=== PATIENT | male | born 1955 | race Caucasian/White ===

== ENCOUNTER 2016-08-21 13:11 | Emergency (ER) | payer MEDICARE, MEDICAID ==
[2016-08-21] MEDS ORDERED: METHYLPREDNISOLONE INJ 125 MG/2 ML SDV IV ONE (13:47)
[2016-08-21] MEDS ORDERED: ALBUTEROL SULFATE 0.083% NEB 2.5 MG/3 ML AMPUL NEB ONE ×2 (13:47→14:56)
[2016-08-21] MEDS ORDERED: MORPHINE SULFATE 10 MG/ML INJ IV ONE (13:47)
[2016-08-21] MEDS ORDERED: DIPH/PERTUSS(ACELL)/TETANUS VAC/PF 0.5 ML SYR (>=10YO) IM ONE (13:47)
[2016-08-21] MEDS ORDERED: IPRATROPIUM/ALBUTEROL 0.5-2.5 MG/3 ML AMPUL NEB ONE (13:47)
[2016-08-21] MEDS ORDERED: SILVER SULFADIAZINE 1% CREAM 25 GM TP ONE (13:47)
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
[2016-08-21 14:09] LABS: ABSOLUTE BASOPHILS # (AUTO) 0.1 10^3/uL (0.0-0.2); ABSOLUTE EOSINOPHILS # (AUTO) 0.2 10^3/uL (0.0-0.6); ABSOLUTE LYMPHOCYTES (AUTO) 2.9 10^3/uL (0.5-4.7); ABSOLUTE MONOCYTES (AUTO) 0.8 10^3/uL (0.1-1.4); ABSOLUTE NEUT (AUTO) 4.6 10^3/uL (1.7-8.2); BASOPHILS % (AUTO) 0.8 % (0-2); EOSINOPHILS % (AUTO) 2.1 % (0-6); HEMATOCRIT 48.1 % (37.9-51.0); HEMOGLOBIN 16.1 g/dL (13.5-17.0); HGB HCT DIFFERENCE 0.2; LYMPHOCYTES % (AUTO) 33.6 % (13-45); MEAN CORPUSCULAR HEMOGLOBIN 29.1 pg (27.0-33.4); MEAN CORPUSCULAR HGB CONC 33.5 g/dL (32.0-36.0); MEAN CORPUSCULAR VOLUME 87 fl (80-97); RED BLOOD COUNT 5.54 10^6/uL (4.35-5.55); RED CELL DISTRIBUTION WIDTH 13.3 % (11.5-14.0); SEGMENTED NEUTROPHILS % (AUTO) 53.5 % (42-78); WHITE BLOOD COUNT 8.5 10^3/uL (4.0-10.5)
[2016-08-21 14:24] LABS: ALANINE AMINOTRANSFERASE 32 U/L (21-72); ALBUMIN 4.4 g/dL (3.5-5.0); ALKALINE PHOSPHATASE 73 U/L (38-126); ANION GAP 11 (5-19); ASPARTATE AMINO TRANSFERASE 21 U/L (17-59); BILIRUBIN,DIRECT 0.3 mg/dL (0.0-0.4); BILIRUBIN,TOTAL 0.5 mg/dL (0.2-1.3); BLOOD UREA NITROGEN 10 mg/dL (7-20); CALCIUM 9.6 mg/dL (8.4-10.2); CARBON DIOXIDE 25 mmol/L (22-30); CHLORIDE 104 mmol/L (98-107); CREATINE KINASE 152 U/L (55-170); CREATININE RESULT 0.93 mg/dL (0.52-1.25); GLUCOSE 99 mg/dL (75-110); POTASSIUM 4.7 mmol/L (3.6-5.0); TOTAL PROTEIN 7.9 g/dL (6.3-8.2)
--- NOTE | 2016-08-21 14:27 | RADIOLOGY REPORT (SQ) ---
EXAM DESCRIPTION: CHEST SINGLE VIEW COMPLETED DATE/TIME: 08/21/2016 2:19 pm REASON FOR STUDY: db COMPARISON: 05/13/2015 EXAM PARAMETERS: NUMBER OF VIEWS: One view. TECHNIQUE: Single frontal radiographic view of the chest acquired. RADIATION DOSE: NA LIMITATIONS: None. FINDINGS: LUNGS AND PLEURA: Lung rice are hyperexpanded. There is bullous formation the apices. There is compressive atelectasis in the lung bases. No consolidation or failure. MEDIASTINUM AND HILAR STRUCTURES: No masses. Contour normal. HEART AND VASCULAR STRUCTURES: Heart normal in size. Normal vasculature. BONES: No acute findings. HARDWARE: None in the chest. OTHER: No other significant finding. IMPRESSION: Severe COPD with bullous formation in the apices. No acute findings. TECHNICAL DOCUMENTATION: JOB ID: [id number]
[2016-08-21 14:36] LABS: CREATINE KINASE MB 2.43 ng/mL (<4.55)
[2016-08-21 14:39] LABS: TROPONIN I < 0.012 ng/mL
[2016-08-21 15:23] LABS: VENOUS BLOOD BASE EXCESS -2.1 mmol/L; VENOUS BLOOD HCO3 24.7 mmol/L (20-32); VENOUS BLOOD PCO2 49.3 mmHg (35-63); VENOUS BLOOD PH 7.32 (7.30-7.42)
[2016-08-21 15:27] VITALS: BP 146/96
--- NOTE | 2016-08-21 21:15 | EKG REPORT ---
SEVERITY:- NORMAL ECG - SINUS RHYTHM : Confirmed by: Ap Elder 21-Aug-2016 21:14:45
== END 2016-08-21 15:35 | disposition home or self-care (01) ==
LOC: ER 13:11
DX: J44.1 Chronic obstructive pulmonary disease with (acute) exacerbation (principal); T20.14XA Burn of first degree of nose (septum), initial encounter; T20.12XA Burn of first degree of lip(s), initial encounter; X08.8XXA Exposure to other specified smoke, fire and flames, initial encounter; Y93.89 Activity, other specified; F17.210 Nicotine dependence, cigarettes, uncomplicated; Z99.81 Dependence on supplemental oxygen; R06.02 Shortness of breath; R05 Cough; I10 Essential (primary) hypertension; I25.2 Old myocardial infarction; Z91.013 Allergy to seafood
CPT/HCPCS: 93005; 94640 ×2; 99285; 90471; 96374; 96375; 36415; 82553; 82550; 85025; 80053; 84484; 82803; 83880; 71010; 90715; 93010; J2930; J2270; A9270 ×3; J7620

== ENCOUNTER 2016-10-09 10:17 | Inpatient (IN) | payer MEDICARE, MEDICAID ==
--- NOTE | 2016-10-09 10:40 | ER Document Report ---
ED Respiratory Problem - General Mode of Arrival: Medic Information source: Patient TRAVEL OUTSIDE OF THE [place] IN LAST 30 DAYS: No - HPI Patient complains to provider of: Short of breath Associated symptoms: Other - See above <KENA GAGE - Last Filed: 10/09/16 10:35> <SANIYA EUGENE - Last Filed: 10/09/16 16:18> - General Chief Complaint: Shortness Of Breath Stated Complaint: SHORTNESS OF BREATH Notes: Patient is a 61 year old male, with a past medical history including COPD, who presents to the emergency department complaining of shortness of breath onset this morning. Patient states he was fine last night but woke up with difficulty breathing and shortness of breath, states he couldn't swallow. Patient is on home oxygen and still smokes. Patient was seen at this facility on August 21 for similar complaints. (KENA GAGE) - Related Data Allergies/Adverse Reactions: iodine [Iodine] Allergy (Verified 08/28/14 15:04) Shellfish * [Shellfish] Allergy (Verified 08/28/14 15:04) Past Medical History - General Information source: Patient - Social History Smoking Status: Current Every Day Smoker Family History: Reviewed & Not Pertinent - Past Medical History Cardiac Medical History: Reports: Hx Heart Attack, Hx Hypertension Pulmonary Medical History: Reports: Hx Bronchitis, Hx COPD Renal/ Medical History: Reports: Hx Kidney Stones GI Medical History: Reports: Hx Diverticulitis <KENA GAGE - Last Filed: 10/09/16 10:35> Review of Systems - Review of Systems Constitutional: No symptoms reported EENT: See HPI, Difficulty swallowing Cardiovascular: No symptoms reported Respiratory: See HPI, Short of breath Gastrointestinal: No symptoms reported Genitourinary: No symptoms reported Male Genitourinary: No symptoms reported Musculoskeletal: No symptoms reported Skin: No symptoms reported Hematologic/Lymphatic: No symptoms reported Neurological/Psychological: No symptoms reported -: Yes All other systems reviewed and negative <KENA GAGE - Last Filed: 10/09/16 10:35> Physical Exam - Vital signs Interpretation: Normal - General General appearance: Appears well, Alert - HEENT Head: Normocephalic, Atraumatic - Respiratory Respiratory status: Tachypnea, Other - Air trapping, prolonged expiratory phase Chest status: Nontender Breath sounds: Wheezing - Diffuse expiratory and inspiratory Chest palpation: Normal - Cardiovascular Rhythm: Regular Heart sounds: Normal auscultation Murmur: No - Back Back: Normal, Nontender - Extremities General upper extremity: Normal inspection General lower extremity: Normal inspection - Neurological Neuro grossly intact: Yes Cognition: Normal Orientation: AAOx4 Jacy Coma Scale Eye Opening: Spontaneous [place] Coma Scale Verbal: Oriented Jacy Coma Scale Motor: Obeys Commands Jacy Coma Scale Total: 15 Speech: Normal - Psychological Associated symptoms: Normal affect, Normal mood - Skin Skin Temperature: Warm Skin Moisture: Dry Skin Color: Normal <KENA GAGE - Last Filed: 10/09/16 10:35> - HEENT Pharynx: Other - Posterior pharynx shows some erythematous and edematous tonsillar tissue. There is no exudate. <SANIYA EUGENE - Last Filed: 10/09/16 16:18> - Vital signs Vitals: Resp Pulse Ox 39 H 100 10/09/16 10:32 10/09/16 10:32 Course <KENA GAGE - Last Filed: 10/09/16 10:35> - Laboratory Result Diagrams: 10/09/16 11:15 10/09/16 11:15 - Diagnostic Test Radiology reviewed: Image reviewed, Reports reviewed - Chest x-ray shows COPD with bullous formation in the upper lung rice. Does not show an acute process. - EKG Interpretation by Me EKG shows normal: Sinus rhythm, Intervals, QRS Complexes, ST-T Waves. abnormal : [place] - Borderline right axis deviation Rate: Tachycardia - 110 When compared to previous EKG there are: No significant change - Consults Dr. Rosas Time consulted: 16:05 Consulted provider: will come to ER <SANIYA EUGENE - Last Filed: 10/09/16 16:18> - Re-evaluation Re-evalutation: 10/09/16 13:22 Patient reports the throat swelling seems to feel much better after racemic epi , and the breathing seems better. On auscultation the prolonged expiratory phase of wheezing is much improved compared to earlier. The BiPAP will be stopped and the patient switched to nasal cannula oxygen. The rapid strep is negative. 10/09/16 15:41 The patient is working quite hard to breathe again. The wheezes have become quite loud again. He states at home he normally does breathing treatments 3 times a day which would be about every 8 hours. It is most likely the infectious process affecting his posterior pharynx is also affecting his lungs and breathing. He reluctantly agrees to be admitted to the hospital. (SANIYA EUGENE) - Vital Signs Vital signs: Temp Pulse Resp BP Pulse Ox 29 H 146/114 H 100 10/09/16 12:01 10/09/16 12:01 10/09/16 12:01 - Laboratory Laboratory results interpreted by me: 10/09/16 11:15 Creatine Kinase 210 H Critical Care Note - Critical Care Note Total time excluding time spent on procedures (mins): 35 <SANIYA EUGENE - Last Filed: 10/09/16 16:18> Discharge <KENA GAGE - Last Filed: 10/09/16 10:35> - Discharge Admitting Provider: Hospitalist Unit Admitted: [facility] <SANIYA EUGENE - Last Filed: 10/09/16 16:18> - Discharge Clinical Impression: Acute viral pharyngitis, Acute exacerbation of chronic obstructive pulmonary disease (COPD) Condition: Stable Disposition: ADMITTED INPATIENT Scribe Attestation: 10/09/16 16:18 I personally performed the services described in the documentation, reviewed and edited the documentation which was dictated to the scribe in my presence, and it accurately records my words and actions. (SANIYA EUGENE) Scribe Documentation - Scribe Written by Jovon:: jovon Romero, 10/09/16, 1040 acting as scribe for :: Golden <KENA GAGE - Last Filed: 10/09/16 10:35>
[2016-10-09] MEDS ORDERED: IPRATROPIUM/ALBUTEROL 0.5-2.5 MG/3 ML AMPUL NEB ONE (10:48)
--- NOTE | 2016-10-09 11:13 | RADIOLOGY REPORT (SQ) ---
EXAM DESCRIPTION: CHEST SINGLE VIEW COMPLETED DATE/TIME: 10/09/2016 10:40 am REASON FOR STUDY: bed 17 sepsis protocol COMPARISON: 08/21/2016 EXAM PARAMETERS: NUMBER OF VIEWS: One view. TECHNIQUE: Single frontal radiographic view of the chest acquired. RADIATION DOSE: NA LIMITATIONS: None. FINDINGS: LUNGS AND PLEURA: Again there is evidence for obstructive lung disease with bullous format ion in the upper lung rice. No acute consolidations or pleural effusions are identified. MEDIASTINUM AND HILAR STRUCTURES: No masses. Contour normal. HEART AND VASCULAR STRUCTURES: Heart normal in size. Normal vasculature. BONES: No acute findings. HARDWARE: None in the chest. OTHER: No other significant finding. IMPRESSION: No significant interval change. Obstructive lung disease. No acute findings. Other fi ndings as noted above TECHNICAL DOCUMENTATION: JOB ID: [id number]
[2016-10-09 11:45] LABS: ABSOLUTE BASOPHILS # (AUTO) 0.1 10^3/uL (0.0-0.2); ABSOLUTE EOSINOPHILS # (AUTO) 0.2 10^3/uL (0.0-0.6); ABSOLUTE LYMPHOCYTES (AUTO) 1.7 10^3/uL (0.5-4.7); ABSOLUTE MONOCYTES (AUTO) 0.5 10^3/uL (0.1-1.4); ABSOLUTE NEUT (AUTO) 5.7 10^3/uL (1.7-8.2); BASOPHILS % (AUTO) 0.8 % (0-2); EOSINOPHILS % (AUTO) 2.2 % (0-6); HEMATOCRIT 46.4 % (37.9-51.0); HEMOGLOBIN 15.8 g/dL (13.5-17.0); LYMPHOCYTES % (AUTO) 21.1 % (13-45); MEAN CORPUSCULAR HEMOGLOBIN 29.7 pg (27.0-33.4); MEAN CORPUSCULAR VOLUME 87 fl (80-97); RED BLOOD COUNT 5.31 10^6/uL (4.35-5.55); RED CELL DISTRIBUTION WIDTH 13.6 % (11.5-14.0); SEGMENTED NEUTROPHILS % (AUTO) 69.9 % (42-78); WHITE BLOOD COUNT 8.1 10^3/uL (4.0-10.5)
[2016-10-09 11:50] LABS: PROTHROMBIN TIME 12.4 SEC (11.4-15.4)
[2016-10-09 12:06] LABS: ALANINE AMINOTRANSFERASE 34 U/L (21-72); ALBUMIN 4.4 g/dL (3.5-5.0); ALKALINE PHOSPHATASE 87 U/L (38-126); ANION GAP 13 (5-19); ASPARTATE AMINO TRANSFERASE 18 U/L (17-59); BILIRUBIN,DIRECT 0.3 mg/dL (0.0-0.4); BILIRUBIN,TOTAL 0.6 mg/dL (0.2-1.3); BLOOD UREA NITROGEN 10 mg/dL (7-20); CALCIUM 9.1 mg/dL (8.4-10.2); CARBON DIOXIDE 22 mmol/L (22-30); CHLORIDE 105 mmol/L (98-107); CREATINE KINASE 210 U/L (55-170); CREATININE RESULT 0.86 mg/dL (0.52-1.25); GLUCOSE 100 mg/dL (75-110); POTASSIUM 4.4 mmol/L (3.6-5.0); SODIUM 140.3 mmol/L (137-145); TOTAL PROTEIN 7.7 g/dL (6.3-8.2)
[2016-10-09] MEDS ORDERED: ALBUTEROL SULFATE 0.083% NEB 2.5 MG/3 ML AMPUL NEB ONE (12:09)
[2016-10-09] MEDS ORDERED: NORMAL SALINE 1000 ML 1,000 ML IV ONE (12:13)
[2016-10-09] MEDS ORDERED: RACEPINEPHRINE HCL 2.25% NEB 0.5 ML AMPUL NEB ONE ×2 (12:15→15:42)
[2016-10-09 12:17] LABS: CREATINE KINASE MB 3.59 ng/mL (<4.55)
[2016-10-09 12:19] LABS: TROPONIN I < 0.012 ng/mL
[2016-10-09 13:00] LABS: VENOUS BLOOD BASE EXCESS -2.1 mmol/L; VENOUS BLOOD HCO3 23.6 mmol/L (20-32); VENOUS BLOOD PCO2 43.4 mmHg (35-63); VENOUS BLOOD PH 7.35 (7.30-7.42)
[2016-10-09 13:17] LABS: APPEARANCE,URINE CLEAR; BILIRUBIN,URINE NEGATIVE (NEGATIVE); GLUCOSE, URINE NEGATIVE (NEGATIVE); KETONES,URINE NEGATIVE (NEGATIVE); LEUKOCYTE ESTERASE,URINE NEGATIVE (NEGATIVE); NITRITE,URINE NEGATIVE (NEGATIVE); PROTEIN,URINE NEGATIVE (NEGATIVE); URINE SPECIFIC GRAVITY 1.005; UROBILINOGEN,URINE NEGATIVE mg/dL (<2.0)
--- NOTE | 2016-10-09 13:59 | EKG REPORT ---
SEVERITY:- OTHERWISE NORMAL ECG - SINUS TACHYCARDIA BORDERLINE RIGHT AXIS DEVIATION : Confirmed by: Anastasiia Baum MD 09-Oct-2016 13:58:31
[2016-10-09] MEDS ORDERED: METHYLPREDNISOLONE INJ 125 MG/2 ML SDV IV ONE (15:42)
[2016-10-09] MEDS ORDERED: POTASSI CL 20 MEQ/1/2NS 1L 1,000 ML IV PRN (17:11)
[2016-10-09] MEDS ORDERED: ACETAMINOPHEN 325 MG TABLET PO PRN (17:11)
[2016-10-09] MEDS ORDERED: IPRATROPIUM/ALBUTEROL 0.5-2.5 MG/3 ML AMPUL NEB PRN (17:11)
[2016-10-09] MEDS ORDERED: ONDANSETRON HCL INJ/PF 4 MG/2 ML SDV IV PRN (17:11)
[2016-10-09] MEDS ORDERED: AZITHROMYCIN INJ 500 MG VIAL IV ONE (17:18)
--- NOTE | 2016-10-09 17:34 | PDOC H&P ---
History of Present Illness Admission Date/PCP: 10/09/16 16:20 SOO DALEY MD History of Present Illness: This is a 61-year-old white male with a past medical history significant for COPD coronary artery disease status post [place]. Long history of smoking and hypertension who presents to the service with complaints of shortness of breath. The patient has had a sore throat and swollen glands. He feels as though his throat is swollen and that it is getting worse. He developed shortness of breath this morning. When the shortness of breath started and became progressively worse he simply came into the emergency room. In the emergency room the patient received a dose of 125 mg Solu-Medrol, racemic epi, and duo nebs. Patient is still quite short of breath at the time that I see him at the bedside. He complains of a sore throat more than anything else however. The patient is very animated and loquacious he does not complain of much else during our conversation. He denies any fevers or chills. Past Medical History Cardiac Medical History: Reports: Myocardial Infarction, Hypertension Pulmonary Medical History: Reports: Bronchitis, Chronic Obstructive Pulmonary Disease (COPD) GI Medical History: Reports: Diverticulitis Musculoskeltal Medical History: Reports: Other - Fractures of multiple bones. Past Surgical History Past Surgical History: Reports: None Social History Information Source: Patient Lives with: Family Smoking Status: Former Smoker - The patient has not smoked in 2 months. Cigarettes Packs Per Day: 3 Number of Years Smokin Frequency of Alcohol Use: Rare - Drinks on his birthday. His last was about 3 years ago Hx Recreational Drug Use: Yes Drugs: Marijuana - Advance Directive Resuscitation Status: Full Code Family History Family History: CAD, COPD Parental Family History Reviewed: Yes Children Family History Reviewed: Yes Sibling(s) Family History Reviewed.: Yes Medication/Allergy Home Medications: Albuterol Sulfate [Proair HFA Inhalation Aerosol 8.5 gm MDI] 2 puff IH QIDP PRN 10/09/16 Budesonide/Formoterol Fumarate [Symbicort HFA 160-4.5 mcg Inhaler 6 gm] 2 puff IH BID 10/09/16 Cyclobenzaprine HCl [Flexeril 10 mg Tablet] 5 mg PO Q8HP PRN 10/09/16 Cyclobenzaprine HCl [Flexeril 10 mg Tablet] 10 mg PO QHS 10/09/16 Esomeprazole Magnesium [Nexium] 40 mg PO ACBRKFST 10/09/16 Hydrocodone/Acetaminophen [[place] 10-325 Tablet] 1.5 tab PO Q6HP PRN 10/09/16 Lisinopril [Prinivil 40 mg Tablet] 40 mg PO QHS 10/09/16 Metoprolol Tartrate [Lopressor 100 mg Tablet] 100 mg PO QHS 10/09/16 Promethazine HCl/Codeine [Prometh-Codein 6.25-10 mg/5 ml] 10 ml PO QIDP PRN Tiotropium [place] [Spiriva Respimat] 2 puff IH QAM 10/09/16 Ciprofloxacin HCl [Cipro 500 mg Tablet] 500 mg PO BID #20 tablet 10/12/16 Ipratropium/Albuterol Sulfate [Duoneb 3 ml Ampul] 3 ml NEB RTQ4HP PRN #100 vial.neb 10/12/16 Lactobacillus Acidophilus [Acidophilus Lactobacilli] 1 each PO BIDACBS #100 capsule 10/12/16 Prednisone 20 mg PO ASDIR PRN #20 tablet 10/12/16 Allergies/Adverse Reactions: iodine [Iodine] Allergy (Verified 08/28/14 15:04) Shellfish * [Shellfish] Allergy (Verified 08/28/14 15:04) Review of Systems Review of Systems: Review of systems is pertinent for that already listed in the HPI. In addition to this the patient admits to subjective fever and chills. Also arthritic pains. He denies nausea, vomiting, dizziness, diarrhea, constipation. He denies blood in the stool, blood in urine, coughing up blood or throwing up blood. He has a normal appetite. No dysuria. Physical Exam Vital Signs: Temp Pulse Resp BP Pulse Ox 29 H 146/114 H 100 10/09/16 12:01 10/09/16 12:01 10/09/16 12:01 GENERAL: This is a well-developed well-nourished obese white male sitting up resting in bed short of breath. HEENT: Normocephalic, atraumatic. Trachea is midline. Sclera is anicteric. Submandibular lymphadenopathy is present. No thyromegaly. Moist mucous membranes. Posterior pharynx is injected. HEART: [Regular rate and rhythm. No murmurs, rubs or gallops.] LUNGS: Bilateral expiratory wheezes but equal rise and fall of the chest. With prolonged conversation the patient speaks in fragmented sentences and becomes dyspneic. He is currently receiving racemic epi at the bedside. She is on a nasal cannula. ABDOMEN: [Soft, nontender, nondistended with normoactive bowel sounds] EXTREMETIES: [No clubbing, cyanosis or trace edema. 2+ peripheral pulses bilaterally.] NEURO: [Awake, alert and oriented 3. Cranial nerves II through XII are grossly intact. Strength is 5 out of 5 in the upper and lower extremities bilaterally.] Results Impressions: Chest X-Ray 10/09/16 10:20 IMPRESSION: No significant interval change. Obstructive lung disease. No acute findings. Other findings as noted above Assessment & Plan - Diagnosis (1) Acute on chronic respiratory failure with hypoxemia Plan: Continue oxygen. Continue Solu-Medrol. Will add dose of antibiotics on. Repeat chest x-ray in the morning. If nothing close out this can be discontinued. Likely his acute decompensation is due to underlying viral syndrome. (2) Acute exacerbation of chronic obstructive pulmonary disease (COPD) Plan: Continue duo nebs scheduled and as needed. Continue Solu-Medrol 40 mg every [address] Duff. (3) Acute viral pharyngitis Plan: Supportive care. Will prescribe viscous lidocaine for throat pain. Swish and spit. (4) Tobacco abuse Plan: The patient quit smoking 2 months ago. We have applauded him. I encouraged him to continue to refrain from smoking. (5) CAD (coronary artery disease) Qualifiers: Coronary Disease-Associated Artery/Lesion type: unspecified vessel or lesion type [place] vs. transplanted heart: [place] heart Associated angina: without angina Qualified Code(s): I25.10 - Atherosclerotic heart disease of [place] coronary artery without angina pectoris Plan: Continue home medications. Patient has a history of [place]. - Time Time Spent: 50 to 70 Minutes Anticipated discharge: Home Within: within 48 hours - Inpatient Certification I certify that my determination is in accordance with my understanding of Medicare's requirements for reasonable and necessary INPATIENT services [42 CFR 412.3e].: Yes Medical Necessity: Need Close Monitoring Due to Risk of Patient Decompensation
[2016-10-09] MEDS ORDERED: LIDOCAINE 2% VISCOUS SOLN 20 ML UDCUP PO PRN (17:35)
[2016-10-09] MEDS ORDERED: AZITHROMYCIN 500 MG in DEXTROSE 5%-WATER 250 ML IV ONE (18:00)
[2016-10-09] MEDS: LEVALBUTEROL HCL NEB 1.25 MG/3 ML AMPUL NEB SCH (20:17)
[2016-10-09] MEDS: METHYLPREDNISOLONE INJ 40 MG/1 ML SDV IV SCH (22:09)
[2016-10-10] MEDS: LEVALBUTEROL HCL NEB 1.25 MG/3 ML AMPUL NEB SCH ×6 (00:11→19:49)
[2016-10-10] MEDS ORDERED: OXYCODONE-ACETAMINOPHEN 5-325 MG TABLET PO ONE (04:30)
[2016-10-10 05:37] LABS: ABSOLUTE LYMPHOCYTES (AUTO) 1.5 10^3/uL (0.5-4.7); ABSOLUTE MONOCYTES (AUTO) 0.3 10^3/uL (0.1-1.4); ABSOLUTE NEUT (AUTO) 10.1 10^3/uL (1.7-8.2); BASOPHILS % (AUTO) 0.2 % (0-2); HEMATOCRIT 45.1 % (37.9-51.0); HEMOGLOBIN 15.2 g/dL (13.5-17.0); HGB HCT DIFFERENCE 0.5; LYMPHOCYTES % (AUTO) 12.9 % (13-45); MEAN CORPUSCULAR HEMOGLOBIN 29.3 pg (27.0-33.4); MEAN CORPUSCULAR HGB CONC 33.7 g/dL (32.0-36.0); MEAN CORPUSCULAR VOLUME 87 fl (80-97); MONOCYTES % (AUTO) 2.4 % (3-13); RED BLOOD COUNT 5.17 10^6/uL (4.35-5.55); RED CELL DISTRIBUTION WIDTH 14.2 % (11.5-14.0); SEGMENTED NEUTROPHILS % (AUTO) 84.5 % (42-78); WHITE BLOOD COUNT 11.9 10^3/uL (4.0-10.5)
[2016-10-10 05:54] LABS: ANION GAP 14 (5-19); BLOOD UREA NITROGEN 11 mg/dL (7-20); CALCIUM 9.8 mg/dL (8.4-10.2); CARBON DIOXIDE 21 mmol/L (22-30); CHLORIDE 106 mmol/L (98-107); CREATININE RESULT 0.84 mg/dL (0.52-1.25); GLUCOSE 137 mg/dL (75-110); MAGNESIUM 2.2 mg/dL (1.6-2.3); POTASSIUM 4.8 mmol/L (3.6-5.0); SODIUM 141.2 mmol/L (137-145)
[2016-10-10] MEDS: METHYLPREDNISOLONE INJ 40 MG/1 ML SDV IV SCH ×3 (05:58→21:28)
--- NOTE | 2016-10-10 07:44 | RADIOLOGY REPORT (SQ) ---
EXAM DESCRIPTION: CHEST PA/LAT COMPLETED DATE/TIME: 10/10/2016 7:26 am REASON FOR STUDY: sob COMPARISON: Chest x-ray 10/09/2016. EXAM PARAMETERS: NUMBER OF VIEWS: two views TECHNIQUE: Digital Frontal and Lateral radiographic views of the chest acquired. RADIATION DOSE: NA LIMITATIONS: none FINDINGS: LUNGS AND PLEURA: Hyperlucent lungs, suggestive of emphysema. Atelectatic changes at the bilateral perihilar regions. No pleural effusion or pneumothorax. MEDIASTINUM AND HILAR STRUCTURES: No masses or contour abnormalities. HEART AND VASCULAR STRUCTURES: Heart normal size. No evidence for failure. BONES: No acute findings. HARDWARE: None in the chest. IMPRESSION: Emphysema. Atelectasis at the bilateral perihilar regions. TECHNICAL DOCUMENTATION: JOB ID: [id number] [employer]- All Rights Reserved
[2016-10-10] MEDS ORDERED: CYCLOBENZAPRINE HCL 10 MG TABLET PO PRN (09:42)
[2016-10-10] MEDS ORDERED: (PENDING PHARMACY ID) (Tiotropium Bromide [Spiriva Respimat] 2 PUFF) IH SCH (09:45)
[2016-10-10] MEDS ORDERED: CEFTRIAXONE 2 GM/D5W RTU 50 ML IV SCH (10:00)
[2016-10-10] MEDS ORDERED: CEFTRIAXONE 2 GM/D5W RTU 2 GM/50 ML RTUPB IV ONE (10:00)
--- NOTE | 2016-10-10 10:32 | PDOC PROGRESS REPORT ---
Subjective Progress Note for:: 10/10/16 Subjective:: reason for visit: f/u COPD exac, viral pharyngitis, thrush hospital course: per other's notes -"This is a 61-year-old white male with a past medical history significant for COPD coronary artery disease status post [place]. Long history of smoking and hypertension who presents to the service with complaints of shortness of breath. The patient has had a sore throat and swollen glands. He feels as though his throat is swollen and that it is getting worse. He developed shortness of breath this morning. When the shortness of breath started and became progressively worse he simply came into the emergency room. In the emergency room the patient received a dose of 125 mg Solu-Medrol, racemic epi, and duo nebs. Patient is still quite short of breath at the time that I see him at the bedside. He complains of a sore throat more than anything else however. The patient is very animated and loquacious he does not complain of much else during our conversation. He denies any fevers or chills." he continues to wheeze and is easily winded with minimal exertion; no better than when he arrived. still has cough, nonproductive, no chest pain, fevers/ chills, n/v/d. ROS: all systems reviewed, see above, remaining systems negative Physical Exam Vital Signs: Temp Pulse Resp BP Pulse Ox 98.1 F 129 H 20 142/90 H 100 10/10/16 08:13 10/10/16 08:13 10/10/16 08:13 10/10/16 08:13 10/10/16 08:13 Intake & Output 10/09/16 10/10/16 10/11/16 06:59 06:59 06:59 Intake Total 1200 Output Total 275 Balance 925 Weight 107.9 kg General appearance: PRESENT: no acute distress, obese, well-developed, well- nourished Head exam: PRESENT: atraumatic, normocephalic Eye exam: PRESENT: EOMI. ABSENT: conjunctival injection, scleral icterus Mouth exam: PRESENT: dry mucosa - thin white coat on the tongue, neck supple Neck exam: PRESENT: full ROM. ABSENT: tracheal deviation Respiratory exam: PRESENT: accessory muscle use, decreased breath sounds, unlabored, wheezes - diffuse Cardiovascular exam: PRESENT: RRR, tachycardia. ABSENT: systolic murmur Pulses: PRESENT: normal radial pulses, normal dorsalis pedis pul GI/Abdominal exam: PRESENT: normal bowel sounds, soft. ABSENT: tenderness Extremities exam: ABSENT: calf tenderness, pedal edema Neurological exam: PRESENT: alert, awake, oriented to person, oriented to place , oriented to time Psychiatric exam: PRESENT: appropriate affect, normal mood. ABSENT: anxious, manic Skin exam: PRESENT: dry, warm Results Laboratory Results: 10/10/16 04:56 10/10/16 04:56 10/10/16 10/10/16 04:56 04:56 WBC 11.9 H RBC 5.17 Hgb 15.2 Hct 45.1 MCV 87 MCH 29.3 MCHC 33.7 RDW 14.2 H Plt Count 204 Seg Neutrophils % 84.5 H Lymphocytes % 12.9 L Monocytes % 2.4 L Eosinophils % 0.0 Basophils % 0.2 Absolute Neutrophils 10.1 H Absolute Lymphocytes 1.5 Absolute Monocytes 0.3 Absolute Eosinophils 0.0 Absolute Basophils 0.0 Sodium 141.2 Potassium 4.8 Chloride 106 Carbon Dioxide 21 L Anion Gap 14 BUN 11 Creatinine 0.84 Est GFR ( Amer) > 60 Est GFR (Non-Af Amer) > 60 Glucose 137 H Calcium 9.8 Magnesium 2.2 Impressions: Chest X-Ray 10/10/16 08:00 IMPRESSION: Emphysema. Atelectasis at the bilateral perihilar regions. Status: Image reviewed by me - agree with rads; review of old ct chest shows extensive bullous destruction of normal lung tissue Assessment & Plan - Diagnosis (1) Thrush, oral Is this a current diagnosis for this admission?: YesPlan: add topical care and monitor for response (2) Acute exacerbation of chronic obstructive pulmonary disease (COPD) Is this a current diagnosis for this admission?: YesPlan: continue aggressive pulm toilet, systemic steroids, nebs, O2 (3) Acute on chronic respiratory failure with hypoxemia Is this a current diagnosis for this admission?: Yes (4) Acute viral pharyngitis Is this a current diagnosis for this admission?: Yes (5) CAD (coronary artery disease) Qualifiers: Coronary Disease-Associated Artery/Lesion type: unspecified vessel or lesion type [place] vs. transplanted heart: [place] heart Associated angina: without angina Qualified Code(s): I25.10 - Atherosclerotic heart disease of [place] coronary artery without angina pectoris Is this a current diagnosis for this admission?: Yes (6) Tobacco abuse Is this a current diagnosis for this admission?: YesPlan: not interested in cessation counseling at this time (7) Acute bacterial bronchitis Is this a current diagnosis for this admission?: YesPlan: finished 3d of azithromax, continue rocephin (8) Chronic low back pain Qualifiers: Back pain laterality: bilateral Sciatica presence: with sciatica Sciatica laterality: bilateral sciatica Qualified Code(s): M54.42 - Lumbago with sciatica, left side; M54.41 - Lumbago with sciatica, right side; G89.29 - Other chronic pain Is this a current diagnosis for this admission?: YesPlan: takes high dose norco at home; continue analgesics while here - Time Time Spent with patient: 35 or more minutes Medications reviewed and adjusted accordingly: Yes Anticipated discharge: Home Within: within 48 hours - Plan Summary Plan Summary: states he was recently evaluated at [place] for his lung disease and they "started a bunch of meds", will try to get those records
[2016-10-10] MEDS: OXYCODONE-ACETAMINOPHEN 5-325 MG TABLET PO PRN ×2 (10:39→16:46)
[2016-10-10] MEDS: METOPROLOL TARTRATE 50 MG TABLET PO SCH ×2 (10:43→21:27)
--- NOTE | 2016-10-10 12:21 | Physician Advisory Note ---
Physician Advisor ProgressNote .: Pursuant to the plan for [facility], I have reviewed the medical record for this patient. Physician Advisor Statement: Nice documentation of "chronic hypoxemic resp failure", & possible "Acute Bacterial bronchitis", & ongoing medical necessity in 10/10 progress note. Please consider documentin. How much O2 does pt need at baseline? (Always helpful to document in chronic resp failure.) 2. Any low O2 sats on usual amount O2, w/evidence of increased work of breathing at same time, to support dx of Ac Resp Failure, (or do you believe Ac Resp Failure dx was considered but ruled out?) - Please clarify what makes these points not contradictory in 10/10 progress note: "(+)accessory muscle use" + "unlabored" breathing. 3. Principal Dx - H&P lists Ac/chr resp failure as Dx #1, whereas 10/10 progress note lists thrush as Dx #1. Please consistently document the principal reason for admission as Dx #1 in all notes. Status: Pt with COPD exacerbation is typically most appropriate to come in as Outpt Obs, changing to Inpatient if so severe that pt doesn't improve quickly enough to go home the next day. This pt has COPD/emphysema with chronic use of __L O2 at home at baseline ( chronic hypoxemic resp failure), CAD w/prior NH (so increased chance of developing acute cardiac decompensation with tachycardia &/or hypoxemia of acute COPD exacerbation), HTN, ongoing tobacco abuse. This pt did have 2 Duonebs along with Solumedrol & Diphenhydramine en route with EMS, then 2 more Duonebs, 1L IVF, a 2nd dose 125mg Solumedrol, racemic epi x 2 total, & Bipap in ED, with recurrence of acute sx prompting ED to call hospitalist. H&P does indicate continued significant severity: "with prolonged conversation the pt speaks in fragmented sentences & becomes dyspneic "Verdana 4d at time of receiving 2nd racemic epi. This degree of ongoing sx in spite of such aggressive initial tx indicates a higher than usual likelihood of needing longer than just 1 night of hospital tx to control his sx and likely played a role in initial order for Inpatient status. Admitting attending ordered IV Rocephin & Zithromax, Xopanex nebs q4h, Duonebs prn, Solumedrol 40mg q8h, IVF @100, repeat CXR & labs, O2, & pulmonology consult. This pt has continued w/persistent prominent tachycardia as high as 129 and recurrent tachypnea to , and 10/10 progress note documents he is "no better than when he arrived", continuing to wheeze and get easily winded with minimal exertion, so he is certainly, despite very aggressive tx, not responding adequately. He is using accessory muscles to breathe on 10/10, which was not noted on 10/09, so he may actually be getting worse today in some respects. CXR on repeat shows emphysema & atelectasis. He appears to have developed thrush. Appropriate for Inpt status. CK
[2016-10-10] MEDS ORDERED: NYSTATIN/DEXAMETH/DIPHEN SUSP 120 ML PO SCH (14:00)
[2016-10-10] MEDS: NYSTATIN/DEXAMETH/DIPHEN SUSP 120 ML PO SCH ×2 (16:45→21:27)
[2016-10-10] MEDS: BUDESONIDE/FORMOTEROL 160-4.5 MCG 60 PUFF/6 GM MDI IH SCH (17:54)
[2016-10-10] MEDS: CYCLOBENZAPRINE HCL 10 MG TABLET PO SCH (21:26)
[2016-10-11] MEDS: LEVALBUTEROL HCL NEB 1.25 MG/3 ML AMPUL NEB SCH ×7 (00:11→23:22)
[2016-10-11] MEDS: METHYLPREDNISOLONE INJ 40 MG/1 ML SDV IV SCH ×3 (05:12→21:46)
[2016-10-11] MEDS: LANSOPRAZOLE 30 MG TAB.RAP.DR PO SCH (08:28)
[2016-10-11] MEDS: TIOTROPIUM BROMIDE DPI 5 CAP/KIT (18 MCG/CAP) IH SCH (08:29)
[2016-10-11] MEDS: NYSTATIN/DEXAMETH/DIPHEN SUSP 120 ML PO SCH ×4 (08:29→21:46)
[2016-10-11] MEDS: OXYCODONE-ACETAMINOPHEN 5-325 MG TABLET PO PRN (08:36)
[2016-10-11] MEDS: CEFTRIAXONE 2 GM/D5W RTU 2 GM/50 ML RTUPB IV SCH (10:33)
[2016-10-11] MEDS: METOPROLOL TARTRATE 50 MG TABLET PO SCH ×2 (10:33→21:45)
[2016-10-11] MEDS: BUDESONIDE/FORMOTEROL 160-4.5 MCG 60 PUFF/6 GM MDI IH SCH ×2 (10:34→18:26)
--- NOTE | 2016-10-11 11:50 | PDOC PROGRESS REPORT ---
Subjective Progress Note for:: 10/11/16 Subjective:: reason for visit: f/u COPD exac, viral pharyngitis, thrush hospital course: per other's notes -"This is a 61-year-old white male with a past medical history significant for COPD coronary artery disease status post [place]. Long history of smoking and hypertension who presents to the service with complaints of shortness of breath. The patient has had a sore throat and swollen glands. He feels as though his throat is swollen and that it is getting worse. He developed shortness of breath this morning. When the shortness of breath started and became progressively worse he simply came into the emergency room. In the emergency room the patient received a dose of 125 mg Solu-Medrol, racemic epi, and duo nebs. Patient is still quite short of breath at the time that I see him at the bedside. He complains of a sore throat more than anything else however. The patient is very animated and loquacious he does not complain of much else during our conversation. He denies any fevers or chills." he continues to wheeze and is easily winded with minimal exertion; some better this morning. still has cough, nonproductive, no chest pain, fevers/chills, n/v /d. c/o intense and chronic back and MSK pain states his norco works the best at home. ROS: all systems reviewed, see above, remaining systems negative Physical Exam Vital Signs: Temp Pulse Resp BP Pulse Ox 97.6 F 69 23 H 130/90 H 97 10/11/16 08:13 10/11/16 08:13 10/11/16 08:13 10/11/16 08:13 10/11/16 08:13 Intake & Output 10/10/16 10/11/16 10/12/16 06:59 06:59 06:59 Intake Total 1200 939 Output Total 275 700 Balance 925 239 Weight 107.9 kg 110.1 kg General appearance: PRESENT: no acute distress, obese, well-developed, well- nourished Head exam: PRESENT: atraumatic, normocephalic Eye exam: PRESENT: EOMI. ABSENT: conjunctival injection, scleral icterus Mouth exam: PRESENT: dry mucosa - thin white coat on the tongue, neck supple Neck exam: PRESENT: full ROM. ABSENT: tracheal deviation Respiratory exam: PRESENT: accessory muscle use, decreased breath sounds, wheezes - not as diffuse but still with opening squeaks and pops Cardiovascular exam: PRESENT: RRR, tachycardia. ABSENT: systolic murmur Pulses: PRESENT: normal radial pulses, normal dorsalis pedis pul GI/Abdominal exam: PRESENT: normal bowel sounds, soft. ABSENT: tenderness Extremities exam: ABSENT: calf tenderness, pedal edema MSK: diffuse tenderness along his spine and rib cage posteriorly Neurological exam: PRESENT: alert, awake, oriented to person, oriented to place , oriented to time Psychiatric exam: PRESENT: appropriate affect, normal mood. ABSENT: anxious, manic Skin exam: PRESENT: dry, warm Results Laboratory Results: 10/10/16 04:56 10/10/16 04:56 Assessment & Plan - Diagnosis (1) Acute exacerbation of chronic obstructive pulmonary disease (COPD) Is this a current diagnosis for this admission?: YesPlan: improved but not back to baseline; continue aggressive pulm toilet, systemic steroids, nebs, O2 (2) Acute bacterial bronchitis Is this a current diagnosis for this admission?: YesPlan: improved but not back to baseline; finished 3d of azithromax, continue rocephin (3) Chronic low back pain Qualifiers: Qualified Code(s): M54.42 - Lumbago with sciatica, left side; G89.29 - Other chronic pain Is this a current diagnosis for this admission?: YesPlan: worse, likely exacerbated by his acute illness; takes high dose norco at home and pain poorly controlled on current regimen, will attempt to replicate his home dose and monitor for response (4) Thrush, oral Is this a current diagnosis for this admission?: Yes (5) Acute viral pharyngitis Is this a current diagnosis for this admission?: Yes (6) CAD (coronary artery disease) Qualifiers: Qualified Code(s): I25.10 - Atherosclerotic heart disease of [place] coronary artery without angina pectoris Is this a current diagnosis for this admission?: Yes (7) Tobacco abuse Is this a current diagnosis for this admission?: Yes - Time Time Spent with patient: 25-34 minutes Medications reviewed and adjusted accordingly: Yes Anticipated discharge: Home Within: within 48 hours
[2016-10-11] MEDS: HYDROCODONE/ACETAMINOPHEN 10-325 MG TABLET PO PRN (13:18)
--- NOTE | 2016-10-11 17:55 | PDOC CONSULTATION ---
Consultation Consult Date: 10/10/16 Attending physician:: BAR DANIELS Consult reason:: Dyspnea History of Present Illness Admission Date/PCP: 10/09/16 17:11 SOO DALEY MD History of Present Illness: This is a 61-year-old white male with a past medical history significant for COPD,He has approximately a [id number] history of smoking and hypertension who presents to the service with complaints of shortness of breath. The patient has had a sore throat and swollen glands. He feels as though his throat is swollen and that it is getting worse. He developed shortness of breath this morning. When the shortness of breath started and became progressively worse he simply came into the emergency room. In the emergency room the patient received a dose of 125 mg Solu-Medrol, racemic epi, and duo nebs. Patient is still quite short of breath at the time that I see him at the bedside. He complains of a sore throat more than anything else however. The patient is very animated and loquacious he does not complain of much else during our conversation. He denies any fevers or chills.Admits to shortness of breath as well as Dyspnea with minimal exertion affecting activities of daily living he admits to a cough is usually dry nonproductive but over the last several days has become more productive with yellow sputum and thick but no hemoptysis his PPD was negative dates unknown he has some normals nausea without vomiting and questionable fever and chills chronically has a rhinorrhea but no sore throat he denies a history of chronic lung disease as a child or adolescent. He admits to exposure to passive smoke as a child as well as an adult as above he is smoked one half packs a day for 45 years. 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 He has no pets denies any recent travel. He readily admits some tightness in his chest is on 2 pillows occasional PND occasional nocturnal cough and occasional edema he admits to snoring restless sleep nocturia unrestful sleep and excessive daytime somnolence he has a long history of coronary artery disease and myocardial infarctions. Past Medical History Cardiac Medical History: Reports: Myocardial Infarction, Hypertension Pulmonary Medical History: Reports: Bronchitis, Chronic Obstructive Pulmonary Disease (COPD) GI Medical History: Reports: Diverticulitis Musculoskeltal Medical History: Reports: Other - Fractures of multiple bones. Psychiatric Medical History: Denies: Depression Past Surgical History Past Surgical History: Reports: None Social History Lives with: Family Smoking Status: Current Some Day Smoker Cigarettes Packs Per Day: 3 Number of Years Smokin Frequency of Alcohol Use: None Hx Recreational Drug Use: No Drugs: None Hx Prescription Drug Abuse: No Do you have pets?: No Have you had any respiratory illnesses as a child?: No Have you been exposed to any sick contacts recently?: No Have you had any recent respiratory illnesses?: No Have you travelled outside of [place] in the past 12 months?: No - Advance Directive Resuscitation Status: Full Code Family History Family History: CAD, COPD Parental Family History Reviewed: Yes Children Family History Reviewed: Yes Sibling(s) Family History Reviewed.: Yes Medication/Allergy Home Medications: Albuterol Sulfate [Proair HFA Inhalation Aerosol 8.5 gm MDI] 2 puff IH QIDP PRN 10/09/16 Budesonide/Formoterol Fumarate [Symbicort HFA 160-4.5 mcg Inhaler 6 gm] 2 puff IH BID 10/09/16 Cyclobenzaprine HCl [Flexeril 10 mg Tablet] 5 mg PO Q8HP PRN 10/09/16 Cyclobenzaprine HCl [Flexeril 10 mg Tablet] 10 mg PO QHS 10/09/16 Esomeprazole Magnesium [Nexium] 40 mg PO [id number] 10/09/16 Hydrocodone/Acetaminophen [[place] 10-325 Tablet] 1.5 tab PO Q6HP PRN 10/09/16 Lisinopril [Prinivil 40 mg Tablet] 40 mg PO QHS 10/09/16 Metoprolol Tartrate [Lopressor 100 mg Tablet] 100 mg PO QHS 10/09/16 Promethazine HCl/Codeine [Prometh-Codein 6.25-10 mg/5 ml] 10 ml PO QIDP PRN Tiotropium [place] [Spiriva Respimat] 2 puff IH QAM 10/09/16 Allergies/Adverse Reactions: iodine [Iodine] Allergy (Verified 08/28/14 15:04) Shellfish * [Shellfish] Allergy (Verified 08/28/14 15:04) Review of Systems All systems: reviewed and no additional remarkable complaints except as stated Physical Exam Vital Signs: Temp Pulse Resp BP Pulse Ox 97.5 F 93 18 129/78 H 97 10/11/16 16:04 10/11/16 16:05 10/11/16 16:05 10/11/16 16:04 10/11/16 16:05 Intake & Output 10/10/16 10/11/16 10/12/16 06:59 06:59 06:59 Intake Total 1200 939 480 Output Total 275 700 400 Balance 925 239 80 Weight 107.9 kg 110.1 kg General appearance: PRESENT: no acute distress, cooperative, disheveled, obese, well-developed Head exam: PRESENT: atraumatic, normocephalic Eye exam: PRESENT: conjunctiva pale, EOMI Mouth exam: PRESENT: dry mucosa, neck supple, tongue midline Neck exam: ABSENT: carotid bruit, JVD, lymphadenopathy, thyromegaly Respiratory exam: PRESENT: decreased breath sounds, prolonged expiratory phas, rales, rhonchi, symmetrical Cardiovascular exam: PRESENT: RRR, +S1, +S2 Pulses: PRESENT: normal radial pulses GI/Abdominal exam: PRESENT: normal bowel sounds, soft. ABSENT: distended, guarding, mass, organolmegaly, rebound, tenderness Rectal exam: PRESENT: deferred Extremities exam: PRESENT: +1 edema Neurological exam: PRESENT: alert, awake Psychiatric exam: PRESENT: normal mood Skin exam: PRESENT: dry, warm Results Laboratory Results: 10/10/16 04:56 10/10/16 04:56 Impressions: Chest X-Ray 10/10/16 08:00 IMPRESSION: Emphysema. Atelectasis at the bilateral perihilar regions. Assessment & Plan - Diagnosis (1) Acute exacerbation of chronic obstructive pulmonary disease (COPD) Is this a current diagnosis for this admission?: YesPlan: Continue IV steroids, antibiotic as well as nebulized bronchodilator therapy (2) Acute on chronic respiratory failure with hypoxemia Is this a current diagnosis for this admission?: Yes (3) Tobacco abuse Is this a current diagnosis for this admission?: Yes
--- NOTE | 2016-10-11 17:56 | PDOC PROGRESS REPORT ---
Subjective Progress Note for:: 10/11/16 Subjective:: Still short of breath but feeling better today Physical Exam Vital Signs: Temp Pulse Resp BP Pulse Ox 97.5 F 93 18 129/78 H 97 10/11/16 16:04 10/11/16 16:05 10/11/16 16:05 10/11/16 16:04 10/11/16 16:05 Intake & Output 10/10/16 10/11/16 10/12/16 06:59 06:59 06:59 Intake Total 1200 939 480 Output Total 275 700 400 Balance 925 239 80 Weight 107.9 kg 110.1 kg General appearance: PRESENT: cooperative, disheveled, mild distress, obese, well -developed Head exam: PRESENT: atraumatic, normocephalic Eye exam: PRESENT: conjunctiva pale, EOMI Mouth exam: PRESENT: dry mucosa, neck supple Teeth exam: PRESENT: poor dentation Neck exam: ABSENT: carotid bruit, JVD, lymphadenopathy, thyromegaly Respiratory exam: PRESENT: decreased breath sounds, prolonged expiratory phas, rales, rhonchi, symmetrical Cardiovascular exam: PRESENT: RRR, +S1, +S2 GI/Abdominal exam: PRESENT: normal bowel sounds, soft. ABSENT: distended, guarding, mass, organolmegaly, rebound, tenderness Rectal exam: PRESENT: deferred Extremities exam: PRESENT: +1 edema Neurological exam: PRESENT: alert, awake Psychiatric exam: PRESENT: normal mood Skin exam: PRESENT: dry, warm Results Laboratory Results: 10/10/16 04:56 10/10/16 04:56 Impressions: Chest X-Ray 10/10/16 08:00 IMPRESSION: Emphysema. Atelectasis at the bilateral perihilar regions. Assessment & Plan - Diagnosis (1) Acute exacerbation of chronic obstructive pulmonary disease (COPD) Is this a current diagnosis for this admission?: Yes (2) Acute on chronic respiratory failure with hypoxemia Is this a current diagnosis for this admission?: Yes (3) Tobacco abuse Is this a current diagnosis for this admission?: Yes
[2016-10-11] MEDS ORDERED: MAG HYDROX/AL HYDROX/SIMETH SUSP 30 ML UDCUP PO PRN (20:33)
[2016-10-11] MEDS: CYCLOBENZAPRINE HCL 10 MG TABLET PO SCH (21:46)
[2016-10-12] MEDS: HYDROCODONE/ACETAMINOPHEN 10-325 MG TABLET PO PRN ×2 (00:39→10:22)
[2016-10-12] MEDS: LEVALBUTEROL HCL NEB 1.25 MG/3 ML AMPUL NEB SCH ×2 (03:46→08:20)
[2016-10-12] MEDS: METHYLPREDNISOLONE INJ 40 MG/1 ML SDV IV SCH (05:41)
[2016-10-12 09:32] VITALS: BP 142/89
[2016-10-12] MEDS: LANSOPRAZOLE 30 MG TAB.RAP.DR PO SCH (10:22)
[2016-10-12] MEDS: METOPROLOL TARTRATE 50 MG TABLET PO SCH (10:22)
[2016-10-12] MEDS: BUDESONIDE/FORMOTEROL 160-4.5 MCG 60 PUFF/6 GM MDI IH SCH (10:23)
[2016-10-12] MEDS: TIOTROPIUM BROMIDE DPI 5 CAP/KIT (18 MCG/CAP) IH SCH (10:23)
[2016-10-12] MEDS: NYSTATIN/DEXAMETH/DIPHEN SUSP 120 ML PO SCH (10:23)
[2016-10-12] MEDS: CEFTRIAXONE 2 GM/D5W RTU 2 GM/50 ML RTUPB IV SCH (10:24)
--- NOTE | 2016-10-12 10:44 | PDOC DISCHARGE SUMMARY ---
General - Admit/Disc Date/PCP Admission Date/Primary Care Provider: 10/09/16 17:11 SOO DALEY MD Discharge Date: 10/12/16 - Discharge Diagnosis (1) Acute exacerbation of chronic obstructive pulmonary disease (COPD) Is this a current diagnosis for this admission?: YesSummary: finally seems to be back to baseline and is asking to go home, states he cannot sleep here and is going stir crazy; worried about losing his narcotic refills that were just approved for pickup. his wheezing is back to baseline this morning and we have him established with dr molina for fu. he should continue steroids and abx for the pseudomonas found in his sputum for 2 wks and f/u as needed and instructed wiht his PCP an dpulmonary. case d/w's dr molina, agrees with treatment plan and discharge (2) Acute bacterial bronchitis Is this a current diagnosis for this admission?: YesSummary: Psa grew in sputum but is pansens, sent home with 10d of cipro. (3) Chronic low back pain Is this a current diagnosis for this admission?: Yes (4) Thrush, oral Is this a current diagnosis for this admission?: Yes (5) Acute viral pharyngitis Is this a current diagnosis for this admission?: Yes (6) CAD (coronary artery disease) Is this a current diagnosis for this admission?: Yes (7) Tobacco abuse Is this a current diagnosis for this admission?: Yes - Additional Information Resuscitation Status: Full Code Discharge Diet: As Tolerated Discharge Activity: Activity As Tolerated Home Medications: Albuterol Sulfate [Proair HFA Inhalation Aerosol 8.5 gm MDI] 2 puff IH QIDP PRN 10/09/16 Budesonide/Formoterol Fumarate [Symbicort HFA 160-4.5 mcg Inhaler 6 gm] 2 puff IH BID 10/09/16 Cyclobenzaprine HCl [Flexeril 10 mg Tablet] 5 mg PO Q8HP PRN 10/09/16 Cyclobenzaprine HCl [Flexeril 10 mg Tablet] 10 mg PO QHS 10/09/16 Esomeprazole Magnesium [Nexium] 40 mg PO ACBRKFST 10/09/16 Hydrocodone/Acetaminophen [[place] 10-325 Tablet] 1.5 tab PO Q6HP PRN 10/09/16 Lisinopril [Prinivil 40 mg Tablet] 40 mg PO QHS 10/09/16 Metoprolol Tartrate [Lopressor 100 mg Tablet] 100 mg PO QHS 10/09/16 Promethazine HCl/Codeine [Prometh-Codein 6.25-10 mg/5 ml] 10 ml PO QIDP PRN Tiotropium [place] [Spiriva Respimat] 2 puff IH QAM 10/09/16 Ciprofloxacin HCl [Cipro 500 mg Tablet] 500 mg PO BID #20 tablet 10/12/16 Ipratropium/Albuterol Sulfate [Duoneb 3 ml Ampul] 3 ml NEB RTQ4HP PRN #100 vial.neb 10/12/16 Lactobacillus Acidophilus [Acidophilus Lactobacilli] 1 each PO BIDACBS #100 capsule 10/12/16 Prednisone 20 mg PO ASDIR PRN #20 tablet 10/12/16 History of Present Illness Patient complains of: sore throat, cough and wheezing History of Present Illness: LAKSHMI SALINAS is a 61 year old male with a past medical history significant for COPD coronary artery disease status post ME. Long history of smoking and hypertension who presents to the service with complaints of shortness of breath. Hospital Course Hospital Course: The patient has had a sore throat and swollen glands. He feels as though his throat is swollen and that it is getting worse. He developed shortness of breath this morning. When the shortness of breath started and became progressively worse he simply came into the emergency room. In the emergency room the patient received a dose of 125 mg Solu-Medrol, racemic epi, and duo nebs. Patient is still quite short of breath at the time that I see him at the bedside. He complains of a sore throat more than anything else however. The patient is very animated and loquacious he does not complain of much else during our conversation. He denies any fevers or chills." he continued to wheeze until this morning and is still easily winded with minimal exertion but is better this morning and insisting he needs to go home, that he will do better at home. still has cough, nonproductive, no chest pain, fevers/chills, n/v/d. c/o intense and chronic back and MSK pain states his norco works the best at home. his bronchospasm is confined to lower lung rice anteriorly this morning, a marked improvement. he has neb machine and home O2 available. his sputum shows a Psa pansens so he will need at least a 10d course of cipro and f/u with pulmonary in a couple of weeks. he should see his PCP in one week to make sure his condition is stable and improving. he can return to the ED for worsening of his condition. Physical Exam Vital Signs: Temp Pulse Resp BP Pulse Ox 98.6 F 82 18 142/89 H 99 10/12/16 09:31 10/12/16 09:31 10/12/16 09:31 10/12/16 09:31 10/12/16 09:31 Intake & Output 10/11/16 10/12/16 10/13/16 06:59 06:59 06:59 Intake Total 939 2142 Output Total 700 1200 Balance 239 942 Weight 110.1 kg 107.1 kg General appearance: PRESENT: no acute distress, well-developed, well-nourished Head exam: PRESENT: atraumatic, normocephalic Eye exam: PRESENT: EOMI Teeth exam: PRESENT: poor dentation Neck exam: ABSENT: JVD, lymphadenopathy Respiratory exam: PRESENT: wheezes - faint end exp anterior wheezes R>L. ABSENT : accessory muscle use GI/Abdominal exam: PRESENT: normal bowel sounds, soft Neurological exam: PRESENT: alert, awake, oriented to person, oriented to place , oriented to time, oriented to situation Results Laboratory Results: 10/10/16 04:56 10/10/16 04:56 Impressions: Chest X-Ray 10/10/16 08:00 IMPRESSION: Emphysema. Atelectasis at the bilateral perihilar regions. Qualifiers PATEINT BEING DISCHARGED WITH ANY OF THE FOLLOWING DIAGNOSIS?: No VTE patient discharged on overlapping Therapy?: No Reason(s) for not prescribing Overlap Therapy:: Not indicated Plan Discharge Plan: home with abx, steroids, O2, nebs and close f/u with pulmonary and PCP Time Spent: Greater than 30 Minutes
--- NOTE | 2016-10-12 18:14 | PDOC PROGRESS REPORT ---
Subjective Progress Note for:: 10/12/16 Subjective:: Feel much better Physical Exam Vital Signs: Temp Pulse Resp BP Pulse Ox 98.6 F 82 18 142/89 H 99 10/12/16 09:31 10/12/16 09:31 10/12/16 09:31 10/12/16 09:31 10/12/16 09:31 Intake & Output 10/11/16 10/12/16 10/13/16 06:59 06:59 06:59 Intake Total 939 2142 Output Total 700 1200 Balance 239 942 Weight 110.1 kg 107.1 kg General appearance: PRESENT: no acute distress, cooperative, disheveled, obese, well-developed Head exam: PRESENT: atraumatic, normocephalic Eye exam: PRESENT: conjunctiva pale, EOMI Mouth exam: PRESENT: dry mucosa, neck supple, tongue midline Respiratory exam: PRESENT: decreased breath sounds, prolonged expiratory phas, rhonchi, symmetrical, unlabored, other - Breath sounds have improved over the last 24 hours Cardiovascular exam: PRESENT: RRR, +S1, +S2 Pulses: PRESENT: normal femoral pulses GI/Abdominal exam: PRESENT: ascites Rectal exam: PRESENT: deferred Musculoskeletal exam: PRESENT: normal inspection Neurological exam: PRESENT: alert, awake Psychiatric exam: PRESENT: normal mood Skin exam: PRESENT: dry, warm Results Laboratory Results: 10/10/16 04:56 10/10/16 04:56 Impressions: Chest X-Ray 10/10/16 08:00 IMPRESSION: Emphysema. Atelectasis at the bilateral perihilar regions. Assessment & Plan - Diagnosis (1) Acute exacerbation of chronic obstructive pulmonary disease (COPD) Is this a current diagnosis for this admission?: YesPlan: Resolved acute phase (2) Acute on chronic respiratory failure with hypoxemia Is this a current diagnosis for this admission?: Yes (3) Tobacco abuse Is this a current diagnosis for this admission?: Yes
== END 2016-10-12 11:05 | disposition home or self-care (01) | DRG 190 ==
LOC: ER 10:17 → UNDOADMIN 16:20 → EH 16:20 → 3W 19:36
PROVIDERS: ADMIT Internal Medicine; ATTEND Internal Medicine
DX: J44.0 Chronic obstructive pulmonary disease with (acute) lower respiratory infection (principal); J96.21 Acute and chronic respiratory failure with hypoxia; B37.0 Candidal stomatitis; J20.8 Acute bronchitis due to other specified organisms; J44.1 Chronic obstructive pulmonary disease with (acute) exacerbation; J02.9 Acute pharyngitis, unspecified; B96.5 Pseudomonas (aeruginosa) (mallei) (pseudomallei) as the cause of diseases classified elsewhere; I25.10 Atherosclerotic heart disease of native coronary artery without angina pectoris; M54.41 Lumbago with sciatica, right side; I10 Essential (primary) hypertension; F17.210 Nicotine dependence, cigarettes, uncomplicated; G89.29 Other chronic pain; Z79.899 Other long term (current) drug therapy; Z79.52 Long term (current) use of systemic steroids; I25.2 Old myocardial infarction; Z91.013 Allergy to seafood; Z88.8 Allergy status to other drugs, medicaments and biological substances
CPT/HCPCS: 36415; 71010; 71020; 80048; 80053; 81001; 82550; 82553; 82803; 82962; 83605; 83735; 84484; 85025; 85610; 87040; 87070; 87077; 87086; 87186; 87205; 87880; 93005; 93010; 94640; 94660; 99291; J0456; J0696; J2920; J2930; J3480; J3490; J7030; J7060; J7620

== ENCOUNTER → 2017-03-20 | Outpatient (CLI) | payer MEDICARE, MEDICAID ==
--- NOTE | 2017-03-20 15:30 | RADIOLOGY REPORT (SQ) ---
EXAM DESCRIPTION: CT CHEST WITHOUT COMPLETED DATE/TIME: 03/20/2017 11:09 am REASON FOR STUDY: PULMONARY EMPHYSEMA (J43.9), CHRONIC RESPIRATORY FAILURE (J96.11) J43.9 EMPHYSEMA , UNSPECIFIED J96.11 CHRONIC RESPIRATORY FAILURE WITH HYPOXIA COMPARISON: 07/12/2015. TECHNIQUE: CT scan performed of the chest without intravenous contrast. Images reviewed with lung, soft tissue and bone windows. Reconstructed coronal and sagittal MPR images reviewed. All images st ored on PACS. All CT scanners at this facility use dose modulation, iterative reconstruction, and/or weight based d osing when appropriate to reduce radiation dose to as low as reasonably achievable (ALARA). [facility]: Dose Right [facility]: CareDose [facility]: Dose Right [facility]: Teradose 4D [facility]: [employer] RADIATION DOSE: CT Rad equipment meets quality standard of care and radiation dose reduction techniq ues were employed. CTDIvol: 17.7 mGy. DLP: 713 mGy-cm. mGy. LIMITATIONS: No technical limitations. FINDINGS: LUNGS AND PLEURA: Hyperinflation. Marked bullous emphysema. Scattered parenchymal scarri ng. Stable 5 mm nodule versus focal scar in the left lower lobe. No new nodules or masses. No infi ltrates. No pleural effusion, pleural thickening, or pleural calcification. No pneumothorax. HILAR AND MEDIASTINAL STRUCTURES: No identified masses or abnormal nodes. No obvious aneurysm. HEART AND VASCULAR STRUCTURES: No aneurysm. No pericardial effusion. UPPER ABDOMEN: No significant findings. Limited exam. THYROID AND OTHER SOFT TISSUES: No masses. No adenopathy. BONES: No significant finding. HARDWARE: None in the chest. OTHER: No other significant findings. IMPRESSION: STABLE APPEARANCE OF THE CHEST. HYPERINFLATION WITH MARKED BULLOUS EMPHYSEMA. FOCAL NO DULE VERSUS SCAR IN THE LEFT LOWER LOBE UNCHANGED. NO NEW OR ACUTE FINDINGS. TECHNICAL DOCUMENTATION: JOB ID: [id number] Quality ID # [id number]: Final reports with documentation of one or more dose reduction techniques (e.g., Au tomated exposure control, adjustment of the mA and/or kV according to patient size, use of iterative reconstruction technique) 2010 [employer]- All Rights Reserved
== END ==
LOC: RAD 10:12
PROVIDERS: ATTEND Internal Medicine Pulmonary Disease
DX: J43.9 Emphysema, unspecified (principal); J96.11 Chronic respiratory failure with hypoxia
CPT/HCPCS: 71250

== ENCOUNTER 2017-05-29 20:00 | Inpatient (IN) | payer MEDICARE, MEDICAID ==
[2017-05-29] MEDS ORDERED: METHYLPREDNISOLONE INJ 125 MG/2 ML SDV IV ONE (20:07)
[2017-05-29] MEDS ORDERED: NORMAL SALINE 1000 ML 1,000 ML IV ONE (20:07)
--- NOTE | 2017-05-29 20:07 | ER Document Report ---
ED Respiratory Problem - General Mode of Arrival: Ambulatory Information source: Patient TRAVEL OUTSIDE OF THE [place] IN LAST 30 DAYS: No <JACKIE MARCELO - Last Filed: 05/30/17 03:12> <PONCHO INGRAM - Last Filed: 05/30/17 03:25> - General Chief Complaint: Shortness Of Breath Stated Complaint: SHORTNESS OF BREATH Time Seen by Provider: 05/29/17 20:04 Notes: Patient is a 61-year-old male that presents to the emergency department today in severe respiratory distress. Patient states that he last had steroids and antibiotics in August of 2016. History is limited secondary to the patient's medical condition. (JACKIE MARCELO) - Related Data Allergies/Adverse Reactions: iodine [Iodine] Allergy (Verified 08/28/14 15:04) Shellfish * [Shellfish] Allergy (Verified 08/28/14 15:04) Past Medical History - General Information source: Patient, [facility] Records - Social History Smoking Status: Never Smoker Cigarette use (# per day): No Frequency of alcohol use: None Drug Abuse: None Lives with: Family Family History: CAD, COPD - Past Medical History Cardiac Medical History: Reports: Hx Heart Attack, Hx Hypertension Pulmonary Medical History: Reports: Hx Bronchitis, Hx COPD Renal/ Medical History: Reports: Hx Kidney Stones GI Medical History: Reports: Hx Diverticulitis Surgical Hx: Negative <JACKIE MARCELO - Last Filed: 05/30/17 03:12> Review of Systems - Review of Systems Constitutional: No symptoms reported EENT: No symptoms reported Cardiovascular: No symptoms reported Respiratory: See HPI, Short of breath, Wheezing Gastrointestinal: No symptoms reported Genitourinary: No symptoms reported Male Genitourinary: No symptoms reported Musculoskeletal: No symptoms reported Skin: No symptoms reported Hematologic/Lymphatic: No symptoms reported Neurological/Psychological: No symptoms reported -: Yes All other systems reviewed and negative <JACKIE MARCELO - Last Filed: 05/30/17 03:12> Physical Exam - Vital signs Interpretation: Hypoxic, Tachypneic <JACKIE MARCELO - Last Filed: 05/30/17 03:12> <PONCHO INGRAM - Last Filed: 05/30/17 03:25> - Vital signs Vitals: Temp Pulse Resp BP Pulse Ox 98.0 F 121 H 23 H 162/113 H 99 05/29/17 20:00 05/29/17 20:00 05/29/17 20:00 05/29/17 20:00 05/29/17 20:00 - Notes Notes: Physical Exam: General: Alert, in severe distress. HEENT: Normocephalic. Atraumatic. PERRL. Extraocular movements intact. Oropharynx clear. Neck: Supple. Non-tender. Respiratory: Severe respiratory distress. Tachypneic. Coarse wheezing throughout. Cardiovascular: Tachycardic, regular rhythm. Abdominal: Obese. Non-tender. No distension. Normal Bowel Sounds. Back: Non-tender. No deformity or step off. Extremities: Moves all four extremities. Upper extremities: Normal inspection. Normal ROM. Lower extremities: Normal inspection. No edema. Normal ROM. Neurological: Normal cognition. AAOx4. Normal speech. Psychological: Normal affect. Normal Mood. Skin: Warm. Dry. Normal color. (JACKIE MARCELO) Course - Laboratory Result Diagrams: 05/29/17 20:18 05/29/17 20:18 <JACKIE MARCELO - Last Filed: 05/30/17 03:12> - Laboratory Result Diagrams: 05/29/17 20:18 05/29/17 20:18 - Diagnostic Test Radiology reviewed: Reports reviewed <PONCHO INGRAM - Last Filed: 05/30/17 03:25> - Re-evaluation Re-evalutation: 05/30/17 20:45 Respiratory status improving 05/30/17 21:15 Respiratory status improving, wants bipap settings turned down 05/29/17 21:58 Dr. Lucas agrees to admit patient (JACKIE MARCELO) Patient is a 61-year-old male who comes in with respiratory distress. Patient was given Solu-Medrol, DuoNeb, magnesium, and placed on BiPAP. Patient wanted BiPAP turndown but otherwise has responded nicely and is in less respiratory distress. Blood gas within normal limits. Patient had bacterial bronchitis on last admission that responded to ciprofloxacin. Levaquin was started IV today. Patient was admitted to the hospitalist service. Patient is agreeable to staying. Stable at time of admission. (PONCHO INGRAM) - Vital Signs Vital signs: Temp Pulse Resp BP Pulse Ox 98.7 F 121 H 22 H 137/97 H 97 05/30/17 01:01 05/29/17 20:00 05/30/17 02:02 05/30/17 00:01 05/30/17 02:02 - Laboratory Laboratory results interpreted by me: 05/29/17 05/29/17 20:18 20:18 WBC 13.1 H Lactic Acid 2.3 H Critical Care Note - Critical Care Note Total time excluding time spent on procedures (mins): 60 - Evaluation and management of respiratory distress with multiple re-evaluations, initiation of BiPAP, coordination of admission, counseling of patient and family <PONCHO INGRAM - Last Filed: 05/30/17 03:25> Discharge <JACKIE MARCELO - Last Filed: 05/30/17 03:12> - Discharge Admitting Provider: [facility] Unit Admitted: Telemetry <PONCHO INGRAM - Last Filed: 05/30/17 03:25> - Discharge Clinical Impression: Acute exacerbation of chronic obstructive pulmonary disease (COPD), Respiratory distress Condition: Stable Disposition: ADMITTED INPATIENT Scribe Attestation: 05/30/17 03:25 I personally performed the services described in the documentation, reviewed and edited the documentation which was dictated to the scribe in my presence, and it accurately records my words and actions. (PONCHO INGRAM) Scribe Documentation - Scribe Written by Michelle:: Michelle Maldonado, 05/29/2017 [id number] acting as scribe for :: Laura <JACKIE MARCELO - Last Filed: 05/30/17 03:12>
[2017-05-29] MEDS ORDERED: IPRATROPIUM/ALBUTEROL 0.5-2.5 MG/3 ML AMPUL NEB ONE ×2 (20:08)
[2017-05-29] MEDS: MAGNESIUM SULFATE/D5W 1 GM/100 ML RTUPB IV SCH ×2 (20:25→20:35)
[2017-05-29 20:44] LABS: VENOUS BLOOD BASE EXCESS -0.3 mmol/L; VENOUS BLOOD HCO3 26.5 mmol/L (20-32); VENOUS BLOOD PCO2 51.4 mmHg (35-63); VENOUS BLOOD PH 7.33 (7.30-7.42)
[2017-05-29 20:45] LABS: ABSOLUTE BASOPHILS # (AUTO) 0.1 10^3/uL (0.0-0.2); ABSOLUTE EOSINOPHILS # (AUTO) 0.6 10^3/uL (0.0-0.6); ABSOLUTE LYMPHOCYTES (AUTO) 3.3 10^3/uL (0.5-4.7); ABSOLUTE MONOCYTES (AUTO) 1.3 10^3/uL (0.1-1.4); ABSOLUTE NEUT (AUTO) 7.8 10^3/uL (1.7-8.2); BASOPHILS % (AUTO) 0.8 % (0-2); EOSINOPHILS % (AUTO) 4.3 % (0-6); HEMATOCRIT 45.2 % (37.9-51.0); HEMOGLOBIN 14.9 g/dL (13.5-17.0); LYMPHOCYTES % (AUTO) 25.2 % (13-45); MEAN CORPUSCULAR HGB CONC 32.9 g/dL (32.0-36.0); MEAN CORPUSCULAR VOLUME 85 fl (80-97); MONOCYTES % (AUTO) 9.7 % (3-13); PLATELET COUNT 281 10^3/uL (150-450); RED CELL DISTRIBUTION WIDTH 13.7 % (11.5-14.0); TOTAL CELLS COUNTED % (AUTO) 100 %; WHITE BLOOD COUNT 13.1 10^3/uL (4.0-10.5)
[2017-05-29 20:51] LABS: PROTHROMBIN TIME 12.8 SEC (11.4-15.4)
--- NOTE | 2017-05-29 20:56 | RADIOLOGY REPORT (SQ) ---
EXAM DESCRIPTION: CHEST SINGLE VIEW COMPLETED DATE/TIME: 05/29/2017 8:19 pm REASON FOR STUDY: SOB COMPARISON: CT chest 03/20/2017 chest radiograph 10/10/2016 EXAM PARAMETERS: NUMBER OF VIEWS: One view. TECHNIQUE: Single frontal radiographic view of the chest acquired. RADIATION DOSE: NA LIMITATIONS: None. FINDINGS: LUNGS AND PLEURA: There is marked lucency in the upper lung rice. Mild chronic intersti tial changes are present in the lower lung rice. No pulmonary infiltrate is seen. No pleural effu marisela is present. Small area of apparent scar in the left base medially. MEDIASTINUM AND HILAR STRUCTURES: No masses. Contour normal. HEART AND VASCULAR STRUCTURES: Heart normal in size. Normal vasculature. BONES: No acute findings. HARDWARE: None in the chest. OTHER: No other significant finding. IMPRESSION: Severe pulmonary emphysema with no acute pulmonary disease. TECHNICAL DOCUMENTATION: JOB ID: [id number] [employer]- All Rights Reserved Reading location - IP/workstation name: [email or web address]
[2017-05-29 21:06] LABS: ALANINE AMINOTRANSFERASE 32 U/L (21-72); ALBUMIN 4.3 g/dL (3.5-5.0); ALKALINE PHOSPHATASE 65 U/L (38-126); ANION GAP 12 (5-19); ASPARTATE AMINO TRANSFERASE 23 U/L (17-59); BILIRUBIN,DIRECT 0.4 mg/dL (0.0-0.4); BILIRUBIN,TOTAL 0.4 mg/dL (0.2-1.3); BLOOD UREA NITROGEN 9 mg/dL (7-20); CALCIUM 9.9 mg/dL (8.4-10.2); CARBON DIOXIDE 25 mmol/L (22-30); CHLORIDE 104 mmol/L (98-107); GLUCOSE 97 mg/dL (75-110); POTASSIUM 4.6 mmol/L (3.6-5.0); SODIUM 140.5 mmol/L (137-145); TOTAL PROTEIN 7.7 g/dL (6.3-8.2)
[2017-05-29 21:16] LABS: NT PRO BNP 51 pg/mL (5-900)
[2017-05-29 21:18] LABS: TROPONIN I < 0.012 ng/mL
[2017-05-29] MEDS ORDERED: ACETAMINOPHEN 325 MG TABLET PO PRN (21:57)
[2017-05-29] MEDS ORDERED: HYDRALAZINE HCL INJ/PF 20 MG/1 ML SDV IV PRN (21:57)
[2017-05-29] MEDS ORDERED: CHLORPHENIRAMINE MALEATE 4 MG TABLET PO ONE (21:57)
[2017-05-29] MEDS ORDERED: LACTULOSE SYRUP 20 GM/30 ML UDCUP PO ONE (21:57)
[2017-05-29] MEDS ORDERED: IPRATROPIUM/ALBUTEROL 0.5-2.5 MG/3 ML AMPUL NEB PRN (22:00)
[2017-05-29] MEDS ORDERED: LEVOFLOXACIN 750 MG/D5W RTU 750 MG/150 ML RTUPB IV ONE (22:00)
[2017-05-29] MEDS ORDERED: GUAIFENESIN SYRP 200 MG/10 ML UDC PO PRN (22:00)
[2017-05-29] MEDS ORDERED: HYDROCODONE/ACETAMINOPHEN 10-325 MG TABLET PO PRN (22:03)
[2017-05-29] MEDS ORDERED: CHLORPHENIRAMINE MALEATE 4 MG TABLET ONE (23:14)
[2017-05-29] MEDS ORDERED: METOPROLOL TARTRATE 100 MG TABLET ONE (23:14)
[2017-05-29] MEDS ORDERED: LACTULOSE SYRUP 20 GM/30 ML UDCUP ONE (23:15)
[2017-05-29] MEDS ORDERED: FLUTICASONE NASAL SPRAY 50 MCG/SPRY 120 SPRAY/16 GM ONE (23:15)
[2017-05-29] MEDS: HEPARIN SOD (PORCINE) 5,000 UNIT/ML 1 ML SYRINGE SUBCUT SCH (23:21)
[2017-05-29] MEDS: METOPROLOL TARTRATE 100 MG TABLET PO SCH (23:21)
[2017-05-30 00:03] LABS: APPEARANCE,URINE CLEAR; BILIRUBIN,URINE NEGATIVE (NEGATIVE); COLOR,URINE YELLOW; GLUCOSE, URINE NEGATIVE (NEGATIVE); KETONES,URINE NEGATIVE (NEGATIVE); LEUKOCYTE ESTERASE,URINE NEGATIVE (NEGATIVE); NITRITE,URINE NEGATIVE (NEGATIVE); PROTEIN,URINE NEGATIVE (NEGATIVE); URINE SPECIFIC GRAVITY 1.012; UROBILINOGEN,URINE NEGATIVE mg/dL (<2.0)
[2017-05-30] MEDS: FLUTICASONE NASAL SPRAY 50 MCG/SPRY 120 SPRAY/16 GM NASL SCH ×3 (00:17→21:48)
[2017-05-30] MEDS: IPRATROPIUM/ALBUTEROL 0.5-2.5 MG/3 ML AMPUL NEB SCH ×4 (02:13→19:14)
--- NOTE | 2017-05-30 02:31 | PDOC H&P ---
History of Present Illness Admission Date/PCP: 05/29/17 22:17 SOO DALEY MD Patient complains of: Shortness of breath and cough History of Present Illness: LAKSHMI SALINAS is a 61 year old male with a past medical history of COPD, chronic bronchitis, chronic pain, coronary artery disease and obesity. Patient presents with shortness of breath and a nonproductive cough and acute respiratory distress requiring albuterol, Atrovent, supplemental oxygen and BiPAP. She is unable to speak secondary to paroxysms of cough initially which improves after approximately 1 hour. He is referred to the hospitalist for admission. Last antibiotic use was August. Denies recent change in medications, denies infectious contacts, denies rhinorrhea, sore throat but admits GERD. Symptoms are admittedly worse at night. He is otherwise felt well but has noted some abdominal distention. Currently no chest pain, palpitations, nausea vomiting. Past Medical History Cardiac Medical History: Reports: Myocardial Infarction, Hypertension Pulmonary Medical History: Reports: Bronchitis, Chronic Obstructive Pulmonary Disease (COPD) GI Medical History: Reports: Diverticulitis Psychiatric Medical History: Reports: Tobacco Dependency Denies: Depression Social History Lives with: Family Smoking Status: Former Smoker - Patient denies active tobacco but clothing smells of cigarette smoke. Frequency of Alcohol Use: Rare - Drinks on his birthday. His last was about 3 years ago Hx Recreational Drug Use: Yes Drugs: Marijuana Hx Prescription Drug Abuse: No - Advance Directive Resuscitation Status: Full Code Family History Family History: CAD, COPD Parental Family History Reviewed: Yes Children Family History Reviewed: Yes Sibling(s) Family History Reviewed.: Yes Medication/Allergy Home Medications: Albuterol Sulfate [Proair HFA Inhalation Aerosol 8.5 gm MDI] 2 puff IH QIDP PRN 10/09/16 Budesonide/Formoterol Fumarate [Symbicort HFA 160-4.5 mcg Inhaler 6 gm] 2 puff IH BID 10/09/16 Cyclobenzaprine HCl [Flexeril 10 mg Tablet] 5 mg PO Q8HP PRN 10/09/16 Cyclobenzaprine HCl [Flexeril 10 mg Tablet] 10 mg PO QHS 10/09/16 Esomeprazole Magnesium [Nexium] 40 mg PO ACBRKFST 10/09/16 Hydrocodone/Acetaminophen [[place] 10-325 Tablet] 1.5 tab PO Q6HP PRN 10/09/16 Lisinopril [Prinivil 40 mg Tablet] 40 mg PO QHS 10/09/16 Metoprolol Tartrate [Lopressor 100 mg Tablet] 100 mg PO QHS 10/09/16 Promethazine HCl/Codeine [Prometh-Codein 6.25-10 mg/5 ml] 10 ml PO QIDP PRN Tiotropium [place] [Spiriva Respimat] 2 puff IH QAM 10/09/16 Ciprofloxacin HCl [Cipro 500 mg Tablet] 500 mg PO BID #20 tablet 10/12/16 Ipratropium/Albuterol Sulfate [Duoneb 3 ml Ampul] 3 ml NEB RTQ4HP PRN #100 vial.neb 10/12/16 Lactobacillus Acidophilus [Acidophilus Lactobacilli] 1 each PO BIDACBS #100 capsule 10/12/16 Prednisone 20 mg PO ASDIR PRN #20 tablet 10/12/16 Allergies/Adverse Reactions: iodine [Iodine] Allergy (Verified 08/28/14 15:04) Shellfish * [Shellfish] Allergy (Verified 08/28/14 15:04) Review of Systems Constitutional: ABSENT: chills, fever(s), headache(s), weight gain, weight loss Eyes: ABSENT: visual disturbances Ears: ABSENT: hearing changes Cardiovascular: ABSENT: chest pain, dyspnea on exertion, edema, orthropnea, palpitations Respiratory: ABSENT: cough, hemoptysis Gastrointestinal: ABSENT: abdominal pain, constipation, diarrhea, hematemesis, hematochezia, nausea, vomiting Genitourinary: ABSENT: dysuria, hematuria Musculoskeletal: ABSENT: joint swelling Integumentary: ABSENT: rash, wounds Neurological: ABSENT: abnormal gait, abnormal speech, confusion, dizziness, focal weakness, syncope Psychiatric: ABSENT: anxiety, depression, homidical ideation, suicidal ideation Endocrine: ABSENT: cold intolerance, heat intolerance, polydipsia, polyuria Hematologic/Lymphatic: ABSENT: easy bleeding, easy bruising Physical Exam Vital Signs: Temp Pulse Resp BP Pulse Ox 98.7 F 121 H 17 137/97 H 98 05/30/17 01:01 05/29/17 20:00 05/30/17 01:01 05/30/17 00:01 05/30/17 01:01 General appearance: PRESENT: cooperative, disheveled, morbidly obese, severe distress Head exam: PRESENT: atraumatic, normocephalic Eye exam: PRESENT: conjunctiva pink, EOMI, PERRLA. ABSENT: scleral icterus Ear exam: PRESENT: normal external ear exam Neck exam: ABSENT: carotid bruit, JVD, lymphadenopathy, thyromegaly Respiratory exam: PRESENT: accessory muscle use, crackles, prolonged expiratory phas, retraction, symmetrical, tachypnea. ABSENT: chest wall tenderness, clear to auscultation [place], rales, rhonchi, stridor, unlabored, wheezes Cardiovascular exam: PRESENT: RRR. ABSENT: diastolic murmur, rubs, systolic murmur Pulses: PRESENT: normal dorsalis pedis pul Vascular exam: PRESENT: normal capillary refill GI/Abdominal exam: PRESENT: normal bowel sounds, soft. ABSENT: distended, guarding, mass, organolmegaly, rebound, tenderness Rectal exam: PRESENT: deferred Extremities exam: PRESENT: full ROM. ABSENT: calf tenderness, clubbing, pedal edema Neurological exam: PRESENT: alert, awake, oriented to person, oriented to place , oriented to time, oriented to situation, CN II-XII grossly intact. ABSENT: motor sensory deficit Psychiatric exam: PRESENT: agitated. ABSENT: appropriate affect Skin exam: PRESENT: dry, intact, warm. ABSENT: cyanosis, rash Results Laboratory Results: 05/29/17 05/30/17 23:18 00:35 Lactic Acid 2.8 H Urine Color YELLOW Urine Appearance CLEAR Urine pH 6.0 Ur Specific [place] 1.012 Urine Protein NEGATIVE Urine Glucose (UA) NEGATIVE Urine Ketones NEGATIVE Urine Blood NEGATIVE Urine Nitrite NEGATIVE Ur Leukocyte Esterase NEGATIVE Urine WBC (Auto) 1 Urine RBC (Auto) 0 Impressions: Chest X-Ray 05/29/17 20:07 IMPRESSION: Severe pulmonary emphysema with no acute pulmonary disease. Assessment & Plan - Diagnosis (1) Acute exacerbation of chronic obstructive pulmonary disease (COPD) Is this a current diagnosis for this admission?: Yes Plan: Supplemental oxygen, incentive spirometry, flutter valve, empiric antibiotics prednisone. (2) Acute bacterial bronchitis Is this a current diagnosis for this admission?: Yes Plan: See #1 (3) CAD (coronary artery disease) Qualifiers: Coronary Disease-Associated Artery/Lesion type: unspecified vessel or lesion type [place] vs. transplanted heart: [place] heart Associated angina: without angina Qualified Code(s): I25.10 - Atherosclerotic heart disease of [place] coronary artery without angina pectoris Is this a current diagnosis for this admission?: No Plan: Resume outpatient regiment (4) Tobacco abuse Is this a current diagnosis for this admission?: Yes Plan: Tobacco Dependence patient received tobacco cessation counseling and offered nicotine replacement options (5) GERD (gastroesophageal reflux disease) Is this a current diagnosis for this admission?: Yes Plan: Proton pump inhibitor and education - Time Time Spent: 50 to 70 Minutes - Inpatient Certification Medical Necessity: Need Close Monitoring Due to Risk of Patient Decompensation
[2017-05-30] MEDS: CYCLOBENZAPRINE HCL 10 MG TABLET PO PRN ×2 (04:09→22:50)
[2017-05-30 06:53] LABS: ABSOLUTE LYMPHOCYTES (AUTO) 1.3 10^3/uL (0.5-4.7); ABSOLUTE MONOCYTES (AUTO) 0.1 10^3/uL (0.1-1.4); ABSOLUTE NEUT (AUTO) 7.7 10^3/uL (1.7-8.2); BASOPHILS % (AUTO) 0.4 % (0-2); EOSINOPHILS % (AUTO) 0.1 % (0-6); HEMATOCRIT 44.1 % (37.9-51.0); HEMOGLOBIN 14.6 g/dL (13.5-17.0); LYMPHOCYTES % (AUTO) 13.8 % (13-45); MEAN CORPUSCULAR HEMOGLOBIN 28.5 pg (27.0-33.4); MEAN CORPUSCULAR HGB CONC 33.2 g/dL (32.0-36.0); MEAN CORPUSCULAR VOLUME 86 fl (80-97); MONOCYTES % (AUTO) 1.3 % (3-13); PLATELET COUNT 302 10^3/uL (150-450); RED BLOOD COUNT 5.14 10^6/uL (4.35-5.55); RED CELL DISTRIBUTION WIDTH 13.8 % (11.5-14.0); SEGMENTED NEUTROPHILS % (AUTO) 84.4 % (42-78); TOTAL CELLS COUNTED % (AUTO) 100 %; WHITE BLOOD COUNT 9.1 10^3/uL (4.0-10.5)
[2017-05-30 07:11] LABS: ANION GAP 15 (5-19); BLOOD UREA NITROGEN 12 mg/dL (7-20); CALCIUM 10.2 mg/dL (8.4-10.2); CARBON DIOXIDE 23 mmol/L (22-30); CHLORIDE 102 mmol/L (98-107); GLUCOSE 149 mg/dL (75-110); SODIUM 139.6 mmol/L (137-145)
[2017-05-30 07:14] LABS: POTASSIUM 6.1 mmol/L (3.6-5.0)
[2017-05-30] MEDS: HEPARIN SOD (PORCINE) 5,000 UNIT/ML 1 ML SYRINGE SUBCUT SCH ×3 (07:45→21:45)
[2017-05-30] MEDS: LANSOPRAZOLE 30 MG TAB.RAP.DR PO SCH ×2 (07:45→16:03)
[2017-05-30] MEDS ORDERED: LACTOBACILLUS ACIDOPHILUS PO SCH (08:00)
[2017-05-30] MEDS ORDERED: LEVOFLOXACIN 750 MG TABLET PO SCH (10:00)
[2017-05-30] MEDS ORDERED: FUROSEMIDE INJ/PF 20 MG/2 ML SDV IV ONE (10:58)
[2017-05-30] MEDS: LACTOBACILLUS ACIDOPHILUS 250 MG TAB PO SCH ×2 (11:38→18:34)
[2017-05-30] MEDS: PREDNISONE 20 MG TABLET PO SCH ×2 (11:38→18:34)
[2017-05-30] MEDS: NORMAL SALINE 1000 ML 1,000 ML IV PRN (11:45)
[2017-05-30 14:57] LABS: ANION GAP 16 (5-19); BLOOD UREA NITROGEN 15 mg/dL (7-20); CALCIUM 10.6 mg/dL (8.4-10.2); CARBON DIOXIDE 25 mmol/L (22-30); CHLORIDE 101 mmol/L (98-107); GLUCOSE 127 mg/dL (75-110); POTASSIUM 5.5 mmol/L (3.6-5.0); SODIUM 142.3 mmol/L (137-145)
[2017-05-30] MEDS ORDERED: SODIUM POLYSTYRENE SULFONATE 15 GM/60 ML PO ONE (17:20)
--- NOTE | 2017-05-30 17:39 | PDOC PROGRESS REPORT ---
Subjective Progress Note for:: 05/30/17 Subjective:: The patient is a 61-year-old male with past medical history of COPD, coronary artery disease, obesity, GERD, and tobacco dependence who was admitted on for a COPD exacerbation. He is on morning rounds. He is finding resting comfortably in bed on supplemental oxygen at 5 L/min. The patient states that he refused to use BiPAP overnight due to discomfort with the mask. During our discussion he was successfully titrated down to 2 L/min we will maintaining his oxygen saturations greater than 92% and an appropriate heart rate. He reports continued dyspnea with activity, although he states he is feeling much better while at rest. He complains of a productive cough, but states this is typical for him. He denies fever, chills, body aches, chest pain, palpitations, orthopnea. He has no new questions or concerns at this time. Reason For Visit: COPD EXACERBATION,MORBID OBESITY,PNEUMONIA Physical Exam Vital Signs: Temp Pulse Resp BP Pulse Ox 97.5 F 107 H 22 H 141/92 H 97 05/30/17 15:04 05/30/17 15:04 05/30/17 15:04 05/30/17 15:04 05/30/17 15:45 Pulse Oximeter Continuous Start: 05/29/17 22: 00 Freq: RTQ4 Status: Active Document 05/30/17 15:45 [facility] (Rec: 05/30/17 16:25 [facility] [email or web address]) Pulse Oximetry Assessment Oxygen Saturation (92-100) 97 Oxygen Flow Rate (L/min) 3 Oxygen Delivery Method Nasal Cannula Fraction of Inspired Oxygen (FIO2) 32 Equipment Usage Equipment in Use Continuous SpO2 Machine # 7 Intake & Output 05/29/17 05/30/17 05/31/17 06:59 06:59 06:59 Intake Total 215 Balance 215 Weight 113.6 kg General appearance: PRESENT: no acute distress, well-developed, well-nourished Head exam: PRESENT: atraumatic, normocephalic Eye exam: PRESENT: conjunctiva pink, EOMI, PERRLA. ABSENT: scleral icterus Ear exam: PRESENT: normal external ear exam Mouth exam: PRESENT: moist, tongue midline Neck exam: ABSENT: carotid bruit, JVD, lymphadenopathy, thyromegaly Respiratory exam: PRESENT: prolonged expiratory phas, rhonchi, symmetrical, tachypnea, wheezes, other - Supplemental oxygen via nasal cannula. ABSENT: rales Cardiovascular exam: PRESENT: RRR, +S1, +S2, tachycardia. ABSENT: diastolic murmur, rubs, systolic murmur Pulses: PRESENT: normal dorsalis pedis pul Vascular exam: PRESENT: normal capillary refill GI/Abdominal exam: PRESENT: distended, normal bowel sounds, soft. ABSENT: guarding, mass, organolmegaly, rebound, tenderness Rectal exam: PRESENT: deferred Extremities exam: PRESENT: full ROM. ABSENT: calf tenderness, clubbing, pedal edema Neurological exam: PRESENT: alert, awake, oriented to person, oriented to place , oriented to time, oriented to situation, CN II-XII grossly intact. ABSENT: motor sensory deficit Psychiatric exam: PRESENT: agitated, appropriate affect, normal mood. ABSENT: homicidal ideation, suicidal ideation Skin exam: PRESENT: dry, intact, warm. ABSENT: cyanosis, rash Results Laboratory Results: 05/30/17 06:15 05/30/17 14:21 05/29/17 05/30/17 05/30/17 23:18 00:35 06:15 WBC 9.1 RBC 5.14 Hgb 14.6 Hct 44.1 MCV 86 MCH 28.5 MCHC 33.2 RDW 13.8 Plt Count 302 Seg Neutrophils % 84.4 H Lymphocytes % 13.8 Monocytes % 1.3 L Eosinophils % 0.1 Basophils % 0.4 Absolute Neutrophils 7.7 Absolute Lymphocytes 1.3 Absolute Monocytes 0.1 Absolute Eosinophils 0.0 Absolute Basophils 0.0 Sodium Potassium Chloride Carbon Dioxide Anion Gap BUN Creatinine Est GFR ( Amer) Est GFR (Non-Af Amer) Glucose Lactic Acid 2.8 H Calcium Urine Color YELLOW Urine Appearance CLEAR Urine pH 6.0 Ur Specific [place] 1.012 Urine Protein NEGATIVE Urine Glucose (UA) NEGATIVE Urine Ketones NEGATIVE Urine Blood NEGATIVE Urine Nitrite NEGATIVE Ur Leukocyte Esterase NEGATIVE Urine WBC (Auto) 1 Urine RBC (Auto) 0 05/30/17 05/30/17 05/30/17 06:15 08:59 14:21 WBC RBC Hgb Hct MCV MCH MCHC RDW Plt Count Seg Neutrophils % Lymphocytes % Monocytes % Eosinophils % Basophils % Absolute Neutrophils Absolute Lymphocytes Absolute Monocytes Absolute Eosinophils Absolute Basophils Sodium 139.6 142.3 Potassium 6.1 H* D 5.9 H 5.5 H Chloride 102 101 Carbon Dioxide 23 25 Anion Gap 15 16 BUN 12 15 Creatinine 1.07 1.00 Est GFR ( Amer) > 60 > 60 Est GFR (Non-Af Amer) > 60 > 60 Glucose 149 H 127 H Lactic Acid Calcium 10.2 10.6 H Urine Color Urine Appearance Urine pH Ur Specific [place] Urine Protein Urine Glucose (UA) Urine Ketones Urine Blood Urine Nitrite Ur Leukocyte Esterase Urine WBC (Auto) Urine RBC (Auto) Impressions: Chest X-Ray 05/29/17 20:07 IMPRESSION: Severe pulmonary emphysema with no acute pulmonary disease. Assessment & Plan - Diagnosis (1) Acute and chronic respiratory failure Is this a current diagnosis for this admission?: Yes Plan: The patient was admitted overnight with dyspnea while at rest, tachycardia with a heart rate of 141, tachypnea with respiratory rate 23, and an increased requirement and supplemental oxygen. Blood cultures are pending. The patient was admitted to the floor on continuous pulse oximetry and cardiac telemetry. Is provided supplemental oxygen as needed to maintain oxygen saturations greater than 88% The patient is encouraged to use BiPAP nightly and as needed; at this time the patient is adamantly refusing BiPAP secondary to comfort. He has been empirically placed on p.o. Levaquin as the patient initially had an elevated white count of 13.1. Leukocytosis has resolved and the patient has remained afebrile; we will consider early discontinuation of antibiotics as blood cultures result. He is provided scheduled and as needed nebulizer treatments. Mucinex twice daily. Continue prednisone. (2) Acute exacerbation of chronic obstructive pulmonary disease (COPD) Is this a current diagnosis for this admission?: Yes Plan: As above. (3) GERD (gastroesophageal reflux disease) Is this a current diagnosis for this admission?: Yes Plan: Continue PPI (4) CAD (coronary artery disease) Qualifiers: Coronary Disease-Associated Artery/Lesion type: unspecified vessel or lesion type [place] vs. transplanted heart: [place] heart Associated angina: without angina Qualified Code(s): I25.10 - Atherosclerotic heart disease of [place] coronary artery without angina pectoris Is this a current diagnosis for this admission?: No Plan: Continue outpatient medication; metoprolol, lisinopril, and daily aspirin. (5) Tobacco abuse Is this a current diagnosis for this admission?: Yes Plan: Smoking cessation is strongly encouraged. The patient is provided nicotine replacement therapy. (6) Hyperkalemia Is this a current diagnosis for this admission?: Yes Plan: Potassium was noted to be elevated to 6.1, confirmation testing is 5.9. He was provided gentle IV fluids and Lasix 20 mg IV with subsequent improvement to potassium of 5.5. We will provide Kayexalate 1. - Time Time Spent with patient: 25-34 minutes Medications reviewed and adjusted accordingly: Yes - Inpatient Certification Based on my medical assessment, after consideration of the patient's comorbidities, presenting symptoms, or acuity I expect that the services needed warrant INPATIENT care.: Yes I certify that my determination is in accordance with my understanding of Medicare's requirements for reasonable and necessary INPATIENT services [42 CFR 412.3e].: Yes Medical Necessity: Failure to Improve With Outpatient Therapy, Need For Continuous Telemetry Monitoring, Need for Nebulizer Therapy and Monitoring of Response
[2017-05-30] MEDS: KETOROLAC TROMETHAMINE INJ/PF 30 MG/1 ML SDV IV PRN (21:45)
[2017-05-30] MEDS: LISINOPRIL 10 MG TABLET PO SCH (21:46)
[2017-05-30] MEDS: ASPIRIN 81 MG TABLET, ENT COATED PO SCH (21:47)
[2017-05-30] MEDS: GUAIFENESIN 600 MG TABLET.SA PO SCH (21:47)
[2017-05-30] MEDS: METOPROLOL TARTRATE 100 MG TABLET PO SCH (21:47)
[2017-05-30] MEDS: LEVOFLOXACIN 750 MG TABLET PO SCH (21:47)
[2017-05-31] MEDS: IPRATROPIUM/ALBUTEROL 0.5-2.5 MG/3 ML AMPUL NEB SCH ×4 (02:33→20:32)
[2017-05-31 05:33] LABS: HEMATOCRIT 42.2 % (37.9-51.0); HEMOGLOBIN 13.9 g/dL (13.5-17.0); MEAN CORPUSCULAR HEMOGLOBIN 28.2 pg (27.0-33.4); MEAN CORPUSCULAR HGB CONC 32.9 g/dL (32.0-36.0); MEAN CORPUSCULAR VOLUME 86 fl (80-97); PLATELET COUNT 262 10^3/uL (150-450); RED BLOOD COUNT 4.91 10^6/uL (4.35-5.55)
[2017-05-31 05:37] LABS: WHITE BLOOD COUNT 18.8 10^3/uL (4.0-10.5)
[2017-05-31 05:43] LABS: ANION GAP 16 (5-19); BLOOD UREA NITROGEN 17 mg/dL (7-20); CALCIUM 9.8 mg/dL (8.4-10.2); CARBON DIOXIDE 25 mmol/L (22-30); CHLORIDE 100 mmol/L (98-107); GLUCOSE 135 mg/dL (75-110); POTASSIUM 5.4 mmol/L (3.6-5.0); SODIUM 141.2 mmol/L (137-145)
[2017-05-31] MEDS ORDERED: LANSOPRAZOLE 30 MG TAB.RAP.DR PO SCH (06:00)
[2017-05-31] MEDS: HEPARIN SOD (PORCINE) 5,000 UNIT/ML 1 ML SYRINGE SUBCUT SCH ×3 (06:19→23:06)
[2017-05-31] MEDS: LANSOPRAZOLE 30 MG TAB.RAP.DR PO SCH ×2 (06:19→17:39)
[2017-05-31] MEDS: NORMAL SALINE 1000 ML 1,000 ML IV PRN (06:20)
--- NOTE | 2017-05-31 07:17 | EKG REPORT ---
SEVERITY:- OTHERWISE NORMAL ECG - SINUS TACHYCARDIA : Confirmed by: Bertrand Mota MD 31-May-2017 07:16:29
[2017-05-31] MEDS ORDERED: NITROGLYCERIN 0.4 MG/TAB 25 TAB/BOTTLE ONE (08:33)
[2017-05-31] MEDS ORDERED: NITROGLYCERIN 0.4 MG/TAB 25 TAB/BOTTLE SL PRN (08:34)
[2017-05-31] MEDS ORDERED: SODIUM POLYSTYRENE SULFONATE 15 GM/60 ML PO ONE (08:45)
--- NOTE | 2017-05-31 08:54 | RADIOLOGY REPORT (SQ) ---
EXAM DESCRIPTION: CHEST SINGLE VIEW COMPLETED DATE/TIME: 05/31/2017 8:43 am REASON FOR STUDY: chest pain COMPARISON: Chest x-ray dated 05/29/2017. Chest CT dated 03/20/2017. EXAM PARAMETERS: NUMBER OF VIEWS: One view. TECHNIQUE: Single frontal radiographic view of the chest acquired. RADIATION DOSE: NA LIMITATIONS: None. FINDINGS: LUNGS AND PLEURA: Bullous emphysema with extensive lucency in the upper lobes. Scarring i n the lower lobes. No significant change. MEDIASTINUM AND HILAR STRUCTURES: No masses. Contour normal. HEART AND VASCULAR STRUCTURES: Heart normal in size. Normal vasculature. BONES: No acute findings. HARDWARE: None in the chest. OTHER: No other significant finding. IMPRESSION: BULLOUS EMPHYSEMA WITH SCARRING IN THE LOWER LOBES. NO SIGNIFICANT CHANGE. TECHNICAL DOCUMENTATION: JOB ID: [id number] [employer]- All Rights Reserved Reading location - IP/workstation name: [email or web address]
[2017-05-31] MEDS ORDERED: FUROSEMIDE INJ/PF 20 MG/2 ML SDV IV ONE (09:30)
--- NOTE | 2017-05-31 10:02 | RADIOLOGY REPORT (SQ) ---
EXAM DESCRIPTION: ABDOMEN 2 VIEWS COMPLETED DATE/TIME: 05/31/2017 9:54 am REASON FOR STUDY: distention, pain, ?obstipation COMPARISON: None. NUMBER OF VIEWS: Two views. TECHNIQUE: Supine and erect/decubitus radiographic images of the abdomen acquired. LIMITATIONS: None. FINDINGS: FREE AIR: None. No abnormal gas collections. LUNG BASES: Clear. BOWEL GAS PATTERN: Nonobstructive pattern. Prominent stool throughout. No dilated loops or air flui d levels. CALCIFICATIONS: No suspicious calcifications. SOFT TISSUES: No gross mass or suggestion of organomegaly. HARDWARE: None in the abdomen. BONES: No acute fracture. No worrisome bone lesions. OTHER: No other significant finding. IMPRESSION: CONSTIPATION. NO RADIOGRAPHIC EVIDENCE FOR ACUTE ABDOMINAL DISEASE. TECHNICAL DOCUMENTATION: JOB ID: [id number] [employer]- All Rights Reserved Reading location - IP/workstation name: [email or web address]
[2017-05-31 10:31] LABS: LIPASE 56.9 U/L (23-300)
[2017-05-31] MEDS: PREDNISONE 20 MG TABLET PO SCH (10:48)
[2017-05-31] MEDS: GUAIFENESIN 600 MG TABLET.SA PO SCH ×2 (10:48→23:09)
[2017-05-31] MEDS: DOCUSATE SODIUM 100 MG CAPSULE PO SCH ×2 (10:49→17:39)
[2017-05-31] MEDS: FLUTICASONE NASAL SPRAY 50 MCG/SPRY 120 SPRAY/16 GM NASL SCH ×2 (10:50→23:12)
[2017-05-31 10:56] LABS: TROPONIN I < 0.012 ng/mL
[2017-05-31] MEDS: LACTOBACILLUS ACIDOPHILUS 250 MG TAB PO SCH ×2 (11:16→17:39)
[2017-05-31] MEDS ORDERED: NORMAL SALINE 1000 ML 1,000 ML IV PRN (11:34)
--- NOTE | 2017-05-31 11:56 | PDOC PROGRESS REPORT ---
Subjective Progress Note for:: 05/31/17 Subjective:: The patient is a 61-year-old male with past medical history of COPD, coronary artery disease, obesity, GERD, and tobacco dependence who was admitted on for a COPD exacerbation. He is on morning rounds. The patient reports that he had a coughing fit followed by chest pain located to the epigastric region radiating bilaterally to his back that was worsened with deep breaths. The patient states that the pain was unrelieved by nitro but did gradually improve over the following several minutes. At this time he is comfortable. He is currently on supplemental oxygen at 4 Lpm and maintaining oxygen saturations with a heart rate in the mid 80s. The patient reports frustration with Kayexalate; he states that he had a small hard stool yesterday accompanied with gastric upset. He declines additional doses today. He denies constipation, stating that he often goes greater than a week between bowel movements. He denies and vomiting. Reason For Visit: COPD EXACERBATION,MORBID OBESITY,PNEUMONIA Physical Exam Vital Signs: Temp Pulse Resp BP Pulse Ox 98.2 F 100 16 148/94 H 100 05/31/17 11:12 05/31/17 11:12 05/31/17 11:12 05/31/17 11:12 05/31/17 11:12 Pulse Oximeter Continuous Start: 05/29/17 22: 00 Freq: RTQ4 Status: Active Document 05/31/17 03:32 [facility] (Rec: 05/31/17 03:32 [facility] [email or web address]) Pulse Oximetry Assessment Oxygen Saturation (92-100) 96 Oxygen Flow Rate (L/min) 5.0 Oxygen Delivery Method Nasal Cannula Fraction of Inspired Oxygen (FIO2) 40 Equipment Usage Equipment in Use Continuous SpO2 Machine # 6 Intake & Output 05/30/17 05/31/17 06/01/17 06:59 06:59 06:59 Intake Total 215 1925 Output Total 1375 Balance 215 550 Weight 113.6 kg 114.2 kg General appearance: PRESENT: no acute distress, obese, well-developed, well- nourished Head exam: PRESENT: atraumatic, normocephalic Eye exam: PRESENT: conjunctiva pink, EOMI, PERRLA. ABSENT: scleral icterus Ear exam: PRESENT: normal external ear exam Mouth exam: PRESENT: moist, tongue midline Neck exam: ABSENT: carotid bruit, JVD, lymphadenopathy, thyromegaly Respiratory exam: PRESENT: prolonged expiratory phas, symmetrical, wheezes, other - Supplemental oxygen via nasal cannula. ABSENT: rales, rhonchi Cardiovascular exam: PRESENT: RRR, +S1, +S2. ABSENT: diastolic murmur, rubs, systolic murmur, tachycardia Pulses: PRESENT: normal dorsalis pedis pul Vascular exam: PRESENT: normal capillary refill GI/Abdominal exam: PRESENT: distended, firm, normal bowel sounds. ABSENT: guarding, mass, organolmegaly, rebound, tenderness Rectal exam: PRESENT: deferred Extremities exam: PRESENT: full ROM. ABSENT: calf tenderness, clubbing, pedal edema Neurological exam: PRESENT: alert, awake, oriented to person, oriented to place , oriented to time, oriented to situation, CN II-XII grossly intact. ABSENT: motor sensory deficit Psychiatric exam: PRESENT: appropriate affect, normal mood. ABSENT: homicidal ideation, suicidal ideation Skin exam: PRESENT: dry, intact, warm. ABSENT: cyanosis, rash Results Laboratory Results: 05/31/17 04:01 05/31/17 04:01 05/30/17 05/31/17 05/31/17 14:21 04:01 04:01 WBC 18.8 H D RBC 4.91 Hgb 13.9 Hct 42.2 MCV 86 MCH 28.2 MCHC 32.9 RDW 14.0 Plt Count 262 Sodium 142.3 141.2 Potassium 5.5 H 5.4 H Chloride 101 100 Carbon Dioxide 25 25 Anion Gap 16 16 BUN 15 17 Creatinine 1.00 0.91 Est GFR ( Amer) > 60 > 60 Est GFR (Non-Af Amer) > 60 > 60 Glucose 127 H 135 H Calcium 10.6 H 9.8 Lipase 05/31/17 10:01 WBC RBC Hgb Hct MCV MCH MCHC RDW Plt Count Sodium Potassium Chloride Carbon Dioxide Anion Gap BUN Creatinine Est GFR ( Amer) Est GFR (Non-Af Amer) Glucose Calcium Lipase 56.9 05/31/17 05/31/17 10:01 10:01 Creatine Kinase 849 H CK-MB (CK-2) 22.20 H Troponin I < 0.012 Impressions: Abdomen X-Ray 05/31/17 00:00 IMPRESSION: CONSTIPATION. NO RADIOGRAPHIC EVIDENCE FOR ACUTE ABDOMINAL DISEASE. Chest X-Ray 05/31/17 00:00 IMPRESSION: BULLOUS EMPHYSEMA WITH SCARRING IN THE LOWER LOBES. NO SIGNIFICANT CHANGE. Assessment & Plan - Diagnosis (1) Acute and chronic respiratory failure Is this a current diagnosis for this admission?: Yes Plan: Slight improvement. The patient was admitted with dyspnea while at rest, tachycardia with a heart rate of 141, tachypnea with respiratory rate 23, and an increased requirement and supplemental oxygen. Blood cultures: No growth at 24 hours The patient was admitted to the floor on continuous pulse oximetry and cardiac telemetry. Is provided supplemental oxygen as needed to maintain oxygen saturations greater than 88% The patient is encouraged to use BiPAP nightly and as needed; at this time the patient continues to refuse BiPAP. He has been empirically placed on p.o. Levaquin. He is provided scheduled and as needed nebulizer treatments. Mucinex twice daily. We will escalate to IV Solu-Medrol as the patient continues to have significant wheezing and dyspnea. (2) Acute exacerbation of chronic obstructive pulmonary disease (COPD) Is this a current diagnosis for this admission?: Yes Plan: As above. (3) GERD (gastroesophageal reflux disease) Is this a current diagnosis for this admission?: Yes Plan: Continue PPI (4) CAD (coronary artery disease) Qualifiers: Coronary Disease-Associated Artery/Lesion type: unspecified vessel or lesion type [place] vs. transplanted heart: [place] heart Associated angina: without angina Qualified Code(s): I25.10 - Atherosclerotic heart disease of [place] coronary artery without angina pectoris Is this a current diagnosis for this admission?: No Plan: Continue outpatient medication; metoprolol, lisinopril, and daily aspirin. (5) Tobacco abuse Is this a current diagnosis for this admission?: Yes Plan: Smoking cessation is strongly encouraged. The patient is provided nicotine replacement therapy. (6) Hyperkalemia Is this a current diagnosis for this admission?: Yes Plan: The patient was provided IV Lasix 20 mg with slight reduction in potassium yesterday, this was followed by 1 dose of Kayexalate. Potassium remains elevated today; pt declines additional Kayexalate dosing. We will start IVF and provide additional Lasix. (7) Chest pain Is this a current diagnosis for this admission?: Yes Plan: The patient reported epigastric chest pain following "coughing fit." Pain was worsened by coughing and deep breathing. Pain radiated bilaterally to back and was not associated with dizziness or nausea. Although the patient has multiple risk factors, do not feel that the pain is cardiac in nature and is most likely a muscle spasm related to strong cough or abdominal discomfort as he is significantly constipated. Stat EKG demonstrated normal sinus rhythm without ST elevation or depression; no acute processes. Chest x-ray is stable with emphysema pattern, unchanged from prior imaging. Initial troponin is normal; will trend. Creatinine kinase is elevated, will trend. The patient is on continuous cardiac telemetry, continuous pulse oximetry, supplemental oxygen. Nitro tabs are available as needed. (8) Constipation Is this a current diagnosis for this admission?: Yes Plan: The patient was provided lactulose on admission followed by Kayexalate 1 yesterday. He continues to be constipated. Abdominal films reveal constipation pattern; no evidence of obstruction. We will place the patient on Colace and provide Dulcolax suppository. Encourage p.o. fluids. (9) Elevated creatine kinase Is this a current diagnosis for this admission?: Yes Plan: Secondary to increased work of breathing. Will start IV fluids at 150 mL's per hour. We will continue to trend CK. - Time Time Spent with patient: 35 or more minutes Medications reviewed and adjusted accordingly: Yes - Inpatient Certification Based on my medical assessment, after consideration of the patient's comorbidities, presenting symptoms, or acuity I expect that the services needed warrant INPATIENT care.: Yes I certify that my determination is in accordance with my understanding of Medicare's requirements for reasonable and necessary INPATIENT services [42 CFR 412.3e].: Yes Medical Necessity: Need For IV Fluids, Need For Continuous Telemetry Monitoring , Need for Nebulizer Therapy and Monitoring of Response
[2017-05-31 12:07] LABS: ANION GAP 14 (5-19); BLOOD UREA NITROGEN 18 mg/dL (7-20); CALCIUM 10.1 mg/dL (8.4-10.2); CARBON DIOXIDE 25 mmol/L (22-30); CHLORIDE 102 mmol/L (98-107); GLUCOSE 95 mg/dL (75-110); POTASSIUM 4.5 mmol/L (3.6-5.0); SODIUM 140.5 mmol/L (137-145)
[2017-05-31] MEDS ORDERED: BISACODYL 10 MG SUPP.RECT PR ONE ×2 (12:30→18:30)
--- NOTE | 2017-05-31 13:58 | EKG REPORT ---
SEVERITY:- NORMAL ECG - SINUS RHYTHM : Confirmed by: Bertrand Mota MD 31-May-2017 13:56:31
[2017-05-31] MEDS ORDERED: LACTULOSE SYRUP 20 GM/30 ML UDCUP PO ONE (15:00)
[2017-05-31 15:21] LABS: TROPONIN I < 0.012 ng/mL
[2017-05-31] MEDS: METHYLPREDNISOLONE INJ 40 MG/1 ML SDV IV SCH ×2 (15:29→23:06)
[2017-05-31 21:21] LABS: TROPONIN I < 0.012 ng/mL
[2017-05-31] MEDS: KETOROLAC TROMETHAMINE INJ/PF 30 MG/1 ML SDV IV PRN (23:07)
[2017-05-31] MEDS: LEVOFLOXACIN 750 MG TABLET PO SCH (23:08)
[2017-05-31] MEDS: ASPIRIN 81 MG TABLET, ENT COATED PO SCH (23:08)
[2017-05-31] MEDS: METOPROLOL TARTRATE 100 MG TABLET PO SCH (23:08)
[2017-05-31] MEDS: LISINOPRIL 10 MG TABLET PO SCH (23:09)
[2017-06-01] MEDS: IPRATROPIUM/ALBUTEROL 0.5-2.5 MG/3 ML AMPUL NEB SCH ×4 (01:28→19:41)
[2017-06-01 04:57] LABS: MEAN CORPUSCULAR HEMOGLOBIN 28.2 pg (27.0-33.4); MEAN CORPUSCULAR HGB CONC 33.2 g/dL (32.0-36.0); MEAN CORPUSCULAR VOLUME 85 fl (80-97); PLATELET COUNT 299 10^3/uL (150-450); RED BLOOD COUNT 4.94 10^6/uL (4.35-5.55); RED CELL DISTRIBUTION WIDTH 13.8 % (11.5-14.0); WHITE BLOOD COUNT 13.8 10^3/uL (4.0-10.5)
[2017-06-01 05:21] LABS: ANION GAP 14 (5-19); BLOOD UREA NITROGEN 22 mg/dL (7-20); CALCIUM 9.8 mg/dL (8.4-10.2); CARBON DIOXIDE 24 mmol/L (22-30); CHLORIDE 101 mmol/L (98-107); GLUCOSE 105 mg/dL (75-110); POTASSIUM 4.8 mmol/L (3.6-5.0); SODIUM 138.7 mmol/L (137-145)
[2017-06-01] MEDS: LANSOPRAZOLE 30 MG TAB.RAP.DR PO SCH ×2 (05:38→17:40)
[2017-06-01] MEDS: METHYLPREDNISOLONE INJ 40 MG/1 ML SDV IV SCH ×3 (05:38→23:05)
[2017-06-01] MEDS: HEPARIN SOD (PORCINE) 5,000 UNIT/ML 1 ML SYRINGE SUBCUT SCH ×3 (05:39→23:05)
[2017-06-01] MEDS: FLUTICASONE NASAL SPRAY 50 MCG/SPRY 120 SPRAY/16 GM NASL SCH ×2 (09:07→23:06)
[2017-06-01] MEDS: GUAIFENESIN 600 MG TABLET.SA PO SCH ×2 (09:08→23:05)
[2017-06-01] MEDS: LACTOBACILLUS ACIDOPHILUS 250 MG TAB PO SCH ×2 (09:08→17:40)
[2017-06-01] MEDS: DOCUSATE SODIUM 100 MG CAPSULE PO SCH ×2 (09:09→17:40)
--- NOTE | 2017-06-01 09:58 | Physician Advisory Note ---
Physician Advisor ProgressNote .: Pursuant to the plan for [facility], I have reviewed the medical record for this patient. Physician Advisor Statement: Please consider documenting, if you agree: 1. "Suspected Acute bronchitis", or what is being tx'd with Levaquin, since COPD exacerbations alone don't always need abx. 2. "Pt was not felt to have sepsis this adm" (or else state "sepsis, POA, due to ___, evidenced by ___ & causing ____[organ failure]" (to help the PI team cut down on chart-review time ...) Thanks! CK
[2017-06-01] MEDS ORDERED: ALBUTEROL SULFATE HFA (90 MCG/PUFF) 200 PUFF/8.5 GM MDI IH PRN (10:11)
[2017-06-01] MEDS ORDERED: MAGNESIUM CITRATE 296 ML BOTTLE PO ONE (11:00)
[2017-06-01] MEDS: AMLODIPINE BESYLATE 5 MG TABLET PO SCH (11:07)
--- NOTE | 2017-06-01 18:08 | PDOC PROGRESS REPORT ---
Subjective Progress Note for:: 06/01/17 Subjective:: The patient is a 61-year-old male with past medical history of COPD, coronary artery disease, obesity, GERD, and tobacco dependence who was admitted on for a COPD exacerbation. He is on morning rounds. He is found sitting upright in bed on continuous pulse oximetry and cardiac monitoring. He is noted to be on 5 L oxygen by nasal cannula. He states that his breathing is unchanged; he remains short of breath. He continues to have a frequent productive cough. He does state that he is no longer having chest pain or abdominal discomfort with his cough. However, he has not had a decent bowel movement. He describes a small hard stool yesterday. He continues to have abdominal distention and early satiety. He adamantly refuses suppository and enema at this time. He is agreeable to trial of mag citrate. Reason For Visit: COPD EXACERBATION,MORBID OBESITY,PNEUMONIA Physical Exam Vital Signs: Temp Pulse Resp BP Pulse Ox 97.5 F 113 H 19 149/85 H 98 06/01/17 15:44 06/01/17 15:44 06/01/17 15:44 06/01/17 15:44 06/01/17 15:44 Pulse Oximeter Continuous Start: 05/29/17 22: 00 Freq: RTQ4 Status: Active Document 06/01/17 15:40 LDA (Rec: 06/01/17 15:40 LDA [email or web address]) Pulse Oximetry Assessment Oxygen Saturation (92-100) 93 Oxygen Flow Rate (L/min) 5 Oxygen Delivery Method Nasal Cannula Fraction of Inspired Oxygen (FIO2) 40 Equipment Usage Equipment in Use Continuous SpO2 Machine # [id number] Intake & Output 05/31/17 06/01/17 06/02/17 06:59 06:59 06:59 Intake Total 7181 1632 Output Total 1375 970 Balance 550 662 Weight 114.2 kg 115.3 kg General appearance: PRESENT: no acute distress, obese, well-developed, well- nourished Head exam: PRESENT: atraumatic, normocephalic Eye exam: PRESENT: conjunctiva pink, EOMI, PERRLA. ABSENT: scleral icterus Ear exam: PRESENT: normal external ear exam Mouth exam: PRESENT: moist, tongue midline Neck exam: ABSENT: carotid bruit, JVD, lymphadenopathy, thyromegaly Respiratory exam: PRESENT: prolonged expiratory phas, rhonchi, symmetrical, unlabored, wheezes - Throughout, other - 5 L/min. ABSENT: rales Cardiovascular exam: PRESENT: RRR, +S1, +S2, tachycardia. ABSENT: diastolic murmur, rubs, systolic murmur Pulses: PRESENT: normal dorsalis pedis pul Vascular exam: PRESENT: normal capillary refill GI/Abdominal exam: PRESENT: distended, firm, normal bowel sounds. ABSENT: guarding, mass, organolmegaly, rebound, tenderness Rectal exam: PRESENT: deferred Extremities exam: PRESENT: full ROM. ABSENT: calf tenderness, clubbing, pedal edema Neurological exam: PRESENT: alert, awake, oriented to person, oriented to place , oriented to time, oriented to situation, CN II-XII grossly intact. ABSENT: motor sensory deficit Psychiatric exam: PRESENT: appropriate affect, normal mood. ABSENT: homicidal ideation, suicidal ideation Skin exam: PRESENT: dry, intact, warm. ABSENT: cyanosis, rash Results Laboratory Results: 06/01/17 04:03 06/01/17 04:03 06/01/17 06/01/17 04:03 04:03 WBC 13.8 H RBC 4.94 Hgb 14.0 Hct 42.0 MCV 85 MCH 28.2 MCHC 33.2 RDW 13.8 Plt Count 299 Sodium 138.7 Potassium 4.8 Chloride 101 Carbon Dioxide 24 Anion Gap 14 BUN 22 H Creatinine 0.97 Est GFR ( Amer) > 60 Est GFR (Non-Af Amer) > 60 Glucose 105 Calcium 9.8 05/29/17 23:18 Clean Catch Midstream Urine Culture - Final NO GROWTH 2 DAYS 05/31/17 05/31/17 05/31/17 10:01 10:01 14:33 Creatine Kinase 849 H 882 H CK-MB (CK-2) 22.20 H Troponin I < 0.012 NT-Pro-B Natriuret Pep 05/31/17 05/31/17 05/31/17 14:33 20:40 20:40 Creatine Kinase 858 H CK-MB (CK-2) 19.50 H 17.90 H Troponin I < 0.012 < 0.012 NT-Pro-B Natriuret Pep 06/01/17 06/01/17 04:03 04:03 Creatine Kinase 798 H CK-MB (CK-2) Troponin I NT-Pro-B Natriuret Pep 56 Impressions: Abdomen X-Ray 05/31/17 00:00 IMPRESSION: CONSTIPATION. NO RADIOGRAPHIC EVIDENCE FOR ACUTE ABDOMINAL DISEASE. Chest X-Ray 05/31/17 00:00 IMPRESSION: BULLOUS EMPHYSEMA WITH SCARRING IN THE LOWER LOBES. NO SIGNIFICANT CHANGE. Assessment & Plan - Diagnosis (1) Acute and chronic respiratory failure Is this a current diagnosis for this admission?: Yes Plan: Unchanged. The patient was admitted with dyspnea while at rest, tachycardia with a heart rate of 141, tachypnea with respiratory rate 23, and an increased requirement and supplemental oxygen. Blood cultures: No growth at 48 hours The patient was admitted to the floor on continuous pulse oximetry and cardiac telemetry. Is provided supplemental oxygen as needed to maintain oxygen saturations greater than 88% The patient is encouraged to use BiPAP nightly and as needed; at this time the patient continues to refuse BiPAP. He has been empirically placed on p.o. Levaquin. He is provided scheduled and as needed nebulizer treatments. Mucinex twice daily. Continue Solu-Medrol (2) Acute exacerbation of chronic obstructive pulmonary disease (COPD) Is this a current diagnosis for this admission?: Yes Plan: As above. (3) GERD (gastroesophageal reflux disease) Is this a current diagnosis for this admission?: Yes Plan: Continue PPI (4) CAD (coronary artery disease) Qualifiers: Coronary Disease-Associated Artery/Lesion type: unspecified vessel or lesion type [place] vs. transplanted heart: [place] heart Associated angina: without angina Qualified Code(s): I25.10 - Atherosclerotic heart disease of [place] coronary artery without angina pectoris Is this a current diagnosis for this admission?: No Plan: Continue outpatient medication; metoprolol, lisinopril, and daily aspirin. (5) Tobacco abuse Is this a current diagnosis for this admission?: Yes Plan: Smoking cessation is strongly encouraged. The patient is provided nicotine replacement therapy. (6) Hyperkalemia Is this a current diagnosis for this admission?: Yes Plan: Resolved. Will continue to monitor. (7) Chest pain Is this a current diagnosis for this admission?: Yes Plan: Resolved. The patient reported epigastric chest pain following "coughing fit." Pain was worsened by coughing and deep breathing. Pain radiated bilaterally to back and was not associated with dizziness or nausea. Although the patient has multiple risk factors, I do not feel that the pain is cardiac in nature and is most likely a muscle spasm related to strong cough or abdominal discomfort as he is significantly constipated. I do not suspect a cardiac source of the pain. Stat EKG demonstrated normal sinus rhythm without ST elevation or depression; no acute processes. Chest x-ray is stable with emphysema pattern, unchanged from prior imaging. Troponins trended; normal Creatinine kinase is elevated, will continue to monitor The patient is on continuous cardiac telemetry, continuous pulse oximetry, supplemental oxygen. Nitro tabs are available as needed. (8) Constipation Is this a current diagnosis for this admission?: Yes Plan: The patient was provided lactulose on admission followed by Kayexalate 1. Abdominal films reveal constipation pattern; no evidence of obstruction. He did repeat Lactulose, but refused suppository and enema. Colace increased to 200 mg bid. Agreeable to trial of mag citrate. (9) Elevated creatine kinase Is this a current diagnosis for this admission?: Yes Plan: Trending down; Secondary to increased work of breathing. Will start IV fluids at 150 mL's per hour. We will continue to trend CK. (10) Acute bronchitis Is this a current diagnosis for this admission?: Yes Plan: Blood cultures are negative at 48 hours. The patient is empirically been placed on Levaquin. This day 3 of treatment. - Time Time Spent with patient: 25-34 minutes Medications reviewed and adjusted accordingly: Yes Anticipated discharge: Home
[2017-06-01] MEDS: LISINOPRIL 10 MG TABLET PO SCH (23:06)
[2017-06-01] MEDS: ASPIRIN 81 MG TABLET, ENT COATED PO SCH (23:06)
[2017-06-01] MEDS: METOPROLOL TARTRATE 100 MG TABLET PO SCH (23:06)
[2017-06-01] MEDS: LEVOFLOXACIN 750 MG TABLET PO SCH (23:06)
[2017-06-02] MEDS: IPRATROPIUM/ALBUTEROL 0.5-2.5 MG/3 ML AMPUL NEB SCH ×4 (01:57→20:42)
[2017-06-02] MEDS: LANSOPRAZOLE 30 MG TAB.RAP.DR PO SCH ×2 (06:14→17:15)
[2017-06-02] MEDS: METHYLPREDNISOLONE INJ 40 MG/1 ML SDV IV SCH ×3 (06:14→22:57)
[2017-06-02] MEDS: HEPARIN SOD (PORCINE) 5,000 UNIT/ML 1 ML SYRINGE SUBCUT SCH ×3 (06:15→22:57)
[2017-06-02] MEDS ORDERED: PROMETHAZINE PO PRN (09:23)
[2017-06-02] MEDS ORDERED: CYCLOBENZAPRINE HCL 10 MG TABLET PO PRN (09:23)
[2017-06-02] MEDS ORDERED: CODEINE PO PRN (09:23)
[2017-06-02] MEDS ORDERED: ALBUTEROL PO PRN (09:23)
[2017-06-02] MEDS: LACTOBACILLUS ACIDOPHILUS 250 MG TAB PO SCH ×2 (10:17→17:15)
[2017-06-02] MEDS: GUAIFENESIN 600 MG TABLET.SA PO SCH ×2 (10:17→22:57)
[2017-06-02] MEDS: DOCUSATE SODIUM 100 MG CAPSULE PO SCH ×2 (10:17→17:15)
[2017-06-02] MEDS: AMLODIPINE BESYLATE 5 MG TABLET PO SCH (10:18)
[2017-06-02] MEDS: FLUTICASONE NASAL SPRAY 50 MCG/SPRY 120 SPRAY/16 GM NASL SCH ×2 (10:18→22:57)
--- NOTE | 2017-06-02 15:23 | PDOC PROGRESS REPORT ---
Subjective Progress Note for:: 06/02/17 Subjective:: The patient is a 61-year-old male with past medical history of COPD, coronary artery disease, obesity, GERD, and tobacco dependence who was admitted on for a COPD exacerbation. He is on morning rounds. He is found sitting upright in bed on continuous pulse oximetry and cardiac monitoring. He is noted to be on 4 L oxygen by nasal cannula. He states that he feels that his breathing has improved. He is noted to be tachypneic, mildly tachycardic, continues to be on 4 L via nasal cannula. The patient is encouraged to trial BiPAP, which he again refuses. He does state that he feels that he is left short of breath with mild activity. He does continue to have a productive cough. He reports relief of constipation after mag citrate yesterday. He states that he has had several large bowel movements overnight and that he is feeling much better. He states that his abdomen is no longer firm and that he is no longer having discomfort with coughing spells. He has no other questions or concerns at this time. Reason For Visit: COPD EXACERBATION,MORBID OBESITY,PNEUMONIA Physical Exam Vital Signs: Temp Pulse Resp BP Pulse Ox 97.8 F 111 H 22 H 124/91 H 95 06/02/17 12:00 06/02/17 14:00 06/02/17 12:00 06/02/17 12:00 06/02/17 12:00 Pulse Oximeter Continuous Start: 05/29/17 22: 00 Freq: RTQ4 Status: Active Document 06/02/17 07:58 J (Rec: 06/02/17 07:59 J [email or web address]) Pulse Oximetry Assessment Oxygen Saturation (92-100) 94 Oxygen Flow Rate (L/min) 4 Oxygen Delivery Method Nasal Cannula Equipment Usage Equipment in Use Continuous SpO2 Machine # 6 Intake & Output 06/01/17 06/02/17 06/03/17 06:59 06:59 06:59 Intake Total 1632 1296 Output Total 970 675 Balance 662 621 Weight 115.3 kg 115.5 kg General appearance: PRESENT: no acute distress, obese, well-developed, well- nourished. ABSENT: cooperative Head exam: PRESENT: atraumatic, normocephalic Eye exam: PRESENT: conjunctiva pink, EOMI, PERRLA. ABSENT: scleral icterus Ear exam: PRESENT: normal external ear exam Mouth exam: PRESENT: moist, tongue midline Neck exam: ABSENT: carotid bruit, JVD, lymphadenopathy, thyromegaly Respiratory exam: PRESENT: decreased breath sounds - Bibasilar, prolonged expiratory phas, symmetrical, tachypnea - RR 20-23, unlabored, wheezes - Slight improvement from yesterday.. ABSENT: rales, rhonchi Cardiovascular exam: PRESENT: RRR, +S1, +S2, tachycardia. ABSENT: diastolic murmur, rubs, systolic murmur Pulses: PRESENT: normal dorsalis pedis pul Vascular exam: PRESENT: normal capillary refill GI/Abdominal exam: PRESENT: normal bowel sounds, soft. ABSENT: distended, guarding, mass, organolmegaly, rebound, tenderness Rectal exam: PRESENT: deferred Extremities exam: PRESENT: full ROM. ABSENT: calf tenderness, clubbing, pedal edema Neurological exam: PRESENT: alert, awake, oriented to person, oriented to place , oriented to time, oriented to situation, CN II-XII grossly intact. ABSENT: motor sensory deficit Psychiatric exam: PRESENT: appropriate affect, normal mood. ABSENT: homicidal ideation, suicidal ideation Skin exam: PRESENT: dry, intact, warm. ABSENT: cyanosis, rash Results Laboratory Results: 06/01/17 04:03 06/01/17 04:03 05/31/17 05/31/17 05/31/17 10:01 10:01 14:33 Creatine Kinase 849 H 882 H CK-MB (CK-2) 22.20 H Troponin I < 0.012 NT-Pro-B Natriuret Pep 05/31/17 05/31/17 05/31/17 14:33 20:40 20:40 Creatine Kinase 858 H CK-MB (CK-2) 19.50 H 17.90 H Troponin I < 0.012 < 0.012 NT-Pro-B Natriuret Pep 06/01/17 06/01/17 04:03 04:03 Creatine Kinase 798 H CK-MB (CK-2) Troponin I NT-Pro-B Natriuret Pep 56 Impressions: Abdomen X-Ray 05/31/17 00:00 IMPRESSION: CONSTIPATION. NO RADIOGRAPHIC EVIDENCE FOR ACUTE ABDOMINAL DISEASE. Chest X-Ray 05/31/17 00:00 IMPRESSION: BULLOUS EMPHYSEMA WITH SCARRING IN THE LOWER LOBES. NO SIGNIFICANT CHANGE. Assessment & Plan - Diagnosis (1) Acute and chronic respiratory failure Is this a current diagnosis for this admission?: Yes Plan: Slight improvement in lung sounds, patient remains tachypneic and tachycardic. Continues to decline BiPAP. Blood cultures: No growth at 72 hours The patient was admitted to the floor on continuous pulse oximetry and cardiac telemetry. He is provided supplemental oxygen as needed to maintain oxygen saturations greater than 88% The patient is encouraged to use BiPAP nightly and as needed; at this time the patient continues to refuse BiPAP. He has been empirically placed on p.o. Levaquin. He is provided scheduled and as needed nebulizer treatments. Mucinex twice daily. Continue Solu-Medrol (2) Acute exacerbation of chronic obstructive pulmonary disease (COPD) Is this a current diagnosis for this admission?: Yes Plan: As above. (3) GERD (gastroesophageal reflux disease) Is this a current diagnosis for this admission?: Yes Plan: Continue PPI (4) CAD (coronary artery disease) Qualifiers: Coronary Disease-Associated Artery/Lesion type: unspecified vessel or lesion type [place] vs. transplanted heart: [place] heart Associated angina: without angina Qualified Code(s): I25.10 - Atherosclerotic heart disease of [place] coronary artery without angina pectoris Is this a current diagnosis for this admission?: No Plan: Continue outpatient medication; metoprolol, lisinopril, and daily aspirin. (5) Chest pain Is this a current diagnosis for this admission?: Yes Plan: Resolved. The patient reported epigastric chest pain following "coughing fit." Pain was worsened by coughing and deep breathing. Pain radiated bilaterally to back and was not associated with dizziness or nausea. Although the patient has multiple risk factors, I do not feel that the pain is cardiac in nature and is most likely a muscle spasm related to strong cough or abdominal discomfort as he is significantly constipated. I do not suspect a cardiac source of the pain. Stat EKG demonstrated normal sinus rhythm without ST elevation or depression; no acute processes. Chest x-ray is stable with emphysema pattern, unchanged from prior imaging. Troponins trended; normal Creatinine kinase is elevated, will continue to monitor The patient is on continuous cardiac telemetry, continuous pulse oximetry, supplemental oxygen. Nitro tabs are available as needed. (6) Constipation Is this a current diagnosis for this admission?: Yes Plan: Improved following mag citrate. Will continue Colace. (7) Elevated creatine kinase Is this a current diagnosis for this admission?: Yes Plan: Trending down; Secondary to increased work of breathing. Will start IV fluids at 150 mL's per hour. We will continue to trend CK. (8) Acute bronchitis Is this a current diagnosis for this admission?: Yes Plan: Blood cultures are negative at 72 hours. The patient is empirically been placed on Levaquin. This is day 4 of 7. (9) Tobacco abuse Is this a current diagnosis for this admission?: Yes Plan: Smoking cessation is strongly encouraged. The patient is provided nicotine replacement therapy. (10) Hyperkalemia Is this a current diagnosis for this admission?: Yes Plan: Resolved. Will continue to monitor. (11) Hypertension Is this a current diagnosis for this admission?: Yes Plan: Continie home medications; metoprolol, lisinopril. Will increase Norvasc to 10 mg daily. - Time Time Spent with patient: 25-34 minutes Smoking Cessation Education: 3 to 10 minutes Medications reviewed and adjusted accordingly: Yes Anticipated discharge: Home
[2017-06-02] MEDS: LISINOPRIL 10 MG TABLET PO SCH (22:57)
[2017-06-02] MEDS: ASPIRIN 81 MG TABLET, ENT COATED PO SCH (22:57)
[2017-06-02] MEDS: LEVOFLOXACIN 750 MG TABLET PO SCH (22:57)
[2017-06-02] MEDS: METOPROLOL TARTRATE 100 MG TABLET PO SCH (22:57)
[2017-06-03] MEDS: IPRATROPIUM/ALBUTEROL 0.5-2.5 MG/3 ML AMPUL NEB SCH ×4 (02:02→21:02)
[2017-06-03 04:57] LABS: ABSOLUTE LYMPHOCYTES (AUTO) 1.5 10^3/uL (0.5-4.7); ABSOLUTE MONOCYTES (AUTO) 0.8 10^3/uL (0.1-1.4); ABSOLUTE NEUT (AUTO) 12.2 10^3/uL (1.7-8.2); BASOPHILS % (AUTO) 0.2 % (0-2); HEMATOCRIT 40.5 % (37.9-51.0); HEMOGLOBIN 13.4 g/dL (13.5-17.0); LYMPHOCYTES % (AUTO) 10.5 % (13-45); MEAN CORPUSCULAR HEMOGLOBIN 28.2 pg (27.0-33.4); MEAN CORPUSCULAR VOLUME 85 fl (80-97); MONOCYTES % (AUTO) 5.5 % (3-13); PLATELET COUNT 252 10^3/uL (150-450); RED BLOOD COUNT 4.75 10^6/uL (4.35-5.55); RED CELL DISTRIBUTION WIDTH 13.8 % (11.5-14.0); SEGMENTED NEUTROPHILS % (AUTO) 83.8 % (42-78); TOTAL CELLS COUNTED % (AUTO) 100 %; WHITE BLOOD COUNT 14.6 10^3/uL (4.0-10.5)
[2017-06-03 05:19] LABS: ANION GAP 12 (5-19); BLOOD UREA NITROGEN 25 mg/dL (7-20); CALCIUM 9.3 mg/dL (8.4-10.2); CARBON DIOXIDE 26 mmol/L (22-30); CHLORIDE 102 mmol/L (98-107); CREATINE KINASE 778 U/L (55-170); GLUCOSE 115 mg/dL (75-110); SODIUM 139.9 mmol/L (137-145)
[2017-06-03] MEDS: LANSOPRAZOLE 30 MG TAB.RAP.DR PO SCH ×2 (06:05→17:56)
[2017-06-03] MEDS: HEPARIN SOD (PORCINE) 5,000 UNIT/ML 1 ML SYRINGE SUBCUT SCH ×3 (06:05→21:59)
--- NOTE | 2017-06-03 08:42 | RADIOLOGY REPORT (SQ) ---
EXAM DESCRIPTION: CHEST SINGLE VIEW COMPLETED DATE/TIME: 06/03/2017 7:56 am REASON FOR STUDY: Dyspnea COMPARISON: Chest film 05/31/2017, 05/29/2017, 10/14/2016 CT chest 03/20/2017 EXAM PARAMETERS: NUMBER OF VIEWS: One view. TECHNIQUE: Single frontal radiographic view of the chest acquired. RADIATION DOSE: NA LIMITATIONS: Mild motion artifact FINDINGS: LUNGS AND PLEURA: Patient has advanced obstructive lung disease. In the mid and lower [place] gs, there is mild pulmonary vascular prominence and few Joe lines which could indicate superimpose d fluid overload. No pneumothorax, no pleural effusions. MEDIASTINUM AND HILAR STRUCTURES: No masses. Contour normal. HEART AND VASCULAR STRUCTURES: Heart normal in size. BONES: No acute findings. HARDWARE: None in the chest. OTHER: No other significant finding. IMPRESSION: Advanced obstructive lung disease Mild pulmonary vascular congestion in the mid and lower lungs, question superimposed mild fluid overl oad or congestive failure TECHNICAL DOCUMENTATION: JOB ID: [id number] [employer]- All Rights Reserved Reading location - IP/workstation name: [email or web address]
[2017-06-03] MEDS: GUAIFENESIN 600 MG TABLET.SA PO SCH ×2 (09:38→21:59)
[2017-06-03] MEDS: LACTOBACILLUS ACIDOPHILUS 250 MG TAB PO SCH ×2 (09:38→17:56)
[2017-06-03] MEDS: AMLODIPINE BESYLATE 5 MG TABLET PO SCH (09:39)
[2017-06-03] MEDS: METHYLPREDNISOLONE INJ 40 MG/1 ML SDV IV SCH ×3 (09:47→21:59)
[2017-06-03] MEDS: DOCUSATE SODIUM 100 MG CAPSULE PO SCH ×2 (09:48→17:57)
[2017-06-03] MEDS: FLUTICASONE NASAL SPRAY 50 MCG/SPRY 120 SPRAY/16 GM NASL SCH ×2 (09:48→22:08)
[2017-06-03] MEDS ORDERED: FUROSEMIDE INJ/PF 20 MG/2 ML SDV IV ONE (13:27)
--- NOTE | 2017-06-03 13:33 | PDOC PROGRESS REPORT ---
Subjective Progress Note for:: 06/03/17 Subjective:: The patient is a 61-year-old male with past medical history of COPD, coronary artery disease, obesity, GERD, and tobacco dependence who was admitted on for a COPD exacerbation. He is on morning rounds. He is found sitting upright in bed on continuous pulse oximetry and cardiac monitoring. He is noted to be on 4 L oxygen by nasal cannula; he had oxygen saturations of 96% and heart rate of 104. His oxygen was decreased to his home O2 requirement of 2 L/min during our conversation. He maintained oxygen saturations greater than 90% with no noted elevation in heart rate. He states that he feels that his breathing and cough have continued to improve. His only complaint today is that he was woken up several times overnight for vital signs, lab draw, chest x-ray. He states that when he was woke early this morning for the chest xray he "came up swinging." He reports powder coater confusion that he relates to the steroids. He requests that the steroids be decreased again today. He has no other questions or concerns at this time. Reason For Visit: COPD EXACERBATION,MORBID OBESITY,PNEUMONIA Physical Exam Vital Signs: Temp Pulse Resp BP Pulse Ox 98.4 F 97 22 H 117/77 95 06/03/17 08:33 06/03/17 08:33 06/03/17 08:33 06/03/17 08:33 06/03/17 07:57 Pulse Oximeter Continuous Start: 05/29/17 22: 00 Freq: RTQ4 Status: Active Document 06/03/17 07:57 [facility] (Rec: 06/03/17 08:05 [facility] [email or web address]) Pulse Oximetry Assessment Oxygen Saturation (92-100) 95 Oxygen Flow Rate (L/min) 4 Oxygen Delivery Method Nasal Cannula Equipment Usage Equipment in Use Continuous SpO2 Machine # 6 Intake & Output 06/02/17 06/03/17 06/04/17 06:59 06:59 06:59 Intake Total 1296 2690 Output Total 677 4420 Balance 621 640 Weight 115.5 kg 115.4 kg General appearance: PRESENT: no acute distress, obese, well-developed, well- nourished Head exam: PRESENT: atraumatic, normocephalic Eye exam: PRESENT: conjunctiva pink, EOMI, PERRLA. ABSENT: scleral icterus Ear exam: PRESENT: normal external ear exam Mouth exam: PRESENT: moist, tongue midline Neck exam: ABSENT: carotid bruit, JVD, lymphadenopathy, thyromegaly Respiratory exam: PRESENT: prolonged expiratory phas, rhonchi, symmetrical, unlabored, wheezes - Slight end-expiratory wheezing; improved from yesterday. ABSENT: rales, tachypnea Cardiovascular exam: PRESENT: RRR. ABSENT: diastolic murmur, rubs, systolic murmur Pulses: PRESENT: normal dorsalis pedis pul Vascular exam: PRESENT: normal capillary refill GI/Abdominal exam: PRESENT: distended, normal bowel sounds, soft. ABSENT: guarding, mass, organolmegaly, rebound, tenderness Rectal exam: PRESENT: deferred Extremities exam: PRESENT: full ROM. ABSENT: calf tenderness, clubbing, pedal edema Neurological exam: PRESENT: alert, awake, oriented to person, oriented to place , oriented to time, oriented to situation, CN II-XII grossly intact. ABSENT: motor sensory deficit Psychiatric exam: PRESENT: agitated, appropriate affect, normal mood. ABSENT: homicidal ideation, suicidal ideation Skin exam: PRESENT: dry, intact, warm. ABSENT: cyanosis, rash Results Laboratory Results: 06/03/17 03:40 06/03/17 03:40 06/03/17 06/03/17 03:40 03:40 WBC 14.6 H RBC 4.75 Hgb 13.4 L Hct 40.5 MCV 85 MCH 28.2 MCHC 33.0 RDW 13.8 Plt Count 252 Seg Neutrophils % 83.8 H Lymphocytes % 10.5 L Monocytes % 5.5 Eosinophils % 0.0 Basophils % 0.2 Absolute Neutrophils 12.2 H Absolute Lymphocytes 1.5 Absolute Monocytes 0.8 Absolute Eosinophils 0.0 Absolute Basophils 0.0 Sodium 139.9 Potassium 5.0 Chloride 102 Carbon Dioxide 26 Anion Gap 12 BUN 25 H Creatinine 1.10 Est GFR ( Amer) > 60 Est GFR (Non-Af Amer) > 60 Glucose 115 H Calcium 9.3 05/31/17 05/31/17 05/31/17 10:01 10:01 14:33 Creatine Kinase 849 H 882 H CK-MB (CK-2) 22.20 H Troponin I < 0.012 NT-Pro-B Natriuret Pep 05/31/17 05/31/17 05/31/17 14:33 20:40 20:40 Creatine Kinase 858 H CK-MB (CK-2) 19.50 H 17.90 H Troponin I < 0.012 < 0.012 NT-Pro-B Natriuret Pep 06/01/17 06/01/17 06/03/17 04:03 04:03 03:40 Creatine Kinase 798 H 778 H CK-MB (CK-2) Troponin I NT-Pro-B Natriuret Pep 56 06/03/17 03:46 Creatine Kinase CK-MB (CK-2) Troponin I NT-Pro-B Natriuret Pep 34 Impressions: Abdomen X-Ray 05/31/17 00:00 IMPRESSION: CONSTIPATION. NO RADIOGRAPHIC EVIDENCE FOR ACUTE ABDOMINAL DISEASE. Chest X-Ray 06/03/17 06:00 IMPRESSION: Advanced obstructive lung disease Mild pulmonary vascular congestion in the mid and lower lungs, question superimposed mild fluid overload or congestive failure Assessment & Plan - Diagnosis (1) Acute and chronic respiratory failure Is this a current diagnosis for this admission?: Yes Plan: Slight improvement in lung sounds, patient remains tachypneic and tachycardic. Continues to decline BiPAP. Blood cultures: No growth at 4 days Repeat CXR this morning shows Advanced obstructive lung disease and mild pulmonary congestion. The patient was admitted to the floor on continuous pulse oximetry and cardiac telemetry. He is provided supplemental oxygen as needed to maintain oxygen saturations greater than 88%; will attempt to wean to home oxygen requirement of 2 lpm. The patient is encouraged to use BiPAP nightly and as needed; at this time the patient continues to refuse BiPAP. He has been empirically placed on p.o. Levaquin. He is provided scheduled and as needed nebulizer treatments. Mucinex twice daily. Will wean Solu-medrol today at patient request. IVF discontinued; Will provide IV furosemide for fluid overload noted by CXR. (2) Acute exacerbation of chronic obstructive pulmonary disease (COPD) Is this a current diagnosis for this admission?: Yes Plan: As above. (3) Acute bronchitis Is this a current diagnosis for this admission?: Yes Plan: Blood cultures are negative at 4 days. The patient is empirically been placed on Levaquin. This is day 5 of 7. (4) GERD (gastroesophageal reflux disease) Is this a current diagnosis for this admission?: Yes Plan: Continue PPI (5) CAD (coronary artery disease) Qualifiers: Coronary Disease-Associated Artery/Lesion type: unspecified vessel or lesion type [place] vs. transplanted heart: [place] heart Associated angina: without angina Qualified Code(s): I25.10 - Atherosclerotic heart disease of [place] coronary artery without angina pectoris Is this a current diagnosis for this admission?: No Plan: Continue outpatient medication; metoprolol, lisinopril, and daily aspirin. (6) Chest pain Is this a current diagnosis for this admission?: Yes Plan: Resolved. The patient reported epigastric chest pain following "coughing fit." Pain was worsened by coughing and deep breathing. Pain radiated bilaterally to back and was not associated with dizziness or nausea. Although the patient has multiple risk factors, I do not feel that the pain is cardiac in nature and is most likely a muscle spasm related to strong cough or abdominal discomfort as he was significantly constipated. I do not suspect a cardiac source of the pain. Stat EKG demonstrated normal sinus rhythm without ST elevation or depression; no acute processes. Chest x-ray is stable with emphysema pattern, unchanged from prior imaging. Troponins trended; normal Creatinine kinase is elevated, will continue to monitor The patient is on continuous cardiac telemetry, continuous pulse oximetry, supplemental oxygen. Nitro tabs are available as needed. (7) Constipation Is this a current diagnosis for this admission?: Yes Plan: Resolved. Will continue Colace. (8) Elevated creatine kinase Is this a current diagnosis for this admission?: Yes Plan: Trending down; Secondary to increased work of breathing. Will monitor. (9) Tobacco abuse Is this a current diagnosis for this admission?: Yes Plan: Smoking cessation is strongly encouraged. The patient is provided nicotine replacement therapy. (10) Hyperkalemia Is this a current diagnosis for this admission?: Yes Plan: Resolved. Will continue to monitor. (11) Hypertension Is this a current diagnosis for this admission?: Yes Plan: Improved today. Continue home medications; metoprolol, lisinopril. Continue Norvasc to 10 mg daily. - Time Time Spent with patient: 15-24 minutes Medications reviewed and adjusted accordingly: Yes Anticipated discharge: Home Within: within 48 hours
[2017-06-03] MEDS: [UNRECOGNIZED DRUG - OTHER] PO PRN (18:01)
[2017-06-03] MEDS: LEVOFLOXACIN 750 MG TABLET PO SCH (21:59)
[2017-06-03] MEDS: METOPROLOL TARTRATE 100 MG TABLET PO SCH (21:59)
[2017-06-03] MEDS: ASPIRIN 81 MG TABLET, ENT COATED PO SCH (21:59)
[2017-06-03] MEDS: LISINOPRIL 10 MG TABLET PO SCH (21:59)
[2017-06-04] MEDS: IPRATROPIUM/ALBUTEROL 0.5-2.5 MG/3 ML AMPUL NEB SCH ×4 (01:17→23:55)
[2017-06-04] MEDS: [UNRECOGNIZED DRUG - OTHER] PO PRN ×2 (06:40→21:13)
[2017-06-04] MEDS: LANSOPRAZOLE 30 MG TAB.RAP.DR PO SCH ×2 (06:40→18:29)
[2017-06-04] MEDS: HEPARIN SOD (PORCINE) 5,000 UNIT/ML 1 ML SYRINGE SUBCUT SCH ×3 (06:40→21:14)
[2017-06-04] MEDS: METHYLPREDNISOLONE INJ 40 MG/1 ML SDV IV SCH (06:40)
[2017-06-04] MEDS ORDERED: (PENDING PHARMACY ID) (Tiotropium Bromide [Spiriva Respimat] 2 PUFF) IH SCH (08:00)
[2017-06-04] MEDS ORDERED: (PENDING PHARMACY ID) (Umeclidinium Brm/Vilanterol Tr [Anoro Ellipta 62.5-25 Mcg Inh] 1 EA IH SCH (10:00)
[2017-06-04] MEDS: LACTOBACILLUS ACIDOPHILUS 250 MG TAB PO SCH ×2 (10:48→18:29)
[2017-06-04] MEDS: DOCUSATE SODIUM 100 MG CAPSULE PO SCH ×2 (10:49→18:28)
[2017-06-04] MEDS: GUAIFENESIN 600 MG TABLET.SA PO SCH ×2 (10:49→21:13)
[2017-06-04] MEDS: AMLODIPINE BESYLATE 5 MG TABLET PO SCH (10:49)
[2017-06-04] MEDS: FLUTICASONE NASAL SPRAY 50 MCG/SPRY 120 SPRAY/16 GM NASL SCH (10:50)
[2017-06-04] MEDS: PREDNISONE 20 MG TABLET PO SCH (10:50)
[2017-06-04] MEDS: TIOTROPIUM BROMIDE DPI 5 CAP/KIT (18 MCG/CAP) IH SCH (10:52)
--- NOTE | 2017-06-04 11:03 | PDOC PROGRESS REPORT ---
Subjective Progress Note for:: 06/04/17 Subjective:: The patient is a 61-year-old male with past medical history of COPD, coronary artery disease, obesity, GERD, and tobacco dependence who was admitted on for a COPD exacerbation. He is seen on morning rounds. He is found sitting upright in bed on continuous pulse oximetry and cardiac monitoring. He is noted to be on 4 L oxygen by nasal cannula; he had oxygen saturations of 93% and heart rate of 91. He states that he did well for most of the day yesterday on 2lpm (his home O2 requirement), but reports that he had to use his albuterol HFA (which he is keeping at the bedside) several times due to having "breathing attacks." He states that overnight, he had one of these episodes with SpO2 in the mid 80s and that his oxygen was increased to 4lpm at that time. He is asked not to use his personal inhaler, but the patient declined stating that he has to have it because he cannot rely on the nursing staff to respond in a timely manner. Overall, and despite report of "breathing attacks," he states that he is improving and that he thinks that he is near his baseline status. He is adamantly against increasing his steroid therapy as he is "planning to be discharged tomorrow". He does continue to refuse BiPAP. He is noted to be fully conversational, does not require pausing to catch his breath, and maintaining oxygen saturations on 3 L/min. Tachycardia appears to be improved, and may be related to his frequency of albuterol self administration. He states that his abdominal fullness and constipation have resolved. He reports a good appetite. He has no other questions or concerns at this time. Reason For Visit: COPD EXACERBATION,MORBID OBESITY,PNEUMONIA Physical Exam Vital Signs: Temp Pulse Resp BP Pulse Ox 97.4 F 91 22 H 129/85 H 93 06/04/17 08:16 06/04/17 08:16 06/04/17 08:16 06/04/17 08:16 06/04/17 08:00 Pulse Oximeter Continuous Start: 05/29/17 22: 00 Freq: RTQ4 Status: Active Document 06/04/17 03:44 [facility] (Rec: 06/04/17 03:44 [facility] [id number]) Pulse Oximetry Assessment Oxygen Saturation (92-100) 96 Oxygen Flow Rate (L/min) 3.0 Oxygen Delivery Method Nasal Cannula Fraction of Inspired Oxygen (FIO2) 32 Equipment Usage Equipment in Use Continuous SpO2 Machine # 6 Intake & Output 06/03/17 06/04/17 06/05/17 06:59 06:59 06:59 Intake Total 2690 1325 Output Total 2050 1700 Balance 640 -375 Weight 115.4 kg 115.3 kg General appearance: PRESENT: no acute distress, obese, well-developed, well- nourished. ABSENT: cooperative - difficult; frequently refuses care/ recommendations Head exam: PRESENT: atraumatic, normocephalic Eye exam: PRESENT: conjunctiva pink, EOMI, PERRLA. ABSENT: scleral icterus Ear exam: PRESENT: normal external ear exam Mouth exam: PRESENT: moist, tongue midline Neck exam: ABSENT: carotid bruit, JVD, lymphadenopathy, thyromegaly Respiratory exam: PRESENT: prolonged expiratory phas, rhonchi, symmetrical, wheezes - Throughout, other - Supplemental oxygen at 3 L/min. ABSENT: rales Cardiovascular exam: PRESENT: RRR, +S1, +S2, tachycardia. ABSENT: diastolic murmur, rubs, systolic murmur Pulses: PRESENT: normal dorsalis pedis pul Vascular exam: PRESENT: normal capillary refill GI/Abdominal exam: PRESENT: normal bowel sounds, soft. ABSENT: distended, guarding, mass, organolmegaly, rebound, tenderness Rectal exam: PRESENT: deferred Extremities exam: PRESENT: full ROM. ABSENT: calf tenderness, clubbing, pedal edema Neurological exam: PRESENT: alert, awake, oriented to person, oriented to place , oriented to time, oriented to situation, CN II-XII grossly intact. ABSENT: motor sensory deficit Psychiatric exam: PRESENT: appropriate affect, normal mood. ABSENT: homicidal ideation, suicidal ideation Skin exam: PRESENT: dry, intact, warm. ABSENT: cyanosis, rash Results Laboratory Results: 06/03/17 03:40 06/03/17 03:40 05/29/17 22:19 Blood Blood Culture - Final NO GROWTH IN 5 DAYS 05/31/17 05/31/17 05/31/17 10:01 10:01 14:33 Creatine Kinase 849 H 882 H CK-MB (CK-2) 22.20 H Troponin I < 0.012 NT-Pro-B Natriuret Pep 05/31/17 05/31/17 05/31/17 14:33 20:40 20:40 Creatine Kinase 858 H CK-MB (CK-2) 19.50 H 17.90 H Troponin I < 0.012 < 0.012 NT-Pro-B Natriuret Pep 06/01/17 06/01/17 06/03/17 04:03 04:03 03:40 Creatine Kinase 798 H 778 H CK-MB (CK-2) Troponin I NT-Pro-B Natriuret Pep 56 06/03/17 03:46 Creatine Kinase CK-MB (CK-2) Troponin I NT-Pro-B Natriuret Pep 34 Impressions: Abdomen X-Ray 05/31/17 00:00 IMPRESSION: CONSTIPATION. NO RADIOGRAPHIC EVIDENCE FOR ACUTE ABDOMINAL DISEASE. Chest X-Ray 06/03/17 06:00 IMPRESSION: Advanced obstructive lung disease Mild pulmonary vascular congestion in the mid and lower lungs, question superimposed mild fluid overload or congestive failure Assessment & Plan - Diagnosis (1) Acute and chronic respiratory failure Is this a current diagnosis for this admission?: Yes Plan: Plateaued. No significant improvement in lung sounds, patient remains tachypneic and tachycardic. Currently requiring 3 L/min to maintain oxygen saturations, patient uses 2 L/min sling. Continues to decline BiPAP and declines escalation of steroid therapy today. Blood cultures: No growth at 5 days Repeat CXR this morning shows Advanced obstructive lung disease and mild pulmonary congestion. The patient was admitted to the floor on continuous pulse oximetry and cardiac telemetry. He is provided supplemental oxygen as needed to maintain oxygen saturations greater than 88%; will attempt to wean to home oxygen requirement of 2 lpm. The patient is encouraged to use BiPAP nightly and as needed; at this time the patient continues to refuse BiPAP. He has been empirically placed on p.o. Levaquin. He is provided scheduled and as needed nebulizer treatments. We will reduce frequency of scheduled treatments as the patient reports that he is using his albuterol HFA at bedside several times a day. Mucinex twice daily. P.o. prednisone; patient requesting to decrease steroids secondary to agitation. Will consult Dr. Duff; pt may be more agreeable to recommendations from specialty provider. Will also benefit from outpatient followup for severe COPD management. (2) Acute exacerbation of chronic obstructive pulmonary disease (COPD) Is this a current diagnosis for this admission?: Yes Plan: Have resumed Spiriva and Anoro. As above. (3) Acute bronchitis Is this a current diagnosis for this admission?: Yes Plan: Final blood cultures have no growth. The patient is empirically been placed on Levaquin. This is day 6 of 7. (4) GERD (gastroesophageal reflux disease) Is this a current diagnosis for this admission?: Yes Plan: Continue PPI (5) CAD (coronary artery disease) Qualifiers: Coronary Disease-Associated Artery/Lesion type: unspecified vessel or lesion type [place] vs. transplanted heart: [place] heart Associated angina: without angina Qualified Code(s): I25.10 - Atherosclerotic heart disease of [place] coronary artery without angina pectoris Is this a current diagnosis for this admission?: No Plan: Continue outpatient medication; metoprolol, lisinopril, and daily aspirin. (6) Chest pain Is this a current diagnosis for this admission?: Yes Plan: Resolved. The patient reported epigastric chest pain following "coughing fit." Pain was worsened by coughing and deep breathing. Pain radiated bilaterally to back and was not associated with dizziness or nausea. Although the patient has multiple risk factors, I do not feel that the pain is cardiac in nature and is most likely a muscle spasm related to strong cough or abdominal discomfort as he was significantly constipated. I do not suspect a cardiac source of the pain. Stat EKG demonstrated normal sinus rhythm without ST elevation or depression; no acute processes. Chest x-ray is stable with emphysema pattern, unchanged from prior imaging. Troponins trended; normal Creatinine kinase is elevated, will continue to monitor The patient is on continuous cardiac telemetry, continuous pulse oximetry, supplemental oxygen. Nitro tabs are available as needed. (7) Constipation Is this a current diagnosis for this admission?: Yes Plan: Resolved. Will continue Colace. (8) Elevated creatine kinase Is this a current diagnosis for this admission?: Yes Plan: Trending down; Secondary to increased work of breathing. Will monitor. (9) Tobacco abuse Is this a current diagnosis for this admission?: Yes Plan: Smoking cessation is strongly encouraged. The patient is provided nicotine replacement therapy. (10) Hyperkalemia Is this a current diagnosis for this admission?: Yes Plan: Resolved. Will continue to monitor. (11) Hypertension Is this a current diagnosis for this admission?: Yes Plan: Improved today. Continue home medications; metoprolol, lisinopril. Continue Norvasc to 10 mg daily. (12) Tachycardia Is this a current diagnosis for this admission?: Yes Plan: Multifactorial; related to acute on chronic respiratory failure as well as over utilization of albuterol HFA inhaler. Patient refuses to discontinue self administration of albuterol. Therefore, will decrease frequency of scheduled nebulizer treatments.
[2017-06-04 11:41] LABS: ARTERIAL BLOOD BASE EXCESS 0.4 mmol/L; ARTERIAL BLOOD H2CO3 1.24 mmol/L (1.05-1.35); ARTERIAL BLOOD HCO3 25.2 mmol/L (20-26); ARTERIAL BLOOD O2 SATURATION 95.2 % (94-98); ARTERIAL BLOOD PCO2 41.3 mmHg (35-45); ARTERIAL BLOOD PO2 75.8 mmHg (80-100); ARTERIAL BLOOD TOTAL CO2 26.5 mmol/L (23-27)
[2017-06-04 11:42] LABS: ARTERIAL BLOOD FIO2 3L
[2017-06-04 19:31] LABS: HEMATOCRIT 43.9 % (37.9-51.0); HEMOGLOBIN 14.5 g/dL (13.5-17.0); MEAN CORPUSCULAR HEMOGLOBIN 28.2 pg (27.0-33.4); MEAN CORPUSCULAR VOLUME 85 fl (80-97); PLATELET COUNT 278 10^3/uL (150-450); RED BLOOD COUNT 5.14 10^6/uL (4.35-5.55); WHITE BLOOD COUNT 15.9 10^3/uL (4.0-10.5)
[2017-06-04] MEDS: LEVOFLOXACIN 750 MG TABLET PO SCH (21:13)
[2017-06-04] MEDS: ASPIRIN 81 MG TABLET, ENT COATED PO SCH (21:13)
[2017-06-04] MEDS: LISINOPRIL 10 MG TABLET PO SCH (21:13)
[2017-06-04] MEDS: METOPROLOL TARTRATE 100 MG TABLET PO SCH (21:13)
[2017-06-05] MEDS: FLUTICASONE NASAL SPRAY 50 MCG/SPRY 120 SPRAY/16 GM NASL SCH ×2 (00:36→09:39)
[2017-06-05 04:43] LABS: HEMATOCRIT 43.7 % (37.9-51.0); HEMOGLOBIN 14.3 g/dL (13.5-17.0); MEAN CORPUSCULAR HGB CONC 32.8 g/dL (32.0-36.0); MEAN CORPUSCULAR VOLUME 85 fl (80-97); PLATELET COUNT 257 10^3/uL (150-450); RED BLOOD COUNT 5.12 10^6/uL (4.35-5.55); RED CELL DISTRIBUTION WIDTH 13.9 % (11.5-14.0); WHITE BLOOD COUNT 19.1 10^3/uL (4.0-10.5)
[2017-06-05 05:06] LABS: ALANINE AMINOTRANSFERASE 37 U/L (21-72); ALBUMIN 3.7 g/dL (3.5-5.0); ALKALINE PHOSPHATASE 52 U/L (38-126); ANION GAP 13 (5-19); ASPARTATE AMINO TRANSFERASE 21 U/L (17-59); BILIRUBIN,DIRECT 0.1 mg/dL (0.0-0.4); BILIRUBIN,TOTAL 0.3 mg/dL (0.2-1.3); BLOOD UREA NITROGEN 22 mg/dL (7-20); CALCIUM 9.5 mg/dL (8.4-10.2); CARBON DIOXIDE 27 mmol/L (22-30); CHLORIDE 101 mmol/L (98-107); CREATINE KINASE 285 U/L (55-170); GLUCOSE 78 mg/dL (75-110); SODIUM 140.8 mmol/L (137-145); TOTAL PROTEIN 6.3 g/dL (6.3-8.2)
[2017-06-05 05:07] LABS: ABSOLUTE LYMPHOCYTES# (MANUAL) 6.1 10^3/uL (0.5-4.7); ABSOLUTE MONOCYTES # (MANUAL) 1.1 10^3/uL (0.1-1.4); ABSOLUTE NEUTROPHILS# (MANUAL) 11.8 10^3/uL (1.7-8.2); BASOPHILS % (MANUAL) 0 % (0-2); EOSINOPHILS % (MANUAL) 0 % (0-6); LYMPHOCYTES % (MANUAL) 32 % (13-45); MONOCYTES % (MANUAL) 6 % (3-13); SEGMENTED NEUTROPHILS % (MAN) 62 % (42-78); TOTAL CELLS COUNTED 100
[2017-06-05 05:10] LABS: ANISOCYTOSIS SLIGHT; OVALOCYTES SLIGHT; PLATELET COMMENT ADEQUATE; PLATELET LARGE PRESENT; POIKILOCYTOSIS SLIGHT; STOMATOCYTES 1+; TOXIC GRANULATION SLIGHT; TOXIC VACUOLATION PRESENT
[2017-06-05] MEDS: HEPARIN SOD (PORCINE) 5,000 UNIT/ML 1 ML SYRINGE SUBCUT SCH (06:55)
[2017-06-05] MEDS: LANSOPRAZOLE 30 MG TAB.RAP.DR PO SCH (06:55)
[2017-06-05] MEDS: IPRATROPIUM/ALBUTEROL 0.5-2.5 MG/3 ML AMPUL NEB SCH (08:15)
[2017-06-05] MEDS: DOCUSATE SODIUM 100 MG CAPSULE PO SCH (09:38)
[2017-06-05] MEDS: LACTOBACILLUS ACIDOPHILUS 250 MG TAB PO SCH (09:38)
[2017-06-05] MEDS: TIOTROPIUM BROMIDE DPI 5 CAP/KIT (18 MCG/CAP) IH SCH (09:39)
[2017-06-05] MEDS: PREDNISONE 20 MG TABLET PO SCH (09:39)
[2017-06-05] MEDS: GUAIFENESIN 600 MG TABLET.SA PO SCH (09:39)
[2017-06-05] MEDS ORDERED: AMLODIPINE BESYLATE 10 MG TABLET PO SCH (10:00)
[2017-06-05 10:54] VITALS: BP 105/73
--- NOTE | 2017-06-06 16:54 | PDOC DISCHARGE SUMMARY ---
General - Admit/Disc Date/PCP Admission Date/Primary Care Provider: 05/29/17 22:17 SOO DALEY MD Discharge Date: 06/05/17 - Discharge Diagnosis (1) Acute on chronic respiratory failure with hypoxemia Is this a current diagnosis for this admission?: Yes (2) Acute exacerbation of chronic obstructive pulmonary disease (COPD) Is this a current diagnosis for this admission?: Yes (3) Acute bronchitis Is this a current diagnosis for this admission?: Yes (4) CAD (coronary artery disease) Is this a current diagnosis for this admission?: No (5) Chest pain Is this a current diagnosis for this admission?: Yes (6) GERD (gastroesophageal reflux disease) Is this a current diagnosis for this admission?: Yes (7) Hyperkalemia Is this a current diagnosis for this admission?: Yes (8) Tobacco abuse Is this a current diagnosis for this admission?: Yes (9) Constipation Is this a current diagnosis for this admission?: Yes (10) Elevated creatine kinase Is this a current diagnosis for this admission?: Yes - Additional Information Resuscitation Status: Full Code Discharge Diet: As Tolerated Discharge Activity: Activity As Tolerated Prescriptions: Amlodipine Besylate [Norvasc 10 mg Tablet] 10 mg PO DAILY #30 tablet Azithromycin [Zithromax 250 mg Tablet] 250 mg PO ASDIR PRN #6 tablet PRN Reason: Guaifenesin [Mucinex Sr 600 mg Tablet.sa] 1,200 mg PO Q12 #60 tablet.sa Prednisone [Deltasone 20 mg Tablet] 20 mg PO DAILY #7 tablet Home Medications: Albuterol Sulfate [Proair HFA Inhalation Aerosol 8.5 gm MDI] 2 puff IH ASDIR PRN 10/09/16 Cyclobenzaprine HCl [Flexeril 10 mg Tablet] 10 mg PO ASDIR PRN 10/09/16 Hydrocodone/Acetaminophen [[place] 10-325 Tablet] 1.5 tab PO Q6HP PRN 10/09/16 Lisinopril [Prinivil 40 mg Tablet] 40 mg PO QHS 10/09/16 Tiotropium [place] [Spiriva Respimat] 2 puff IH QAM 10/09/16 Ipratropium/Albuterol Sulfate [Duoneb 3 ml Ampul] 3 ml NEB RTQ6 05/30/17 Metoprolol Succinate [Toprol XL 100 mg Tablet] 100 mg PO QHS 05/30/17 Nitroglycerin [Nitromist] 4.1 gm TL ASDIR PRN 05/30/17 Pantoprazole Sodium [Protonix] 40 mg PO DAILY 05/30/17 Promethazine-Codeine And Albuterol 6.25/10mg/2mg Per 5ml 10 ml PO QIDP PRN 05/30 Umeclidinium Brm/Vilanterol Tr [Anoro Ellipta 62.5-25 Mcg INH] 1 each IH BID Amlodipine Besylate [Norvasc 10 mg Tablet] 10 mg PO DAILY #30 tablet 06/05/17 Aspirin [Ecotrin 81 mg EC Tablet] 81 mg PO QHS tabec 06/05/17 Azithromycin [Zithromax 250 mg Tablet] 250 mg PO ASDIR PRN #6 tablet 06/05/17 Fluticasone Propionate [Flonase Nasal [place] 50 Mcg/[place] 16 gm] 2 spray NASL Q12 spray.pump 06/05/17 Guaifenesin [Mucinex Sr 600 mg Tablet.sa] 1,200 mg PO Q12 #60 tablet.sa Prednisone [Deltasone 20 mg Tablet] 20 mg PO DAILY #7 tablet 06/05/17 History of Present Illness History of Present Illness: LAKSHMI SALINAS is a 61 year old male with a past medical history of COPD, chronic bronchitis, chronic pain, coronary artery disease and obesity. Patient presents with shortness of breath and a nonproductive cough and acute respiratory distress requiring albuterol, Atrovent, supplemental oxygen and BiPAP. He was unable to speak secondary to paroxysms of cough. He was referred to the hospitalist for admission. Last antibiotic use was August. Denied recent change in medications, infectious contacts, rhinorrhea, sore throat but suffering from GERD. Symptoms were admittedly worse at night. Hospital Course Hospital Course: Patient was placed on nebulizer treatment, mucolytic, IV steroids and IV antibiotic. He required BiPap assistance and he was slowly weaned off. Patient developed chest pain which was deemed to be due to exacerbation of COPD. Patient has been educated about quitting smoking. One limitation during this hospitalization is that patient would refuse treatment recommended. Is my understanding that during prior hospitalizations he has done the same. Patient has been encouraged as to follow-up with Dr. Duff and his PCP on discharge. On the day of discharge patient reported that he was feeling better and that he felt that he would not benefit from stay longer and wanted to be discharged. Since he was stable prompted to discharge. Patient also had been reminded that if at any time he disagrees with plan of care including hospitalization he can express his wishes. Strongly encouraged PCP and Dr. Duff to educate patient about need to comply with plan of care while hospitalized or try to treat patient on not outpatient basis as much as possible. Also to address issue of DO NOT RESUSCITATE and intubation. Physical Exam Vital Signs: Temp Pulse Resp BP Pulse Ox 98.2 F 82 22 H 146/83 H 97 06/05/17 08:22 06/05/17 08:22 06/05/17 08:22 06/05/17 08:22 06/05/17 08:15 Pulse Oximeter Continuous Start: 05/29/17 22: 00 Freq: RTQ4 Status: Active Document 06/05/17 08:15 [facility] [place] (Rec: 06/05/17 08:48 [facility] [place] [email or web address]) Pulse Oximetry Assessment Oxygen Saturation (92-100) 95 Oxygen Flow Rate (L/min) 3 Oxygen Delivery Method Nasal Cannula Fraction of Inspired Oxygen (FIO2) 32 Equipment Usage Equipment in Use Continuous SpO2 Machine # [id number] Intake & Output 06/04/17 06/05/17 06/06/17 06:59 06:59 06:59 Intake Total 1325 1574 Output Total 1700 5080 Balance -375 -1176 Weight 115.3 kg 115.5 kg General appearance: PRESENT: no acute distress, cooperative, obese Head exam: PRESENT: atraumatic, normocephalic Eye exam: PRESENT: conjunctiva pink, EOMI, PERRLA Ear exam: PRESENT: normal external ear exam Mouth exam: PRESENT: moist Neck exam: PRESENT: full ROM. ABSENT: JVD, lymphadenopathy, tenderness Respiratory exam: PRESENT: clear to auscultation edgar, decreased breath sounds Cardiovascular exam: PRESENT: RRR. ABSENT: diastolic murmur, systolic murmur Vascular exam: PRESENT: normal capillary refill GI/Abdominal exam: PRESENT: normal bowel sounds, soft. ABSENT: tenderness Extremities exam: PRESENT: full ROM. ABSENT: pedal edema Musculoskeletal exam: PRESENT: ambulatory Neurological exam: PRESENT: alert, awake, oriented to person, oriented to place , oriented to time, oriented to situation, CN II-XII grossly intact Psychiatric exam: PRESENT: anxious Skin exam: PRESENT: intact, normal color Results Laboratory Results: 06/05/17 04:14 06/05/17 04:14 06/04/17 06/04/17 06/05/17 11:25 19:20 04:14 WBC 15.9 H 19.1 H RBC 5.14 5.12 Hgb 14.5 14.3 Hct 43.9 43.7 MCV 85 85 MCH 28.2 28.0 MCHC 33.0 32.8 RDW 14.0 13.9 Plt Count 278 257 Seg Neutrophils % Not Reportable Lymphocytes % Not Reportable Monocytes % Not Reportable Eosinophils % Not Reportable Basophils % Not Reportable Absolute Neutrophils Not Reportable Absolute Lymphocytes Not Reportable Absolute Monocytes Not Reportable Absolute Eosinophils Not Reportable Absolute Basophils Not Reportable Carbonic Acid 1.24 HCO3/H2CO3 Ratio 20:1 ABG pH 7.40 ABG pCO2 41.3 ABG pO2 75.8 L ABG HCO3 25.2 ABG O2 Saturation 95.2 ABG Base Excess 0.4 FiO2 3L Sodium Potassium Chloride Carbon Dioxide Anion Gap BUN Creatinine Est GFR ( Amer) Est GFR (Non-Af Amer) Glucose Calcium Total Bilirubin AST ALT Alkaline Phosphatase Total Protein Albumin 06/05/17 04:14 WBC RBC Hgb Hct MCV MCH MCHC RDW Plt Count Seg Neutrophils % Lymphocytes % Monocytes % Eosinophils % Basophils % Absolute Neutrophils Absolute Lymphocytes Absolute Monocytes Absolute Eosinophils Absolute Basophils Carbonic Acid HCO3/H2CO3 Ratio ABG pH ABG pCO2 ABG pO2 ABG HCO3 ABG O2 Saturation ABG Base Excess FiO2 Sodium 140.8 Potassium 4.0 Chloride 101 Carbon Dioxide 27 Anion Gap 13 BUN 22 H Creatinine 0.87 Est GFR ( Amer) > 60 Est GFR (Non-Af Amer) > 60 Glucose 78 Calcium 9.5 Total Bilirubin 0.3 AST 21 ALT 37 Alkaline Phosphatase 52 Total Protein 6.3 Albumin 3.7 05/31/17 05/31/17 05/31/17 10:01 10:01 14:33 Creatine Kinase 849 H 882 H CK-MB (CK-2) 22.20 H Troponin I < 0.012 NT-Pro-B Natriuret Pep 05/31/17 05/31/17 05/31/17 14:33 20:40 20:40 Creatine Kinase 858 H CK-MB (CK-2) 19.50 H 17.90 H Troponin I < 0.012 < 0.012 NT-Pro-B Natriuret Pep 06/01/17 06/01/17 06/03/17 04:03 04:03 03:40 Creatine Kinase 798 H 778 H CK-MB (CK-2) Troponin I NT-Pro-B Natriuret Pep 56 06/03/17 06/05/17 03:46 04:14 Creatine Kinase 285 H CK-MB (CK-2) Troponin I NT-Pro-B Natriuret Pep 34 Impressions: Abdomen X-Ray 05/31/17 00:00 IMPRESSION: CONSTIPATION. NO RADIOGRAPHIC EVIDENCE FOR ACUTE ABDOMINAL DISEASE. Chest X-Ray 06/03/17 06:00 IMPRESSION: Advanced obstructive lung disease Mild pulmonary vascular congestion in the mid and lower lungs, question superimposed mild fluid overload or congestive failure Qualifiers - * PATEINT BEING DISCHARGED WITH ANY OF THE FOLLOWING DIAGNOSIS?: No
--- NOTE | 2017-06-10 18:56 | PDOC CONSULTATION ---
Consultation Consult Date: 06/04/17 Attending physician:: MARELY GORDILLO Consult reason:: dyspnea History of Present Illness Admission Date/PCP: 05/29/17 22:17 SOO DALEY MD History of Present Illness: LAKSHMI SALINAS is a 61 year old male with a past medical history of COPD, chronic bronchitis, chronic pain, coronary artery disease and obesity. Patient presents with shortness of breath and a nonproductive cough and acute respiratory distress requiring albuterol, Atrovent, supplemental oxygen and BiPAP. He was unable to speak secondary to paroxysms of cough. He was referred to the hospitalist for admission. Last antibiotic use was August. Denied recent change in medications, infectious contacts, rhinorrhea, sore throat but suffering from GERD. Symptoms were admittedly worse at night. Past Medical History Cardiac Medical History: Reports: Myocardial Infarction, Hypertension Pulmonary Medical History: Reports: Bronchitis, Chronic Obstructive Pulmonary Disease (COPD) GI Medical History: Reports: Diverticulitis Psychiatric Medical History: Reports: Tobacco Dependency Denies: Depression Social History Information Source: Patient, [facility] Records Lives with: Family Smoking Status: Never Smoker Frequency of Alcohol Use: Rare - Drinks on his birthday. His last was about 3 years ago Hx Recreational Drug Use: Yes Drugs: Marijuana Hx Prescription Drug Abuse: No - Advance Directive Resuscitation Status: Full Code Family History Family History: CAD, COPD Parental Family History Reviewed: Yes Children Family History Reviewed: Yes Sibling(s) Family History Reviewed.: Yes Medication/Allergy Home Medications: Albuterol Sulfate [Proair HFA Inhalation Aerosol 8.5 gm MDI] 2 puff IH ASDIR PRN 10/09/16 Cyclobenzaprine HCl [Flexeril 10 mg Tablet] 10 mg PO ASDIR PRN 10/09/16 Hydrocodone/Acetaminophen [[place] 10-325 Tablet] 1.5 tab PO Q6HP PRN 10/09/16 Lisinopril [Prinivil 40 mg Tablet] 40 mg PO QHS 10/09/16 Tiotropium [place] [Spiriva Respimat] 2 puff IH QAM 10/09/16 Ipratropium/Albuterol Sulfate [Duoneb 3 ml Ampul] 3 ml NEB RTQ6 05/30/17 Metoprolol Succinate [Toprol XL 100 mg Tablet] 100 mg PO QHS 05/30/17 Nitroglycerin [Nitromist] 4.1 gm TL ASDIR PRN 05/30/17 Pantoprazole Sodium [Protonix] 40 mg PO DAILY 05/30/17 Promethazine-Codeine And Albuterol 6.25/10mg/2mg Per 5ml 10 ml PO QIDP PRN 05/30 Umeclidinium Brm/Vilanterol Tr [Anoro Ellipta 62.5-25 Mcg INH] 1 each IH BID Amlodipine Besylate [Norvasc 10 mg Tablet] 10 mg PO DAILY #30 tablet 06/05/17 Aspirin [Ecotrin 81 mg EC Tablet] 81 mg PO QHS tabec 06/05/17 Azithromycin [Zithromax 250 mg Tablet] 250 mg PO ASDIR PRN #6 tablet 06/05/17 Fluticasone Propionate [Flonase Nasal [place] 50 Mcg/[place] 16 gm] 2 spray NASL Q12 spray.pump 06/05/17 Guaifenesin [Mucinex Sr 600 mg Tablet.sa] 1,200 mg PO Q12 #60 tablet.sa Prednisone [Deltasone 20 mg Tablet] 20 mg PO DAILY #7 tablet 06/05/17 Allergies/Adverse Reactions: iodine [Iodine] Allergy (Verified 08/28/14 15:04) Shellfish * [Shellfish] Allergy (Verified 08/28/14 15:04) Review of Systems Constitutional: ABSENT: anorexia, headache(s), night sweats, weight gain Eyes: ABSENT: visual disturbances Ears: ABSENT: hearing changes Nose, Mouth, and Throat: ABSENT: mouth pain Cardiovascular: ABSENT: orthropnea, palpitations Respiratory: ABSENT: hemoptysis Gastrointestinal: ABSENT: abdominal pain, coffee ground emesis, hematemesis, hematochezia, melena Genitourinary: ABSENT: dysuria, hematuria Musculoskeletal: ABSENT: deformity, joint swelling Integumentary: ABSENT: pruritus, rash Neurological: ABSENT: abnormal gait, abnormal movements, abnormal speech, confusion, focal weakness, frequent falls, lack of coordination, memory loss Psychiatric: ABSENT: hallucinations, homidical ideation, suicidal ideation Endocrine: ABSENT: cold intolerance, heat intolerance, menstrual abnormalities, polydipsia, polyuria Hematologic/Lymphatic: ABSENT: easy bruising Physical Exam Vital Signs: Temp Pulse Resp BP Pulse Ox 97.4 F 91 22 H 129/85 H 93 06/04/17 08:16 06/04/17 08:16 06/04/17 08:16 06/04/17 08:16 06/04/17 08:00 Pulse Oximeter Continuous Start: 05/29/17 22: 00 Freq: RTQ4 Status: Active Document 06/04/17 03:44 [facility] (Rec: 06/04/17 03:44 [facility] [id number]) Pulse Oximetry Assessment Oxygen Saturation (92-100) 96 Oxygen Flow Rate (L/min) 3.0 Oxygen Delivery Method Nasal Cannula Fraction of Inspired Oxygen (FIO2) 32 Equipment Usage Equipment in Use Continuous SpO2 Machine # 6 Intake & Output 06/03/17 06/04/17 06/05/17 06:59 06:59 06:59 Intake Total 2690 1325 Output Total 2050 1700 Balance 640 -375 Weight 115.4 kg 115.3 kg Results Laboratory Results: 06/03/17 03:40 06/03/17 03:40 06/04/17 11:25 Carbonic Acid 1.24 HCO3/H2CO3 Ratio 20:1 ABG pH 7.40 ABG pCO2 41.3 ABG pO2 75.8 L ABG HCO3 25.2 ABG O2 Saturation 95.2 ABG Base Excess 0.4 FiO2 3L 05/29/17 22:19 Blood Blood Culture - Final NO GROWTH IN 5 DAYS 05/31/17 05/31/17 05/31/17 10:01 10:01 14:33 Creatine Kinase 849 H 882 H CK-MB (CK-2) 22.20 H Troponin I < 0.012 NT-Pro-B Natriuret Pep 05/31/17 05/31/17 05/31/17 14:33 20:40 20:40 Creatine Kinase 858 H CK-MB (CK-2) 19.50 H 17.90 H Troponin I < 0.012 < 0.012 NT-Pro-B Natriuret Pep 06/01/17 06/01/17 06/03/17 04:03 04:03 03:40 Creatine Kinase 798 H 778 H CK-MB (CK-2) Troponin I NT-Pro-B Natriuret Pep 56 06/03/17 03:46 Creatine Kinase CK-MB (CK-2) Troponin I NT-Pro-B Natriuret Pep 34 Impressions: Abdomen X-Ray 05/31/17 00:00 IMPRESSION: CONSTIPATION. NO RADIOGRAPHIC EVIDENCE FOR ACUTE ABDOMINAL DISEASE. Chest X-Ray 06/03/17 06:00 IMPRESSION: Advanced obstructive lung disease Mild pulmonary vascular congestion in the mid and lower lungs, question superimposed mild fluid overload or congestive failure Assessment & Plan - Diagnosis (1) Acute and chronic respiratory failure Qualifiers: Respiratory failure complication: hypoxia Qualified Code(s): J96.21 - Acute and chronic respiratory failure with hypoxia Is this a current diagnosis for this admission?: Yes Plan: boderline hypoxia (2) Acute bacterial bronchitis Is this a current diagnosis for this admission?: Yes Plan: rx as if CAP (3) GERD (gastroesophageal reflux disease) Is this a current diagnosis for this admission?: Yes Plan: PPI (4) Hypertension Is this a current diagnosis for this admission?: Yes Plan: stable (5) Tobacco abuse Is this a current diagnosis for this admission?: Yes Plan: stop smoking
--- NOTE | 2017-06-10 18:59 | PDOC PROGRESS REPORT ---
Subjective Progress Note for:: 06/05/17 Subjective:: a little bettter Reason For Visit: COPD EXACERBATION,MORBID OBESITY,PNEUMONIA Physical Exam Vital Signs: Temp Pulse Resp BP Pulse Ox 98.2 F 82 22 H 146/83 H 97 06/05/17 08:22 06/05/17 08:22 06/05/17 08:22 06/05/17 08:22 06/05/17 08:15 Pulse Oximeter Continuous Start: 05/29/17 22: 00 Freq: RTQ4 Status: Active Document 06/05/17 08:15 [facility] (Rec: 06/05/17 08:48 [facility] [email or web address]) Pulse Oximetry Assessment Oxygen Saturation (92-100) 95 Oxygen Flow Rate (L/min) 3 Oxygen Delivery Method Nasal Cannula Fraction of Inspired Oxygen (FIO2) 32 Equipment Usage Equipment in Use Continuous SpO2 Machine # N6 Intake & Output 06/04/17 06/05/17 06/06/17 06:59 06:59 06:59 Intake Total 1325 1574 Output Total 1700 2750 Balance -375 -1176 Weight 115.3 kg 115.5 kg General appearance: PRESENT: no acute distress, cooperative, disheveled, obese Head exam: PRESENT: atraumatic, normocephalic Eye exam: PRESENT: conjunctiva pale, EOMI Mouth exam: PRESENT: dry mucosa, neck supple Neck exam: ABSENT: carotid bruit, JVD, lymphadenopathy, thyromegaly, tracheal deviation, tracheostomy Respiratory exam: PRESENT: decreased breath sounds, prolonged expiratory phas, rhonchi, symmetrical, unlabored, wheezes. ABSENT: rales, stridor, tachypnea Cardiovascular exam: PRESENT: RRR, +S1, +S2 Pulses: PRESENT: normal radial pulses GI/Abdominal exam: PRESENT: diminished bowel sounds, soft Extremities exam: ABSENT: clubbing, joint swelling Musculoskeletal exam: ABSENT: deformity, dislocation Neurological exam: PRESENT: awake Psychiatric exam: PRESENT: normal mood Skin exam: PRESENT: dry, warm Results Laboratory Results: 06/05/17 04:14 06/05/17 04:14 06/04/17 06/04/17 06/05/17 11:25 19:20 04:14 WBC 15.9 H 19.1 H RBC 5.14 5.12 Hgb 14.5 14.3 Hct 43.9 43.7 MCV 85 85 MCH 28.2 28.0 MCHC 33.0 32.8 RDW 14.0 13.9 Plt Count 278 257 Seg Neutrophils % Not Reportable Lymphocytes % Not Reportable Monocytes % Not Reportable Eosinophils % Not Reportable Basophils % Not Reportable Absolute Neutrophils Not Reportable Absolute Lymphocytes Not Reportable Absolute Monocytes Not Reportable Absolute Eosinophils Not Reportable Absolute Basophils Not Reportable Carbonic Acid 1.24 HCO3/H2CO3 Ratio 20:1 ABG pH 7.40 ABG pCO2 41.3 ABG pO2 75.8 L ABG HCO3 25.2 ABG O2 Saturation 95.2 ABG Base Excess 0.4 FiO2 3L Sodium Potassium Chloride Carbon Dioxide Anion Gap BUN Creatinine Est GFR ( Amer) Est GFR (Non-Af Amer) Glucose Calcium Total Bilirubin AST ALT Alkaline Phosphatase Total Protein Albumin 06/05/17 04:14 WBC RBC Hgb Hct MCV MCH MCHC RDW Plt Count Seg Neutrophils % Lymphocytes % Monocytes % Eosinophils % Basophils % Absolute Neutrophils Absolute Lymphocytes Absolute Monocytes Absolute Eosinophils Absolute Basophils Carbonic Acid HCO3/H2CO3 Ratio ABG pH ABG pCO2 ABG pO2 ABG HCO3 ABG O2 Saturation ABG Base Excess FiO2 Sodium 140.8 Potassium 4.0 Chloride 101 Carbon Dioxide 27 Anion Gap 13 BUN 22 H Creatinine 0.87 Est GFR ( Amer) > 60 Est GFR (Non-Af Amer) > 60 Glucose 78 Calcium 9.5 Total Bilirubin 0.3 AST 21 ALT 37 Alkaline Phosphatase 52 Total Protein 6.3 Albumin 3.7 05/31/17 05/31/17 05/31/17 10:01 10:01 14:33 Creatine Kinase 849 H 882 H CK-MB (CK-2) 22.20 H Troponin I < 0.012 NT-Pro-B Natriuret Pep 05/31/17 05/31/17 05/31/17 14:33 20:40 20:40 Creatine Kinase 858 H CK-MB (CK-2) 19.50 H 17.90 H Troponin I < 0.012 < 0.012 NT-Pro-B Natriuret Pep 06/01/17 06/01/17 06/03/17 04:03 04:03 03:40 Creatine Kinase 798 H 778 H CK-MB (CK-2) Troponin I NT-Pro-B Natriuret Pep 56 06/03/17 06/05/17 03:46 04:14 Creatine Kinase 285 H CK-MB (CK-2) Troponin I NT-Pro-B Natriuret Pep 34 Impressions: Abdomen X-Ray 05/31/17 00:00 IMPRESSION: CONSTIPATION. NO RADIOGRAPHIC EVIDENCE FOR ACUTE ABDOMINAL DISEASE. Chest X-Ray 06/03/17 06:00 IMPRESSION: Advanced obstructive lung disease Mild pulmonary vascular congestion in the mid and lower lungs, question superimposed mild fluid overload or congestive failure Assessment & Plan - Diagnosis (1) Acute and chronic respiratory failure Qualifiers: Respiratory failure complication: hypoxia Qualified Code(s): J96.21 - Acute and chronic respiratory failure with hypoxia Is this a current diagnosis for this admission?: Yes Plan: boderline hypoxia (2) Acute bacterial bronchitis Is this a current diagnosis for this admission?: Yes Plan: rx as if CAP (3) Hypertension Is this a current diagnosis for this admission?: Yes Plan: stable
== END 2017-06-05 11:34 | disposition home or self-care (01) | DRG 189 ==
LOC: ER 20:00 → EH 22:17 → 5 05-30 02:25
PROVIDERS: ADMIT Internal Medicine; ATTEND Internal Medicine
PROC: 5A09457 Assistance with Respiratory Ventilation, 24-96 Consecutive Hours, Continuous Positive Airway Pressure (ICD-10-PCS; principal; 2017-05-29)
DX: J96.21 Acute and chronic respiratory failure with hypoxia (principal); E66.01 Morbid (severe) obesity due to excess calories; J44.1 Chronic obstructive pulmonary disease with (acute) exacerbation; J44.0 Chronic obstructive pulmonary disease with (acute) lower respiratory infection; E87.5 Hyperkalemia; J20.9 Acute bronchitis, unspecified; I25.10 Atherosclerotic heart disease of native coronary artery without angina pectoris; K59.00 Constipation, unspecified; R07.89 Other chest pain; R00.0 Tachycardia, unspecified; G89.29 Other chronic pain; K21.9 Gastro-esophageal reflux disease without esophagitis; I10 Essential (primary) hypertension; F17.200 Nicotine dependence, unspecified, uncomplicated; Z68.36 Body mass index [BMI] 36.0-36.9, adult; Z53.29 Procedure and treatment not carried out because of patient's decision for other reasons; I25.2 Old myocardial infarction; Z82.5 Family history of asthma and other chronic lower respiratory diseases; Z82.49 Family history of ischemic heart disease and other diseases of the circulatory system; Z79.899 Other long term (current) drug therapy; Z79.51 Long term (current) use of inhaled steroids; Z88.8 Allergy status to other drugs, medicaments and biological substances; Z91.013 Allergy to seafood; Z79.82 Long term (current) use of aspirin; Z79.52 Long term (current) use of systemic steroids
CPT/HCPCS: 36415; 36600; 71045; 74019; 80048; 80053; 81001; 82550; 82553; 82803; 82962; 83605; 83690; 83880; 84132; 84484; 85025; 85027; 85610; 87040; 87086; 93005; 93010; 94640; 94660; 94667; 94668; 94762; 94799; 96365; 96375; 96376; 99291; J1644; J1885; J1940; J1956; J2920; J2930; J3475; J3490; J7030; J7512; J7620

== ENCOUNTER 2017-07-29 09:58 | Inpatient (IN) | payer MEDICARE, MEDICAID ==
[2017-07-29] MEDS ORDERED: IPRATROPIUM/ALBUTEROL 0.5-2.5 MG/3 ML AMPUL NEB ONE (10:14)
--- NOTE | 2017-07-29 10:15 | ER Document Report ---
ED General - General Stated Complaint: RESPIRATORY DISTRESS Time Seen by Provider: 07/29/17 10:05 Notes: Patient is a 57-year-old male who returns emergency department the chief complaint today of shortness of breath for the past 3 days. Patient states that he has a history of COPD and that he is on 3 L nasal cannula. States that he was recently discharged from the hospital approximately 2 months ago with bacterial bronchitis versus pneumonia. Patient states that he is doing well up until 3 days ago. Patient states that he is utilizing a nebulizer at home without any improvement. Admits to productive cough with clear/green sputum. Denies any fevers or chills. Patient states that he is a DNR/DNI. Past medical history significant for coronary artery disease with previous [place], GERD, hypertension, hyperlipidemia. Primary care is with Arturo Hagen Primary pulmonology is with [facility] OUTSIDE OF THE [place] IN LAST 30 DAYS: No - Related Data Allergies/Adverse Reactions: iodine [Iodine] Allergy (Verified 08/28/14 15:04) Shellfish * [Shellfish] Allergy (Verified 08/28/14 15:04) Past Medical History - Social History Smoking Status: Former Smoker Family History: CAD, COPD - Past Medical History Cardiac Medical History: Reports: Hx Heart Attack, Hx Hypertension Pulmonary Medical History: Reports: Hx Bronchitis, Hx COPD Renal/ Medical History: Reports: Hx Kidney Stones. Denies: Hx Peritoneal Dialysis GI Medical History: Reports: Hx Diverticulitis Psychiatric Medical History: Denies: Hx Depression Review of Systems - Review of Systems Constitutional: No symptoms reported Cardiovascular: No symptoms reported Respiratory: See HPI Gastrointestinal: No symptoms reported Musculoskeletal: No symptoms reported Skin: No symptoms reported Neurological/Psychological: No symptoms reported -: Yes All other systems reviewed and negative Physical Exam - Vital signs Vitals: Pulse Ox 97 07/29/17 11:13 - Notes Notes: PHYSICAL EXAM GENERAL: Alert, interacts well. HEAD: Normocephalic, atraumatic. EYES: Pupils equal, round, and reactive to light. Extraocular movements intact. ENT: Oral mucosa moist, tongue midline. NECK: Full range of motion. Supple. Trachea midline. LUNGS: Diffuse wheezes and rhonchi without rales. Patient in moderate respiratory distress with tachypnea, labored respirations but speaking in full sentences HEART: Regular rate and rhythm. No murmurs, gallops, or rubs. ABDOMEN: Soft, nondistended, nontender. No guarding, rebound, or rigidity.. Bowel sounds present in all 4 quadrants. EXTREMITIES: Moves all 4 extremities spontaneously. No edema, radial and dorsalis pedis pulses 2/4 bilaterally. No cyanosis. NEUROLOGICAL: Alert and oriented x4. Normal speech. PSYCH: Normal affect, normal mood. SKIN: Warm, dry, normal turgor. No rashes or lesions noted. Course - Re-evaluation Re-evalutation: 07/29/17 14:29 Patient is a 61-year-old male who is hemodynamically stable. This time he states he is DNR/DNI and declining BiPAP. This was offered to him multiple times throughout his stay in the emergency department despite minimal improvement with multiple nebulizer treatments and magnesium and steroids that he received from EMS. Did review his CODE STATUS with him and states that he will use BiPAP if he absolutely requires it. Given that he has not improved with treatments in the emergency department will admit for COPD exacerbation. Patient has been accepted to IMCU. 07/29/17 15:03 dr molina consulted and not recommending initiating ABX at this time - Vital Signs Vital signs: Temp Pulse Resp BP Pulse Ox 3 L 07/29/17 18:18 - Laboratory Result Diagrams: 07/29/17 09:45 07/29/17 09:45 Laboratory results interpreted by me: 07/29/17 07/29/17 09:45 09:45 WBC 12.8 H RDW 14.1 H Eosinophils % 7.0 H Absolute Eosinophils 0.9 H Glucose 128 H Creatine Kinase 214 H - Diagnostic Test Radiology reviewed: Image reviewed, Reports reviewed - EKG Interpretation by Me EKG shows normal: Sinus rhythm Rate: Normal Rhythm: NSR When compared to previous EKG there are: No significant change Discharge - Discharge Clinical Impression: Acute exacerbation of chronic obstructive pulmonary disease (COPD), Acute on chronic respiratory failure with hypoxemia Condition: Stable Disposition: ADMITTED INPATIENT Admitting Provider: Hospitalist Unit Admitted: Medical Floor
[2017-07-29 10:50] LABS: ABSOLUTE BASOPHILS # (AUTO) 0.1 10^3/uL (0.0-0.2); ABSOLUTE EOSINOPHILS # (AUTO) 0.9 10^3/uL (0.0-0.6); ABSOLUTE LYMPHOCYTES (AUTO) 3.6 10^3/uL (0.5-4.7); ABSOLUTE MONOCYTES (AUTO) 1.4 10^3/uL (0.1-1.4); ABSOLUTE NEUT (AUTO) 6.8 10^3/uL (1.7-8.2); BASOPHILS % (AUTO) 0.7 % (0-2); HEMATOCRIT 44.5 % (37.9-51.0); HEMOGLOBIN 14.7 g/dL (13.5-17.0); LYMPHOCYTES % (AUTO) 27.9 % (13-45); MEAN CORPUSCULAR HEMOGLOBIN 28.4 pg (27.0-33.4); MEAN CORPUSCULAR VOLUME 86 fl (80-97); MONOCYTES % (AUTO) 11.1 % (3-13); PLATELET COUNT 336 10^3/uL (150-450); RED BLOOD COUNT 5.17 10^6/uL (4.35-5.55); RED CELL DISTRIBUTION WIDTH 14.1 % (11.5-14.0); SEGMENTED NEUTROPHILS % (AUTO) 53.3 % (42-78); TOTAL CELLS COUNTED % (AUTO) 100 %; WHITE BLOOD COUNT 12.8 10^3/uL (4.0-10.5)
[2017-07-29 10:51] LABS: VENOUS BLOOD BASE EXCESS -2.6 mmol/L; VENOUS BLOOD HCO3 21.7 mmol/L (20-32); VENOUS BLOOD PCO2 36.1 mmHg (35-63); VENOUS BLOOD PH 7.4 (7.30-7.42)
[2017-07-29 10:54] LABS: INTERNATIONAL RATION (INR) 0.85; PARTIAL THROMBOPLASTIN TIME 28.1 SEC (23.5-35.8); PROTHROMBIN TIME 12.1 SEC (11.4-15.4)
[2017-07-29] MEDS: MAGNESIUM SULFATE/D5W 1 GM/100 ML RTUPB IV SCH ×2 (10:58→12:45)
[2017-07-29 11:15] LABS: ALANINE AMINOTRANSFERASE 26 U/L (21-72); ALBUMIN 4.4 g/dL (3.5-5.0); ALKALINE PHOSPHATASE 71 U/L (38-126); ANION GAP 15 (5-19); ASPARTATE AMINO TRANSFERASE 24 U/L (17-59); BILIRUBIN,DIRECT 0.4 mg/dL (0.0-0.4); BILIRUBIN,TOTAL 0.4 mg/dL (0.2-1.3); BLOOD UREA NITROGEN 10 mg/dL (7-20); CALCIUM 9.8 mg/dL (8.4-10.2); CARBON DIOXIDE 23 mmol/L (22-30); CHLORIDE 103 mmol/L (98-107); CREATINE KINASE 214 U/L (55-170); GLUCOSE 128 mg/dL (75-110); POTASSIUM 4.7 mmol/L (3.6-5.0); SODIUM 141.2 mmol/L (137-145); TOTAL PROTEIN 7.6 g/dL (6.3-8.2)
[2017-07-29 11:24] LABS: CREATINE KINASE MB 4.55 ng/mL (<4.55); NT PRO BNP 36 pg/mL (5-900)
[2017-07-29 11:25] LABS: TROPONIN I < 0.012 ng/mL
[2017-07-29 11:32] LABS: ARTERIAL BLOOD BASE EXCESS -1.5 mmol/L; ARTERIAL BLOOD H2CO3 1.25 mmol/L (1.05-1.35); ARTERIAL BLOOD HCO3 23.7 mmol/L (20-26); ARTERIAL BLOOD O2 SATURATION 95.7 % (94-98); ARTERIAL BLOOD PCO2 41.4 mmHg (35-45); ARTERIAL BLOOD PH 7.38 (7.35-7.45); ARTERIAL BLOOD PO2 80.7 mmHg (80-100); ARTERIAL BLOOD TOTAL CO2 24.9 mmol/L (23-27)
[2017-07-29 11:33] LABS: ARTERIAL BLOOD FIO2 2L
--- NOTE | 2017-07-29 11:39 | RADIOLOGY REPORT (SQ) ---
EXAM DESCRIPTION: CHEST SINGLE VIEW COMPLETED DATE/TIME: 07/29/2017 11:28 am REASON FOR STUDY: sob COMPARISON: 06/03/2017 NUMBER OF VIEWS: One view. TECHNIQUE: Single frontal radiographic view of the chest acquired. LIMITATIONS: None. FINDINGS: LUNGS AND PLEURA: No opacities, masses or pneumothorax. No pleural effusion. Attenuated bl ood vessels and flattened wyatt-diaphragms. MEDIASTINUM AND HILAR STRUCTURES: No masses. Contour normal. HEART AND VASCULAR STRUCTURES: Heart normal in size. Normal vasculature. BONES: No acute findings. HARDWARE: None in the chest. OTHER: No other significant finding. IMPRESSION: COPD. NO ACUTE RADIOGRAPHIC FINDING IN THE CHEST OR SIGNIFICANT CHANGE FROM PRIOR STUDY . TECHNICAL DOCUMENTATION: JOB ID: [id number] [employer]- All Rights Reserved Reading location - IP/workstation name: [email or web address]
[2017-07-29] MEDS ORDERED: ALBUTEROL SULFATE 0.083% NEB 2.5 MG/3 ML AMPUL NEB ONE (14:43)
[2017-07-29] MEDS ORDERED: ONDANSETRON HCL INJ/PF 4 MG/2 ML SDV IV PRN (14:52)
[2017-07-29] MEDS ORDERED: ACETAMINOPHEN 325 MG TABLET PO PRN (14:52)
--- NOTE | 2017-07-29 15:38 | PDOC H&P ---
History of Present Illness Admission Date/PCP: 07/29/17 14:43 SOO DALEY MD Patient complains of: Difficulty breathing and shortness of breath for a few days History of Present Illness: LAKSHMI SALINAS is a 61 year old male Patient presents to the emergency room with complaints of difficulty. And shortness of breath. He does have a history of long-standing COPD. He said he was doing well until a few days ago. He was brought to the emergency room and treated with the bronchodilators as well as magnesium with little effect. Patient was initially refusing the use of BiPAP however he has consented as a last resort only. He denies any fever nausea vomiting abdominal pain. He has been coughing with some yellowish discharge. Dr. Duff was consulted from the emergency room and although he did suggest no antibiotics to be started it did start patient on ceftriaxone and Zithromax and this can be discontinued as necessary. Patient still bronchospastic on my exam although he claims that he is better than when he first came in Past Medical History Cardiac Medical History: Reports: Myocardial Infarction, Hypertension Pulmonary Medical History: Reports: Bronchitis, Chronic Obstructive Pulmonary Disease (COPD) GI Medical History: Reports: Diverticulitis Psychiatric Medical History: Denies: Depression Social History Information Source: Patient Smoking Status: Former Smoker Frequency of Alcohol Use: Rare - Drinks on his birthday. His last was about 3 years ago Hx Recreational Drug Use: Yes Drugs: Marijuana Hx Prescription Drug Abuse: No Family History Family History: CAD, COPD Parental Family History Reviewed: Yes Children Family History Reviewed: Yes Sibling(s) Family History Reviewed.: NA Medication/Allergy Allergies/Adverse Reactions: iodine [Iodine] Allergy (Verified 08/28/14 15:04) Shellfish * [Shellfish] Allergy (Verified 08/28/14 15:04) Review of Systems Constitutional: ABSENT: chills, fever(s), weakness Eyes: ABSENT: visual disturbances Cardiovascular: ABSENT: chest pain, dyspnea on exertion, edema, orthropnea, palpitations Respiratory: PRESENT: cough, dyspnea, sputum Gastrointestinal: ABSENT: abdominal pain, constipation, diarrhea, hematemesis, hematochezia, nausea, vomiting Genitourinary: ABSENT: dysuria, hematuria Integumentary: ABSENT: rash, wounds Psychiatric: ABSENT: anxiety, depression, homidical ideation, suicidal ideation Endocrine: ABSENT: cold intolerance, heat intolerance, polydipsia, polyuria Physical Exam Vital Signs: Temp Pulse Resp BP Pulse Ox 97 07/29/17 11:13 General appearance: PRESENT: cooperative, well-developed, well-nourished Head exam: PRESENT: atraumatic, normocephalic Eye exam: PRESENT: conjunctiva pink, PERRLA. ABSENT: scleral icterus Mouth exam: PRESENT: moist, tongue midline Neck exam: ABSENT: carotid bruit, JVD, lymphadenopathy, thyromegaly Respiratory exam: PRESENT: accessory muscle use, decreased breath sounds, rales , rhonchi, wheezes Cardiovascular exam: PRESENT: RRR. ABSENT: diastolic murmur, rubs, systolic murmur Pulses: PRESENT: normal dorsalis pedis pul Vascular exam: PRESENT: normal capillary refill GI/Abdominal exam: PRESENT: normal bowel sounds, soft. ABSENT: distended, guarding, mass, organolmegaly, rebound, tenderness Rectal exam: PRESENT: deferred Extremities exam: PRESENT: full ROM. ABSENT: calf tenderness, clubbing, pedal edema Neurological exam: PRESENT: alert, awake, oriented to person, oriented to place , oriented to time, oriented to situation, CN II-XII grossly intact. ABSENT: motor sensory deficit Psychiatric exam: PRESENT: appropriate affect, normal mood. ABSENT: homicidal ideation, suicidal ideation Skin exam: PRESENT: dry, intact, warm. ABSENT: cyanosis, rash Results Laboratory Results: Laboratory 07/29/17 07/29/17 07/29/17 09:45 09:45 09:45 WBC 12.8 H RBC 5.17 Hgb 14.7 Hct 44.5 MCV 86 MCH 28.4 MCHC 33.0 RDW 14.1 H Plt Count 336 Seg Neutrophils % 53.3 Lymphocytes % 27.9 Monocytes % 11.1 Eosinophils % 7.0 H Basophils % 0.7 Absolute Neutrophils 6.8 Absolute Lymphocytes 3.6 Absolute Monocytes 1.4 Absolute Eosinophils 0.9 H Absolute Basophils 0.1 PT INR APTT Carbonic Acid HCO3/H2CO3 Ratio ABG pH ABG pCO2 ABG pO2 ABG HCO3 ABG Total CO2 ABG O2 Saturation ABG Base Excess VBG pH VBG pCO2 VBG HCO3 VBG Base Excess FiO2 Sodium 141.2 Potassium 4.7 Chloride 103 Carbon Dioxide 23 Anion Gap 15 BUN 10 Creatinine 0.94 Est GFR ( Amer) > 60 Est GFR (Non-Af Amer) > 60 Glucose 128 H Calcium 9.8 Total Bilirubin 0.4 Direct Bilirubin 0.4 Neonat Total Bilirubin Not Reportable Neonat Direct Bilirubin Not Reportable Neonat Indirect Bili Not Reportable AST 24 ALT 26 Alkaline Phosphatase 71 Creatine Kinase 214 H CK-MB (CK-2) 4.55 Troponin I < 0.012 NT-Pro-B Natriuret Pep 36 Total Protein 7.6 Albumin 4.4 07/29/17 07/29/17 07/29/17 09:45 10:16 11:00 WBC RBC Hgb Hct MCV MCH MCHC RDW Plt Count Seg Neutrophils % Lymphocytes % Monocytes % Eosinophils % Basophils % Absolute Neutrophils Absolute Lymphocytes Absolute Monocytes Absolute Eosinophils Absolute Basophils PT 12.1 INR 0.85 APTT 28.1 Carbonic Acid 1.25 HCO3/H2CO3 Ratio 18:1 ABG pH 7.38 ABG pCO2 41.4 ABG pO2 80.7 ABG HCO3 23.7 ABG Total CO2 24.9 ABG O2 Saturation 95.7 ABG Base Excess -1.5 VBG pH 7.40 VBG pCO2 36.1 VBG HCO3 21.7 VBG Base Excess -2.6 FiO2 2L Sodium Potassium Chloride Carbon Dioxide Anion Gap BUN Creatinine Est GFR ( Amer) Est GFR (Non-Af Amer) Glucose Calcium Total Bilirubin Direct Bilirubin Neonat Total Bilirubin Neonat Direct Bilirubin Neonat Indirect Bili AST ALT Alkaline Phosphatase Creatine Kinase CK-MB (CK-2) Troponin I NT-Pro-B Natriuret Pep Total Protein Albumin Impressions: Chest X-Ray 07/29/17 10:01 IMPRESSION: COPD. NO ACUTE RADIOGRAPHIC FINDING IN THE CHEST OR SIGNIFICANT CHANGE FROM PRIOR STUDY. Assessment & Plan - Diagnosis (1) Acute exacerbation of chronic obstructive pulmonary disease (COPD) Is this a current diagnosis for this admission?: Yes Plan: Patient still pretty bronchospastic. He was treated with bronchodilators as well as magnesium in the ER.and of course steroids. We will continue With bronchodilators as well as steroids and use BiPAP as needed (2) Acute and chronic respiratory failure Qualifiers: Is this a current diagnosis for this admission?: Yes Plan: She uses 3 L of oxygen on a chronic basis. We will adjust his oxygen to maintain a pulse oximetry of 92%. (3) Chronic low back pain Qualifiers: Is this a current diagnosis for this admission?: Yes Plan: Patient is on multiple opioids which he is requesting to be continued in hospital (4) Opioid type dependence, continuous use Is this a current diagnosis for this admission?: Yes
[2017-07-29] MEDS ORDERED: CEFTRIAXONE 1 GM/D5W RTU 1 GM/50 ML RTUPB IV SCH (16:00)
--- NOTE | 2017-07-29 16:43 | EKG REPORT ---
SEVERITY:- OTHERWISE NORMAL ECG - SINUS TACHYCARDIA : Confirmed by: Bertrand Mota MD 29-Jul-2017 16:42:40
[2017-07-29] MEDS: CEFTRIAXONE SODIUM 1,000 MG in DEXTROSE 5%-WATER 50 ML IV SCH (19:02)
[2017-07-29] MEDS: AZITHROMYCIN 250 MG TABLET PO SCH (19:08)
[2017-07-29] MEDS: IPRATROPIUM/ALBUTEROL 0.5-2.5 MG/3 ML AMPUL NEB SCH (20:01)
[2017-07-29] MEDS ORDERED: METOPROLOL SUCCINATE 50 MG TAB.SR.24H PO ONE (21:45)
[2017-07-29] MEDS: KETOROLAC TROMETHAMINE INJ/PF 30 MG/1 ML SDV IV PRN (22:36)
[2017-07-30] MEDS: IPRATROPIUM/ALBUTEROL 0.5-2.5 MG/3 ML AMPUL NEB SCH ×4 (01:40→20:05)
[2017-07-30 02:17] LABS: APPEARANCE,URINE CLEAR; BILIRUBIN,URINE NEGATIVE (NEGATIVE); GLUCOSE, URINE >=500 mg/dL (NEGATIVE); KETONES,URINE TRACE mg/dL (NEGATIVE); LEUKOCYTE ESTERASE,URINE NEGATIVE (NEGATIVE); NITRITE,URINE NEGATIVE (NEGATIVE); PROTEIN,URINE 30 mg/dL (NEGATIVE); URINE SPECIFIC GRAVITY 1.027; UROBILINOGEN,URINE NEGATIVE mg/dL (<2.0)
[2017-07-30 02:21] LABS: COLOR,URINE YELLOW
[2017-07-30] MEDS: KETOROLAC TROMETHAMINE INJ/PF 30 MG/1 ML SDV IV PRN (05:08)
[2017-07-30 06:03] LABS: ABSOLUTE LYMPHOCYTES (AUTO) 1.7 10^3/uL (0.5-4.7); ABSOLUTE MONOCYTES (AUTO) 0.9 10^3/uL (0.1-1.4); ABSOLUTE NEUT (AUTO) 13.7 10^3/uL (1.7-8.2); BASOPHILS % (AUTO) 0.2 % (0-2); HEMATOCRIT 41.8 % (37.9-51.0); HEMOGLOBIN 13.8 g/dL (13.5-17.0); LYMPHOCYTES % (AUTO) 10.5 % (13-45); MEAN CORPUSCULAR HGB CONC 33.1 g/dL (32.0-36.0); MEAN CORPUSCULAR VOLUME 85 fl (80-97); MONOCYTES % (AUTO) 5.5 % (3-13); PLATELET COUNT 305 10^3/uL (150-450); RED BLOOD COUNT 4.94 10^6/uL (4.35-5.55); RED CELL DISTRIBUTION WIDTH 14.3 % (11.5-14.0); SEGMENTED NEUTROPHILS % (AUTO) 83.8 % (42-78); TOTAL CELLS COUNTED % (AUTO) 100 %; WHITE BLOOD COUNT 16.4 10^3/uL (4.0-10.5)
[2017-07-30 06:18] LABS: INTERNATIONAL RATION (INR) 0.96; PROTHROMBIN TIME 13.3 SEC (11.4-15.4)
[2017-07-30 06:35] LABS: ANION GAP 19 (5-19); BLOOD UREA NITROGEN 23 mg/dL (7-20); CARBON DIOXIDE 20 mmol/L (22-30); CHLORIDE 101 mmol/L (98-107); GLUCOSE 137 mg/dL (75-110); POTASSIUM 5.6 mmol/L (3.6-5.0); SODIUM 139.6 mmol/L (137-145)
[2017-07-30] MEDS ORDERED: PROMETHAZINE HCL PO PRN (09:42)
[2017-07-30] MEDS ORDERED: CODEINE PO PRN ×2 (09:42→18:47)
[2017-07-30] MEDS: DOCUSATE SODIUM 100 MG CAPSULE PO SCH (09:44)
[2017-07-30] MEDS: ENOXAPARIN SODIUM INJ 40 MG/0.4 ML DISP.SYRIN SUBCUT SCH (09:44)
[2017-07-30] MEDS ORDERED: (PENDING PHARMACY ID) (Tiotropium Bromide [Spiriva Respimat] 2 PUFF) IH SCH (10:00)
--- NOTE | 2017-07-30 11:22 | PDOC CONSULTATION ---
Consultation Consult Date: 07/30/17 Attending physician:: SOO DALEY Consult reason:: Dyspnea History of Present Illness Admission Date/PCP: 07/29/17 14:43 SOO DALEY MD History of Present Illness: LAKSHMI SALINAS is a 61 year old male is well-known to [facility] with multiple exacerbations of COPD presented to the emergency room with increasing shortness of breath and required BiPAP despite his reluctance for seem to stable otherwise and is currently being treated on several states he had a cough productive of thick yellow phlegm for a week prior to admission which progressively got worse he denies hemoptysis or chills he does believe he had a fever. Past Medical History Cardiac Medical History: Reports: Myocardial Infarction, Hypertension Pulmonary Medical History: Reports: Bronchitis, Chronic Obstructive Pulmonary Disease (COPD) GI Medical History: Reports: Diverticulitis Psychiatric Medical History: Denies: Depression Social History Information Source: Patient, DrAbi Campo, [facility] Records Smoking Status: Former Smoker Cigarettes Packs Per Day: 2 Number of Years Smokin Last Time Smoked: 2017 Frequency of Alcohol Use: Occasional Hx Recreational Drug Use: Yes Drugs: Marijuana Hx Prescription Drug Abuse: No Do you have pets?: No Have you had any respiratory illnesses as a child?: No Have you been exposed to any sick contacts recently?: No Have you had any recent respiratory illnesses?: No Have you travelled outside of [place] in the past 12 months?: No - Advance Directive Resuscitation Status: Do Not Resuscitate Family History Family History: CAD, COPD Parental Family History Reviewed: Yes Children Family History Reviewed: Yes Sibling(s) Family History Reviewed.: Yes Medication/Allergy Home Medications: Albuterol Sulfate [Ventolin HFA MDI 18 GM] 2 puff IH Q6HP PRN 07/29/17 Amlodipine Besylate [Norvasc 10 mg Tablet] 10 mg PO QHS 07/29/17 Budesonide/Formoterol Fumarate [Symbicort 160-4.5 Mcg Inhaler] 2 puff IH Q12 Cyclobenzaprine HCl [Flexeril 10 mg Tablet] 5 mg PO Q8HP PRN 07/29/17 Cyclobenzaprine HCl [Flexeril 10 mg Tablet] 10 mg PO QHS 07/29/17 Esomeprazole Magnesium [Nexium 24Hr] 20 mg PO DAILYP PRN 07/29/17 Hydrocodone/Acetaminophen [Hydrocodone-Acetamin 10-325 mg] 1.5 tab PO Q6HP PRN 07/29/17 Ipratropium/Albuterol Sulfate [Iprat-Albut 0.5-3(2.5) mg/3 ml] 3 ml NEB Q6HP PRN 07/29/17 Lisinopril [Prinivil 40 mg Tablet] 40 mg PO QHS 07/29/17 Metoprolol Succinate [Toprol XL 100 mg Tablet] 100 mg PO WLUNCH 07/29/17 Nitroglycerin [Nitromist] 1 spray SL Q5MP PRN 07/29/17 Pantoprazole Sodium [Protonix] 40 mg PO DAILY 07/29/17 Promethazine HCl/Codeine [Prometh-Codein 6.25-10 mg/5 ml] 10 ml PO Q6HP PRN Tiotropium [place] [Spiriva Respimat] 2 puff IH DAILY 07/29/17 Allergies/Adverse Reactions: iodine [Iodine] Allergy (Verified 08/28/14 15:04) Shellfish * [Shellfish] Allergy (Verified 08/28/14 15:04) Review of Systems Constitutional: PRESENT: fever(s). ABSENT: chills Eyes: ABSENT: visual disturbances Ears: ABSENT: hearing changes Nose, Mouth, and Throat: ABSENT: sore throat Cardiovascular: PRESENT: chest pain, dyspnea on exertion, edema. ABSENT: orthropnea, palpitations Respiratory: PRESENT: dyspnea, sputum. ABSENT: hemoptysis Gastrointestinal: ABSENT: abdominal pain, bloating, coffee ground emesis, dysphagia, heartburn, hematemesis, hematochezia, melena Genitourinary: ABSENT: dysuria, hematuria Musculoskeletal: ABSENT: deformity Integumentary: ABSENT: pruritus, rash Neurological: ABSENT: abnormal gait, abnormal movements, abnormal speech, confusion, focal weakness, frequent falls, lack of coordination, memory loss, numbness Psychiatric: ABSENT: hallucinations, homidical ideation, suicidal ideation Endocrine: ABSENT: cold intolerance, heat intolerance, polydipsia, polyuria Hematologic/Lymphatic: ABSENT: easy bruising, lymphadenopathy Physical Exam Vital Signs: Temp Pulse Resp BP Pulse Ox 97.9 F 94 20 122/79 95 07/30/17 07:11 07/30/17 08:04 07/30/17 08:04 07/30/17 07:11 07/30/17 08:04 Intake & Output 07/29/17 07/30/17 07/31/17 06:59 06:59 06:59 Intake Total 236 Output Total 150 Balance 86 Weight 117 kg General appearance: PRESENT: disheveled, mild distress, morbidly obese, well- developed, well-nourished Head exam: PRESENT: atraumatic, normocephalic Eye exam: PRESENT: conjunctiva pale, EOMI. ABSENT: nystagmus, periorbital swelling, scleral icterus Mouth exam: PRESENT: dry mucosa, neck supple, tongue midline Neck exam: ABSENT: carotid bruit, JVD, lymphadenopathy, thyromegaly, tracheal deviation Respiratory exam: PRESENT: decreased breath sounds, prolonged expiratory phas, rhonchi, wheezes. ABSENT: retraction, stridor Cardiovascular exam: PRESENT: RRR, +S1, +S2 Pulses: PRESENT: normal radial pulses GI/Abdominal exam: PRESENT: normal bowel sounds, soft Extremities exam: ABSENT: calf tenderness, clubbing, joint swelling, pedal edema Musculoskeletal exam: PRESENT: ambulatory. ABSENT: deformity, dislocation Neurological exam: PRESENT: alert, awake Psychiatric exam: PRESENT: flat affect Skin exam: PRESENT: dry, warm Results Laboratory Results: 07/30/17 05:15 07/30/17 05:15 07/30/17 07/30/17 07/30/17 02:05 05:15 05:15 WBC 16.4 H RBC 4.94 Hgb 13.8 Hct 41.8 MCV 85 MCH 28.0 MCHC 33.1 RDW 14.3 H Plt Count 305 Seg Neutrophils % 83.8 H Lymphocytes % 10.5 L Monocytes % 5.5 Eosinophils % 0.0 Basophils % 0.2 Absolute Neutrophils 13.7 H Absolute Lymphocytes 1.7 Absolute Monocytes 0.9 Absolute Eosinophils 0.0 Absolute Basophils 0.0 Sodium 139.6 Potassium 5.6 H Chloride 101 Carbon Dioxide 20 L Anion Gap 19 BUN 23 H Creatinine 1.17 Est GFR ( Amer) > 60 Est GFR (Non-Af Amer) > 60 Glucose 137 H Calcium 10.0 Urine Color YELLOW Urine Appearance CLEAR Urine pH 5.0 Ur Specific [place] 1.027 Urine Protein 30 H Urine Glucose (UA) >=500 H Urine Ketones TRACE H Urine Blood NEGATIVE Urine Nitrite NEGATIVE Ur Leukocyte Esterase NEGATIVE Urine WBC (Auto) 1 Urine RBC (Auto) 1 Impressions: Chest X-Ray 07/29/17 10:01 IMPRESSION: COPD. NO ACUTE RADIOGRAPHIC FINDING IN THE CHEST OR SIGNIFICANT CHANGE FROM PRIOR STUDY. Assessment & Plan - Diagnosis (1) Acute exacerbation of chronic obstructive pulmonary disease (COPD) Is this a current diagnosis for this admission?: Yes Plan: bronchodialators (2) Acute on chronic respiratory failure with hypoxemia Is this a current diagnosis for this admission?: Yes Plan: bipap supp O2
--- NOTE | 2017-07-30 11:47 | PDOC PROGRESS REPORT ---
Subjective Progress Note for:: 07/30/17 Subjective:: Patient is seen sitting on the side of the bed currently on BiPAP. He states he is using most of the night. He continues to have a congested cough producing yellow yellow sputum. He is also continued to have wheezing, however this is improving. He denies any chest pains or palpitations. He denies any nausea, vomiting or abdominal pain. He denies any fever chills overnight. He denies any significant arthralgias or myalgias. Remaining review of systems are negative. Reason For Visit: COPD WITH EXACERBATION Physical Exam Vital Signs: Temp Pulse Resp BP Pulse Ox 98.0 F 102 H 26 H 133/90 H 98 07/30/17 11:10 07/30/17 11:10 07/30/17 11:10 07/30/17 11:10 07/30/17 11:10 Intake & Output 07/29/17 07/30/17 07/31/17 06:59 06:59 06:59 Intake Total 236 Output Total 150 Balance 86 Weight 117 kg General appearance: PRESENT: no acute distress, obese, well-developed, well- nourished Head exam: PRESENT: atraumatic, normocephalic Eye exam: PRESENT: conjunctiva pink, EOMI, PERRLA. ABSENT: scleral icterus Ear exam: PRESENT: normal external ear exam Mouth exam: PRESENT: moist, tongue midline Neck exam: ABSENT: carotid bruit, JVD, lymphadenopathy, thyromegaly Respiratory exam: PRESENT: symmetrical, unlabored, wheezes - diffuse expiratory Cardiovascular exam: PRESENT: RRR. ABSENT: diastolic murmur, rubs, systolic murmur Pulses: PRESENT: normal dorsalis pedis pul Vascular exam: PRESENT: normal capillary refill GI/Abdominal exam: PRESENT: normal bowel sounds, soft. ABSENT: distended, guarding, mass, organolmegaly, rebound, tenderness Rectal exam: PRESENT: deferred Extremities exam: PRESENT: full ROM. ABSENT: calf tenderness, clubbing, pedal edema Neurological exam: PRESENT: alert, awake, oriented to person, oriented to place , oriented to time, oriented to situation, CN II-XII grossly intact. ABSENT: motor sensory deficit Psychiatric exam: PRESENT: appropriate affect, normal mood. ABSENT: homicidal ideation, suicidal ideation Skin exam: PRESENT: dry, intact, warm. ABSENT: cyanosis, rash Results Laboratory Results: 07/30/17 05:15 07/30/17 05:15 07/30/17 07/30/17 07/30/17 02:05 05:15 05:15 WBC 16.4 H RBC 4.94 Hgb 13.8 Hct 41.8 MCV 85 MCH 28.0 MCHC 33.1 RDW 14.3 H Plt Count 305 Seg Neutrophils % 83.8 H Lymphocytes % 10.5 L Monocytes % 5.5 Eosinophils % 0.0 Basophils % 0.2 Absolute Neutrophils 13.7 H Absolute Lymphocytes 1.7 Absolute Monocytes 0.9 Absolute Eosinophils 0.0 Absolute Basophils 0.0 Sodium 139.6 Potassium 5.6 H Chloride 101 Carbon Dioxide 20 L Anion Gap 19 BUN 23 H Creatinine 1.17 Est GFR ( Amer) > 60 Est GFR (Non-Af Amer) > 60 Glucose 137 H Calcium 10.0 Urine Color YELLOW Urine Appearance CLEAR Urine pH 5.0 Ur Specific [place] 1.027 Urine Protein 30 H Urine Glucose (UA) >=500 H Urine Ketones TRACE H Urine Blood NEGATIVE Urine Nitrite NEGATIVE Ur Leukocyte Esterase NEGATIVE Urine WBC (Auto) 1 Urine RBC (Auto) 1 Impressions: Chest X-Ray 07/29/17 10:01 IMPRESSION: COPD. NO ACUTE RADIOGRAPHIC FINDING IN THE CHEST OR SIGNIFICANT CHANGE FROM PRIOR STUDY. Assessment & Plan - Diagnosis (1) Acute on chronic respiratory failure with hypoxemia Is this a current diagnosis for this admission?: Yes Plan: Patient wears oxygen at 3 L/min continuous at home. He is presently on BiPAP with adequate oxygenation. We will add IV Solu-Medrol. Continue nebulizers and antibiotic therapy. (2) Acute exacerbation of chronic obstructive pulmonary disease (COPD) Is this a current diagnosis for this admission?: Yes Plan: As above #1 (3) Acute bacterial bronchitis Is this a current diagnosis for this admission?: Yes Plan: Continue current antibiotics. (4) CAD (coronary artery disease) Qualifiers: Coronary Disease-Associated Artery/Lesion type: unspecified vessel or lesion type [place] vs. transplanted heart: [place] heart Associated angina: without angina Qualified Code(s): I25.10 - Atherosclerotic heart disease of [place] coronary artery without angina pectoris Is this a current diagnosis for this admission?: Yes Plan: Continue current medications he is chest pain-free (5) Hyperkalemia Is this a current diagnosis for this admission?: Yes Plan: Resolved (6) Hypertension Qualifiers: Hypertension type: essential hypertension Qualified Code(s): I10 - Essential (primary) hypertension Is this a current diagnosis for this admission?: Yes Plan: Presently normotensive on current medications (7) Tobacco abuse Is this a current diagnosis for this admission?: Yes Plan: Counseled - Time Time Spent with patient: 25-34 minutes Total Critical Time (Minutes): 15 Smoking Cessation Education: 3 to 10 minutes Medications reviewed and adjusted accordingly: Yes Anticipated discharge: Home
[2017-07-30] MEDS ORDERED: METOPROLOL SUCCINATE 50 MG TAB.SR.24H PO SCH (12:00)
[2017-07-30] MEDS: TIOTROPIUM BROMIDE DPI 5 CAP/KIT (18 MCG/CAP) IH SCH (12:13)
[2017-07-30] MEDS: METOPROLOL SUCCINATE 50 MG TAB.SR.24H PO SCH (12:13)
[2017-07-30] MEDS: METHYLPREDNISOLONE INJ 40 MG/1 ML SDV IV SCH ×2 (13:40→21:26)
[2017-07-30] MEDS: AZITHROMYCIN 250 MG TABLET PO SCH (18:28)
[2017-07-30] MEDS: CEFTRIAXONE SODIUM 1,000 MG in DEXTROSE 5%-WATER 50 ML IV SCH (18:28)
[2017-07-30] MEDS ORDERED: PROMETHAZINE PO PRN ×2 (18:47→19:37)
[2017-07-30] MEDS: HYDROCODONE/ACETAMINOPHEN 10-325 MG TABLET PO PRN ×2 (18:54→23:09)
[2017-07-30] MEDS ORDERED: [UNRECOGNIZED DRUG - OTHER] PO PRN (19:37)
[2017-07-31] MEDS: IPRATROPIUM/ALBUTEROL 0.5-2.5 MG/3 ML AMPUL NEB SCH ×4 (02:02→19:52)
[2017-07-31] MEDS: HYDROCODONE/ACETAMINOPHEN 10-325 MG TABLET PO PRN ×3 (03:26→21:48)
[2017-07-31] MEDS: METHYLPREDNISOLONE INJ 40 MG/1 ML SDV IV SCH ×3 (05:26→21:50)
[2017-07-31] MEDS: ALBUTEROL SULFATE 0.083% NEB 2.5 MG/3 ML AMPUL NEB PRN (06:50)
[2017-07-31] MEDS: ENOXAPARIN SODIUM INJ 40 MG/0.4 ML DISP.SYRIN SUBCUT SCH (09:46)
[2017-07-31] MEDS: DOCUSATE SODIUM 100 MG CAPSULE PO SCH (09:46)
--- NOTE | 2017-07-31 10:40 | PDOC PROGRESS REPORT ---
Subjective Progress Note for:: 07/31/17 Subjective:: I am a little better still wheezing Reason For Visit: COPD WITH EXACERBATION Physical Exam Vital Signs: Temp Pulse Resp BP Pulse Ox 97.9 F 107 H 21 H 114/73 98 07/31/17 03:06 07/31/17 07:00 07/31/17 06:50 07/31/17 03:06 07/31/17 06:50 Intake & Output 07/30/17 07/31/17 08/01/17 06:59 06:59 06:59 Intake Total 236 1486 Output Total 150 275 Balance 86 1211 Weight 117 kg 118.6 kg General appearance: PRESENT: cooperative, disheveled, morbidly obese, well- developed, well-nourished Head exam: PRESENT: atraumatic, normocephalic Eye exam: PRESENT: conjunctiva pale, EOMI. ABSENT: nystagmus, periorbital swelling Mouth exam: PRESENT: dry mucosa, neck supple, tongue midline Neck exam: ABSENT: carotid bruit, JVD, lymphadenopathy, thyromegaly, tracheal deviation, tracheostomy Respiratory exam: PRESENT: decreased breath sounds, prolonged expiratory phas, rales, rhonchi, stridor, unlabored, wheezes. ABSENT: retraction Cardiovascular exam: PRESENT: RRR, +S1, +S2 Pulses: PRESENT: normal radial pulses GI/Abdominal exam: PRESENT: diminished bowel sounds, soft Extremities exam: PRESENT: full ROM. ABSENT: calf tenderness, clubbing, joint swelling Musculoskeletal exam: PRESENT: ambulatory, full ROM. ABSENT: deformity, dislocation Neurological exam: PRESENT: alert, altered Psychiatric exam: PRESENT: normal mood Skin exam: PRESENT: dry, warm Results Laboratory Results: 07/30/17 05:15 07/30/17 05:15 Impressions: Chest X-Ray 07/29/17 10:01 IMPRESSION: COPD. NO ACUTE RADIOGRAPHIC FINDING IN THE CHEST OR SIGNIFICANT CHANGE FROM PRIOR STUDY. Assessment & Plan - Diagnosis (1) Acute exacerbation of chronic obstructive pulmonary disease (COPD) Is this a current diagnosis for this admission?: Yes Plan: add inhaled corticosteroids (2) Acute on chronic respiratory failure with hypoxemia Is this a current diagnosis for this admission?: Yes Plan: bipap better but still requiring supp O2
[2017-07-31] MEDS: TIOTROPIUM BROMIDE DPI 5 CAP/KIT (18 MCG/CAP) IH SCH (11:52)
[2017-07-31] MEDS: METOPROLOL SUCCINATE 50 MG TAB.SR.24H PO SCH (13:21)
--- NOTE | 2017-07-31 14:11 | PDOC PROGRESS REPORT ---
Subjective Progress Note for:: 07/31/17 Subjective:: Patient is seen sitting on the side of the bed currently on nasal cannula He states he is feeling better and breathing better this am. He continues to have a congested cough producing yellow yellow sputum. He is also continued to have wheezing, however this is improving. He denies any chest pains or palpitations. He denies any nausea, vomiting or abdominal pain. He denies any fever chills overnight. He denies any significant arthralgias or myalgias. Remaining review of systems are negative. Reason For Visit: COPD WITH EXACERBATION Physical Exam Vital Signs: Temp Pulse Resp BP Pulse Ox 98.1 F 113 H 20 147/92 H 99 07/31/17 11:20 07/31/17 11:20 07/31/17 11:20 07/31/17 11:20 07/31/17 11:20 Intake & Output 07/30/17 07/31/17 08/01/17 06:59 06:59 06:59 Intake Total 236 1486 Output Total 150 275 Balance 86 1211 Weight 117 kg 118.6 kg General appearance: PRESENT: no acute distress, obese, well-developed, well- nourished Head exam: PRESENT: atraumatic, normocephalic Eye exam: PRESENT: conjunctiva pink, EOMI, PERRLA. ABSENT: scleral icterus Ear exam: PRESENT: normal external ear exam Mouth exam: PRESENT: moist, tongue midline Neck exam: ABSENT: carotid bruit, JVD, lymphadenopathy, thyromegaly Respiratory exam: PRESENT: rhonchi - bilateral expiratory wheezing, rhonchi right lower lobe, symmetrical, unlabored, wheezes Cardiovascular exam: PRESENT: RRR. ABSENT: diastolic murmur, rubs, systolic murmur Pulses: PRESENT: normal dorsalis pedis pul Vascular exam: PRESENT: normal capillary refill GI/Abdominal exam: PRESENT: normal bowel sounds, soft. ABSENT: distended, guarding, mass, organolmegaly, rebound, tenderness Rectal exam: PRESENT: deferred Extremities exam: PRESENT: full ROM. ABSENT: calf tenderness, clubbing, pedal edema Neurological exam: PRESENT: alert, awake, oriented to person, oriented to place , oriented to time, oriented to situation, CN II-XII grossly intact. ABSENT: motor sensory deficit Psychiatric exam: PRESENT: appropriate affect, normal mood. ABSENT: homicidal ideation, suicidal ideation Skin exam: PRESENT: dry, intact, warm. ABSENT: cyanosis, rash Results Laboratory Results: 07/30/17 05:15 07/30/17 05:15 Impressions: Chest X-Ray 07/29/17 10:01 IMPRESSION: COPD. NO ACUTE RADIOGRAPHIC FINDING IN THE CHEST OR SIGNIFICANT CHANGE FROM PRIOR STUDY. Assessment & Plan - Diagnosis (1) Acute on chronic respiratory failure with hypoxemia Is this a current diagnosis for this admission?: Yes Plan: Patient wears oxygen at 3 L/min continuous at home. He is presently on BiPAP with adequate oxygenation. Pulmicort nebs added today (2) Acute exacerbation of chronic obstructive pulmonary disease (COPD) Is this a current diagnosis for this admission?: Yes Plan: As above #1 (3) Acute bacterial bronchitis Is this a current diagnosis for this admission?: Yes Plan: Continue current antibiotics. (4) CAD (coronary artery disease) Qualifiers: Coronary Disease-Associated Artery/Lesion type: unspecified vessel or lesion type [place] vs. transplanted heart: [place] heart Associated angina: without angina Qualified Code(s): I25.10 - Atherosclerotic heart disease of [place] coronary artery without angina pectoris Is this a current diagnosis for this admission?: Yes Plan: Continue current medications he is chest pain-free (5) Hyperkalemia Is this a current diagnosis for this admission?: Yes Plan: Resolved (6) Hypertension Qualifiers: Hypertension type: essential hypertension Qualified Code(s): I10 - Essential (primary) hypertension Is this a current diagnosis for this admission?: Yes Plan: Presently normotensive on current medications (7) Tobacco abuse Is this a current diagnosis for this admission?: Yes Plan: Counseled - Time Time Spent with patient: 25-34 minutes Total Critical Time (Minutes): 15 Medications reviewed and adjusted accordingly: Yes Within: within 24 hours - Inpatient Certification Based on my medical assessment, after consideration of the patient's comorbidities, presenting symptoms, or acuity I expect that the services needed warrant INPATIENT care.: Yes I certify that my determination is in accordance with my understanding of Medicare's requirements for reasonable and necessary INPATIENT services [42 CFR 412.3e].: Yes Medical Necessity: Need Close Monitoring Due to Risk of Patient Decompensation, Need For IV Fluids, Need for Nebulizer Therapy and Monitoring of Response
[2017-07-31] MEDS: AZITHROMYCIN 250 MG TABLET PO SCH (17:40)
[2017-07-31] MEDS: CEFTRIAXONE SODIUM 1,000 MG in DEXTROSE 5%-WATER 50 ML IV SCH (17:40)
[2017-07-31] MEDS: PROMETHAZINE CODEINE PO PRN (19:25)
[2017-07-31] MEDS: BUDESONIDE NEB 0.5 MG/2 ML AMPUL NEB SCH (19:52)
[2017-08-01] MEDS: IPRATROPIUM/ALBUTEROL 0.5-2.5 MG/3 ML AMPUL NEB SCH ×4 (02:09→19:50)
[2017-08-01] MEDS: METHYLPREDNISOLONE INJ 40 MG/1 ML SDV IV SCH ×3 (05:18→22:14)
[2017-08-01 06:00] LABS: ABSOLUTE LYMPHOCYTES (AUTO) 1.8 10^3/uL (0.5-4.7); ABSOLUTE NEUT (AUTO) 14.9 10^3/uL (1.7-8.2); BASOPHILS % (AUTO) 0.2 % (0-2); EOSINOPHILS % (AUTO) 0.1 % (0-6); HEMATOCRIT 39.2 % (37.9-51.0); HEMOGLOBIN 13.1 g/dL (13.5-17.0); LYMPHOCYTES % (AUTO) 10.2 % (13-45); MEAN CORPUSCULAR HEMOGLOBIN 28.3 pg (27.0-33.4); MEAN CORPUSCULAR HGB CONC 33.5 g/dL (32.0-36.0); MEAN CORPUSCULAR VOLUME 85 fl (80-97); MONOCYTES % (AUTO) 5.8 % (3-13); PLATELET COUNT 305 10^3/uL (150-450); RED BLOOD COUNT 4.62 10^6/uL (4.35-5.55); RED CELL DISTRIBUTION WIDTH 14.1 % (11.5-14.0); SEGMENTED NEUTROPHILS % (AUTO) 83.7 % (42-78); TOTAL CELLS COUNTED % (AUTO) 100 %; WHITE BLOOD COUNT 17.8 10^3/uL (4.0-10.5)
[2017-08-01] MEDS: BUDESONIDE NEB 0.5 MG/2 ML AMPUL NEB SCH ×2 (08:00→19:50)
[2017-08-01] MEDS: ENOXAPARIN SODIUM INJ 40 MG/0.4 ML DISP.SYRIN SUBCUT SCH (09:33)
[2017-08-01] MEDS: DOCUSATE SODIUM 100 MG CAPSULE PO SCH (09:33)
[2017-08-01] MEDS ORDERED: HYDROCODONE/ACETAMINOPHEN 10-325 MG TABLET PO PRN (09:46)
[2017-08-01] MEDS ORDERED: CYCLOBENZAPRINE HCL 10 MG TABLET PO PRN (09:46)
[2017-08-01] MEDS ORDERED: (PENDING PHARMACY ID) (Nitroglycerin [Nitromist] 1 SPRAY) SL PRN (09:46)
[2017-08-01] MEDS ORDERED: NICOTINE 14 MG/24 HR PATCH.TD24 TD PRN (09:52)
[2017-08-01] MEDS ORDERED: BUDESONIDE/FORMOTEROL 160-4.5 MCG 60 PUFF/6 GM MDI IH SCH (10:00)
[2017-08-01] MEDS ORDERED: VANCOMYCIN HCL 0 MG in DEXTROSE 5%-WATER 250 ML IV NR ×2 (10:00→16:00)
[2017-08-01] MEDS ORDERED: TOBRAMYCIN SULFATE INJ 80 MG/2 ML VIAL NEB SCH (10:30)
[2017-08-01] MEDS: LACTOBACILLUS ACIDOPHILUS 250 MG TAB PO SCH ×2 (10:31→17:50)
--- NOTE | 2017-08-01 10:31 | PDOC PROGRESS REPORT ---
Subjective Progress Note for:: 08/01/17 Subjective:: , Culture positive for Pseudomonas improved but remains tight Reason For Visit: COPD WITH EXACERBATION Physical Exam Vital Signs: Temp Pulse Resp BP Pulse Ox 97.6 F 89 18 143/84 H 100 08/01/17 08:08 08/01/17 08:08 08/01/17 08:08 08/01/17 08:08 08/01/17 08:08 Intake & Output 07/31/17 08/01/17 08/02/17 06:59 06:59 06:59 Intake Total 1486 2971 Output Total 275 1075 Balance 1211 1896 Weight 118.6 kg 115.8 kg General appearance: PRESENT: no acute distress, cooperative, disheveled, morbidly obese Head exam: PRESENT: atraumatic, normocephalic Eye exam: PRESENT: conjunctiva pale, EOMI. ABSENT: nystagmus, periorbital swelling, scleral icterus Mouth exam: PRESENT: moist, neck supple, tongue midline Neck exam: ABSENT: carotid bruit, JVD, lymphadenopathy, thyromegaly, tracheal deviation, tracheostomy Respiratory exam: PRESENT: decreased breath sounds, prolonged expiratory phas, rales, rhonchi, unlabored, wheezes. ABSENT: retraction, stridor, tachypnea Cardiovascular exam: PRESENT: RRR, +S1, +S2. ABSENT: tachycardia Pulses: PRESENT: normal radial pulses GI/Abdominal exam: PRESENT: normal bowel sounds, soft Extremities exam: ABSENT: calf tenderness, clubbing, joint swelling Musculoskeletal exam: ABSENT: deformity, dislocation Neurological exam: PRESENT: alert, awake Psychiatric exam: PRESENT: normal mood Skin exam: PRESENT: dry, warm Results Laboratory Results: 08/01/17 05:20 07/30/17 05:15 08/01/17 05:20 WBC 17.8 H RBC 4.62 Hgb 13.1 L Hct 39.2 MCV 85 MCH 28.3 MCHC 33.5 RDW 14.1 H Plt Count 305 Seg Neutrophils % 83.7 H Lymphocytes % 10.2 L Monocytes % 5.8 Eosinophils % 0.1 Basophils % 0.2 Absolute Neutrophils 14.9 H Absolute Lymphocytes 1.8 Absolute Monocytes 1.0 Absolute Eosinophils 0.0 Absolute Basophils 0.0 Impressions: Chest X-Ray 07/29/17 10:01 IMPRESSION: COPD. NO ACUTE RADIOGRAPHIC FINDING IN THE CHEST OR SIGNIFICANT CHANGE FROM PRIOR STUDY. Assessment & Plan - Diagnosis (1) Acute exacerbation of chronic obstructive pulmonary disease (COPD) Is this a current diagnosis for this admission?: Yes Plan: Trending towards getting better still tight decreased air movement persistent wheezes (2) Acute on chronic respiratory failure with hypoxemia Is this a current diagnosis for this admission?: Yes Plan: Continue supplemental oxygen and noninvasive positive pressure ventilation as needed
[2017-08-01] MEDS ORDERED: LANSOPRAZOLE 30 MG TAB.RAP.DR PO ONE (11:00)
[2017-08-01] MEDS: PROMETHAZINE CODEINE PO PRN (11:02)
[2017-08-01 11:10] LABS: ANION GAP 15 (5-19); BLOOD UREA NITROGEN 17 mg/dL (7-20); CARBON DIOXIDE 23 mmol/L (22-30); CHLORIDE 99 mmol/L (98-107); GLUCOSE 175 mg/dL (75-110); PHOSPHORUS 3.5 mg/dL (2.5-4.5); POTASSIUM 4.7 mmol/L (3.6-5.0)
[2017-08-01] MEDS: ALBUTEROL SULFATE 0.083% NEB 2.5 MG/3 ML AMPUL NEB PRN ×2 (12:10→18:21)
[2017-08-01] MEDS: METOPROLOL SUCCINATE 50 MG TAB.SR.24H PO SCH (12:58)
[2017-08-01] MEDS: TIOTROPIUM BROMIDE DPI 5 CAP/KIT (18 MCG/CAP) IH SCH (13:17)
--- NOTE | 2017-08-01 15:53 | PDOC PROGRESS REPORT ---
Subjective Progress Note for:: 08/01/17 Subjective:: 61-year-old male with past medical history of COPD Coronary artery disease Hypertension He presented to the hospital on July 29 with shortness of breath and cough with expectoration and was diagnosed with COPD exacerbation. The patient was initially on BiPAP. He was started on steroids, nebs and antibiotics. continues to have significant cough and wheezing. Quit smoking 1 year ago. Reason For Visit: COPD WITH EXACERBATION Physical Exam Vital Signs: Temp Pulse Resp BP Pulse Ox 97.6 F 89 18 143/84 H 100 08/01/17 08:08 08/01/17 08:08 08/01/17 08:08 08/01/17 08:08 08/01/17 08:08 Intake & Output 07/31/17 08/01/17 08/02/17 06:59 06:59 06:59 Intake Total 1486 2971 Output Total 275 1075 Balance 1211 1896 Weight 118.6 kg 115.8 kg General appearance: PRESENT: no acute distress Head exam: PRESENT: normocephalic Eye exam: ABSENT: scleral icterus Ear exam: PRESENT: normal external ear exam Mouth exam: PRESENT: moist Respiratory exam: PRESENT: symmetrical, wheezes Cardiovascular exam: PRESENT: RRR GI/Abdominal exam: PRESENT: normal bowel sounds, soft. ABSENT: tenderness Rectal exam: PRESENT: deferred Extremities exam: ABSENT: pedal edema Neurological exam: PRESENT: alert, awake, oriented to person, oriented to place , oriented to time, oriented to situation Psychiatric exam: PRESENT: appropriate affect Skin exam: ABSENT: petechiae Results Laboratory Results: 08/01/17 05:20 07/30/17 05:15 08/01/17 05:20 WBC 17.8 H RBC 4.62 Hgb 13.1 L Hct 39.2 MCV 85 MCH 28.3 MCHC 33.5 RDW 14.1 H Plt Count 305 Seg Neutrophils % 83.7 H Lymphocytes % 10.2 L Monocytes % 5.8 Eosinophils % 0.1 Basophils % 0.2 Absolute Neutrophils 14.9 H Absolute Lymphocytes 1.8 Absolute Monocytes 1.0 Absolute Eosinophils 0.0 Absolute Basophils 0.0 Impressions: Chest X-Ray 07/29/17 10:01 IMPRESSION: COPD. NO ACUTE RADIOGRAPHIC FINDING IN THE CHEST OR SIGNIFICANT CHANGE FROM PRIOR STUDY. Assessment & Plan - Diagnosis (1) Acute exacerbation of chronic obstructive pulmonary disease (COPD) Is this a current diagnosis for this admission?: Yes Plan: Day 4 of azithromycin and Rocephin. Sputum culture is growing Pseudomonas. Will switch Rocephin to Fortaz. Tobramycin nebs ordered by Dr. Duff Continue duo nebs, supplemental oxygen and steroids. Continue Symbicort and spiriva (2) Acute on chronic respiratory failure with hypoxemia Is this a current diagnosis for this admission?: Yes Plan: above (3) Opioid type dependence, continuous use Is this a current diagnosis for this admission?: Yes Plan: Continue outpatient meds (4) Acute bronchitis Is this a current diagnosis for this admission?: Yes Plan: above (5) CAD (coronary artery disease) Qualifiers: Coronary Disease-Associated Artery/Lesion type: unspecified vessel or lesion type [place] vs. transplanted heart: [place] heart Associated angina: without angina Qualified Code(s): I25.10 - Atherosclerotic heart disease of [place] coronary artery without angina pectoris Is this a current diagnosis for this admission?: Yes Plan: Continue outpatient meds including Metoprolol and Plavix (6) Chronic low back pain Qualifiers: Is this a current diagnosis for this admission?: Yes Plan: prn Vicodin and felexeril (8) Hyperkalemia Is this a current diagnosis for this admission?: Yes Plan: Check labs (9) Hypertension Qualifiers: Hypertension type: essential hypertension Qualified Code(s): I10 - Essential (primary) hypertension Is this a current diagnosis for this admission?: Yes (10) Tobacco abuse Is this a current diagnosis for this admission?: Yes Plan: Nicotine patch prn (11) Gram-positive bacteremia Is this a current diagnosis for this admission?: Yes Plan: Blood culture- GPC in clusters ID and sensitivities pending. repeat blood cultures ordered. Start Vancomycin. - Time Time Spent with patient: 35 or more minutes
[2017-08-01] MEDS: AZITHROMYCIN 250 MG TABLET PO SCH (17:50)
[2017-08-01] MEDS: CEFTAZIDIME PENTAHYDRATE 1 GM in DEXTROSE 5%-WATER 50 ML IV SCH (17:56)
[2017-08-01] MEDS: TOBRAMYCIN SULFATE NEB 40 MG/ML 30 ML NEB SCH (19:50)
[2017-08-01] MEDS: TEMAZEPAM 7.5 MG CAPSULE PO PRN (20:20)
[2017-08-01] MEDS: AMLODIPINE BESYLATE 10 MG TABLET PO SCH (22:13)
[2017-08-01] MEDS: CYCLOBENZAPRINE HCL 10 MG TABLET PO SCH (22:13)
[2017-08-01] MEDS: VANCOMYCIN HCL 1,500 MG in DEXTROSE 5%-WATER 250 ML IV SCH (22:14)
[2017-08-02] MEDS: IPRATROPIUM/ALBUTEROL 0.5-2.5 MG/3 ML AMPUL NEB SCH ×4 (01:54→19:48)
[2017-08-02] MEDS: CEFTAZIDIME PENTAHYDRATE 1 GM in DEXTROSE 5%-WATER 50 ML IV SCH ×2 (02:50→09:06)
[2017-08-02] MEDS: VANCOMYCIN HCL 1,500 MG in DEXTROSE 5%-WATER 250 ML IV SCH ×2 (06:14→13:38)
[2017-08-02] MEDS: METHYLPREDNISOLONE INJ 40 MG/1 ML SDV IV SCH ×3 (06:14→21:39)
[2017-08-02 06:50] LABS: ANION GAP 15 (5-19); BLOOD UREA NITROGEN 18 mg/dL (7-20); CALCIUM 9.8 mg/dL (8.4-10.2); CARBON DIOXIDE 24 mmol/L (22-30); CHLORIDE 100 mmol/L (98-107); GLUCOSE 149 mg/dL (75-110); PHOSPHORUS 3.9 mg/dL (2.5-4.5); POTASSIUM 4.8 mmol/L (3.6-5.0); SODIUM 138.7 mmol/L (137-145)
[2017-08-02] MEDS: TOBRAMYCIN SULFATE NEB 40 MG/ML 30 ML NEB SCH ×2 (07:58→19:48)
[2017-08-02] MEDS: BUDESONIDE NEB 0.5 MG/2 ML AMPUL NEB SCH ×2 (07:58→19:48)
[2017-08-02] MEDS: LACTOBACILLUS ACIDOPHILUS 250 MG TAB PO SCH ×2 (09:04→18:28)
[2017-08-02] MEDS: DOCUSATE SODIUM 100 MG CAPSULE PO SCH (09:04)
[2017-08-02] MEDS: LANSOPRAZOLE 30 MG TAB.RAP.DR PO SCH (09:04)
[2017-08-02] MEDS: ENOXAPARIN SODIUM INJ 40 MG/0.4 ML DISP.SYRIN SUBCUT SCH (09:05)
[2017-08-02] MEDS: HYDROCODONE/ACETAMINOPHEN 10-325 MG TABLET PO PRN ×2 (09:09→16:40)
[2017-08-02] MEDS: METOPROLOL SUCCINATE 50 MG TAB.SR.24H PO SCH (11:12)
[2017-08-02] MEDS: TIOTROPIUM BROMIDE DPI 5 CAP/KIT (18 MCG/CAP) IH SCH (11:13)
--- NOTE | 2017-08-02 11:43 | PDOC PROGRESS REPORT ---
Subjective Progress Note for:: 08/02/17 Subjective:: , remains tight Reason For Visit: COPD WITH EXACERBATION Physical Exam Vital Signs: Temp Pulse Resp BP Pulse Ox 98.4 F 87 18 136/86 H 97 08/02/17 03:05 08/02/17 08:01 08/02/17 08:01 08/02/17 03:05 08/02/17 08:01 Intake & Output 08/01/17 08/02/17 08/03/17 06:59 06:59 06:59 Intake Total 2971 2242 Output Total 1075 1900 Balance 1896 342 Weight 115.8 kg 116.4 kg General appearance: PRESENT: no acute distress, cooperative, disheveled, morbidly obese Head exam: PRESENT: atraumatic, normocephalic Eye exam: PRESENT: conjunctiva pale, EOMI. ABSENT: nystagmus, periorbital swelling, scleral icterus Mouth exam: PRESENT: moist, neck supple, tongue midline Neck exam: ABSENT: carotid bruit, JVD, lymphadenopathy, thyromegaly, tracheal deviation, tracheostomy Respiratory exam: PRESENT: decreased breath sounds, prolonged expiratory phas, rales, rhonchi, unlabored, wheezes, other - Breath sounds have improved over the last 24 hours. ABSENT: retraction, stridor, tachypnea Cardiovascular exam: PRESENT: RRR, +S1, +S2. ABSENT: tachycardia Pulses: PRESENT: normal radial pulses GI/Abdominal exam: PRESENT: normal bowel sounds, soft Extremities exam: ABSENT: calf tenderness, clubbing, joint swelling Musculoskeletal exam: ABSENT: deformity, dislocation Neurological exam: PRESENT: alert, awake Psychiatric exam: PRESENT: normal mood Skin exam: PRESENT: dry, warm Results Laboratory Results: 08/01/17 05:20 08/02/17 05:30 08/01/17 08/02/17 10:23 05:30 Sodium 137.0 138.7 Potassium 4.7 4.8 Chloride 99 100 Carbon Dioxide 23 24 Anion Gap 15 15 BUN 17 18 Creatinine 0.68 0.80 Est GFR ( Amer) > 60 > 60 Est GFR (Non-Af Amer) > 60 > 60 Glucose 175 H 149 H Calcium 10.0 9.8 Phosphorus 3.5 3.9 Magnesium 2.4 H 2.4 H Impressions: Chest X-Ray 07/29/17 10:01 IMPRESSION: COPD. NO ACUTE RADIOGRAPHIC FINDING IN THE CHEST OR SIGNIFICANT CHANGE FROM PRIOR STUDY. Assessment & Plan - Diagnosis (1) Acute exacerbation of chronic obstructive pulmonary disease (COPD) Is this a current diagnosis for this admission?: Yes Plan: Trending towards getting better still tight decreased air movement persistent wheezes (2) Acute on chronic respiratory failure with hypoxemia Is this a current diagnosis for this admission?: Yes Plan: Continue supplemental oxygen and noninvasive positive pressure ventilation as needed
[2017-08-02] MEDS ORDERED: NITROGLYCERIN 0.4 MG/TAB 25 TAB/BOTTLE SL PRN (13:09)
[2017-08-02] MEDS ORDERED: ONDANSETRON HCL INJ/PF 4 MG/2 ML SDV IV PRN (13:30)
[2017-08-02] MEDS ORDERED: GUAIFENESIN 600 MG TABLET.SA PO ONE (14:00)
--- NOTE | 2017-08-02 15:39 | Progress Note ---
Provider Note Provider Note: ID Consult Note Asked to review patient's chart. Pt not seen and examined. Reviewed VS, labs, imaging and imaging reports, provider reports. Mr. Holt is a 61 yo man with pmh including lonstanding COPD with chronic hypoxic respiratory failure on 3 L supplemental oxygen via [place], per chart review. He presented on 07/29/17 with c/o increased cough with purulent greenish-yellowish sputum and SOB. He denied fever or chills. He was afebrile on presentation. He was noted to have prolonged expiratory wheezes and rhonchi. He had no murmur on exam. His CXR was unchanged from previous in May 2017. He was admitted with acute on chronic respiratory failure due to COPD exacerbation. He had blood cultures drawn on admission that grew Staphylococcus lugdunensis in 1 set and nothing from the other set. His sputum culture grew 3+ OPF and 1+ Pseudomonas aeruginosa. He has had no fever during hospitalization. Repeat BCx were performed on 08/01, at which time empiric azithromycin/Rocephin was changed to vancomycin and Fortaz to reflect recently reported culture identification and susceptibility results. Impression/Recommendations COPD exacerbation, severe - increased cough, SOB, purulent sputum production, no evidence for pneumonia on CXR, required hospitalization, cx with gomez-susceptible P. aeruginosa. - Fortaz is acceptable as therapy but cefepime may be a better choice from the standpoint of antimicrobial selection pressure exerted on other jasvir (cefepime does not tend to select for beta lactamase production with as great a frequency as ceftazidime). Typical duration of therapy 5-7 days. - Pt has already completed 5 days of azithromycin at this point (started on 07/29 ); suggest discontinuing azithromycin. Staphylococcus lugdunensis pseudobacteremia/blood culture contamination - Pt had no fever, no murmur on exam; BCx on 08/01 are negative x 24h; no skin/ soft tissue infection documented - presence of Staph lugdunensis in 1/2 blood culture sets obtained on admission appears to be most c/w contamination - recommend discontinuing vancomycin and following repeat bcx from 08/01 - if repeat bcx from 08/01 remain negative, no further intervention required - if there is continued growth of Staph lugdunensis from repeat bcx from 08/01, please call back for further input and plan on pursuing echocardiogram and treating with cefepime, as this would have antipseudomonal activity as well as improved gram positive activity to address the S lugdunensis (the patient's isolate was methicillin sensitive, as most S lugdunensis tends to be). I doubt this will be the case, however Kris Linares MD [facility] Infectious Diseases pager [phone]
--- NOTE | 2017-08-02 16:03 | PDOC PROGRESS REPORT ---
Subjective Progress Note for:: 08/02/17 Subjective:: 61-year-old male with past medical history of COPD Coronary artery disease Hypertension He presented to the hospital on July 29 with shortness of breath and cough with expectoration and was diagnosed with COPD exacerbation. The patient was initially on BiPAP. He was started on steroids, nebs and antibiotics. Much improvement in cough and wheezing. Quit smoking 1 year ago. Blood culture showed staph lugdunensis which is felt to be a contaminant per ID. They recommended stopping vancomycin and following up on the repeat blood cultures. If these show up was positive then an echocardiogram may be needed. He feels much better today. Reason For Visit: COPD WITH EXACERBATION Physical Exam Vital Signs: Temp Pulse Resp BP Pulse Ox 98.1 F 99 18 127/83 H 97 08/02/17 12:46 08/02/17 14:00 08/02/17 13:52 08/02/17 12:46 08/02/17 13:52 Intake & Output 08/01/17 08/02/17 08/03/17 06:59 06:59 06:59 Intake Total 2971 2242 Output Total 1075 1900 Balance 1896 342 Weight 115.8 kg 116.4 kg General appearance: PRESENT: no acute distress, obese Head exam: PRESENT: normocephalic Eye exam: ABSENT: scleral icterus Ear exam: PRESENT: normal external ear exam Mouth exam: PRESENT: moist Neck exam: ABSENT: tracheal deviation Respiratory exam: PRESENT: decreased breath sounds, prolonged expiratory phas, symmetrical, unlabored Cardiovascular exam: PRESENT: RRR GI/Abdominal exam: PRESENT: normal bowel sounds, soft. ABSENT: tenderness Rectal exam: PRESENT: deferred Gentrourinary exam: ABSENT: indwelling catheter Extremities exam: ABSENT: pedal edema Neurological exam: PRESENT: alert, awake, oriented to person, oriented to place , oriented to time, oriented to situation Psychiatric exam: PRESENT: appropriate affect Skin exam: ABSENT: rash Results Laboratory Results: 08/01/17 05:20 08/02/17 05:30 08/02/17 05:30 Sodium 138.7 Potassium 4.8 Chloride 100 Carbon Dioxide 24 Anion Gap 15 BUN 18 Creatinine 0.80 Est GFR ( Amer) > 60 Est GFR (Non-Af Amer) > 60 Glucose 149 H Calcium 9.8 Phosphorus 3.9 Magnesium 2.4 H Impressions: Chest X-Ray 07/29/17 10:01 IMPRESSION: COPD. NO ACUTE RADIOGRAPHIC FINDING IN THE CHEST OR SIGNIFICANT CHANGE FROM PRIOR STUDY. Assessment & Plan - Diagnosis (1) Acute exacerbation of chronic obstructive pulmonary disease (COPD) Is this a current diagnosis for this admission?: Yes Plan: Day 5 of Azithromycin- stopped.) Sputum culture is growing Pseudomonas- Cefepime started. ID recommendations appreciated. Tobramycin nebs ordered by Dr. Duff Continue duo nebs, supplemental oxygen and steroids. Continue Symbicort and spiriva (2) Acute on chronic respiratory failure with hypoxemia Is this a current diagnosis for this admission?: Yes Plan: above (3) Opioid type dependence, continuous use Is this a current diagnosis for this admission?: Yes Plan: Continue outpatient meds (4) Acute bronchitis Is this a current diagnosis for this admission?: Yes Plan: As above (5) CAD (coronary artery disease) Qualifiers: Coronary Disease-Associated Artery/Lesion type: unspecified vessel or lesion type [place] vs. transplanted heart: [place] heart Associated angina: without angina Qualified Code(s): I25.10 - Atherosclerotic heart disease of [place] coronary artery without angina pectoris Is this a current diagnosis for this admission?: Yes Plan: Continue outpatient meds including Metoprolol and Plavix (6) Chronic low back pain Qualifiers: Is this a current diagnosis for this admission?: Yes Plan: PRN Vicodin and felexeril (7) GERD (gastroesophageal reflux disease) Is this a current diagnosis for this admission?: Yes Plan: PPI (8) Hyperkalemia Is this a current diagnosis for this admission?: Yes Plan: Monitorresolved (9) Hypertension Qualifiers: Hypertension type: essential hypertension Qualified Code(s): I10 - Essential (primary) hypertension Is this a current diagnosis for this admission?: Yes Plan: Stable (10) Tobacco abuse Is this a current diagnosis for this admission?: Yes Plan: he quit smoking (11) Gram-positive bacteremia Is this a current diagnosis for this admission?: Yes Plan: Management as above. Repeat blood cultures pending. - Time Time Spent with patient: 35 or more minutes
[2017-08-02] MEDS ORDERED: CEFEPIME 2 GM/D5W RTU 50 ML IV SCH (18:00)
[2017-08-02] MEDS: CEFEPIME HCL 2 GM in DEXTROSE 5%-WATER 50 ML IV SCH (18:29)
[2017-08-02] MEDS: GUAIFENESIN 600 MG TABLET.SA PO SCH (21:40)
[2017-08-02] MEDS: AMLODIPINE BESYLATE 10 MG TABLET PO SCH (21:40)
[2017-08-02] MEDS: CYCLOBENZAPRINE HCL 10 MG TABLET PO SCH (21:40)
[2017-08-02] MEDS: TEMAZEPAM 7.5 MG CAPSULE PO PRN (21:41)
[2017-08-03] MEDS: CEFEPIME HCL 2 GM in DEXTROSE 5%-WATER 50 ML IV SCH ×3 (01:26→17:43)
[2017-08-03] MEDS: IPRATROPIUM/ALBUTEROL 0.5-2.5 MG/3 ML AMPUL NEB SCH ×4 (02:11→20:04)
[2017-08-03] MEDS: METHYLPREDNISOLONE INJ 40 MG/1 ML SDV IV SCH ×3 (05:09→21:13)
[2017-08-03 06:32] LABS: VANCOMYCIN,TROUGH 7.3 ug/mL (5.0-20.0)
[2017-08-03 06:36] LABS: ANION GAP 15 (5-19); BLOOD UREA NITROGEN 17 mg/dL (7-20); CALCIUM 9.3 mg/dL (8.4-10.2); CARBON DIOXIDE 24 mmol/L (22-30); CHLORIDE 102 mmol/L (98-107); GLUCOSE 198 mg/dL (75-110); PHOSPHORUS 3.5 mg/dL (2.5-4.5); POTASSIUM 4.5 mmol/L (3.6-5.0); SODIUM 140.9 mmol/L (137-145)
[2017-08-03] MEDS: LANSOPRAZOLE 30 MG TAB.RAP.DR PO SCH (07:38)
[2017-08-03] MEDS: BUDESONIDE NEB 0.5 MG/2 ML AMPUL NEB SCH ×2 (08:07→20:04)
[2017-08-03] MEDS: TOBRAMYCIN SULFATE NEB 40 MG/ML 30 ML NEB SCH ×2 (08:07→20:05)
--- NOTE | 2017-08-03 09:51 | RADIOLOGY REPORT (SQ) ---
EXAM DESCRIPTION: CHEST SINGLE VIEW COMPLETED DATE/TIME: 08/03/2017 9:27 am REASON FOR STUDY: pna COMPARISON: Chest films 10/10/2016, 07/29/2017 CT chest 03/20/2017 EXAM PARAMETERS: NUMBER OF VIEWS: One view. TECHNIQUE: Single frontal radiographic view of the chest acquired. RADIATION DOSE: NA LIMITATIONS: None. FINDINGS: LUNGS AND PLEURA: End-stage appearance of obstructive lung disease with marked hyperinflat ion and hyperlucency throughout both lungs. No acute infiltrates. No pleural effusion. No gross pn eumothorax. MEDIASTINUM AND HILAR STRUCTURES: No masses. Contour normal. HEART AND VASCULAR STRUCTURES: Heart normal in size. Normal vasculature. BONES: No acute findings. HARDWARE: None in the chest. OTHER: No other significant finding. IMPRESSION: End-stage appearance of obstructive lung disease. No acute changes TECHNICAL DOCUMENTATION: JOB ID: [id number] [employer]- All Rights Reserved Reading location - IP/workstation name: [email or web address]
[2017-08-03] MEDS: GUAIFENESIN 600 MG TABLET.SA PO SCH ×2 (09:57→21:13)
[2017-08-03] MEDS: LACTOBACILLUS ACIDOPHILUS 250 MG TAB PO SCH ×2 (09:57→17:42)
[2017-08-03] MEDS: HYDROCODONE/ACETAMINOPHEN 10-325 MG TABLET PO PRN ×2 (10:03→17:47)
[2017-08-03] MEDS: DOCUSATE SODIUM 100 MG CAPSULE PO SCH (10:07)
[2017-08-03] MEDS: METOPROLOL SUCCINATE 50 MG TAB.SR.24H PO SCH (13:39)
[2017-08-03] MEDS: TIOTROPIUM BROMIDE DPI 5 CAP/KIT (18 MCG/CAP) IH SCH (13:41)
[2017-08-03] MEDS: PROMETHAZINE CODEINE PO PRN (16:00)
--- NOTE | 2017-08-03 20:16 | PDOC PROGRESS REPORT ---
Subjective Progress Note for:: 08/03/17 Subjective:: Patient feels that he is breathing better. He is still feeling weak with some wheezing though overall improved. No chest pain. No fever or chills. No bladder problems. She is feeling constipated. No bleeding. Reason For Visit: COPD WITH EXACERBATION Physical Exam Vital Signs: Temp Pulse Resp BP Pulse Ox 98.9 F 104 H 22 H 140/92 H 95 08/03/17 19:18 08/03/17 19:18 08/03/17 19:18 08/03/17 19:18 08/03/17 19:18 Intake & Output 08/02/17 08/03/17 08/04/17 06:59 06:59 06:59 Intake Total 2242 1140 2153 Output Total 1900 3241 900 Balance 342 -2101 1253 Weight 116.4 kg 115.9 kg General appearance: PRESENT: no acute distress, cooperative Head exam: PRESENT: atraumatic, normocephalic Eye exam: PRESENT: EOMI Mouth exam: PRESENT: moist Respiratory exam: PRESENT: decreased breath sounds, prolonged expiratory phas, unlabored, wheezes. ABSENT: rales, rhonchi GI/Abdominal exam: PRESENT: normal bowel sounds, soft. ABSENT: distended, tenderness Extremities exam: ABSENT: calf tenderness Neurological exam: PRESENT: alert, awake, oriented to person, oriented to place , oriented to situation, CN II-XII grossly intact Psychiatric exam: PRESENT: appropriate affect. ABSENT: anxious Skin exam: PRESENT: dry, intact, warm Results Laboratory Results: 08/01/17 05:20 08/03/17 05:49 08/03/17 05:49 Sodium 140.9 Potassium 4.5 Chloride 102 Carbon Dioxide 24 Anion Gap 15 BUN 17 Creatinine 0.80 Est GFR ( Amer) > 60 Est GFR (Non-Af Amer) > 60 Glucose 198 H Calcium 9.3 Phosphorus 3.5 Magnesium 2.5 H 07/29/17 19:00 Blood Blood Culture - Final NO GROWTH IN 5 DAYS Impressions: Chest X-Ray 08/03/17 06:00 IMPRESSION: End-stage appearance of obstructive lung disease. No acute changes Assessment & Plan - Diagnosis (1) Pseudomonas aeruginosa infection Is this a current diagnosis for this admission?: Yes Plan: Yesterday patient was started on cefepime for pseudomonal pneumonia. I wonder if this is colonization. Will investigate further tomorrow. It is feeling better since antibiotics started. (2) Acute exacerbation of chronic obstructive pulmonary disease (COPD) Is this a current diagnosis for this admission?: Yes Plan: Improving, continue current care with bronchodilators and steroids. Patient and I discussed the end-stage nature of his COPD today. - Time Time Spent with patient: 15-24 minutes Medications reviewed and adjusted accordingly: Yes - Inpatient Certification Based on my medical assessment, after consideration of the patient's comorbidities, presenting symptoms, or acuity I expect that the services needed warrant INPATIENT care.: Yes I certify that my determination is in accordance with my understanding of Medicare's requirements for reasonable and necessary INPATIENT services [42 CFR 412.3e].: Yes Medical Necessity: Need Close Monitoring Due to Risk of Patient Decompensation, Need for IV Antibiotics
[2017-08-03] MEDS: CYCLOBENZAPRINE HCL 10 MG TABLET PO SCH (21:13)
[2017-08-03] MEDS: AMLODIPINE BESYLATE 10 MG TABLET PO SCH (21:13)
[2017-08-04] MEDS: CEFEPIME HCL 2 GM in DEXTROSE 5%-WATER 50 ML IV SCH (01:34)
[2017-08-04] MEDS: IPRATROPIUM/ALBUTEROL 0.5-2.5 MG/3 ML AMPUL NEB SCH ×4 (02:38→20:15)
[2017-08-04] MEDS: PROMETHAZINE CODEINE PO PRN ×3 (04:41→21:39)
[2017-08-04] MEDS: METHYLPREDNISOLONE INJ 40 MG/1 ML SDV IV SCH ×2 (05:04→21:39)
[2017-08-04 05:56] LABS: HEMATOCRIT 39.8 % (37.9-51.0); HEMOGLOBIN 13.3 g/dL (13.5-17.0); MEAN CORPUSCULAR HEMOGLOBIN 28.4 pg (27.0-33.4); MEAN CORPUSCULAR HGB CONC 33.4 g/dL (32.0-36.0); MEAN CORPUSCULAR VOLUME 85 fl (80-97); PLATELET COUNT 306 10^3/uL (150-450); RED BLOOD COUNT 4.69 10^6/uL (4.35-5.55); RED CELL DISTRIBUTION WIDTH 13.9 % (11.5-14.0); WHITE BLOOD COUNT 23.4 10^3/uL (4.0-10.5)
[2017-08-04 06:14] LABS: ANION GAP 12 (5-19); BLOOD UREA NITROGEN 18 mg/dL (7-20); CALCIUM 9.4 mg/dL (8.4-10.2); CARBON DIOXIDE 26 mmol/L (22-30); CHLORIDE 102 mmol/L (98-107); GLUCOSE 162 mg/dL (75-110); PHOSPHORUS 3.8 mg/dL (2.5-4.5); POTASSIUM 4.5 mmol/L (3.6-5.0); SODIUM 140.4 mmol/L (137-145)
[2017-08-04 06:24] LABS: ABSOLUTE MONOCYTES # (MANUAL) 2.1 10^3/uL (0.1-1.4); ABSOLUTE NEUTROPHILS# (MANUAL) 17.3 10^3/uL (1.7-8.2); BAND NEUTROPHILS % (MANUAL) 3 % (3-5); BASOPHILS % (MANUAL) 0 % (0-2); EOSINOPHILS % (MANUAL) 0 % (0-6); LYMPHOCYTES % (MANUAL) 17 % (13-45); MONOCYTES % (MANUAL) 9 % (3-13); SEGMENTED NEUTROPHILS % (MAN) 71 % (42-78); TOTAL CELLS COUNTED 100
[2017-08-04 06:25] LABS: PLATELET COMMENT ADEQUATE; TOXIC GRANULATION SLIGHT
[2017-08-04] MEDS: HYDROCODONE/ACETAMINOPHEN 10-325 MG TABLET PO PRN ×3 (08:20→21:39)
[2017-08-04] MEDS: LANSOPRAZOLE 30 MG TAB.RAP.DR PO SCH (08:21)
[2017-08-04] MEDS: TOBRAMYCIN SULFATE NEB 40 MG/ML 30 ML NEB SCH ×2 (08:43→20:15)
[2017-08-04] MEDS: BUDESONIDE NEB 0.5 MG/2 ML AMPUL NEB SCH ×2 (08:43→20:15)
[2017-08-04] MEDS: DOCUSATE SODIUM 100 MG CAPSULE PO SCH (09:58)
[2017-08-04] MEDS: LACTOBACILLUS ACIDOPHILUS 250 MG TAB PO SCH ×2 (09:58→17:11)
[2017-08-04] MEDS: GUAIFENESIN 600 MG TABLET.SA PO SCH ×2 (09:59→21:39)
[2017-08-04] MEDS: CEFEPIME 2 GM/D5W RTU 2 GM/50 ML RTUPB IV SCH ×2 (10:42→17:11)
[2017-08-04] MEDS: METOPROLOL SUCCINATE 50 MG TAB.SR.24H PO SCH (13:14)
[2017-08-04] MEDS: TIOTROPIUM BROMIDE DPI 5 CAP/KIT (18 MCG/CAP) IH SCH (13:15)
--- NOTE | 2017-08-04 14:26 | PDOC PROGRESS REPORT ---
Subjective Progress Note for:: 08/04/17 Subjective:: His breathing is a bit better today, no fever or chills, no sputum today, still coughing. Closer to baseline, though does feel weak, SOB with most movement. He knows how advanced his COPD is, sees Dr. uDff regularly. Not on chronic prednisone at baseline. Reason For Visit: COPD WITH EXACERBATION Physical Exam Vital Signs: Temp Pulse Resp BP Pulse Ox 98.4 F 81 16 128/78 H 96 08/04/17 11:46 08/04/17 14:03 08/04/17 14:03 08/04/17 11:46 08/04/17 14:03 Intake & Output 08/03/17 08/04/17 08/05/17 06:59 06:59 06:59 Intake Total 1140 3300 1400 Output Total 3241 1400 375 Balance -2101 1900 1025 Weight 115.9 kg 116.1 kg General appearance: PRESENT: no acute distress, cooperative, other - in general flushed fase and "tripoding", as he was yesterday, relatively comfortable appearing Head exam: PRESENT: atraumatic, normocephalic Eye exam: PRESENT: EOMI. ABSENT: conjunctival injection, scleral icterus Ear exam: PRESENT: normal external ear exam Mouth exam: PRESENT: moist Respiratory exam: PRESENT: decreased breath sounds - extremely poor air movement , prolonged expiratory phas. ABSENT: rales, rhonchi, wheezes Cardiovascular exam: PRESENT: RRR. ABSENT: systolic murmur Pulses: PRESENT: normal radial pulses GI/Abdominal exam: PRESENT: normal bowel sounds, soft. ABSENT: distended, firm , guarding, tenderness Extremities exam: PRESENT: pedal edema Neurological exam: PRESENT: alert, awake, oriented to person, oriented to place , oriented to situation, CN II-XII grossly intact Psychiatric exam: PRESENT: appropriate affect. ABSENT: anxious Skin exam: PRESENT: dry, warm Results Laboratory Results: 08/04/17 05:40 08/04/17 05:40 08/04/17 08/04/17 05:40 05:40 WBC 23.4 H RBC 4.69 Hgb 13.3 L Hct 39.8 MCV 85 MCH 28.4 MCHC 33.4 RDW 13.9 Plt Count 306 Seg Neutrophils % Not Reportable Lymphocytes % Not Reportable Monocytes % Not Reportable Eosinophils % Not Reportable Basophils % Not Reportable Absolute Neutrophils Not Reportable Absolute Lymphocytes Not Reportable Absolute Monocytes Not Reportable Absolute Eosinophils Not Reportable Absolute Basophils Not Reportable Sodium 140.4 Potassium 4.5 Chloride 102 Carbon Dioxide 26 Anion Gap 12 BUN 18 Creatinine 0.84 Est GFR ( Amer) > 60 Est GFR (Non-Af Amer) > 60 Glucose 162 H Calcium 9.4 Phosphorus 3.8 Magnesium 2.3 07/29/17 19:00 Blood Blood Culture - Final NO GROWTH IN 5 DAYS Impressions: Chest X-Ray 08/03/17 06:00 IMPRESSION: End-stage appearance of obstructive lung disease. No acute changes Assessment & Plan - Diagnosis (1) Pseudomonas aeruginosa infection Is this a current diagnosis for this admission?: Yes Plan: we will treat as infection, consider that this may be a colonizing agent, will discuss with pulmonology (2) Acute exacerbation of chronic obstructive pulmonary disease (COPD) Is this a current diagnosis for this admission?: Yes Plan: with end stage COPD, cont current care with bronchodilator and steroids, cont steroid taper, consider DC on low dose daily predinisone (3) Chronic respiratory failure with hypoxia Is this a current diagnosis for this admission?: Yes Plan: due to advanced COPD, has home O2 - Time Time Spent with patient: 15-24 minutes Anticipated discharge: Home - Inpatient Certification Based on my medical assessment, after consideration of the patient's comorbidities, presenting symptoms, or acuity I expect that the services needed warrant INPATIENT care.: Yes I certify that my determination is in accordance with my understanding of Medicare's requirements for reasonable and necessary INPATIENT services [42 CFR 412.3e].: Yes Medical Necessity: Significant Comorbidiites Make Outpatient Treatment Too Risky , Need for IV Antibiotics, Risk of Complication if Not Cared For in Hospital
[2017-08-04] MEDS: CYCLOBENZAPRINE HCL 10 MG TABLET PO SCH (21:39)
[2017-08-04] MEDS: AMLODIPINE BESYLATE 10 MG TABLET PO SCH (21:39)
[2017-08-04] MEDS: HEPARIN SOD (PORCINE) 5,000 UNIT/ML 1 ML SYRINGE SUBCUT SCH (21:39)
[2017-08-05] MEDS: CEFEPIME 2 GM/D5W RTU 2 GM/50 ML RTUPB IV SCH ×2 (01:51→09:52)
[2017-08-05] MEDS: IPRATROPIUM/ALBUTEROL 0.5-2.5 MG/3 ML AMPUL NEB SCH ×4 (02:12→20:09)
[2017-08-05] MEDS: HEPARIN SOD (PORCINE) 5,000 UNIT/ML 1 ML SYRINGE SUBCUT SCH ×3 (06:08→21:55)
[2017-08-05] MEDS: TOBRAMYCIN SULFATE NEB 40 MG/ML 30 ML NEB SCH ×2 (08:18→20:09)
[2017-08-05] MEDS: BUDESONIDE NEB 0.5 MG/2 ML AMPUL NEB SCH ×2 (08:19→20:09)
[2017-08-05] MEDS: LACTOBACILLUS ACIDOPHILUS 250 MG TAB PO SCH ×2 (09:51→18:27)
[2017-08-05] MEDS: GUAIFENESIN 600 MG TABLET.SA PO SCH ×2 (09:51→21:55)
[2017-08-05] MEDS: HYDROCODONE/ACETAMINOPHEN 10-325 MG TABLET PO PRN ×2 (09:51→21:55)
[2017-08-05] MEDS: DOCUSATE SODIUM 100 MG CAPSULE PO SCH (09:51)
[2017-08-05] MEDS: METHYLPREDNISOLONE INJ 40 MG/1 ML SDV IV SCH ×2 (09:52→21:55)
[2017-08-05] MEDS: PROMETHAZINE CODEINE PO PRN ×2 (10:02→19:55)
[2017-08-05] MEDS: LANSOPRAZOLE 30 MG TAB.RAP.DR PO SCH (10:04)
[2017-08-05] MEDS: METOPROLOL SUCCINATE 50 MG TAB.SR.24H PO SCH (13:08)
[2017-08-05] MEDS: TIOTROPIUM BROMIDE DPI 5 CAP/KIT (18 MCG/CAP) IH SCH (13:10)
--- NOTE | 2017-08-05 17:35 | PDOC PROGRESS REPORT ---
Subjective Progress Note for:: 08/05/17 Subjective:: Breathing better today, coughing and had some phlegm earlier today. No fevers or chills. No chest pain. Shortness of breath improving. Eating and drinking well. Reason For Visit: COPD WITH EXACERBATION Physical Exam Vital Signs: Temp Pulse Resp BP Pulse Ox 97.9 F 75 16 120/83 100 08/05/17 15:28 08/05/17 15:28 08/05/17 15:28 08/05/17 15:28 08/05/17 15:28 Intake & Output 08/04/17 08/05/17 08/06/17 06:59 06:59 06:59 Intake Total 3300 2341 Output Total 1400 1390 Balance 1900 951 Weight 116.1 kg 119.8 kg General appearance: PRESENT: no acute distress, cooperative Head exam: PRESENT: atraumatic, normocephalic Eye exam: ABSENT: conjunctival injection, scleral icterus Ear exam: PRESENT: normal external ear exam Respiratory exam: PRESENT: decreased breath sounds, wheezes. ABSENT: rales, rhonchi, unlabored Cardiovascular exam: PRESENT: RRR. ABSENT: systolic murmur Pulses: PRESENT: normal radial pulses GI/Abdominal exam: PRESENT: normal bowel sounds, soft. ABSENT: distended, firm , guarding, tenderness Musculoskeletal exam: PRESENT: ambulatory Neurological exam: PRESENT: alert, awake, oriented to person, oriented to place , oriented to situation, CN II-XII grossly intact Psychiatric exam: PRESENT: appropriate affect. ABSENT: anxious Skin exam: PRESENT: dry, intact, warm Results Laboratory Results: 08/04/17 05:40 08/04/17 05:40 Impressions: Chest X-Ray 08/03/17 06:00 IMPRESSION: End-stage appearance of obstructive lung disease. No acute changes Assessment & Plan - Diagnosis (1) Pseudomonas aeruginosa infection Is this a current diagnosis for this admission?: Yes Plan: Sputum culture growing Pseudomonas. Sensitive to ciprofloxacin. Will stop cefepime and start Cipro 500 mg p.o. every 12 hours. (2) Acute exacerbation of chronic obstructive pulmonary disease (COPD) Is this a current diagnosis for this admission?: Yes Plan: Improving. We will continue to wean steroids as tolerated. Continue bronchodilators and other COPD medications. Dr. Duff is consulting and is his outpatient roving technician. (3) Chronic respiratory failure with hypoxia Is this a current diagnosis for this admission?: Yes Plan: Overall improving. We will continue to treat pneumonia and COPD exacerbation with the goal of getting patient back home on his baseline medications and oxygen requirement. - Time Time Spent with patient: 15-24 minutes Medications reviewed and adjusted accordingly: Yes - Inpatient Certification Based on my medical assessment, after consideration of the patient's comorbidities, presenting symptoms, or acuity I expect that the services needed warrant INPATIENT care.: Yes I certify that my determination is in accordance with my understanding of Medicare's requirements for reasonable and necessary INPATIENT services [42 CFR 412.3e].: Yes Medical Necessity: Need Close Monitoring Due to Risk of Patient Decompensation, Risk of Complication if Not Cared For in Hospital
--- NOTE | 2017-08-05 20:19 | PDOC PROGRESS REPORT ---
Subjective Progress Note for:: 08/03/17 Subjective:: , remains tight Reason For Visit: COPD WITH EXACERBATION Physical Exam Vital Signs: Temp Pulse Resp BP Pulse Ox 97.9 F 86 16 120/83 100 08/05/17 15:28 08/05/17 19:00 08/05/17 15:28 08/05/17 15:28 08/05/17 15:28 Intake & Output 08/04/17 08/05/17 08/06/17 06:59 06:59 06:59 Intake Total 3300 2341 771 Output Total 1400 1390 1228 Balance 1900 951 -551 Weight 116.1 kg 119.8 kg General appearance: PRESENT: no acute distress, cooperative, disheveled, morbidly obese Head exam: PRESENT: atraumatic, normocephalic Eye exam: PRESENT: conjunctiva pale, EOMI. ABSENT: nystagmus, periorbital swelling, scleral icterus Mouth exam: PRESENT: dry mucosa, neck supple, tongue midline Neck exam: ABSENT: carotid bruit, JVD, lymphadenopathy, thyromegaly, tracheal deviation, tracheostomy Respiratory exam: PRESENT: decreased breath sounds, prolonged expiratory phas, rhonchi, unlabored, wheezes. ABSENT: rales, retraction, stridor Cardiovascular exam: PRESENT: RRR, +S1, +S2 Pulses: PRESENT: normal radial pulses GI/Abdominal exam: PRESENT: normal bowel sounds, soft Extremities exam: ABSENT: calf tenderness, clubbing, joint swelling Musculoskeletal exam: ABSENT: deformity, dislocation Neurological exam: PRESENT: alert, awake Psychiatric exam: PRESENT: normal mood Skin exam: PRESENT: dry, warm Results Laboratory Results: 08/04/17 05:40 08/04/17 05:40 Impressions: Chest X-Ray 08/03/17 06:00 IMPRESSION: End-stage appearance of obstructive lung disease. No acute changes Assessment & Plan - Diagnosis (1) Acute exacerbation of chronic obstructive pulmonary disease (COPD) Is this a current diagnosis for this admission?: Yes Plan: Trending towards getting better still tight decreased air movement persistent wheezes (2) Acute on chronic respiratory failure with hypoxemia Is this a current diagnosis for this admission?: Yes Plan: Continue supplemental oxygen and noninvasive positive pressure ventilation as needed
[2017-08-05] MEDS: CYCLOBENZAPRINE HCL 10 MG TABLET PO SCH (21:55)
[2017-08-05] MEDS: CIPROFLOXACIN HCL 500 MG TABLET PO SCH (21:55)
[2017-08-05] MEDS: AMLODIPINE BESYLATE 10 MG TABLET PO SCH (21:55)
[2017-08-06] MEDS: IPRATROPIUM/ALBUTEROL 0.5-2.5 MG/3 ML AMPUL NEB SCH ×4 (02:19→20:41)
[2017-08-06] MEDS: HEPARIN SOD (PORCINE) 5,000 UNIT/ML 1 ML SYRINGE SUBCUT SCH ×3 (05:33→21:36)
[2017-08-06 06:40] LABS: HEMATOCRIT 42.2 % (37.9-51.0); HEMOGLOBIN 13.9 g/dL (13.5-17.0); MEAN CORPUSCULAR HEMOGLOBIN 28.2 pg (27.0-33.4); MEAN CORPUSCULAR HGB CONC 33.1 g/dL (32.0-36.0); MEAN CORPUSCULAR VOLUME 85 fl (80-97); PLATELET COUNT 283 10^3/uL (150-450); RED BLOOD COUNT 4.94 10^6/uL (4.35-5.55); RED CELL DISTRIBUTION WIDTH 14.2 % (11.5-14.0); WHITE BLOOD COUNT 21.8 10^3/uL (4.0-10.5)
[2017-08-06 07:05] LABS: ANION GAP 13 (5-19); BLOOD UREA NITROGEN 23 mg/dL (7-20); CALCIUM 9.5 mg/dL (8.4-10.2); CARBON DIOXIDE 24 mmol/L (22-30); CHLORIDE 100 mmol/L (98-107); GLUCOSE 181 mg/dL (75-110); POTASSIUM 4.6 mmol/L (3.6-5.0); SODIUM 137.4 mmol/L (137-145)
[2017-08-06] MEDS: TOBRAMYCIN SULFATE NEB 40 MG/ML 30 ML NEB SCH ×2 (08:16→20:40)
[2017-08-06] MEDS: BUDESONIDE NEB 0.5 MG/2 ML AMPUL NEB SCH ×2 (08:16→20:40)
[2017-08-06] MEDS: LANSOPRAZOLE 30 MG TAB.RAP.DR PO SCH (09:37)
[2017-08-06] MEDS: LACTOBACILLUS ACIDOPHILUS 250 MG TAB PO SCH ×2 (09:37→17:14)
[2017-08-06] MEDS: CIPROFLOXACIN HCL 500 MG TABLET PO SCH ×2 (09:37→21:36)
[2017-08-06] MEDS: PROMETHAZINE CODEINE PO PRN ×2 (09:37→23:44)
[2017-08-06] MEDS: HYDROCODONE/ACETAMINOPHEN 10-325 MG TABLET PO PRN (09:37)
[2017-08-06] MEDS: GUAIFENESIN 600 MG TABLET.SA PO SCH ×2 (09:37→21:36)
[2017-08-06] MEDS: METHYLPREDNISOLONE INJ 40 MG/1 ML SDV IV SCH ×2 (09:38→21:36)
[2017-08-06] MEDS: DOCUSATE SODIUM 100 MG CAPSULE PO SCH (09:38)
--- NOTE | 2017-08-06 12:00 | PROGRESS NOTE E ---
Progress Note NAME: LAKSHMI SALINAS : 1955 AGE: 61Y DATE: 08/06/2017 ROOM: 325 SUBJECTIVE: The patient is currently sitting on the bed. The patient states that he does feel better when he came in but feels his progress has been very slow. The patient is having some difficulty fully complete sentences. Does sound quite tight. The patient has had no nausea, vomiting, diarrhea. No dizziness, chest pain. No fevers, chills. The patient has been afebrile. His blood pressure has been in a good range. The patient does not voice any other concerns at this time. BRIEF HISTORY: The patient is a 61-year-old male with a past medical history of bullous emphysema. The patient is well known to the hospitalist service due to multiple admissions for COPD exacerbation. The patient does have an impressive emphysema if you review images from even back in 2016, the chest CT. The patient unfortunately is allergic to iodine and the patient does not voice any other concerns at this time. REVIEW OF SYSTEMS: Rest of review of systems is unobtainable. MEDICATIONS: Medications have been reviewed. OBJECTIVE: GENERAL: The patient is a 61-year-old male who is awake, alert. He is oriented to person, place, time, and situation. He is verbal, conversational. He is unable to fully complete sentences. Does not appear to be distressed. VITAL SIGNS: Temperature is 97.6, pulse 93, respirations 16, blood pressure is 128/86, oxygen saturation is 99% on 3 L nasal cannula. SKIN: Pale, dry. No rash. Not diaphoretic. HEENT: Pupils equal, round, and reactive to light and accommodation. Conjunctiva is pink. No evidence of JVP. CARDIOVASCULAR SYSTEM: Heart is regular. No rub. CHEST: Diminished with expiratory wheezes noted in upper lung field prolonged expiratory phase with some rhonchorous breath sounds noted in the left lower lung field. ABDOMEN: Obese, soft. EXTREMITIES: No clubbing, cyanosis, edema. PSYCHIATRIC: Appropriate affect, pleasant mood. DIAGNOSTICS: Lab values are as follows: Hematology obtained on 08/06/2017: WBC is 21.8, hemoglobin is 13.9, hematocrit is 42.2, platelet count is 283,000. Chemistry obtained on 08/06/2017: Sodium is 137, potassium 4.6, chloride is 100, carbon dioxide 24, BUN 23, creatinine is 0.79, glucose 181, calcium is 9.5. IMPRESSION AND PLAN: 1. PSEUDOMONAS AERUGINOSA PNEUMONIA. This is sensitive to Cipro. Will continue this. The patient was on cefepime so he has gotten adequate coverage for what appears to be a total of 8 out of 14 days. 2. ACUTE EXACERBATION OF CHRONIC OBSTRUCTIVE PULMONARY DISEASE. Overall this is improving. The patient's steroids have been weaned. Continue bronchodilators. Dr. Duff is following and is his outpatient host/hostess. Again, this is very slow improvement 3. ACUTE ON CHRONIC HYPOXEMIC RESPIRATORY FAILURE. Continue to treat the patient's pneumonia as well as COPD exacerbation. Hopefully, we can get the patient back on his baseline oxygen requirement of 2 L. Will actually work the patient up for pulmonary embolism as well given that the patient has had persistent shortness of breath and very slow improvement. Will start with a D-dimer. If positive, will proceed with a VQ scan. 4. OBESITY WITH A BMI OF 36. Will encourage weight reduction. 5. HYPERTENSION: Will continue the patient's home medications. 6. CORONARY ARTERY DISEASE. Will continue the patient's home medications but add a baby aspirin. DISPOSITION: The patient is a FULL CODE. Pending patient's symptomatology and diagnostic findings, will re-evaluate as needed. Time spent on this followup including assessment, plan, physical examination, patient education, and review of records is 35 minutes. DICTATING PHYSICIAN: GRZEGORZ WILSON NP [id number] PHY#: [id number] ID: [id number] JOB#: [id number] ACCT: [id number] cc: > MTDD
--- NOTE | 2017-08-06 12:01 | PDOC PROGRESS REPORT ---
Subjective Progress Note for:: 08/06/17 Subjective:: Sleeping in room without BiPAP observed apnea Reason For Visit: COPD WITH EXACERBATION Physical Exam Vital Signs: Temp Pulse Resp BP Pulse Ox 97.6 F 89 18 128/86 H 98 08/06/17 08:14 08/06/17 08:16 08/06/17 08:16 08/06/17 08:14 08/06/17 08:16 Intake & Output 08/05/17 08/06/17 08/07/17 06:59 06:59 06:59 Intake Total 2341 1442 Output Total 1390 2403 Balance 951 -961 Weight 119.8 kg 116.7 kg General appearance: PRESENT: no acute distress, cooperative, disheveled, morbidly obese Head exam: PRESENT: atraumatic, normocephalic Eye exam: PRESENT: conjunctiva pale, EOMI, PERRLA. ABSENT: nystagmus, periorbital swelling, scleral icterus Mouth exam: PRESENT: dry mucosa, neck supple, tongue midline Neck exam: ABSENT: carotid bruit, JVD, lymphadenopathy, thyromegaly, tracheal deviation, tracheostomy Respiratory exam: PRESENT: decreased breath sounds, prolonged expiratory phas, rhonchi, unlabored, wheezes. ABSENT: rales, retraction, stridor, tachypnea Cardiovascular exam: PRESENT: RRR, +S1, +S2 Pulses: PRESENT: normal radial pulses GI/Abdominal exam: PRESENT: normal bowel sounds, soft Extremities exam: PRESENT: full ROM. ABSENT: calf tenderness, clubbing Musculoskeletal exam: PRESENT: full ROM. ABSENT: deformity, dislocation Neurological exam: PRESENT: alert, awake Psychiatric exam: PRESENT: normal mood Skin exam: PRESENT: dry, warm Results Laboratory Results: 08/06/17 06:11 08/06/17 06:11 08/06/17 08/06/17 06:11 06:11 WBC 21.8 H RBC 4.94 Hgb 13.9 Hct 42.2 MCV 85 MCH 28.2 MCHC 33.1 RDW 14.2 H Plt Count 283 Sodium 137.4 Potassium 4.6 Chloride 100 Carbon Dioxide 24 Anion Gap 13 BUN 23 H Creatinine 0.79 Est GFR ( Amer) > 60 Est GFR (Non-Af Amer) > 60 Glucose 181 H Calcium 9.5 08/01/17 11:10 Blood Blood Culture - Final NO GROWTH IN 5 DAYS 08/01/17 10:23 Blood Blood Culture - Final NO GROWTH IN 5 DAYS Impressions: Chest X-Ray 08/03/17 06:00 IMPRESSION: End-stage appearance of obstructive lung disease. No acute changes Assessment & Plan - Diagnosis (1) Acute exacerbation of chronic obstructive pulmonary disease (COPD) Is this a current diagnosis for this admission?: Yes (2) Acute on chronic respiratory failure with hypoxemia Is this a current diagnosis for this admission?: Yes (3) Observed sleep apnea Is this a current diagnosis for this admission?: Yes (4) Opioid type dependence, continuous use Is this a current diagnosis for this admission?: Yes
[2017-08-06] MEDS: METOPROLOL SUCCINATE 50 MG TAB.SR.24H PO SCH (13:25)
[2017-08-06] MEDS: TIOTROPIUM BROMIDE DPI 5 CAP/KIT (18 MCG/CAP) IH SCH (13:41)
[2017-08-06] MEDS ORDERED: HYDROCODONE/ACETAMINOPHEN 10-325 MG TABLET PO PRN (21:00)
[2017-08-06] MEDS: CYCLOBENZAPRINE HCL 10 MG TABLET PO SCH (21:35)
[2017-08-06] MEDS: AMLODIPINE BESYLATE 10 MG TABLET PO SCH (21:36)
[2017-08-07] MEDS: IPRATROPIUM/ALBUTEROL 0.5-2.5 MG/3 ML AMPUL NEB SCH ×4 (02:59→20:09)
[2017-08-07] MEDS: HEPARIN SOD (PORCINE) 5,000 UNIT/ML 1 ML SYRINGE SUBCUT SCH ×3 (05:32→22:49)
[2017-08-07] MEDS: TOBRAMYCIN SULFATE NEB 40 MG/ML 30 ML NEB SCH ×2 (08:17→20:08)
[2017-08-07] MEDS: BUDESONIDE NEB 0.5 MG/2 ML AMPUL NEB SCH ×2 (08:17→20:09)
[2017-08-07] MEDS: LANSOPRAZOLE 30 MG TAB.RAP.DR PO SCH (09:24)
[2017-08-07] MEDS: GUAIFENESIN 600 MG TABLET.SA PO SCH ×2 (09:24→22:48)
[2017-08-07] MEDS: CIPROFLOXACIN HCL 500 MG TABLET PO SCH ×2 (09:24→22:49)
[2017-08-07] MEDS: LACTOBACILLUS ACIDOPHILUS 250 MG TAB PO SCH ×2 (09:24→17:24)
[2017-08-07] MEDS: DOCUSATE SODIUM 100 MG CAPSULE PO SCH (09:24)
[2017-08-07] MEDS: ASPIRIN 81 MG TABLET, ENT COATED PO SCH (09:26)
[2017-08-07] MEDS: METHYLPREDNISOLONE INJ 40 MG/1 ML SDV IV SCH ×2 (09:26→22:49)
[2017-08-07] MEDS ORDERED: ASPIRIN 81 MG TABLET, CHEWABLE PO SCH (10:00)
[2017-08-07] MEDS: METOPROLOL SUCCINATE 50 MG TAB.SR.24H PO SCH (11:43)
[2017-08-07] MEDS: TIOTROPIUM BROMIDE DPI 5 CAP/KIT (18 MCG/CAP) IH SCH (11:44)
--- NOTE | 2017-08-07 11:45 | PDOC PROGRESS REPORT ---
Subjective Progress Note for:: 08/07/17 Subjective:: Sleeping in room with BiPAP Reason For Visit: COPD WITH EXACERBATION Physical Exam Vital Signs: Temp Pulse Resp BP Pulse Ox 97.8 F 83 18 134/83 H 100 08/07/17 07:57 08/07/17 08:17 08/07/17 08:17 08/07/17 07:57 08/07/17 07:57 Intake & Output 08/06/17 08/07/17 08/08/17 06:59 06:59 06:59 Intake Total 1442 1091 Output Total 2853 5805 Balance -1411 -1134 Weight 116.7 kg 116.9 kg General appearance: PRESENT: no acute distress, cooperative, disheveled, morbidly obese, well-developed, well-nourished Head exam: PRESENT: atraumatic, normocephalic Eye exam: PRESENT: conjunctiva pale, EOMI, PERRLA. ABSENT: nystagmus, periorbital swelling, scleral icterus Mouth exam: PRESENT: dry mucosa, neck supple, tongue midline Neck exam: ABSENT: carotid bruit, JVD, lymphadenopathy, thyromegaly, tracheal deviation, tracheostomy Respiratory exam: PRESENT: decreased breath sounds, prolonged expiratory phas, rales, rhonchi, unlabored, wheezes. ABSENT: retraction, stridor Cardiovascular exam: PRESENT: RRR, +S1, +S2 Pulses: PRESENT: normal radial pulses GI/Abdominal exam: PRESENT: normal bowel sounds, soft Extremities exam: PRESENT: full ROM. ABSENT: calf tenderness, clubbing, joint swelling Musculoskeletal exam: PRESENT: ambulatory, full ROM. ABSENT: deformity, dislocation Neurological exam: PRESENT: alert, awake Psychiatric exam: PRESENT: normal mood Skin exam: PRESENT: dry, warm Results Laboratory Results: 08/06/17 06:11 08/06/17 06:11 08/01/17 11:10 Blood Blood Culture - Final NO GROWTH IN 5 DAYS 08/01/17 10:23 Blood Blood Culture - Final NO GROWTH IN 5 DAYS Impressions: Chest X-Ray 08/03/17 06:00 IMPRESSION: End-stage appearance of obstructive lung disease. No acute changes Assessment & Plan - Diagnosis (1) Acute exacerbation of chronic obstructive pulmonary disease (COPD) Is this a current diagnosis for this admission?: Yes Plan: Trending towards getting better still tight decreased air movement persistent wheezes (2) Acute on chronic respiratory failure with hypoxemia Is this a current diagnosis for this admission?: Yes Plan: Continue supplemental oxygen and noninvasive positive pressure ventilation as needed (3) Observed sleep apnea Is this a current diagnosis for this admission?: Yes (4) Opioid type dependence, continuous use Is this a current diagnosis for this admission?: Yes
[2017-08-07 13:44] LABS: ARTERIAL BLOOD BASE EXCESS 0.7 mmol/L; ARTERIAL BLOOD H2CO3 1.19 mmol/L (1.05-1.35); ARTERIAL BLOOD HCO3 25.1 mmol/L (20-26); ARTERIAL BLOOD O2 SATURATION 97.1 % (94-98); ARTERIAL BLOOD PCO2 39.7 mmHg (35-45); ARTERIAL BLOOD PH 7.42 (7.35-7.45); ARTERIAL BLOOD TOTAL CO2 26.3 mmol/L (23-27)
[2017-08-07 13:55] LABS: ARTERIAL BLOOD FIO2 3L
--- NOTE | 2017-08-07 18:33 | PDOC PROGRESS REPORT ---
Subjective Progress Note for:: 08/07/17 Subjective:: The patient is sitting up on the side of his bed. He states that his breathing is greatly improved although he still feels somewhat tight. He is moving air better today. He is not coughing as much. He has had no fever or shaking chills overnight. No heart palpitations. No nausea vomiting or diarrhea. No urinary complaints. Reason For Visit: COPD WITH EXACERBATION Physical Exam Vital Signs: Temp Pulse Resp BP Pulse Ox 98.2 F 91 18 143/91 H 99 08/07/17 15:56 08/07/17 15:56 08/07/17 15:56 08/07/17 15:56 08/07/17 15:56 Intake & Output 08/06/17 08/07/17 08/08/17 06:59 06:59 06:59 Intake Total 1442 1091 474 Output Total 2853 2225 250 Balance -1411 -1134 224 Weight 116.7 kg 116.9 kg General appearance: PRESENT: no acute distress, obese, well-developed, well- nourished Head exam: PRESENT: atraumatic, normocephalic Mouth exam: PRESENT: moist, tongue midline Respiratory exam: PRESENT: decreased breath sounds, wheezes Cardiovascular exam: PRESENT: RRR. ABSENT: diastolic murmur, rubs, systolic murmur GI/Abdominal exam: PRESENT: normal bowel sounds, soft. ABSENT: distended, guarding, mass, organolmegaly, rebound, tenderness Rectal exam: PRESENT: deferred Extremities exam: PRESENT: full ROM. ABSENT: calf tenderness, clubbing, pedal edema Musculoskeletal exam: PRESENT: ambulatory Neurological exam: PRESENT: alert, awake, oriented to person, oriented to place , oriented to time, oriented to situation, CN II-XII grossly intact. ABSENT: motor sensory deficit Psychiatric exam: PRESENT: appropriate affect, normal mood. ABSENT: homicidal ideation, suicidal ideation Skin exam: PRESENT: dry, intact, warm. ABSENT: cyanosis, rash Results Laboratory Results: 08/06/17 06:11 08/06/17 06:11 08/07/17 13:05 Carbonic Acid 1.19 HCO3/H2CO3 Ratio 21:1 ABG pH 7.42 ABG pCO2 39.7 ABG pO2 91.0 ABG HCO3 25.1 ABG O2 Saturation 97.1 ABG Base Excess 0.7 FiO2 3L Impressions: Chest X-Ray 08/03/17 06:00 IMPRESSION: End-stage appearance of obstructive lung disease. No acute changes Assessment & Plan - Diagnosis (1) Acute and chronic respiratory failure Is this a current diagnosis for this admission?: Yes Plan: The patient is still above his baseline oxygen requirements. His respiratory failure secondary to underlying pneumonia as well as a COPD exacerbation. Continue bronchodilators, steroids and treatment as outlined below. (2) Pneumonia Qualifiers: Pneumonia type: due to Pseudomonas Is this a current diagnosis for this admission?: Yes Plan: He received 8 days of IV cefepime and at this point has been changed to Cipro to complete a 14 day course of treatment. He also is receiving tobramycin breathing treatment (3) COPD exacerbation Is this a current diagnosis for this admission?: Yes Plan: Hypertension continue to wean steroids. Dr. Duff is managing (4) Coronary artery disease Is this a current diagnosis for this admission?: Yes Plan: Continue home regimen. No complaints of chest pain (5) Hypertension Is this a current diagnosis for this admission?: Yes Plan: Stable on current regimen (6) Hyperglycemia Is this a current diagnosis for this admission?: Yes Plan: Secondary to steroids. Continue sliding scale insulin (7) Obesity Qualifiers: Body mass index: BMI 37.0-37.9 Is this a current diagnosis for this admission?: Yes Plan: Dietary discretion is advised (8) Opiate abuse, continuous Is this a current diagnosis for this admission?: Yes Plan: Continue home regimen. He is not complaining of pain today (9) Chronic pain syndrome Is this a current diagnosis for this admission?: Yes Plan: Stable. Plan as above (10) Full code status Is this a current diagnosis for this admission?: Yes - Time Time Spent with patient: 25-34 minutes - Inpatient Certification Medical Necessity: Other - Inpatient hospitalization remains necessary. The patient's is still receiving parenteral therapy for his respiratory issues. Timing of disposition will be determined by his clinical course
[2017-08-07] MEDS: CYCLOBENZAPRINE HCL 10 MG TABLET PO SCH (22:48)
[2017-08-07] MEDS: AMLODIPINE BESYLATE 10 MG TABLET PO SCH (22:49)
[2017-08-07] MEDS: PROMETHAZINE CODEINE PO PRN (22:50)
[2017-08-08] MEDS: IPRATROPIUM/ALBUTEROL 0.5-2.5 MG/3 ML AMPUL NEB SCH ×2 (01:15→08:20)
[2017-08-08] MEDS: HEPARIN SOD (PORCINE) 5,000 UNIT/ML 1 ML SYRINGE SUBCUT SCH (05:19)
[2017-08-08] MEDS: PROMETHAZINE CODEINE PO PRN ×2 (05:44→11:15)
[2017-08-08 06:01] LABS: HEMATOCRIT 42.8 % (37.9-51.0); HEMOGLOBIN 14.2 g/dL (13.5-17.0); MEAN CORPUSCULAR HEMOGLOBIN 28.3 pg (27.0-33.4); MEAN CORPUSCULAR HGB CONC 33.2 g/dL (32.0-36.0); MEAN CORPUSCULAR VOLUME 85 fl (80-97); PLATELET COUNT 327 10^3/uL (150-450); RED BLOOD COUNT 5.02 10^6/uL (4.35-5.55); RED CELL DISTRIBUTION WIDTH 14.2 % (11.5-14.0); WHITE BLOOD COUNT 19.8 10^3/uL (4.0-10.5)
[2017-08-08 06:08] LABS: ANION GAP 12 (5-19); BLOOD UREA NITROGEN 18 mg/dL (7-20); CALCIUM 9.9 mg/dL (8.4-10.2); CARBON DIOXIDE 24 mmol/L (22-30); CHLORIDE 101 mmol/L (98-107); GLUCOSE 217 mg/dL (75-110); SODIUM 136.5 mmol/L (137-145)
[2017-08-08 06:16] LABS: ABSOLUTE NEUTROPHILS# (MANUAL) 14.9 10^3/uL (1.7-8.2); BASOPHILS % (MANUAL) 0 % (0-2); EOSINOPHILS % (MANUAL) 0 % (0-6); LYMPHOCYTES % (MANUAL) 15 % (13-45); MONOCYTES % (MANUAL) 10 % (3-13); SEGMENTED NEUTROPHILS % (MAN) 75 % (42-78); TOTAL CELLS COUNTED 100
[2017-08-08 06:17] LABS: ANISOCYTOSIS SLIGHT; PLATELET COMMENT ADEQUATE
[2017-08-08] MEDS: BUDESONIDE NEB 0.5 MG/2 ML AMPUL NEB SCH (08:19)
[2017-08-08] MEDS: TOBRAMYCIN SULFATE NEB 40 MG/ML 30 ML NEB SCH (08:19)
--- NOTE | 2017-08-08 09:03 | Pulmonary Function Test ---
Pulmonary Function Test Date of Procedure:: 08/07/17 INDICATION:: dyspnea Referring Provider: Dr. Kimberly De La Cruz [employer] Servicer: Matteo Connolly - Report Spirometry: FVC 2.78 63% FEV1 1.00L 23% FEV1/FVC % 36 predicted 81 [id number]% 0.49 14% Impression: Severe obstructive ventilatory defect
[2017-08-08] MEDS: DOCUSATE SODIUM 100 MG CAPSULE PO SCH (09:51)
[2017-08-08] MEDS: GUAIFENESIN 600 MG TABLET.SA PO SCH (09:52)
[2017-08-08] MEDS: ASPIRIN 81 MG TABLET, ENT COATED PO SCH (09:52)
[2017-08-08] MEDS: LACTOBACILLUS ACIDOPHILUS 250 MG TAB PO SCH (09:52)
[2017-08-08] MEDS: CIPROFLOXACIN HCL 500 MG TABLET PO SCH (09:52)
[2017-08-08] MEDS: LANSOPRAZOLE 30 MG TAB.RAP.DR PO SCH (09:53)
[2017-08-08] MEDS ORDERED: PREDNISONE 20 MG TABLET PO SCH (10:00)
--- NOTE | 2017-08-08 11:04 | PDOC DISCHARGE SUMMARY ---
General - Admit/Disc Date/PCP Admission Date/Primary Care Provider: 07/29/17 14:43 SOO DALEY MD Data Warehousing Manager: Dr. Duff Discharge Date: 08/08/17 - Discharge Diagnosis (1) Acute and chronic respiratory failure Is this a current diagnosis for this admission?: Yes Summary: Secondary to pneumonia and COPD exacerbation. He is completed a course of antibiotic therapy. He is back to his baseline oxygen requirements. He will follow-up with Dr. Duff who is in the process of getting him a trilogy machine at home. (2) Pneumonia Is this a current diagnosis for this admission?: Yes Summary: Secondary to Pseudomonas. He will complete a course of p.o. Cipro. (3) COPD exacerbation Is this a current diagnosis for this admission?: Yes Summary: He will follow-up with Dr. Duff. He will complete a long taper of p.o. prednisone. He will resume his usual bronchodilators (4) Coronary artery disease Is this a current diagnosis for this admission?: Yes Summary: He will resume his usual regimen. No issues during this hospitalization (5) Hypertension Is this a current diagnosis for this admission?: Yes Summary: Stable. His lisinopril has been held due to hyperkalemia at the time of admission. (6) Hyperglycemia Is this a current diagnosis for this admission?: Yes Summary: Likely due to steroids. These will be tapered. He should be on a diabetic diet while he is on steroids. (7) Obesity Is this a current diagnosis for this admission?: Yes Summary: Certainly it would be in his best interest to lose weight. His BMI is 36.6 (8) Opiate dependence, continuous Is this a current diagnosis for this admission?: Yes Summary: He will continue his home dose of narcotics. I did not give him any additional narcotics at discharge. (9) Chronic pain syndrome Is this a current diagnosis for this admission?: Yes Summary: No complaints of pain during this hospitalization. (10) Full code status Is this a current diagnosis for this admission?: Yes - Additional Information Resuscitation Status: Do Not Resuscitate Discharge Diet: Diabetic Discharge Activity: Activity As Tolerated, Balance Activity w/Rest, Slowly Increase Activity, Walk Frequently Prescriptions: Aspirin [Ecotrin 81 mg EC Tablet] 81 mg PO DAILY #30 tabec Ciprofloxacin HCl [Cipro 500 mg Tablet] 500 mg PO Q12 #28 tablet Guaifenesin [Mucinex Sr 600 mg Tablet.sa] 1,200 mg PO Q12 #30 tablet.sa Lactobacillus Acidophilus [Bacid 250 mg Tablet] 500 mg PO BID #20 tab Prednisone 10 mg PO ASDIR #39 tablet Home Medications: Albuterol Sulfate [Ventolin HFA MDI 18 GM] 2 puff IH Q6HP PRN 07/29/17 Amlodipine Besylate [Norvasc 10 mg Tablet] 10 mg PO QHS 07/29/17 Budesonide/Formoterol Fumarate [Symbicort 160-4.5 Mcg Inhaler] 2 puff IH Q12 Cyclobenzaprine HCl [Flexeril 10 mg Tablet] 5 mg PO Q8HP PRN 07/29/17 Hydrocodone/Acetaminophen [Hydrocodone-Acetamin 10-325 mg] 1.5 tab PO Q6HP PRN 07/29/17 Ipratropium/Albuterol Sulfate [Iprat-Albut 0.5-3(2.5) mg/3 ml] 3 ml NEB Q6HP PRN 07/29/17 Metoprolol Succinate [Toprol XL 100 mg Tablet] 100 mg PO WLUNCH 07/29/17 Nitroglycerin [Nitromist] 1 spray SL Q5MP PRN 07/29/17 Pantoprazole Sodium [Protonix] 40 mg PO DAILY 07/29/17 Tiotropium [place] [Spiriva Respimat] 2 puff IH DAILY 07/29/17 Aspirin [Ecotrin 81 mg EC Tablet] 81 mg PO DAILY #30 tabec 08/08/17 Ciprofloxacin HCl [Cipro 500 mg Tablet] 500 mg PO Q12 #28 tablet 08/08/17 Guaifenesin [Mucinex Sr 600 mg Tablet.sa] 1,200 mg PO Q12 #30 tablet.sa Lactobacillus Acidophilus [Bacid 250 mg Tablet] 500 mg PO BID #20 tab 08/08/17 Nicotine [Nicoderm 14 mg/24 Hr Transdermal Patch] 1 each TD DAILYP PRN patch.td24 08/08/17 Prednisone 10 mg PO ASDIR #39 tablet 08/08/17 History of Present Illness Patient complains of: Shortness of breath History of Present Illness: LAKSHMI SALINAS is a 61 year old male Hospital Course Hospital Course: The patient is a 61-year-old obese gentleman. His past medical history is significant for bullous emphysema. He is well-known to the hospitalist service for multiple admissions for COPD exacerbations. The patient was admitted to the hospital with increased shortness of breath and cough. He had not been having a fever at home. Imaging studies revealed a possible pneumonia. Sputum culture is positive for Pseudomonas. It is unclear whether this is just colonization or true pathogen. In any event he received tobramycin nebulizer treatments and completed 8 days of IV cefepime. I will give him a course of Cipro to complete at home and will defer to his food prep worker on how to manage this going forward. Dr. Duff is in the process of getting the patient a trilogy machine. He was seen by Dr. Duff this morning he feels as if he is stable for discharge. He is back to his baseline oxygen requirements. He was transitioned over to an oral regimen of steroids and has continued to improve. He will complete a long prednisone taper as an outpatient. We have gotten him an appointment to follow-up with his primary care physician as well as Dr. Duff next week. He will be discharged home today in stable condition. He will be discharged home today in stable condition. Physical Exam Vital Signs: Temp Pulse Resp BP Pulse Ox 97.8 F 75 16 148/95 H 100 08/08/17 07:37 08/08/17 08:20 08/08/17 08:20 08/08/17 07:37 08/08/17 08:20 Intake & Output 08/07/17 08/08/17 08/09/17 06:59 06:59 06:59 Intake Total 1091 1424 Output Total 2225 2500 Balance -1134 -1076 Weight 116.9 kg 115.7 kg General appearance: PRESENT: no acute distress, obese, well-developed, well- nourished Head exam: PRESENT: atraumatic, normocephalic Eye exam: PRESENT: conjunctiva pink, EOMI, PERRLA. ABSENT: scleral icterus Ear exam: PRESENT: normal external ear exam Mouth exam: PRESENT: moist, tongue midline Neck exam: ABSENT: carotid bruit, JVD, lymphadenopathy, thyromegaly Respiratory exam: PRESENT: decreased breath sounds, wheezes. ABSENT: accessory muscle use, chest wall tenderness, crackles, rhonchi Cardiovascular exam: PRESENT: RRR. ABSENT: diastolic murmur, rubs, systolic murmur Pulses: PRESENT: normal dorsalis pedis pul GI/Abdominal exam: PRESENT: normal bowel sounds, soft, other - His abdomen is obese. ABSENT: distended, guarding, mass, organolmegaly, rebound, tenderness Rectal exam: PRESENT: deferred Extremities exam: PRESENT: full ROM. ABSENT: calf tenderness, clubbing, pedal edema Musculoskeletal exam: PRESENT: ambulatory Neurological exam: PRESENT: alert, awake, oriented to person, oriented to place , oriented to time, oriented to situation, CN II-XII grossly intact. ABSENT: motor sensory deficit Psychiatric exam: PRESENT: appropriate affect, normal mood. ABSENT: homicidal ideation, suicidal ideation Skin exam: PRESENT: dry, intact, warm. ABSENT: cyanosis, rash Results Laboratory Results: 08/08/17 05:27 08/08/17 05:27 08/07/17 08/08/17 08/08/17 13:05 05:27 05:27 WBC 19.8 H RBC 5.02 Hgb 14.2 Hct 42.8 MCV 85 MCH 28.3 MCHC 33.2 RDW 14.2 H Plt Count 327 Seg Neutrophils % Not Reportable Lymphocytes % Not Reportable Monocytes % Not Reportable Eosinophils % Not Reportable Basophils % Not Reportable Absolute Neutrophils Not Reportable Absolute Lymphocytes Not Reportable Absolute Monocytes Not Reportable Absolute Eosinophils Not Reportable Absolute Basophils Not Reportable Carbonic Acid 1.19 HCO3/H2CO3 Ratio 21:1 ABG pH 7.42 ABG pCO2 39.7 ABG pO2 91.0 ABG HCO3 25.1 ABG O2 Saturation 97.1 ABG Base Excess 0.7 FiO2 3L Sodium 136.5 L Potassium 5.0 Chloride 101 Carbon Dioxide 24 Anion Gap 12 BUN 18 Creatinine 0.77 Est GFR ( Amer) > 60 Est GFR (Non-Af Amer) > 60 Glucose 217 H Calcium 9.9 Magnesium 2.2 Impressions: Chest X-Ray 08/03/17 06:00 IMPRESSION: End-stage appearance of obstructive lung disease. No acute changes Qualifiers - * PATIENT BEING DISCHARGED WITH ANY OF THE FOLLOWING DIAGNOSIS: No Plan Discharge Plan: He will be discharged home today with close outpatient follow-up Time Spent: Greater than 30 Minutes
[2017-08-08] MEDS ORDERED: LEVALBUTEROL HCL NEB 1.25 MG/3 ML AMPUL NEB PRN (11:07)
--- NOTE | 2017-08-08 11:12 | PDOC PROGRESS REPORT ---
Subjective Progress Note for:: 08/08/17 Subjective:: Sleeping in room with BiPAP Reason For Visit: COPD WITH EXACERBATION Physical Exam Vital Signs: Temp Pulse Resp BP Pulse Ox 97.8 F 75 16 148/95 H 100 08/08/17 07:37 08/08/17 08:20 08/08/17 08:20 08/08/17 07:37 08/08/17 08:20 Intake & Output 08/07/17 08/08/17 08/09/17 06:59 06:59 06:59 Intake Total 1091 1424 Output Total 2225 2500 Balance -1134 -1076 Weight 116.9 kg 115.7 kg General appearance: PRESENT: no acute distress, cooperative, disheveled, thin Head exam: PRESENT: atraumatic, normocephalic Eye exam: PRESENT: conjunctiva pale, EOMI. ABSENT: nystagmus, periorbital swelling, scleral icterus Mouth exam: PRESENT: dry mucosa, neck supple, tongue midline Neck exam: ABSENT: carotid bruit, JVD, lymphadenopathy, thyromegaly, tracheal deviation, tracheostomy Respiratory exam: PRESENT: decreased breath sounds, prolonged expiratory phas, rales, rhonchi, unlabored. ABSENT: retraction, stridor, tachypnea Cardiovascular exam: PRESENT: RRR, +S1, +S2 Pulses: PRESENT: normal radial pulses GI/Abdominal exam: PRESENT: normal bowel sounds, soft Extremities exam: ABSENT: calf tenderness, clubbing, joint swelling Musculoskeletal exam: ABSENT: deformity, dislocation Neurological exam: PRESENT: alert, awake Psychiatric exam: PRESENT: normal mood Skin exam: PRESENT: dry, warm Results Laboratory Results: 08/08/17 05:27 08/08/17 05:27 08/07/17 08/08/17 08/08/17 13:05 05:27 05:27 WBC 19.8 H RBC 5.02 Hgb 14.2 Hct 42.8 MCV 85 MCH 28.3 MCHC 33.2 RDW 14.2 H Plt Count 327 Seg Neutrophils % Not Reportable Lymphocytes % Not Reportable Monocytes % Not Reportable Eosinophils % Not Reportable Basophils % Not Reportable Absolute Neutrophils Not Reportable Absolute Lymphocytes Not Reportable Absolute Monocytes Not Reportable Absolute Eosinophils Not Reportable Absolute Basophils Not Reportable Carbonic Acid 1.19 HCO3/H2CO3 Ratio 21:1 ABG pH 7.42 ABG pCO2 39.7 ABG pO2 91.0 ABG HCO3 25.1 ABG O2 Saturation 97.1 ABG Base Excess 0.7 FiO2 3L Sodium 136.5 L Potassium 5.0 Chloride 101 Carbon Dioxide 24 Anion Gap 12 BUN 18 Creatinine 0.77 Est GFR ( Amer) > 60 Est GFR (Non-Af Amer) > 60 Glucose 217 H Calcium 9.9 Magnesium 2.2 Impressions: Chest X-Ray 08/03/17 06:00 IMPRESSION: End-stage appearance of obstructive lung disease. No acute changes Assessment & Plan - Diagnosis (1) Acute exacerbation of chronic obstructive pulmonary disease (COPD) Is this a current diagnosis for this admission?: Yes Plan: Trending towards getting better still tight decreased air movement persistent wheezes (2) Acute on chronic respiratory failure with hypoxemia Is this a current diagnosis for this admission?: Yes Plan: Continue supplemental oxygen and noninvasive positive pressure ventilation as needed (3) Observed sleep apnea Is this a current diagnosis for this admission?: Yes (4) Opioid type dependence, continuous use Is this a current diagnosis for this admission?: Yes - Plan Summary Plan Summary: The above patient has failed BiPAP. This patient would benefit from noninvasive mechanical ventilation via the trilogy AVAPS/AE and faster responding AVAPS rates. The trilogy is able to provide a target tidal volume and also adjusting the EPAP pressures to maintain a patent airway as well as an oral backup rate this machine will help improve PaCO2 levels. The severity of the patient's condition will lead to future hospitalizations and readmissions as well as life-threatening situations without the use of this device trilogy home vent needed for hypercapnic respiratory failure. [facility] or [facility] to follow for trilogy set up.
[2017-08-08] MEDS: METOPROLOL SUCCINATE 50 MG TAB.SR.24H PO SCH (11:13)
[2017-08-08] MEDS: TIOTROPIUM BROMIDE DPI 5 CAP/KIT (18 MCG/CAP) IH SCH (11:14)
[2017-08-08 11:41] VITALS: BP 160/90
== END 2017-08-08 12:10 | disposition home or self-care (01) | DRG 189 ==
LOC: ER 09:58 → EH 14:43 → 3W 18:29
PROVIDERS: ADMIT Internal Medicine; ATTEND Internal Medicine
DX: J96.21 Acute and chronic respiratory failure with hypoxia (principal); J15.1 Pneumonia due to Pseudomonas; J44.1 Chronic obstructive pulmonary disease with (acute) exacerbation; J44.0 Chronic obstructive pulmonary disease with (acute) lower respiratory infection; F11.20 Opioid dependence, uncomplicated; Z66 Do not resuscitate; E87.5 Hyperkalemia; J20.9 Acute bronchitis, unspecified; I10 Essential (primary) hypertension; I25.10 Atherosclerotic heart disease of native coronary artery without angina pectoris; G47.30 Sleep apnea, unspecified; K21.9 Gastro-esophageal reflux disease without esophagitis; M54.5 Low back pain; I25.2 Old myocardial infarction; Z87.891 Personal history of nicotine dependence; Z79.51 Long term (current) use of inhaled steroids; Z79.52 Long term (current) use of systemic steroids; Z79.899 Other long term (current) drug therapy
CPT/HCPCS: 36415; 36600; 71045; 80048; 80053; 80202; 81001; 82550; 82553; 82803; 83036; 83735; 83880; 84100; 84484; 85025; 85027; 85379; 85610; 85730; 87040; 87070; 87077; 87186; 87205; 93005; 93010; 93306; 94010; 94640; 94660; 94667; 94799; 96365; 96366; 99285; J0692; J0696; J0713; J1644; J1650; J1885; J2920; J3370; J3475; J3490; J7060; J7512; J7620; J7685

== ENCOUNTER 2017-09-03 12:38 | Emergency (ER) | payer MEDICARE, MEDICAID ==
[2017-09-03 13:11] LABS: ABSOLUTE BASOPHILS # (AUTO) 0.1 10^3/uL (0.0-0.2); ABSOLUTE EOSINOPHILS # (AUTO) 0.2 10^3/uL (0.0-0.6); ABSOLUTE LYMPHOCYTES (AUTO) 2.7 10^3/uL (0.5-4.7); ABSOLUTE MONOCYTES (AUTO) 1.1 10^3/uL (0.1-1.4); ABSOLUTE NEUT (AUTO) 5.7 10^3/uL (1.7-8.2); BASOPHILS % (AUTO) 0.8 % (0-2); LYMPHOCYTES % (AUTO) 27.2 % (13-45); MEAN CORPUSCULAR HEMOGLOBIN 28.6 pg (27.0-33.4); MEAN CORPUSCULAR HGB CONC 34.1 g/dL (32.0-36.0); MEAN CORPUSCULAR VOLUME 84 fl (80-97); MONOCYTES % (AUTO) 11.4 % (3-13); PLATELET COUNT 519 10^3/uL (150-450); RED BLOOD COUNT 5.25 10^6/uL (4.35-5.55); RED CELL DISTRIBUTION WIDTH 14.2 % (11.5-14.0); SEGMENTED NEUTROPHILS % (AUTO) 58.6 % (42-78); TOTAL CELLS COUNTED % (AUTO) 100 %; WHITE BLOOD COUNT 9.8 10^3/uL (4.0-10.5)
--- NOTE | 2017-09-03 13:28 | RADIOLOGY REPORT (SQ) ---
EXAM DESCRIPTION: CHEST SINGLE VIEW COMPLETED DATE/TIME: 09/03/2017 1:02 pm REASON FOR STUDY: sob COMPARISON: Most recent chest x-ray 08/01/[address] chest 03/20/2017 EXAM PARAMETERS: NUMBER OF VIEWS: One view. TECHNIQUE: Single frontal radiographic view of the chest acquired. RADIATION DOSE: NA LIMITATIONS: None. FINDINGS: LUNGS AND PLEURA: COPD. Increasing patchy basilar markings. MEDIASTINUM AND HILAR STRUCTURES: Stable HEART AND VASCULAR STRUCTURES: Heart normal in size. Normal vasculature. BONES: No acute findings. HARDWARE: None in the chest. OTHER: No other significant finding. IMPRESSION: COPD. Increasing patchy basilar markings concerning for infiltrate. TECHNICAL DOCUMENTATION: JOB ID: [id number] [employer]- All Rights Reserved Reading location - IP/workstation name: [email or web address]
[2017-09-03 13:30] LABS: ALANINE AMINOTRANSFERASE 30 U/L (21-72); ALBUMIN 4.5 g/dL (3.5-5.0); ALKALINE PHOSPHATASE 80 U/L (38-126); ANION GAP 13 (5-19); ASPARTATE AMINO TRANSFERASE 20 U/L (17-59); BILIRUBIN,DIRECT 0.3 mg/dL (0.0-0.4); BILIRUBIN,TOTAL 0.5 mg/dL (0.2-1.3); BLOOD UREA NITROGEN 6 mg/dL (7-20); CARBON DIOXIDE 24 mmol/L (22-30); CHLORIDE 104 mmol/L (98-107); CREATINE KINASE 110 U/L (55-170); GLUCOSE 112 mg/dL (75-110); POTASSIUM 4.5 mmol/L (3.6-5.0); SODIUM 141.3 mmol/L (137-145); TOTAL PROTEIN 7.7 g/dL (6.3-8.2)
[2017-09-03] MEDS ORDERED: RACEPINEPHRINE HCL 2.25% NEB 0.5 ML AMPUL NEB ONE (13:30)
[2017-09-03] MEDS ORDERED: LIDOCAINE 1% INJ-PF (10 MG/ML) 30 ML SDV NEB ONE (13:32)
[2017-09-03] MEDS ORDERED: METHYLPREDNISOLONE INJ 125 MG/2 ML SDV IV ONE (13:33)
--- NOTE | 2017-09-03 13:35 | ER Document Report ---
ED General <SANIYA EUGENE - Last Filed: 09/03/17 17:21> - General Mode of Arrival: Ambulatory Information source: Patient TRAVEL OUTSIDE OF THE [place] IN LAST 30 DAYS: No <MUNA GANT - Last Filed: 09/04/17 18:18> - General Chief Complaint: Breathing Difficulty Stated Complaint: DIFFICULTY BREATHING Time Seen by Provider: 09/03/17 13:03 Notes: Patient is a 62-year-old male with COPD, CAD presents to the emergency department complaining of difficulty breathing onset 2 days ago. Patient states that it feels like there is something stuck at bottom of his neck further stating his mucus cannot get passed it and is causing his difficulty breathing. He states he is able to drink and eat soft foods, but whenever he swallows he can feel the sensation in his throat. He states it feels like he has strep throat again. He denies eating anything that could have gotten stuck mentioning he was asleep when the sensation was onset. Patient also states at home nebulizers and albuterol are not providing any relief. Patient was admitted from 07/29/2017-08/08/2017 for COPD exacerbation. (MUNA GANT) - Related Data Allergies/Adverse Reactions: iodine [Iodine] Allergy (Verified 08/28/14 15:04) Shellfish * [Shellfish] Allergy (Verified 08/28/14 15:04) Past Medical History - General Information source: Patient - Social History Smoking Status: Former Smoker - quit 1 year old Smoking Education Provided: No Frequency of alcohol use: None Family History: CAD, COPD - Past Medical History Cardiac Medical History: Reports: Hx Heart Attack, Hx Hypertension Pulmonary Medical History: Reports: Hx Bronchitis, Hx COPD Renal/ Medical History: Reports: Hx Kidney Stones. Denies: Hx Peritoneal Dialysis GI Medical History: Reports: Hx Diverticulitis Psychiatric Medical History: Denies: Hx Depression <MUNA GANT - Last Filed: 09/04/17 18:18> Review of Systems - Review of Systems Constitutional: No symptoms reported EENT: No symptoms reported Cardiovascular: No symptoms reported Respiratory: See HPI Gastrointestinal: No symptoms reported Genitourinary: No symptoms reported Male Genitourinary: No symptoms reported Musculoskeletal: No symptoms reported Skin: No symptoms reported Hematologic/Lymphatic: No symptoms reported Neurological/Psychological: No symptoms reported -: Yes All other systems reviewed and negative <MUNA GANT - Last Filed: 09/04/17 18:18> Physical Exam - General General appearance: Alert, Anxious In distress: None - HEENT Head: Normocephalic, Atraumatic Eyes: Normal Conjunctiva: Normal Extraocular movements intact: Yes Pupils: PERRL Mucous membranes: Moist Pharynx: Uvular edema - Uvula is erythematous Neck: Normal - Respiratory Respiratory status: No respiratory distress Chest status: Nontender Breath sounds: Wheezing - High pitched expiratory wheezing in glottic region. Chest palpation: Normal - Cardiovascular Rhythm: Regular Heart sounds: Normal auscultation Murmur: No Friction rub: No Gallop: None auscultated - Abdominal Inspection: Obese Distension: No distension Bowel sounds: Normal Tenderness: Nontender - Back Back: Normal - Extremities General upper extremity: Normal ROM General lower extremity: Normal ROM - Neurological Neuro grossly intact: Yes Cognition: Normal Orientation: AAOx4 Jacy Coma Scale Eye Opening: Spontaneous Jacy Coma Scale Verbal: Oriented Jacy Coma Scale Motor: Obeys Commands [place] Coma Scale Total: 15 Speech: Normal - Psychological Associated symptoms: Normal affect, Anxious - Skin Skin Temperature: Warm Skin Moisture: Dry Skin Color: Normal <MUNA GANT - Last Filed: 09/04/17 18:18> - Vital signs Vitals: Pulse Ox 100 09/03/17 12:56 Course - Laboratory Result Diagrams: 09/03/17 12:51 09/03/17 12:51 - Diagnostic Test Radiology reviewed: Reports reviewed - Noncontrasted CT scan of the neck soft tissues is unremarkable - EKG Interpretation by Ar EKG shows normal: Sinus rhythm, [place], Intervals, QRS Complexes, ST-T Waves Rate: Tachycardia - 105 When compared to previous EKG there are: No significant change <SANIYA EUGENE - Last Filed: 09/03/17 17:21> - Laboratory Result Diagrams: 09/03/17 12:51 09/03/17 12:51 <MUNA GANT - Last Filed: 09/04/17 18:18> - Re-evaluation Re-evalutation: 09/03/17 14:45 The racemic epinephrine treatment with lidocaine helped his symptoms. He states it does feel better. There is still some noticeable stridorous type wheezing in the glottic region. He is severely allergic to all forms of seafood and shellfish and even alligator by history. We will do a soft tissue CT of the neck and go down to the suprasternal notch without contrast. 09/03/17 17:21 The patient was very short of breath after return from CT, he states that is because he was laying flat which he normally never does. Eventually his breathing got about back to normal for him, he did remain a little tachycardic with heart rate 120. He was only 105 when he came in earlier today. He relates this to not having taken his metoprolol today, so he was given his bag of medicines and a bottle of water to take all the medications he was supposed to have already taken. He has plenty prednisone left and reports he gets psychotic with prednisone and higher doses, but is able to tolerate a dose of 10 mg 3 times daily. Will have him start that dose for the next few days along with a prescription for Cipro which he states is the best antibiotic for him whenever he starts getting sick. He will remain on his normal 3 L O2 nasal cannula. (SANIYA EUGENE) - Vital Signs Vital signs: Temp Pulse Resp BP Pulse Ox 24 H 140/88 H 96 09/03/17 18:00 09/03/17 18:00 09/03/17 18:00 - Laboratory Laboratory results interpreted by me: 09/03/17 09/03/17 09/03/17 12:51 12:51 17:07 RDW 14.2 H Plt Count 519 H BUN 6 L Glucose 112 H Urine Glucose (UA) 50 H Ur Leukocyte Esterase TRACE H Discharge <SANIYA EUGENE - Last Filed: 09/03/17 17:21> <MUNA GANT - Last Filed: 09/04/17 18:18> - Discharge Clinical Impression: Tracheitis Pharyngitis Qualifiers: Pharyngitis/tonsillitis etiology: unspecified etiology Qualified Code(s): J02.9 - Acute pharyngitis, unspecified COPD (chronic obstructive pulmonary disease) Qualifiers: COPD type: unspecified COPD Qualified Code(s): J44.9 - Chronic obstructive pulmonary disease, unspecified Pneumonia Qualifiers: Pneumonia type: due to unspecified organism Laterality: bilateral Lung location : lower lobe of lung Qualified Code(s): J18.1 - Lobar pneumonia, unspecified organism Condition: Stable Disposition: HOME, SELF-CARE Additional Instructions: Your chest x-ray suggests you may be developing pneumonia in the bases on both sides. The swelling in your upper neck causing increased wheezing should improve with taking prednisone again. Be sure you drink plenty of fluids. Get 2 doses of your prednisone 10 mg tablets in today. Take 3 tablets of prednisone 10 mg daily for the next 2 days starting tomorrow. Then reduce your dose to 2 tablets a day for 3 days and then 1 tablet a day for 3 days. Take the Cipro as prescribed. Follow-up with your primary care provider if not improving. RETURN TO THE EMERGENCY ROOM IF ANY NEW OR WORSENING SYMPTOMS. Prescriptions: Ciprofloxacin HCl [Cipro 500 mg Tablet] 500 mg PO BID #20 tablet Referrals: SOO DALEY MD [Primary Care Provider] - Follow up as needed Scribe Attestation: 09/03/17 14:21 I personally performed the services described in the documentation, reviewed and edited the documentation which was dictated to the scribe in my presence, and it accurately records my words and actions. (SANIYA EUGENE) Scribe Documentation - Scribe Written by Michelle:: Michelle Santos, 09/03/2017 13:43 acting as scribe for :: Golden <MUNA GANT - Last Filed: 09/04/17 18:18>
[2017-09-03 13:42] LABS: CREATINE KINASE MB 2.57 ng/mL (<4.55)
[2017-09-03 13:44] LABS: TROPONIN I < 0.012 ng/mL
--- NOTE | 2017-09-03 15:38 | EKG REPORT ---
SEVERITY:- OTHERWISE NORMAL ECG - SINUS TACHYCARDIA : Confirmed by: Anastasiia Baum MD 03-Sep-2017 15:37:33
--- NOTE | 2017-09-03 16:55 | RADIOLOGY REPORT (SQ) ---
EXAM DESCRIPTION: CT SOFT TISSUE NECK WITHOUT COMPLETED DATE/TIME: 09/03/2017 4:42 pm REASON FOR STUDY: FB sensation in suprasternal neck COMPARISON: CT chest 03/20/2017 TECHNIQUE: Noncontrast scanning from skull base through lung apices with review of bone, soft tissue and lung windows. Reconstructed coronal and sagittal MPR images reviewed. All images stored on PAC S. All CT scanners at this facility use dose modulation, iterative reconstruction, and/or weight based d osing when appropriate to reduce radiation dose to as low as reasonably achievable (ALARA). [facility]: Dose Right [facility]: CareDose [facility]: Dose Right [facility]: Teradose 4D [facility]: [facility] RADIATION DOSE: CT Rad equipment meets quality standard of care and radiation dose reduction techniq ues were employed. CTDIvol: 17.9 mGy. DLP: 695 mGy-cm. mGy. LIMITATIONS: None. FINDINGS: SKULL BASE: Inferior brain parenchyma unremarkable MAJOR SALIVARY GLANDS: No solid or cystic masses. No inflammatory changes. LYMPHADENOPATHY: No adenopathy. MUCOSAL MASSES OR ASYMMETRY: Mild swelling of the uvula on sagittal image 39. Although the pharyngea l tonsils are normal in size, they almost meet in the midline of the oropharynx causing moderate orop haryngeal airway narrowing. LARYNX/CORDS: No abnormal findings. Epiglottis, aryepiglottic folds grossly normal. LUNG APICES: End-stage appearance of obstructive lung disease at the apices BONES: Intact. THYROID: Normal size. No masses. PARANASAL SINUSES: Clear. OTHER: Results discussed with IMPRESSION: Very mild swelling of the uvula. Although the pharyngeal tonsils are normal size, there is moderate oropharyngeal narrowing at the level of the tonsils. No gross intra tonsillar or perito nsillar abscess. Findings discussed with the emergency room attending physician. TECHNICAL DOCUMENTATION: JOB ID: [id number] Quality ID # [id number]: Final reports with documentation of one or more dose reduction techniques (e.g., Au tomated exposure control, adjustment of the mA and/or kV according to patient size, use of iterative reconstruction technique) 2010 [employer]- All Rights Reserved Reading location - IP/workstation name: [email or web address]
[2017-09-03 17:23] LABS: APPEARANCE,URINE SLIGHTLY-CLOUDY; BILIRUBIN,URINE NEGATIVE (NEGATIVE); COLOR,URINE YELLOW; GLUCOSE, URINE 50 mg/dL (NEGATIVE); KETONES,URINE NEGATIVE (NEGATIVE); LEUKOCYTE ESTERASE,URINE TRACE (NEGATIVE); NITRITE,URINE NEGATIVE (NEGATIVE); PROTEIN,URINE NEGATIVE (NEGATIVE); URINE SPECIFIC GRAVITY 1.012; UROBILINOGEN,URINE NEGATIVE mg/dL (<2.0)
[2017-09-03 18:26] VITALS: BP 140/88
== END 2017-09-03 18:45 | disposition home or self-care (01) ==
LOC: ER 12:38
DX: J44.0 Chronic obstructive pulmonary disease with (acute) lower respiratory infection (principal); J18.1 Lobar pneumonia, unspecified organism; I25.10 Atherosclerotic heart disease of native coronary artery without angina pectoris; Z91.013 Allergy to seafood; Z87.891 Personal history of nicotine dependence; I10 Essential (primary) hypertension; R00.0 Tachycardia, unspecified; Z91.018 Allergy to other foods; Z99.81 Dependence on supplemental oxygen
CPT/HCPCS: 93005; 94640; 99285; 96374; 36415; 87070; 82553; 87880; 82550; 85025; 80053; 81001; 84484; 71045; 70490; 93010; J3490 ×2; J2930

== ENCOUNTER 2017-09-22 11:06 | Inpatient (IN) | payer MEDICARE, MEDICAID ==
[2017-09-22] MEDS ORDERED: ALBUTEROL SULFATE 0.083% NEB 2.5 MG/3 ML AMPUL NEB ONE (11:38)
--- NOTE | 2017-09-22 11:38 | ER Document Report ---
ED Respiratory Problem - General Chief Complaint: Respiratory Distress Stated Complaint: DIFFICULTY BREATHING Time Seen by Provider: 09/22/17 11:16 Mode of Arrival: Medic Information source: Patient, Relative TRAVEL OUTSIDE OF THE [place] IN LAST 30 DAYS: No - HPI Patient complains to provider of: Short of breath, Other - WHEEZING Onset: Yesterday - LAST PM Duration: Continuous Quality of pain: No pain Severity: None Context: Hx COPD. denies: Recent cardiac event, Recent foreign travel, Recent long distance trvl, Recent immobilization, Recent surgery Short of Breath: Moderate Chest pain/discomfort: Center Cough: Productive Sputum amount: Scant Sputum color: Yellow Sputum consistency: Mucoid, Tenacious At home treatment: Bronchodilators, Oxygen EMS treatments: Bronchodilators, Oxygen, Solumedrol Associated symptoms: None Similar symptoms previously: Yes Recently seen / treated by doctor: No - Related Data Allergies/Adverse Reactions: iodine [Iodine] Allergy (Verified 09/22/17 11:31) Shellfish * [Shellfish] Allergy (Verified 09/22/17 11:31) Past Medical History - General Information source: Patient, Relative - Social History Smoking Status: Former Smoker Chew tobacco use (# tins/day): No Frequency of alcohol use: None Drug Abuse: None Lives with: Family Family History: CAD, COPD Patient has suicidal ideation: No Patient has homicidal ideation: No - Past Medical History Cardiac Medical History: Reports: Hx Heart Attack, Hx Hypertension Pulmonary Medical History: Reports: Hx Bronchitis, Hx COPD Neurological Medical History: Reports: None Endocrine Medical History: Reports: None Renal/ Medical History: Reports: Hx Kidney Stones. Denies: Hx Peritoneal Dialysis Malignancy Medical History: Reports None GI Medical History: Reports: Hx Diverticulitis Musculoskeltal Medical History: Reports None Psychiatric Medical History: Reports: None Denies: Hx Depression Review of Systems - Review of Systems Constitutional: Diaphoresis EENT: No symptoms reported Cardiovascular: See HPI Respiratory: See HPI Gastrointestinal: No symptoms reported Genitourinary: No symptoms reported Musculoskeletal: No symptoms reported Skin: No symptoms reported Neurological/Psychological: No symptoms reported Physical Exam - Vital signs Vitals: Pulse Ox 100 09/22/17 11:09 Interpretation: Hypertensive, Tachycardic, Tachypneic, Febrile - General General appearance: Alert, Anxious In distress: Mild - RESP. Course - Re-evaluation Re-evalutation: 09/22/17 13:23 Patient reports minimal improvement after nebulizer treatments and steroids. On examination, he is still mildly tachypneic and has moderate tightness in all rice, with prolonged expiratory phase. - Vital Signs Vital signs: Temp Pulse Resp BP Pulse Ox 100.3 F 112 H 16 153/101 H 97 09/22/17 11:15 09/22/17 11:15 09/22/17 13:00 09/22/17 13:01 09/22/17 13:01 - Laboratory Result Diagrams: 09/22/17 11:34 09/22/17 11:34 Laboratory results interpreted by me: 09/22/17 09/22/17 11:34 11:34 WBC 14.3 H RDW 14.4 H Absolute Neutrophils 9.5 H Glucose 119 H - Diagnostic Test Radiology reviewed: Image reviewed, Reports reviewed - EKG Interpretation by Me EKG shows normal: Sinus rhythm, [place], Intervals, ST-T Waves. abnormal: QRS Complexes - ? RVH Rate: Tachycardia - Consults DR. MONZON Time consulted: 13:29 Consulted provider: will come to ER Discharge - Discharge Clinical Impression: Acute exacerbation of chronic obstructive pulmonary disease (COPD), Respiratory distress Condition: Fair Disposition: ADMITTED INPATIENT Admitting Provider: Hospitalist Unit Admitted: [facility]
[2017-09-22] MEDS ORDERED: MAGNESIUM SULFATE/D5W 1 GM/100 ML RTUPB IV ONE (11:42)
--- NOTE | 2017-09-22 11:49 | RADIOLOGY REPORT (SQ) ---
EXAM DESCRIPTION: CHEST SINGLE VIEW COMPLETED DATE/TIME: 09/22/2017 11:25 am REASON FOR STUDY: sob COMPARISON: CT chest 03/20/2017 Chest films 07/29/2017, 08/03/2017, 09/03/2017 EXAM PARAMETERS: NUMBER OF VIEWS: One view. TECHNIQUE: Single frontal radiographic view of the chest acquired. RADIATION DOSE: NA LIMITATIONS: None. FINDINGS: LUNGS AND PLEURA: Marked hyperinflation and hyperlucency of the upper lobes from obstructi ve disease. Vascular crowding in the mid and lower lungs without focal infiltrate or pleural effusio n or pulmonary edema. No pneumothorax. MEDIASTINUM AND HILAR STRUCTURES: No masses. Contour normal. HEART AND VASCULAR STRUCTURES: Heart normal in size. Normal vasculature. BONES: No acute findings. HARDWARE: None in the chest. OTHER: No other significant finding. IMPRESSION: End-stage appearance of obstructive lung disease TECHNICAL DOCUMENTATION: JOB ID: [id number] [employer]20- All Rights Reserved Reading location - IP/workstation name: [email or web address]
[2017-09-22 11:57] LABS: ABSOLUTE BASOPHILS # (AUTO) 0.1 10^3/uL (0.0-0.2); ABSOLUTE EOSINOPHILS # (AUTO) 0.3 10^3/uL (0.0-0.6); ABSOLUTE MONOCYTES (AUTO) 1.4 10^3/uL (0.1-1.4); ABSOLUTE NEUT (AUTO) 9.5 10^3/uL (1.7-8.2); BASOPHILS % (AUTO) 0.6 % (0-2); EOSINOPHILS % (AUTO) 1.9 % (0-6); HEMATOCRIT 44.3 % (37.9-51.0); HEMOGLOBIN 14.8 g/dL (13.5-17.0); LYMPHOCYTES % (AUTO) 21.1 % (13-45); MEAN CORPUSCULAR HEMOGLOBIN 27.6 pg (27.0-33.4); MEAN CORPUSCULAR HGB CONC 33.3 g/dL (32.0-36.0); MEAN CORPUSCULAR VOLUME 83 fl (80-97); PLATELET COUNT 230 10^3/uL (150-450); RED BLOOD COUNT 5.34 10^6/uL (4.35-5.55); RED CELL DISTRIBUTION WIDTH 14.4 % (11.5-14.0); SEGMENTED NEUTROPHILS % (AUTO) 66.4 % (42-78); TOTAL CELLS COUNTED % (AUTO) 100 %; WHITE BLOOD COUNT 14.3 10^3/uL (4.0-10.5)
[2017-09-22 12:19] LABS: ALANINE AMINOTRANSFERASE 22 U/L (21-72); ALBUMIN 4.1 g/dL (3.5-5.0); ALKALINE PHOSPHATASE 72 U/L (38-126); ANION GAP 17 (5-19); ASPARTATE AMINO TRANSFERASE 18 U/L (17-59); BILIRUBIN,DIRECT 0.4 mg/dL (0.0-0.4); BILIRUBIN,TOTAL 0.5 mg/dL (0.2-1.3); BLOOD UREA NITROGEN 7 mg/dL (7-20); CALCIUM 9.4 mg/dL (8.4-10.2); CARBON DIOXIDE 22 mmol/L (22-30); CHLORIDE 104 mmol/L (98-107); CREATINE KINASE 131 U/L (55-170); GLUCOSE 119 mg/dL (75-110); POTASSIUM 3.8 mmol/L (3.6-5.0); TOTAL PROTEIN 7.1 g/dL (6.3-8.2)
[2017-09-22 12:31] LABS: CREATINE KINASE MB 2.32 ng/mL (<4.55); NT PRO BNP 32 pg/mL (5-900)
[2017-09-22 12:32] LABS: TROPONIN I < 0.012 ng/mL
[2017-09-22] MEDS ORDERED: LEVOFLOXACIN 750 MG/D5W RTU 750 MG/150 ML RTUPB IV ONE (13:29)
[2017-09-22] MEDS ORDERED: ALBUTEROL SULFATE 0.083% NEB 2.5 MG/3 ML AMPUL NEB PRN (14:13)
[2017-09-22] MEDS ORDERED: ONDANSETRON HCL INJ/PF 4 MG/2 ML SDV IV PRN (14:13)
[2017-09-22] MEDS ORDERED: 1/2 NORMAL SALINE 1,000 ML IV PRN (14:13)
[2017-09-22] MEDS ORDERED: ACETAMINOPHEN 325 MG TABLET PO PRN (14:13)
[2017-09-22] MEDS ORDERED: DIPHENHYDRAMINE HCL 50 MG/ML VIAL IV ONE (14:38)
[2017-09-22] MEDS ORDERED: DIPHENHYDRAMINE HCL 50 MG/ML VIAL ONE (14:40)
[2017-09-22 14:54] LABS: INTERNATIONAL RATION (INR) 0.87; PARTIAL THROMBOPLASTIN TIME 25.5 SEC (23.5-35.8); PROTHROMBIN TIME 12.2 SEC (11.4-15.4)
[2017-09-22] MEDS ORDERED: METHYLPREDNISOLONE INJ 40 MG/1 ML SDV IV ONE (15:00)
[2017-09-22] MEDS ORDERED: ALBUTEROL SULFATE HFA (90 MCG/PUFF) 8 GM MDI (1 MDI/ER DISP) IH PRN (15:21)
[2017-09-22] MEDS ORDERED: (PENDING PHARMACY ID) (Nitroglycerin [Nitromist] 1 SPRAY) SL PRN (15:21)
--- NOTE | 2017-09-22 15:24 | PDOC H&P ---
History of Present Illness Admission Date/PCP: 09/22/17 13:42 SOO DALEY MD Patient complains of: Shortness of breath History of Present Illness: This is a 62-year-old male with a known history of end-stage COPD who has been admitted to the hospital on multiple occasions for COPD exacerbation. He comes into the hospital today complaining of shortness of breath that started yesterday night. States he has been coughing since yesterday which became more worse yesterday. States he also felt some fever/chills but did not take his temperature. He follows up with his reservoir engineer an outpatient basis. States that last night he just could not catch his breath and this morning he tried to use his inhalers and nebulizer but it did not help. He denies chest pain, abdominal pain, nausea/vomiting and dizziness. States that at home he normally uses 3 L of oxygen. He uses all his other inhalers and denies missing any doses. He denies any sick contacts or recent travel. He tells me that he has real bad COPD and this happens to him all the time. States he has been in the hospital 2 times in the last 3 months. I asked him how long as he normally spent in the hospital and he states that "until it gets better". In the ED he received a dose of Levaquin but started to get an reaction and hence it was stopped. As per chart he received Solu-Medrol 125 mg by EMS. Past Medical History Cardiac Medical History: Reports: Myocardial Infarction, Hypertension Pulmonary Medical History: Reports: Bronchitis, Chronic Obstructive Pulmonary Disease (COPD) Neurological Medical History: Reports: None Endocrine Medical History: Reports: None Malignancy Medical History: Reports: None GI Medical History: Reports: Diverticulitis Musculoskeltal Medical History: Reports: None Psychiatric Medical History: Reports: None Denies: Depression Social History Lives with: Family Smoking Status: Former Smoker Frequency of Alcohol Use: Occasional Hx Recreational Drug Use: Yes Drugs: Marijuana Hx Prescription Drug Abuse: No - Advance Directive Resuscitation Status: Full Code Family History Family History: CAD, COPD Parental Family History Reviewed: Yes Children Family History Reviewed: Unknown Sibling(s) Family History Reviewed.: Unknown Medication/Allergy Home Medications: Albuterol Sulfate [Ventolin HFA MDI 18 GM] 2 puff IH Q6HP PRN 07/29/17 Amlodipine Besylate [Norvasc 10 mg Tablet] 10 mg PO QHS 07/29/17 Budesonide/Formoterol Fumarate [Symbicort 160-4.5 Mcg Inhaler] 2 puff IH Q12 Cyclobenzaprine HCl [Flexeril 10 mg Tablet] 5 mg PO TID 07/29/17 Hydrocodone/Acetaminophen [Hydrocodone-Acetamin 10-325 mg] 1.5 tab PO Q6HP PRN 07/29/17 Ipratropium/Albuterol Sulfate [Iprat-Albut 0.5-3(2.5) mg/3 ml] 3 ml NEB Q6HP PRN 07/29/17 Metoprolol Succinate [Toprol XL 100 mg Tablet] 100 mg PO DAILY 07/29/17 Nitroglycerin [Nitromist] 1 spray SL Q5MP PRN 07/29/17 Pantoprazole Sodium [Protonix] 40 mg PO DAILY 07/29/17 Tiotropium [place] [Spiriva Respimat] 2 puff IH DAILY 07/29/17 Lisinopril [Prinivil 40 mg Tablet] 40 mg PO DAILY 09/22/17 Promethazine/Codeine With Albuterol 15 ml PO QIDP PRN 09/22/17 Allergies/Adverse Reactions: iodine [Iodine] Allergy (Verified 09/22/17 11:31) Shellfish * [Shellfish] Allergy (Verified 09/22/17 11:31) Physical Exam Vital Signs: Temp Pulse Resp BP Pulse Ox 100.3 F 112 H 16 153/101 H 97 09/22/17 11:15 09/22/17 11:15 09/22/17 13:00 09/22/17 13:01 09/22/17 13:01 General appearance: PRESENT: mild distress, obese Head exam: PRESENT: atraumatic, normocephalic Eye exam: PRESENT: EOMI. ABSENT: conjunctival injection, scleral icterus Mouth exam: PRESENT: moist, neck supple Neck exam: PRESENT: full ROM. ABSENT: JVD, tenderness Respiratory exam: PRESENT: accessory muscle use, decreased breath sounds - Bilaterally decreased breath sounds mostly at the bases., rhonchi, tachypnea, wheezes Pulses: PRESENT: +2 pedal pulses bilateral GI/Abdominal exam: PRESENT: normal bowel sounds, soft. ABSENT: tenderness Extremities exam: PRESENT: full ROM, +1 edema - Bilateral lower extremity at the ankles. ABSENT: tenderness Neurological exam: PRESENT: alert, altered, awake, oriented to person, oriented to place, oriented to time, CN II-XII grossly intact Skin exam: PRESENT: dry, warm Results Impressions: Chest X-Ray 09/22/17 11:11 IMPRESSION: End-stage appearance of obstructive lung disease Assessment & Plan - Diagnosis (1) Acute exacerbation of chronic obstructive pulmonary disease (COPD) Is this a current diagnosis for this admission?: Yes (2) Acute and chronic respiratory failure Qualifiers: Qualified Code(s): J96.21 - Acute and chronic respiratory failure with hypoxia Is this a current diagnosis for this admission?: Yes (3) Coronary artery disease Qualifiers: Coronary Disease-Associated Artery/Lesion type: [place] artery Is this a current diagnosis for this admission?: Yes (4) Full code status Is this a current diagnosis for this admission?: Yes (5) GERD (gastroesophageal reflux disease) Qualifiers: Esophagitis presence: without esophagitis Qualified Code(s): K21.9 - Gastro -esophageal reflux disease without esophagitis Is this a current diagnosis for this admission?: Yes (6) Hypertension Qualifiers: Hypertension type: essential hypertension Qualified Code(s): I10 - Essential (primary) hypertension Is this a current diagnosis for this admission?: Yes (7) Observed sleep apnea Is this a current diagnosis for this admission?: Yes (8) Opiate dependence, continuous Is this a current diagnosis for this admission?: Yes - Time Time Spent: 50 to 70 Minutes - Plan Summary Plan Summary: This is a 62-year-old male with a past medical history of severe COPD who comes in today complaining of acute shortness of breath that started last night and will be admitted for COPD exacerbation. He received Solu-Medrol 125 mg on route by EMS. We will start him on Solu- Medrol 40 mg IV every 8h. We will continue with the Spiriva 2 puffs daily. Will continue with his albuterol and DuoNeb treatments. Will order pep therapy , aggressive bronchial hygiene and incentive spirometry. All his other chronic medical problems are stable and we will continue home medications as needed and as necessary.
[2017-09-22] MEDS ORDERED: ALBUTEROL SULFATE HFA (90 MCG/PUFF) 200 PUFF/8.5 GM MDI IH PRN (15:36)
[2017-09-22 16:47] LABS: APPEARANCE,URINE SLIGHTLY-CLOUDY; BILIRUBIN,URINE NEGATIVE (NEGATIVE); COLOR,URINE YELLOW; GLUCOSE, URINE 150 mg/dL (NEGATIVE); KETONES,URINE TRACE mg/dL (NEGATIVE); LEUKOCYTE ESTERASE,URINE NEGATIVE (NEGATIVE); NITRITE,URINE NEGATIVE (NEGATIVE); PROTEIN,URINE 30 mg/dL (NEGATIVE); URINE SPECIFIC GRAVITY 1.026; UROBILINOGEN,URINE NEGATIVE mg/dL (<2.0)
[2017-09-22] MEDS: DOCUSATE SODIUM 100 MG CAPSULE PO SCH (19:16)
[2017-09-22] MEDS: IPRATROPIUM/ALBUTEROL 0.5-2.5 MG/3 ML AMPUL NEB SCH (19:58)
[2017-09-22] MEDS ORDERED: IPRATROPIUM/ALBUTEROL 0.5-2.5 MG/3 ML AMPUL NEB SCH (20:00)
--- NOTE | 2017-09-22 21:05 | EKG REPORT ---
SEVERITY:- BORDERLINE ECG - SINUS TACHYCARDIA CONSIDER RIGHT VENTRICULAR HYPERTROPHY : Confirmed by: Bertrand Mota MD 22-Sep-2017 21:04:26
[2017-09-22] MEDS: FAMOTIDINE 20 MG TABLET PO SCH (21:25)
[2017-09-22] MEDS: BUDESONIDE/FORMOTEROL 160-4.5 MCG 60 PUFF/6 GM MDI IH SCH (21:25)
[2017-09-22] MEDS: AMLODIPINE BESYLATE 10 MG TABLET PO SCH (21:25)
[2017-09-22] MEDS ORDERED: METHYLPREDNISOLONE INJ 40 MG/1 ML SDV IV SCH (22:00)
[2017-09-23] MEDS: IPRATROPIUM/ALBUTEROL 0.5-2.5 MG/3 ML AMPUL NEB SCH ×2 (02:15→08:36)
[2017-09-23] MEDS ORDERED: HYDROCODONE BIT/HOMATROPINE SYRUP 5 ML UDCUP PO PRN (04:29)
[2017-09-23] MEDS ORDERED: HYDROCODONE BIT/HOMATROPINE 5-1.5 MG TABLET PO PRN (04:44)
[2017-09-23 05:04] LABS: ABSOLUTE LYMPHOCYTES (AUTO) 1.2 10^3/uL (0.5-4.7); ABSOLUTE MONOCYTES (AUTO) 0.7 10^3/uL (0.1-1.4); ABSOLUTE NEUT (AUTO) 12.2 10^3/uL (1.7-8.2); BASOPHILS % (AUTO) 0.2 % (0-2); HEMATOCRIT 42.4 % (37.9-51.0); HEMOGLOBIN 14.6 g/dL (13.5-17.0); LYMPHOCYTES % (AUTO) 8.2 % (13-45); MEAN CORPUSCULAR HEMOGLOBIN 28.3 pg (27.0-33.4); MEAN CORPUSCULAR HGB CONC 34.4 g/dL (32.0-36.0); MEAN CORPUSCULAR VOLUME 82 fl (80-97); MONOCYTES % (AUTO) 5.2 % (3-13); PLATELET COUNT 223 10^3/uL (150-450); RED BLOOD COUNT 5.15 10^6/uL (4.35-5.55); RED CELL DISTRIBUTION WIDTH 14.5 % (11.5-14.0); SEGMENTED NEUTROPHILS % (AUTO) 86.4 % (42-78); TOTAL CELLS COUNTED % (AUTO) 100 %; WHITE BLOOD COUNT 14.2 10^3/uL (4.0-10.5)
[2017-09-23] MEDS: LANSOPRAZOLE 30 MG TAB.RAP.DR PO SCH (05:18)
[2017-09-23 05:37] LABS: ANION GAP 16 (5-19); BLOOD UREA NITROGEN 16 mg/dL (7-20); CALCIUM 9.9 mg/dL (8.4-10.2); CARBON DIOXIDE 21 mmol/L (22-30); CHLORIDE 103 mmol/L (98-107); GLUCOSE 186 mg/dL (75-110); SODIUM 139.8 mmol/L (137-145)
[2017-09-23 05:39] LABS: POTASSIUM 4.8 mmol/L (3.6-5.0)
[2017-09-23] MEDS ORDERED: METHYLPREDNISOLONE INJ 40 MG/1 ML SDV IV SCH (06:00)
--- NOTE | 2017-09-23 09:52 | RADIOLOGY REPORT (SQ) ---
EXAM DESCRIPTION: CHEST SINGLE VIEW COMPLETED DATE/TIME: 09/23/2017 7:28 am REASON FOR STUDY: COPD exac COMPARISON: 09/22/2017 EXAM PARAMETERS: NUMBER OF VIEWS: One view. TECHNIQUE: Single frontal radiographic view of the chest acquired. RADIATION DOSE: NA LIMITATIONS: None. FINDINGS: LUNGS AND PLEURA: Severe bullous emphysema in the apices. Some compressive atelectasis at the bases. No focal opacities. MEDIASTINUM AND HILAR STRUCTURES: No masses. Contour normal. HEART AND VASCULAR STRUCTURES: Heart normal in size. Normal vasculature. BONES: No acute findings. HARDWARE: None in the chest. OTHER: No other significant finding. IMPRESSION: Severe bullous emphysema. TECHNICAL DOCUMENTATION: JOB ID: [id number] [employer]- All Rights Reserved Reading location - IP/workstation name: [email or web address]
[2017-09-23] MEDS: ENOXAPARIN SODIUM INJ 40 MG/0.4 ML DISP.SYRIN SUBCUT SCH (09:56)
[2017-09-23] MEDS: METOPROLOL SUCCINATE 50 MG TAB.SR.24H PO SCH (09:57)
[2017-09-23] MEDS: LISINOPRIL 10 MG TABLET PO SCH (09:58)
[2017-09-23] MEDS: FAMOTIDINE 20 MG TABLET PO SCH ×2 (09:59→21:07)
[2017-09-23] MEDS: BUDESONIDE/FORMOTEROL 160-4.5 MCG 60 PUFF/6 GM MDI IH SCH ×2 (09:59→21:08)
[2017-09-23] MEDS: DOCUSATE SODIUM 100 MG CAPSULE PO SCH ×2 (09:59→17:14)
[2017-09-23] MEDS ORDERED: (PENDING PHARMACY ID) (Tiotropium Bromide [Spiriva Respimat] 2 PUFF) IH SCH (10:00)
[2017-09-23 10:30] LABS: ARTERIAL BLOOD BASE EXCESS -0.2 mmol/L; ARTERIAL BLOOD H2CO3 1.08 mmol/L (1.05-1.35); ARTERIAL BLOOD HCO3 23.5 mmol/L (20-26); ARTERIAL BLOOD O2 SATURATION 96.6 % (94-98); ARTERIAL BLOOD PH 7.43 (7.35-7.45); ARTERIAL BLOOD TOTAL CO2 24.6 mmol/L (23-27)
[2017-09-23 10:31] LABS: ARTERIAL BLOOD FIO2 3L
--- NOTE | 2017-09-23 13:15 | PDOC PROGRESS REPORT ---
Subjective Progress Note for:: 09/23/17 Subjective:: states his breathing is better today compared to yesterday. states he's almost at baseline. Reason For Visit: CHRONIC OBSTRUCTIVE PULMONARY DISEASE EXAC Physical Exam Vital Signs: Temp Pulse Resp BP Pulse Ox 98.5 F 107 H 16 126/66 H 97 09/23/17 11:27 09/23/17 11:27 09/23/17 11:27 09/23/17 11:27 09/23/17 11:27 Intake & Output 09/22/17 09/23/17 09/24/17 06:59 06:59 06:59 Intake Total 1344 666 Output Total 350 375 Balance 994 291 Weight 254 lb 13.67 oz General appearance: PRESENT: no acute distress, morbidly obese Head exam: PRESENT: atraumatic, normocephalic Eye exam: PRESENT: EOMI. ABSENT: conjunctival injection, scleral icterus Ear exam: PRESENT: normal external ear exam Mouth exam: PRESENT: moist Neck exam: PRESENT: full ROM. ABSENT: JVD, tenderness Respiratory exam: PRESENT: decreased breath sounds Cardiovascular exam: PRESENT: RRR, +S1, +S2 Vascular exam: PRESENT: normal capillary refill GI/Abdominal exam: PRESENT: normal bowel sounds, soft. ABSENT: tenderness Extremities exam: ABSENT: joint swelling, pedal edema Musculoskeletal exam: PRESENT: full ROM. ABSENT: tenderness Neurological exam: PRESENT: alert, awake, CN II-XII grossly intact Skin exam: PRESENT: dry, warm Results Laboratory Results: 09/23/17 04:42 09/23/17 04:42 09/22/17 09/23/17 09/23/17 16:20 04:42 04:42 WBC 14.2 H RBC 5.15 Hgb 14.6 Hct 42.4 MCV 82 MCH 28.3 MCHC 34.4 RDW 14.5 H Plt Count 223 Seg Neutrophils % 86.4 H Lymphocytes % 8.2 L Monocytes % 5.2 Eosinophils % 0.0 Basophils % 0.2 Absolute Neutrophils 12.2 H Absolute Lymphocytes 1.2 Absolute Monocytes 0.7 Absolute Eosinophils 0.0 Absolute Basophils 0.0 Carbonic Acid HCO3/H2CO3 Ratio ABG pH ABG pCO2 ABG pO2 ABG HCO3 ABG O2 Saturation ABG Base Excess FiO2 Sodium 139.8 Potassium 4.8 D Chloride 103 Carbon Dioxide 21 L Anion Gap 16 BUN 16 Creatinine 0.97 Est GFR ( Amer) > 60 Est GFR (Non-Af Amer) > 60 Glucose 186 H Calcium 9.9 Magnesium 2.0 Urine Color YELLOW Urine Appearance SLIGHTLY-CLOUDY Urine pH 5.0 Ur Specific [place] 1.026 Urine Protein 30 H Urine Glucose (UA) 150 H Urine Ketones TRACE H Urine Blood NEGATIVE Urine Nitrite NEGATIVE Ur Leukocyte Esterase NEGATIVE Urine WBC (Auto) 1 Urine RBC (Auto) 0 09/23/17 10:10 WBC RBC Hgb Hct MCV MCH MCHC RDW Plt Count Seg Neutrophils % Lymphocytes % Monocytes % Eosinophils % Basophils % Absolute Neutrophils Absolute Lymphocytes Absolute Monocytes Absolute Eosinophils Absolute Basophils Carbonic Acid 1.08 HCO3/H2CO3 Ratio 21:1 ABG pH 7.43 ABG pCO2 36.0 ABG pO2 84.0 ABG HCO3 23.5 ABG O2 Saturation 96.6 ABG Base Excess -0.2 FiO2 3L Sodium Potassium Chloride Carbon Dioxide Anion Gap BUN Creatinine Est GFR ( Amer) Est GFR (Non-Af Amer) Glucose Calcium Magnesium Urine Color Urine Appearance Urine pH Ur Specific [place] Urine Protein Urine Glucose (UA) Urine Ketones Urine Blood Urine Nitrite Ur Leukocyte Esterase Urine WBC (Auto) Urine RBC (Auto) Impressions: Chest X-Ray 09/23/17 06:00 IMPRESSION: Severe bullous emphysema. Assessment & Plan - Diagnosis (1) Acute exacerbation of chronic obstructive pulmonary disease (COPD) Is this a current diagnosis for this admission?: Yes (2) Acute and chronic respiratory failure Is this a current diagnosis for this admission?: Yes (3) Coronary artery disease Qualifiers: Coronary Disease-Associated Artery/Lesion type: [place] artery Is this a current diagnosis for this admission?: Yes (4) Full code status Is this a current diagnosis for this admission?: Yes (5) GERD (gastroesophageal reflux disease) Qualifiers: Esophagitis presence: without esophagitis Qualified Code(s): K21.9 - Gastro -esophageal reflux disease without esophagitis Is this a current diagnosis for this admission?: Yes (6) Hypertension Qualifiers: Hypertension type: essential hypertension Qualified Code(s): I10 - Essential (primary) hypertension Is this a current diagnosis for this admission?: Yes (7) Observed sleep apnea Is this a current diagnosis for this admission?: Yes (8) Opiate dependence, continuous Is this a current diagnosis for this admission?: Yes - Time Time Spent with patient: 25-34 minutes - Plan Summary Plan Summary: COPD exacerbation-improving. I have not started on Solu-Medrol 40 every 8 but I think I will decrease it to 40 twice daily at this time. He is getting a little tachycardic and hence I switched him from DuoNeb to Xopenex. And I will keep DuoNeb's as needed. He is on his home medications. His chest x-ray this morning showed severe bullous emphysema which is chronic and no acute changes. If he continues to improve then we may consider discharge to home in 1-2 days. Continue with current care.
[2017-09-23] MEDS: LEVALBUTEROL HCL NEB 1.25 MG/3 ML AMPUL NEB SCH ×2 (13:56→20:18)
[2017-09-23] MEDS: METHYLPREDNISOLONE INJ 40 MG/1 ML SDV IV SCH (17:19)
[2017-09-23] MEDS: AMLODIPINE BESYLATE 10 MG TABLET PO SCH (21:07)
[2017-09-24] MEDS: HYDROCODONE/ACETAMINOPHEN 10-325 MG TABLET PO PRN ×3 (00:56→22:14)
[2017-09-24] MEDS: LEVALBUTEROL HCL NEB 1.25 MG/3 ML AMPUL NEB SCH ×4 (02:32→20:02)
[2017-09-24] MEDS: METHYLPREDNISOLONE INJ 40 MG/1 ML SDV IV SCH ×2 (05:14→17:29)
[2017-09-24] MEDS: LANSOPRAZOLE 30 MG TAB.RAP.DR PO SCH (05:15)
[2017-09-24] MEDS: LISINOPRIL 10 MG TABLET PO SCH (10:54)
[2017-09-24] MEDS: FAMOTIDINE 20 MG TABLET PO SCH ×2 (10:56→22:14)
[2017-09-24] MEDS: METOPROLOL SUCCINATE 50 MG TAB.SR.24H PO SCH (10:56)
[2017-09-24] MEDS: ENOXAPARIN SODIUM INJ 40 MG/0.4 ML DISP.SYRIN SUBCUT SCH (10:57)
[2017-09-24] MEDS: DOCUSATE SODIUM 100 MG CAPSULE PO SCH ×3 (10:57→17:36)
[2017-09-24] MEDS: BUDESONIDE/FORMOTEROL 160-4.5 MCG 60 PUFF/6 GM MDI IH SCH ×2 (10:58→22:15)
[2017-09-24] MEDS ORDERED: CYCLOBENZAPRINE HCL 10 MG TABLET PO PRN ×2 (15:43→16:35)
--- NOTE | 2017-09-24 16:51 | PDOC PROGRESS REPORT ---
Subjective Progress Note for:: 09/24/17 Subjective:: States he has no new complaints today. Reason For Visit: CHRONIC OBSTRUCTIVE PULMONARY DISEASE EXAC Physical Exam Vital Signs: Temp Pulse Resp BP Pulse Ox 98.9 F 97 18 144/90 H 97 09/24/17 11:52 09/24/17 14:25 09/24/17 14:25 09/24/17 11:52 09/24/17 11:52 Intake & Output 09/23/17 09/24/17 09/25/17 06:59 06:59 06:59 Intake Total 1344 2302 Output Total 350 1900 230 Balance 994 402 -230 Weight 254 lb 13.67 oz 254 lb 6.615 oz General appearance: PRESENT: no acute distress, obese Head exam: PRESENT: atraumatic, normocephalic Eye exam: PRESENT: EOMI. ABSENT: conjunctival injection, scleral icterus Ear exam: PRESENT: normal external ear exam Mouth exam: PRESENT: moist, neck supple Respiratory exam: PRESENT: decreased breath sounds, symmetrical - Bilaterally decreased breath sounds mostly at the bases with scattered expiratory wheezing Cardiovascular exam: PRESENT: RRR, +S1, +S2 Pulses: PRESENT: +2 pedal pulses bilateral GI/Abdominal exam: PRESENT: normal bowel sounds, soft. ABSENT: tenderness Neurological exam: PRESENT: alert, awake, oriented to person, oriented to place , CN II-XII grossly intact Skin exam: PRESENT: dry, warm Results Laboratory Results: 09/23/17 04:42 09/23/17 04:42 Impressions: Chest X-Ray 09/23/17 06:00 IMPRESSION: Severe bullous emphysema. Assessment & Plan - Diagnosis (1) Acute exacerbation of chronic obstructive pulmonary disease (COPD) Is this a current diagnosis for this admission?: Yes (2) Acute and chronic respiratory failure Is this a current diagnosis for this admission?: Yes (3) Coronary artery disease Qualifiers: Coronary Disease-Associated Artery/Lesion type: [place] artery Is this a current diagnosis for this admission?: Yes (4) Full code status Is this a current diagnosis for this admission?: Yes (5) GERD (gastroesophageal reflux disease) Qualifiers: Esophagitis presence: without esophagitis Qualified Code(s): K21.9 - Gastro -esophageal reflux disease without esophagitis Is this a current diagnosis for this admission?: Yes (6) Hypertension Qualifiers: Hypertension type: essential hypertension Qualified Code(s): I10 - Essential (primary) hypertension Is this a current diagnosis for this admission?: Yes (7) Observed sleep apnea Is this a current diagnosis for this admission?: Yes (8) Opiate dependence, continuous Is this a current diagnosis for this admission?: Yes - Time Time Spent with patient: 15-24 minutes - Plan Summary Plan Summary: COPD exacerbation-currently is on Solu-Medrol 40 IV twice daily. We will taper down to 60 mg IV starting tomorrow. Spoke with patient today and he tells me that he does not feel so well today. He tells me that he thinks he will do better with 1 more day. He states "I think I could discharge to soon". I talked him about his care and the fact that he can be discharged tomorrow on p.o. prednisone taper. He is currently on IV antibiotics and I think he can have another few days of p.o. antibiotics and complete 5-7 day total course. I think she will be ready for discharge tomorrow unless any other acute events overnight.
[2017-09-24] MEDS: AMLODIPINE BESYLATE 10 MG TABLET PO SCH (22:15)
[2017-09-25] MEDS: LEVALBUTEROL HCL NEB 1.25 MG/3 ML AMPUL NEB SCH ×2 (02:19→07:48)
[2017-09-25] MEDS: LANSOPRAZOLE 30 MG TAB.RAP.DR PO SCH (05:38)
[2017-09-25] MEDS ORDERED: METHYLPREDNISOLONE INJ 40 MG/1 ML SDV IV SCH ×2 (10:00→18:00)
[2017-09-25] MEDS: METOPROLOL SUCCINATE 50 MG TAB.SR.24H PO SCH (10:20)
[2017-09-25] MEDS: LISINOPRIL 10 MG TABLET PO SCH (10:20)
[2017-09-25] MEDS: FAMOTIDINE 20 MG TABLET PO SCH (10:20)
[2017-09-25] MEDS: BUDESONIDE/FORMOTEROL 160-4.5 MCG 60 PUFF/6 GM MDI IH SCH (10:20)
[2017-09-25] MEDS: ENOXAPARIN SODIUM INJ 40 MG/0.4 ML DISP.SYRIN SUBCUT SCH (10:21)
[2017-09-25] MEDS ORDERED: METHYLPREDNISOLONE INJ 40 MG/1 ML SDV IV ONE (10:30)
[2017-09-25 11:15] VITALS: BP 155/92
--- NOTE | 2017-09-25 15:14 | PDOC DISCHARGE SUMMARY ---
General - Admit/Disc Date/PCP Admission Date/Primary Care Provider: 09/22/17 13:42 SOO DALEY MD Discharge Date: 09/25/17 - Discharge Diagnosis (1) Acute exacerbation of chronic obstructive pulmonary disease (COPD) Is this a current diagnosis for this admission?: Yes (2) Acute on chronic respiratory failure with hypoxemia Is this a current diagnosis for this admission?: Yes (3) CAD (coronary artery disease) Is this a current diagnosis for this admission?: Yes (4) GERD (gastroesophageal reflux disease) Is this a current diagnosis for this admission?: Yes (5) Hypertension Is this a current diagnosis for this admission?: Yes (6) Opiate dependence, continuous Is this a current diagnosis for this admission?: Yes - Additional Information Resuscitation Status: Full Code Discharge Diet: As Tolerated Discharge Activity: Activity As Tolerated Prescriptions: Prednisone 60 mg PO DAILY #26 tablet Home Medications: Albuterol Sulfate [Ventolin HFA MDI 18 GM] 2 puff IH Q6HP PRN 07/29/17 Amlodipine Besylate [Norvasc 10 mg Tablet] 10 mg PO QHS 07/29/17 Budesonide/Formoterol Fumarate [Symbicort 160-4.5 Mcg Inhaler] 2 puff IH Q12 Cyclobenzaprine HCl [Flexeril 10 mg Tablet] 5 mg PO TID 07/29/17 Hydrocodone/Acetaminophen [Hydrocodone-Acetamin 10-325 mg] 1.5 tab PO Q6HP PRN 07/29/17 Ipratropium/Albuterol Sulfate [Iprat-Albut 0.5-3(2.5) mg/3 ml] 3 ml NEB Q6HP PRN 07/29/17 Metoprolol Succinate [Toprol XL 100 mg Tablet] 100 mg PO DAILY 07/29/17 Nitroglycerin [Nitromist] 1 spray SL Q5MP PRN 07/29/17 Pantoprazole Sodium [Protonix] 40 mg PO DAILY 07/29/17 Tiotropium [place] [Spiriva Respimat] 2 puff IH DAILY 07/29/17 Lisinopril [Prinivil 40 mg Tablet] 40 mg PO DAILY 09/22/17 Promethazine/Codeine With Albuterol 15 ml PO QIDP PRN 09/22/17 Prednisone 60 mg PO DAILY #26 tablet 09/25/17 History of Present Illness Patient complains of: Shortness of breath History of Present Illness: LAKSHMI SALINAS is a 62 year old male with past medical history of COPD, oxygen dependent Chronic hypoxic respiratory failure on home oxygen Coronary artery disease GERD Hypertension Sleep apnea Chronic pain with opiate use continuous. He presented to the hospital on September 22 with shortness of breath and was found to be wheezing. Chest x-ray was unremarkable. He was found to have acute COPD exacerbation and was started on IV steroids and was given [id number] nebulizer treatments. Steroids were slowly weaned down and he is doing better and is ready for discharge home tomorrow. He is to follow-up with his primary care physician in 1 week. He does not smoke for the past 1 year. Hospital Course Hospital Course: As above Physical Exam Vital Signs: Temp Pulse Resp BP Pulse Ox 97.7 F 68 16 155/92 H 97 09/25/17 11:12 09/25/17 11:12 09/25/17 11:12 09/25/17 11:12 09/25/17 11:12 Intake & Output 09/24/17 09/25/17 09/26/17 06:59 06:59 06:59 Intake Total 2302 369 Output Total 1900 1630 Balance 402 -1261 Weight 115.4 kg 114.9 kg General appearance: PRESENT: no acute distress Respiratory exam: PRESENT: symmetrical, unlabored. ABSENT: wheezes Cardiovascular exam: PRESENT: RRR Neurological exam: PRESENT: alert, awake Results Laboratory Results: 09/23/17 04:42 09/23/17 04:42 Impressions: Chest X-Ray 09/23/17 06:00 IMPRESSION: Severe bullous emphysema. Qualifiers - * PATIENT BEING DISCHARGED WITH ANY OF THE FOLLOWING DIAGNOSIS: No Plan Time Spent: Greater than 30 Minutes
== END 2017-09-25 12:49 | disposition home or self-care (01) | DRG 190 ==
LOC: ER 11:06 → EH 13:42 → 3W 16:55
PROVIDERS: ADMIT Internal Medicine; ATTEND Internal Medicine
DX: J44.1 Chronic obstructive pulmonary disease with (acute) exacerbation (principal); J96.21 Acute and chronic respiratory failure with hypoxia; F11.20 Opioid dependence, uncomplicated; I25.10 Atherosclerotic heart disease of native coronary artery without angina pectoris; K21.9 Gastro-esophageal reflux disease without esophagitis; I10 Essential (primary) hypertension; G47.30 Sleep apnea, unspecified; G89.29 Other chronic pain; Z99.81 Dependence on supplemental oxygen; Z79.899 Other long term (current) drug therapy; I25.2 Old myocardial infarction; Z87.891 Personal history of nicotine dependence; Z91.013 Allergy to seafood; Z91.048 Other nonmedicinal substance allergy status; Z87.19 Personal history of other diseases of the digestive system
CPT/HCPCS: 36415; 36600; 71045; 80048; 80053; 81001; 82550; 82553; 82803; 83735; 83880; 84484; 85025; 85610; 85730; 87040; 87070; 87205; 93005; 93010; 94640; 96365; 99285; J1200; J1650; J1956; J2920; J3475; J3490; J7620

== ENCOUNTER 2017-10-20 00:46 | Inpatient (IN) | payer MEDICARE, MEDICAID ==
[2017-10-20] MEDS ORDERED: NORMAL SALINE 1000 ML 1,000 ML IV ONE ×2 (00:52→02:58)
[2017-10-20] MEDS ORDERED: IPRATROPIUM/ALBUTEROL 0.5-2.5 MG/3 ML AMPUL NEB ONE (00:58)
[2017-10-20] MEDS: MAGNESIUM SULFATE/D5W 1 GM/100 ML RTUPB IV SCH ×2 (01:08→01:09)
[2017-10-20 01:45] LABS: VENOUS BLOOD BASE EXCESS 4.5 mmol/L; VENOUS BLOOD HCO3 31.2 mmol/L (20-32); VENOUS BLOOD PCO2 54.5 mmHg (35-63); VENOUS BLOOD PH 7.38 (7.30-7.42)
[2017-10-20 01:49] LABS: ABSOLUTE BASOPHILS # (AUTO) 0.1 10^3/uL (0.0-0.2); ABSOLUTE EOSINOPHILS # (AUTO) 0.4 10^3/uL (0.0-0.6); ABSOLUTE LYMPHOCYTES (AUTO) 1.7 10^3/uL (0.5-4.7); ABSOLUTE NEUT (AUTO) 7.1 10^3/uL (1.7-8.2); BASOPHILS % (AUTO) 0.5 % (0-2); EOSINOPHILS % (AUTO) 3.8 % (0-6); HEMATOCRIT 42.2 % (37.9-51.0); HEMOGLOBIN 14.1 g/dL (13.5-17.0); LYMPHOCYTES % (AUTO) 16.5 % (13-45); MEAN CORPUSCULAR HEMOGLOBIN 27.9 pg (27.0-33.4); MEAN CORPUSCULAR HGB CONC 33.5 g/dL (32.0-36.0); MEAN CORPUSCULAR VOLUME 83 fl (80-97); MONOCYTES % (AUTO) 10.1 % (3-13); PLATELET COUNT 413 10^3/uL (150-450); RED BLOOD COUNT 5.07 10^6/uL (4.35-5.55); RED CELL DISTRIBUTION WIDTH 14.3 % (11.5-14.0); SEGMENTED NEUTROPHILS % (AUTO) 69.1 % (42-78); TOTAL CELLS COUNTED % (AUTO) 100 %; WHITE BLOOD COUNT 10.2 10^3/uL (4.0-10.5)
[2017-10-20 01:51] LABS: INTERNATIONAL RATION (INR) 0.98; PROTHROMBIN TIME 13.5 SEC (11.4-15.4)
[2017-10-20 01:56] LABS: ALANINE AMINOTRANSFERASE 34 U/L (21-72); ALBUMIN 3.7 g/dL (3.5-5.0); ALKALINE PHOSPHATASE 83 U/L (38-126); ANION GAP 14 (5-19); ASPARTATE AMINO TRANSFERASE 27 U/L (17-59); BILIRUBIN,DIRECT 0.4 mg/dL (0.0-0.4); BILIRUBIN,TOTAL 0.6 mg/dL (0.2-1.3); BLOOD UREA NITROGEN 8 mg/dL (7-20); CARBON DIOXIDE 28 mmol/L (22-30); CHLORIDE 96 mmol/L (98-107); GLUCOSE 205 mg/dL (75-110); POTASSIUM 3.8 mmol/L (3.6-5.0); SODIUM 137.6 mmol/L (137-145); TOTAL PROTEIN 6.5 g/dL (6.3-8.2)
--- NOTE | 2017-10-20 01:56 | RADIOLOGY REPORT (SQ) ---
EXAM DESCRIPTION: XR CHEST 1 VIEW COMPLETED DATE/TME: 10/20/2017 00:52 CLINICAL HISTORY: 62 years Male, SOB COMPARISON: 7.8.18 NUMBER OF VIEWS/TECHNIQUE: 1/AP FINDINGS: Adequate lung volume, severe bullous disease of the upper and midlung rice, moderate chronic interstitial markings of bilateral lower lungs, normal cardiac silhouette, and intact bony thorax. IMPRESSION: No acute cardiopulmonary findings. Bullous disease. Chronic interstitial lung disease.
[2017-10-20] MEDS ORDERED: KETAMINE HCL INJ 500 MG/10 ML VIAL IV ONE (02:33)
--- NOTE | 2017-10-20 02:48 | ER Document Report ---
ED Respiratory Problem - General Chief Complaint: Shortness Of Breath Stated Complaint: DIFFICULTY BREATHING Time Seen by Provider: 10/20/17 00:49 Mode of Arrival: Medic Information source: Patient, Emergency Med Personnel Cannot obtain history due to: Unstable vital signs Notes: Patient is a 8-year-old male with a history of COPD who comes in with difficulty breathing. Patient denies chest pain. Patient states he has been coughing and is concerned that he may have pneumonia. Denies fever or chills. Patient's is having a difficult time giving history due to his respiratory distress. He does not want BiPAP. TRAVEL OUTSIDE OF THE [place] IN LAST 30 DAYS: No - HPI Patient complains to provider of: Short of breath Duration: Continuous Quality of pain: No pain Context: Hx COPD Short of Breath: Severe EMS treatments: Bronchodilators, Solumedrol Associated symptoms: Cough Similar symptoms previously: Yes Recently seen / treated by doctor: Yes - Related Data Allergies/Adverse Reactions: iodine [Iodine] Allergy (Verified 09/22/17 11:31) Shellfish * [Shellfish] Allergy (Verified 09/22/17 11:31) Past Medical History - General Information source: Patient - Social History Smoking Status: Unknown if Ever Smoked Family History: CAD, COPD Patient has suicidal ideation: No Patient has homicidal ideation: No - Past Medical History Cardiac Medical History: Reports: Hx Heart Attack, Hx Hypertension Pulmonary Medical History: Reports: Hx Bronchitis, Hx COPD Renal/ Medical History: Reports: Hx Kidney Stones. Denies: Hx Peritoneal Dialysis GI Medical History: Reports: Hx Diverticulitis Psychiatric Medical History: Denies: Hx Depression Physical Exam - Vital signs Vitals: Resp Pulse Ox 26 H 89 L 10/20/17 00:50 10/20/17 00:50 Interpretation: Tachycardic, Hypoxic, Tachypneic - General General appearance: Alert In distress: Severe - Respiratory Respiratory status: Respiratory distress, Tachypnea Breath sounds: Decreased air movement, Wheezing - Cardiovascular Rhythm: Regular, Tachycardia - Abdominal Inspection: Obese Tenderness: Nontender - Extremities General upper extremity: Normal inspection, Normal ROM General lower extremity: Normal inspection, Normal ROM - Neurological Neuro grossly intact: Yes Cognition: Normal Orientation: AAOx4 [place] Coma Scale Eye Opening: Spontaneous [place] Coma Scale Verbal: Oriented [place] Coma Scale Motor: Obeys Commands [place] Coma Scale Total: 15 Motor strength normal: LUE, RUE, LLE, RLE - Psychological Associated symptoms: Normal affect, Anxious - Skin Skin Temperature: Cool Skin Moisture: Diaphoretic Skin Color: Normal Course - Re-evaluation Re-evalutation: 10/20/17 02:57 Patient is a 8-year-old male who comes in with difficulty breathing. Patient has a history of COPD. He has not used oxygen at home. Patient received Solu- Medrol and DuoNeb from EMS. He has been given more DuoNeb, magnesium here. Patient was strongly encouraged initially to let us do BiPAP but he had refused because it makes him claustrophobic. Patient is now agreeable to having BiPAP as he is having spells of apnea as it appears he is tiring out from working so hard to breathe. Blood gases within normal limits. Patient has been maintaining his oxygen saturation although he has been working very hard to do so. Patient was discussed with the hospitalist service and will be admitted to the [facility]. Sputum has been sent for culture. Of note, no acute findings on chest x-ray. - Vital Signs Vital signs: Temp Pulse Resp BP Pulse Ox 20 93 10/20/17 02:50 10/20/17 02:50 - Laboratory Result Diagrams: 10/20/17 01:15 10/20/17 01:15 Laboratory results interpreted by me: 10/20/17 10/20/17 01:15 01:15 RDW 14.3 H Chloride 96 L Glucose 205 H - Diagnostic Test Radiology reviewed: Reports reviewed Critical Care Note - Critical Care Note Total time excluding time spent on procedures (mins): 90 - Evaluation and management of severe respiratory distress, multiple re-evaluations, initiation of BiPAP, coordination of admission, counseling patient and family Discharge - Discharge Clinical Impression: Respiratory distress, Chronic respiratory failure with hypoxia, Observed sleep apnea Condition: Stable Disposition: ADMITTED INPATIENT Admitting Provider: Hospitalist [facility] Admitted: [facility] Referrals: SOO DALEY MD [Primary Care Provider] - Follow up as needed
[2017-10-20] MEDS ORDERED: LEVOFLOXACIN 750 MG/D5W RTU 750 MG/150 ML RTUPB IV ONE (02:58)
[2017-10-20] MEDS ORDERED: ACETAMINOPHEN 325 MG TABLET PO PRN (04:08)
[2017-10-20] MEDS ORDERED: ONDANSETRON HCL INJ/PF 4 MG/2 ML SDV IV PRN (04:08)
[2017-10-20] MEDS: IPRATROPIUM/ALBUTEROL 0.5-2.5 MG/3 ML AMPUL NEB SCH ×5 (05:50→19:51)
--- NOTE | 2017-10-20 07:14 | PDOC H&P ---
History of Present Illness Admission Date/PCP: 10/20/17 03:14 SOO DALEY MD Patient complains of: Shortness of breath and wheezing History of Present Illness: LAKSHMI SALINAS is a 62 year old male with a past medical history of COPD not currently on oxygen, sleep apnea supposed to be on CPAP but noncompliant, CAD, hypertension presents to the emergency room with respiratory distress and wheezing. Patient reports progressively worsening shortness of breath for past few days. Patient denies any chest pain or fever or chills or cough. Patient denies abdominal pain or nausea vomiting. Patient has been using her home inhaler without improvement. On arrival to emergency room patient was in distress with tachypnea and tachycardia. His initial oxygen saturation was 88% on room air. His laboratory workup shows normal troponin and white count. Chest x-ray shows severe COPD changes without any acute process. Patient was placed on BiPAP secondary to distress and hypoxia. Patient was given Solu-Medrol and continuous nebs in the emergency room. Patient was referred to hospitalist service for admission. Past Medical History Cardiac Medical History: Reports: Myocardial Infarction, Hypertension Pulmonary Medical History: Reports: Bronchitis, Chronic Obstructive Pulmonary Disease (COPD) GI Medical History: Reports: Diverticulitis Psychiatric Medical History: Denies: Depression Social History Information Source: Patient Smoking Status: Former Smoker Cigarettes Packs Per Day: 2 Last Time Smoked: 08/2015 Frequency of Alcohol Use: None Hx Recreational Drug Use: No Drugs: None Hx Prescription Drug Abuse: No Family History Family History: CAD, COPD Parental Family History Reviewed: No Children Family History Reviewed: No Sibling(s) Family History Reviewed.: No Medication/Allergy Home Medications: Albuterol Sulfate [Ventolin HFA MDI 18 GM] 2 puff IH Q6HP PRN 07/29/17 Amlodipine Besylate [Norvasc 10 mg Tablet] 10 mg PO QHS 07/29/17 Budesonide/Formoterol Fumarate [Symbicort 160-4.5 Mcg Inhaler] 2 puff IH Q12 Cyclobenzaprine HCl [Flexeril 10 mg Tablet] 5 mg PO TID 07/29/17 Hydrocodone/Acetaminophen [Hydrocodone-Acetamin 10-325 mg] 1.5 tab PO Q6HP PRN 07/29/17 Ipratropium/Albuterol Sulfate [Iprat-Albut 0.5-3(2.5) mg/3 ml] 3 ml NEB Q6HP PRN 07/29/17 Metoprolol Succinate [Toprol XL 100 mg Tablet] 100 mg PO DAILY 07/29/17 Nitroglycerin [Nitromist] 1 spray SL Q5MP PRN 07/29/17 Pantoprazole Sodium [Protonix] 40 mg PO DAILY 07/29/17 Tiotropium [place] [Spiriva Respimat] 2 puff IH DAILY 07/29/17 Lisinopril [Prinivil 40 mg Tablet] 40 mg PO DAILY 09/22/17 Promethazine/Codeine With Albuterol 15 ml PO QIDP PRN 09/22/17 Prednisone 60 mg PO DAILY #26 tablet 09/25/17 Allergies/Adverse Reactions: iodine [Iodine] Allergy (Verified 09/22/17 11:31) Shellfish * [Shellfish] Allergy (Verified 09/22/17 11:31) Review of Systems All systems: reviewed and no additional remarkable complaints except as stated Physical Exam Vital Signs: Temp Pulse Resp BP Pulse Ox 97.8 F 99 26 H 124/85 99 10/20/17 06:42 10/20/17 06:42 10/20/17 06:42 10/20/17 06:42 10/20/17 06:42 Intake & Output 10/19/17 10/20/17 10/21/17 06:59 06:59 06:59 Intake Total 308 Balance 308 General appearance: PRESENT: cooperative, severe distress, well-developed, well- nourished Head exam: PRESENT: atraumatic, normocephalic Eye exam: PRESENT: conjunctiva pink, EOMI, PERRLA. ABSENT: scleral icterus Ear exam: PRESENT: normal external ear exam Mouth exam: PRESENT: moist, tongue midline Neck exam: ABSENT: carotid bruit, JVD, lymphadenopathy, thyromegaly Respiratory exam: PRESENT: accessory muscle use, prolonged expiratory phas, rhonchi, wheezes Cardiovascular exam: PRESENT: RRR. ABSENT: diastolic murmur, rubs, systolic murmur Pulses: PRESENT: normal dorsalis pedis pul GI/Abdominal exam: PRESENT: normal bowel sounds, soft. ABSENT: distended, guarding, mass, organolmegaly, rebound, tenderness Rectal exam: PRESENT: deferred Gentrourinary exam: ABSENT: ecchymosis, erythema, lacerations, lesions, scrotal swelling, testicular tenderness, urethral discharge, indwelling catheter, other Extremities exam: PRESENT: full ROM. ABSENT: calf tenderness, clubbing, pedal edema Musculoskeletal exam: PRESENT: ambulatory Neurological exam: PRESENT: alert, awake, oriented to person, oriented to place , oriented to time, oriented to situation, CN II-XII grossly intact. ABSENT: motor sensory deficit Psychiatric exam: PRESENT: appropriate affect, normal mood. ABSENT: homicidal ideation, suicidal ideation Skin exam: ABSENT: rash Results Laboratory Results: Lab reviewed personally Impressions: Chest X-Ray 10/20/17 00:52 IMPRESSION: No acute cardiopulmonary findings. Bullous disease. Chronic interstitial lung disease. Status: Image reviewed by me Assessment & Plan - Diagnosis (1) Acute and chronic respiratory failure Is this a current diagnosis for this admission?: Yes Plan: Patient with acute on chronic respiratory failure secondary to COPD exacerbation. Patient was hypoxic and tachypneic and in severe distress so he is currently on BiPAP. Will continue monitor patient on telemetry and admit him as inpatient. Continue treatment for COPD exacerbation. Will recheck ABG. (2) Acute exacerbation of chronic obstructive pulmonary disease (COPD) Is this a current diagnosis for this admission?: Yes Plan: Patient will be treated with IV Solu-Medrol and continuous and as needed naps. Chest x-ray shows chronic severe COPD without any infiltrate. (3) Observed sleep apnea Is this a current diagnosis for this admission?: No Plan: Patient is very noncompliant with CPAP. - Time Time Spent: 30 to 50 Minutes - Inpatient Certification Medical Necessity: Need Close Monitoring Due to Risk of Patient Decompensation, Need For Continuous Telemetry Monitoring, Need for Nebulizer Therapy and Monitoring of Response
--- NOTE | 2017-10-20 10:47 | EKG REPORT ---
SEVERITY:- ABNORMAL ECG - SINUS TACHYCARDIA MULTIPLE ATRIAL PREMATURE COMPLEXES : Confirmed by: Ap Elder 20-Oct-2017 10:46:21
[2017-10-20] MEDS: METHYLPREDNISOLONE INJ 125 MG/2 ML SDV IV SCH ×4 (10:58→23:43)
[2017-10-20] MEDS: ENOXAPARIN SODIUM INJ 40 MG/0.4 ML DISP.SYRIN SUBCUT SCH (11:00)
[2017-10-20 11:39] LABS: APPEARANCE,URINE SLIGHTLY-CLOUDY; BILIRUBIN,URINE NEGATIVE (NEGATIVE); COLOR,URINE YELLOW; GLUCOSE, URINE 50 mg/dL (NEGATIVE); KETONES,URINE TRACE mg/dL (NEGATIVE); LEUKOCYTE ESTERASE,URINE NEGATIVE (NEGATIVE); NITRITE,URINE NEGATIVE (NEGATIVE); PROTEIN,URINE 30 mg/dL (NEGATIVE); URINE SPECIFIC GRAVITY 1.023; UROBILINOGEN,URINE NEGATIVE mg/dL (<2.0)
[2017-10-20] MEDS ORDERED: (PENDING PHARMACY ID) (Nystatin 10 ML) PO PRN (13:55)
[2017-10-20] MEDS ORDERED: CODEINE PO PRN (13:55)
[2017-10-20] MEDS ORDERED: PROMETHAZINE HCL PO PRN (13:55)
[2017-10-20] MEDS ORDERED: (PENDING PHARMACY ID) (Epinephrine [Epipen 2-Pak] 0.3 MG) IM PRN (13:55)
[2017-10-20] MEDS: ACETYLCYSTEINE 10% NEB 400 MG/4 ML VIAL NEB SCH ×2 (15:33→19:56)
[2017-10-20] MEDS: HYDROCODONE/ACETAMINOPHEN 10-325 MG TABLET PO SCH ×2 (15:58→23:42)
[2017-10-20] MEDS: MAGNESIUM SULFATE 1 GM/D5W 100 ML IV SCH ×2 (16:55→18:17)
[2017-10-20] MEDS ORDERED: HYDROCODONE/ACETAMINOPHEN 10-325 MG TABLET PO SCH (18:00)
[2017-10-20] MEDS: LISINOPRIL 10 MG TABLET PO SCH (21:48)
[2017-10-20] MEDS: NYSTATIN 500000 UNIT/5 ML UDCUP PO PRN (21:48)
[2017-10-20] MEDS: CYCLOBENZAPRINE HCL 10 MG TABLET PO PRN (21:49)
[2017-10-20] MEDS: AMLODIPINE BESYLATE 10 MG TABLET PO SCH (21:49)
[2017-10-20] MEDS: METOPROLOL SUCCINATE 50 MG TAB.SR.24H PO SCH (21:49)
[2017-10-20] MEDS: BUDESONIDE/FORMOTEROL 160-4.5 MCG 60 PUFF/6 GM MDI IH SCH (21:53)
[2017-10-20] MEDS: IPRATROPIUM/ALBUTEROL 0.5-2.5 MG/3 ML AMPUL NEB PRN (22:23)
[2017-10-21] MEDS: IPRATROPIUM/ALBUTEROL 0.5-2.5 MG/3 ML AMPUL NEB SCH ×7 (00:18→23:31)
[2017-10-21] MEDS: IPRATROPIUM/ALBUTEROL 0.5-2.5 MG/3 ML AMPUL NEB PRN ×2 (02:20→13:48)
[2017-10-21] MEDS: ACETYLCYSTEINE 10% NEB 400 MG/4 ML VIAL NEB SCH ×4 (02:20→19:11)
[2017-10-21 05:21] LABS: ABSOLUTE LYMPHOCYTES (AUTO) 1.2 10^3/uL (0.5-4.7); ABSOLUTE MONOCYTES (AUTO) 0.5 10^3/uL (0.1-1.4); ABSOLUTE NEUT (AUTO) 10.3 10^3/uL (1.7-8.2); BASOPHILS % (AUTO) 0.3 % (0-2); HEMATOCRIT 38.6 % (37.9-51.0); HEMOGLOBIN 13.3 g/dL (13.5-17.0); LYMPHOCYTES % (AUTO) 10.2 % (13-45); MEAN CORPUSCULAR HGB CONC 34.3 g/dL (32.0-36.0); MEAN CORPUSCULAR VOLUME 82 fl (80-97); MONOCYTES % (AUTO) 3.8 % (3-13); PLATELET COUNT 465 10^3/uL (150-450); RED BLOOD COUNT 4.74 10^6/uL (4.35-5.55); SEGMENTED NEUTROPHILS % (AUTO) 85.7 % (42-78); TOTAL CELLS COUNTED % (AUTO) 100 %; WHITE BLOOD COUNT 12.1 10^3/uL (4.0-10.5)
[2017-10-21 05:41] LABS: ALANINE AMINOTRANSFERASE 33 U/L (21-72); ALBUMIN 3.7 g/dL (3.5-5.0); ALKALINE PHOSPHATASE 71 U/L (38-126); ANION GAP 16 (5-19); ASPARTATE AMINO TRANSFERASE 19 U/L (17-59); BILIRUBIN,DIRECT 0.3 mg/dL (0.0-0.4); BILIRUBIN,TOTAL 0.4 mg/dL (0.2-1.3); BLOOD UREA NITROGEN 15 mg/dL (7-20); CALCIUM 9.4 mg/dL (8.4-10.2); CARBON DIOXIDE 24 mmol/L (22-30); CHLORIDE 96 mmol/L (98-107); GLUCOSE 132 mg/dL (75-110); TOTAL PROTEIN 6.7 g/dL (6.3-8.2)
[2017-10-21] MEDS: HYDROCODONE/ACETAMINOPHEN 10-325 MG TABLET PO SCH ×4 (06:11→23:53)
[2017-10-21] MEDS: METHYLPREDNISOLONE INJ 125 MG/2 ML SDV IV SCH ×4 (06:12→23:53)
[2017-10-21] MEDS ORDERED: PROMETHAZINE PO PRN (09:11)
[2017-10-21] MEDS ORDERED: CODEINE PO PRN (09:11)
[2017-10-21] MEDS: CODEINE PO PRN ×2 (09:52→22:05)
[2017-10-21] MEDS: ALBUTEROL PO PRN ×2 (09:52→22:05)
[2017-10-21] MEDS: PROMETHAZINE PO PRN ×2 (09:52→22:05)
[2017-10-21] MEDS: BUDESONIDE/FORMOTEROL 160-4.5 MCG 60 PUFF/6 GM MDI IH SCH ×2 (09:52→21:08)
[2017-10-21] MEDS: ENOXAPARIN SODIUM INJ 40 MG/0.4 ML DISP.SYRIN SUBCUT SCH (09:52)
[2017-10-21] MEDS ORDERED: (PENDING PHARMACY ID) (Tiotropium Bromide [Spiriva Respimat] 2 PUFF) IH SCH (10:00)
--- NOTE | 2017-10-21 12:19 | PDOC PROGRESS REPORT ---
Subjective Progress Note for:: 10/21/17 Subjective:: Patient is a lot better today He had a hard time breathing yesterday evening after DuoNeb and we given magnesium which seemed to help He also had a lot of anxiety He is better today He still on BiPAP but he tells me that he was off BiPAP for 2 and half hours and he did fine Reason For Visit: COPD AE Physical Exam Vital Signs: Temp Pulse Resp BP Pulse Ox 97.7 F 110 H 24 H 119/71 94 10/21/17 11:22 10/21/17 11:22 10/21/17 11:22 10/21/17 11:22 10/21/17 11:22 Intake & Output 10/20/17 10/21/17 10/22/17 06:59 06:59 06:59 Intake Total 308 1958 Output Total 780 Balance 308 1178 Weight 249 lb 12.54 oz General appearance: PRESENT: cooperative, mild distress Head exam: ABSENT: atraumatic, normocephalic Eye exam: PRESENT: EOMI, PERRLA. ABSENT: conjunctival injection, nystagmus, periorbital swelling Ear exam: ABSENT: bleeding, drainage Throat exam: ABSENT: post pharyngeal erythema Neck exam: ABSENT: JVD, meningismus, tenderness, thyromegaly Respiratory exam: PRESENT: decreased breath sounds, wheezes. ABSENT: accessory muscle use Cardiovascular exam: PRESENT: RRR. ABSENT: diastolic murmur, rubs, systolic murmur Pulses: PRESENT: normal dorsalis pedis pul Vascular exam: PRESENT: normal capillary refill GI/Abdominal exam: PRESENT: normal bowel sounds, soft. ABSENT: distended, guarding, mass, organolmegaly, rebound, tenderness Extremities exam: PRESENT: full ROM. ABSENT: calf tenderness, clubbing, pedal edema Neurological exam: PRESENT: alert, awake, oriented to person, oriented to place , oriented to time, oriented to situation, CN II-XII grossly intact. ABSENT: motor sensory deficit Results Laboratory Results: 10/21/17 04:46 10/21/17 04:46 10/21/17 10/21/17 04:46 04:46 WBC 12.1 H RBC 4.74 Hgb 13.3 L Hct 38.6 MCV 82 MCH 28.0 MCHC 34.3 RDW 14.0 Plt Count 465 H Seg Neutrophils % 85.7 H Lymphocytes % 10.2 L Monocytes % 3.8 Eosinophils % 0.0 Basophils % 0.3 Absolute Neutrophils 10.3 H Absolute Lymphocytes 1.2 Absolute Monocytes 0.5 Absolute Eosinophils 0.0 Absolute Basophils 0.0 Sodium 136.0 L Potassium 4.0 Chloride 96 L Carbon Dioxide 24 Anion Gap 16 BUN 15 Creatinine 0.86 Est GFR ( Amer) > 60 Est GFR (Non-Af Amer) > 60 Glucose 132 H Calcium 9.4 Total Bilirubin 0.4 AST 19 ALT 33 Alkaline Phosphatase 71 Total Protein 6.7 Albumin 3.7 Impressions: Chest X-Ray 10/20/17 00:52 IMPRESSION: No acute cardiopulmonary findings. Bullous disease. Chronic interstitial lung disease. Assessment & Plan - Diagnosis (1) Acute and chronic respiratory failure Is this a current diagnosis for this admission?: Yes Plan: We will continue the patient on BiPAP and wean as tolerated Continue current management for COPD (2) Acute exacerbation of chronic obstructive pulmonary disease (COPD) Is this a current diagnosis for this admission?: Yes Plan: Continue his IV Solu-Medrol, we can [place] tomorrow Continue current neb treatments (3) Observed sleep apnea Is this a current diagnosis for this admission?: No Plan: Continue BiPAP at night for now
[2017-10-21] MEDS: NYSTATIN 500000 UNIT/5 ML UDCUP PO PRN (18:44)
[2017-10-21] MEDS: CYCLOBENZAPRINE HCL 10 MG TABLET PO PRN (20:07)
[2017-10-21] MEDS: METOPROLOL SUCCINATE 50 MG TAB.SR.24H PO SCH (21:07)
[2017-10-21] MEDS: AMLODIPINE BESYLATE 10 MG TABLET PO SCH (21:08)
[2017-10-21] MEDS: LISINOPRIL 10 MG TABLET PO SCH (21:08)
[2017-10-22] MEDS: ACETYLCYSTEINE 10% NEB 400 MG/4 ML VIAL NEB SCH ×4 (03:00→20:47)
[2017-10-22] MEDS: IPRATROPIUM/ALBUTEROL 0.5-2.5 MG/3 ML AMPUL NEB SCH ×5 (03:04→20:47)
[2017-10-22] MEDS: CYCLOBENZAPRINE HCL 10 MG TABLET PO PRN (04:37)
[2017-10-22] MEDS: METHYLPREDNISOLONE INJ 125 MG/2 ML SDV IV SCH (06:06)
[2017-10-22] MEDS: HYDROCODONE/ACETAMINOPHEN 10-325 MG TABLET PO SCH ×2 (06:06→13:48)
[2017-10-22] MEDS ORDERED: ONDANSETRON HCL INJ/PF 4 MG/2 ML SDV IV PRN (07:30)
[2017-10-22] MEDS: ENOXAPARIN SODIUM INJ 40 MG/0.4 ML DISP.SYRIN SUBCUT SCH (09:12)
[2017-10-22] MEDS: BUDESONIDE/FORMOTEROL 160-4.5 MCG 60 PUFF/6 GM MDI IH SCH ×2 (09:12→22:43)
[2017-10-22] MEDS: CODEINE PO PRN ×2 (09:20→22:42)
[2017-10-22] MEDS: ALBUTEROL PO PRN ×2 (09:20→22:42)
[2017-10-22] MEDS: PROMETHAZINE PO PRN ×2 (09:20→22:42)
--- NOTE | 2017-10-22 13:40 | PDOC PROGRESS REPORT ---
Subjective Progress Note for:: 10/22/17 Subjective:: Patient is a lot better today Is off BiPAP and doing well on nasal cannula oxygen Reason For Visit: COPD AE Physical Exam Vital Signs: Temp Pulse Resp BP Pulse Ox 98.0 F 96 20 92/71 L 96 10/22/17 11:56 10/22/17 12:09 10/22/17 12:09 10/22/17 11:56 10/22/17 12:09 Intake & Output 10/21/17 10/22/17 10/23/17 06:59 06:59 06:59 Intake Total 1958 1034 221 Output Total 780 975 500 Balance 1178 59 -279 Weight 249 lb 12.54 oz 240 lb 11.916 oz General appearance: PRESENT: no acute distress, cooperative Eye exam: PRESENT: EOMI, PERRLA. ABSENT: conjunctival injection Ear exam: ABSENT: bleeding, drainage Throat exam: ABSENT: post pharyngeal erythema Respiratory exam: PRESENT: decreased breath sounds, wheezes Cardiovascular exam: PRESENT: RRR. ABSENT: diastolic murmur, rubs, systolic murmur Pulses: PRESENT: normal dorsalis pedis pul Vascular exam: PRESENT: normal capillary refill GI/Abdominal exam: PRESENT: normal bowel sounds, soft. ABSENT: distended, guarding, mass, organolmegaly, rebound, tenderness Neurological exam: PRESENT: alert, awake, oriented to person, oriented to place , oriented to time, oriented to situation, CN II-XII grossly intact. ABSENT: motor sensory deficit Psychiatric exam: PRESENT: appropriate affect, normal mood. ABSENT: homicidal ideation, suicidal ideation Results Laboratory Results: 10/21/17 04:46 10/21/17 04:46 10/20/17 10:00 Clean Catch Midstream Urine Culture - Final Mixed Urogenital Padmini Impressions: Chest X-Ray 10/20/17 00:52 IMPRESSION: No acute cardiopulmonary findings. Bullous disease. Chronic interstitial lung disease. Assessment & Plan - Diagnosis (1) Acute and chronic respiratory failure Is this a current diagnosis for this admission?: Yes Plan: Switch Solu-Medrol to 60 mg of prednisone Continue DuoNeb and albuterol inhalers (2) Acute exacerbation of chronic obstructive pulmonary disease (COPD) Is this a current diagnosis for this admission?: Yes Plan: Switch to p.o. prednisone Continue current neb treatments (3) Observed sleep apnea Is this a current diagnosis for this admission?: No Plan: Continue CPAP
[2017-10-22] MEDS: IPRATROPIUM/ALBUTEROL 0.5-2.5 MG/3 ML AMPUL NEB PRN ×2 (13:50→22:35)
[2017-10-22] MEDS ORDERED: PREDNISONE 20 MG TABLET PO ONE (14:00)
[2017-10-22] MEDS: NYSTATIN 500000 UNIT/5 ML UDCUP PO PRN (17:45)
[2017-10-22] MEDS: METOPROLOL SUCCINATE 50 MG TAB.SR.24H PO SCH (22:42)
[2017-10-22] MEDS: AMLODIPINE BESYLATE 10 MG TABLET PO SCH (22:42)
[2017-10-22] MEDS: LISINOPRIL 10 MG TABLET PO SCH (22:43)
[2017-10-23] MEDS: IPRATROPIUM/ALBUTEROL 0.5-2.5 MG/3 ML AMPUL NEB SCH ×7 (00:46→23:41)
[2017-10-23] MEDS ORDERED: BENZOCAINE/MENTHOL SORE THROAT LOZENGE BUCCAL PRN (01:45)
[2017-10-23] MEDS ORDERED: LIDOCAINE 2% VISCOUS SOLN 20 ML UDCUP PO PRN (01:48)
[2017-10-23] MEDS ORDERED: MAG HYDROX/AL HYDROX/SIMETH SUSP 30 ML UDCUP PO PRN (01:48)
[2017-10-23] MEDS ORDERED: METOCLOPRAMIDE HCL ORAL SOLN 10 MG/10 ML UDCUP PO PRN (01:49)
[2017-10-23] MEDS ORDERED: MAG HYDROX/AL HYDROX/SIMETH SUSP 30 ML UDCUP PO ONE (02:00)
[2017-10-23] MEDS ORDERED: GUAIFENESIN 600 MG TABLET.SA PO ONE (02:00)
[2017-10-23] MEDS ORDERED: LIDOCAINE 2% VISCOUS SOLN 20 ML UDCUP PO ONE (02:00)
[2017-10-23] MEDS ORDERED: METOCLOPRAMIDE HCL ORAL SOLN 10 MG/10 ML UDCUP PO ONE (02:00)
[2017-10-23] MEDS: ACETYLCYSTEINE 10% NEB 400 MG/4 ML VIAL NEB SCH ×4 (02:31→20:19)
[2017-10-23] MEDS: IPRATROPIUM/ALBUTEROL 0.5-2.5 MG/3 ML AMPUL NEB PRN ×2 (02:31→14:33)
[2017-10-23] MEDS: HYDROCODONE/ACETAMINOPHEN 10-325 MG TABLET PO SCH ×4 (02:48→18:19)
[2017-10-23] MEDS: NON-FORMULARY UNIT-DOSE MEDICATION PO SCH ×2 (02:51→12:38)
[2017-10-23] MEDS: ENOXAPARIN SODIUM INJ 40 MG/0.4 ML DISP.SYRIN SUBCUT SCH (10:07)
[2017-10-23] MEDS: GUAIFENESIN 600 MG TABLET.SA PO SCH ×2 (10:07→18:19)
[2017-10-23] MEDS: BUDESONIDE/FORMOTEROL 160-4.5 MCG 60 PUFF/6 GM MDI IH SCH ×2 (10:07→23:30)
[2017-10-23] MEDS: ALBUTEROL PO PRN ×2 (12:10→23:24)
[2017-10-23] MEDS: PROMETHAZINE PO PRN ×2 (12:10→23:24)
[2017-10-23] MEDS: CODEINE PO PRN ×2 (12:10→23:24)
[2017-10-23] MEDS ORDERED: ESOMEPRAZOLE PO SCH (15:00)
[2017-10-23] MEDS: NYSTATIN 500000 UNIT/5 ML UDCUP PO PRN (18:19)
--- NOTE | 2017-10-23 22:04 | PDOC PROGRESS REPORT ---
Subjective Progress Note for:: 10/23/17 Subjective:: The patient appears weak and frail. He initially states that he is on his baseline O2, but then states that he still does not feel back to his usual self. Reason For Visit: COPD AE Physical Exam Vital Signs: Temp Pulse Resp BP Pulse Ox 97.9 F 108 H 23 H 104/66 97 10/23/17 19:53 10/23/17 19:53 10/23/17 19:53 10/23/17 19:53 10/23/17 19:53 Intake & Output 10/22/17 10/23/17 10/24/17 06:59 06:59 06:59 Intake Total 0168 323 2867 Output Total 975 1325 1400 Balance 59 -436 513 Weight 109.2 kg 112.4 kg General appearance: PRESENT: other - The patient appears older than his stated age. He complains of feeling short of breath and weak. Respiratory exam: PRESENT: other - Positive for mildly increased work of breathing. Diminished breath sounds throughout.. ABSENT: rales, rhonchi, wheezes Cardiovascular exam: PRESENT: RRR. ABSENT: gallop, rubs, systolic murmur Pulses: PRESENT: other - Diminished distal pulses. GI/Abdominal exam: PRESENT: normal bowel sounds, soft, other - Obese. ABSENT: hernia, mass, organolmegaly Psychiatric exam: PRESENT: depressed, flat affect Skin exam: PRESENT: dry, intact, warm Results Laboratory Results: 10/21/17 04:46 10/21/17 04:46 Impressions: Chest X-Ray 10/20/17 00:52 IMPRESSION: No acute cardiopulmonary findings. Bullous disease. Chronic interstitial lung disease. Assessment & Plan - Diagnosis (1) Acute and chronic respiratory failure with hypoxia Is this a current diagnosis for this admission?: Yes Plan: Continue nebulizer, steroids, antibiotics. Wean O2 as possible. (2) Observed sleep apnea Is this a current diagnosis for this admission?: No (3) Acute exacerbation of chronic obstructive pulmonary disease (COPD) Is this a current diagnosis for this admission?: Yes Plan: Steroids, nebulizer treatments. (4) CAD (coronary artery disease) Qualifiers: Coronary Disease-Associated Artery/Lesion type: [place] artery [place] vs. transplanted heart: [place] heart Associated angina: without angina Qualified Code(s): I25.10 - Atherosclerotic heart disease of [place] coronary artery without angina pectoris Is this a current diagnosis for this admission?: Yes Plan: Continue home medications. Stable. (5) Hypertension Qualifiers: Hypertension type: essential hypertension Qualified Code(s): I10 - Essential (primary) hypertension Is this a current diagnosis for this admission?: Yes Plan: Continue home medications. (6) Obesity Qualifiers: Body mass index: BMI 37.0-37.9 Is this a current diagnosis for this admission?: Yes Plan: Complicates all cares. (7) Opiate dependence, continuous Is this a current diagnosis for this admission?: Yes Plan: Noted. - Time Time Spent with patient: 35 or more minutes Medications reviewed and adjusted accordingly: Yes - Plan Summary Plan Summary: Continue supportive care, nebs and steroids. PT/OT eval and treat.
[2017-10-23] MEDS: LISINOPRIL 10 MG TABLET PO SCH (23:25)
[2017-10-23] MEDS: AMLODIPINE BESYLATE 10 MG TABLET PO SCH (23:25)
[2017-10-23] MEDS: METOPROLOL SUCCINATE 50 MG TAB.SR.24H PO SCH (23:25)
[2017-10-23] MEDS: LORAZEPAM 0.5 MG TABLET PO PRN (23:26)
[2017-10-24] MEDS: HYDROCODONE/ACETAMINOPHEN 10-325 MG TABLET PO SCH ×6 (02:50→18:12)
[2017-10-24] MEDS: IPRATROPIUM/ALBUTEROL 0.5-2.5 MG/3 ML AMPUL NEB SCH ×5 (04:57→20:38)
[2017-10-24] MEDS: ACETYLCYSTEINE 10% NEB 400 MG/4 ML VIAL NEB SCH ×2 (04:57→08:47)
[2017-10-24] MEDS: ENOXAPARIN SODIUM INJ 40 MG/0.4 ML DISP.SYRIN SUBCUT SCH (09:57)
[2017-10-24] MEDS: BUDESONIDE/FORMOTEROL 160-4.5 MCG 60 PUFF/6 GM MDI IH SCH ×2 (09:57→21:56)
[2017-10-24] MEDS: GUAIFENESIN 600 MG TABLET.SA PO SCH ×2 (09:57→17:44)
[2017-10-24] MEDS: ESOMEPRAZOLE PO SCH (15:46)
--- NOTE | 2017-10-24 15:50 | PDOC PROGRESS REPORT ---
Subjective Progress Note for:: 10/24/17 Subjective:: The patient appears weak and frail. He states that his respiratory status is not much changed since yesterday. No new complaints. It seems that there was much misunderstanding on both sides during my visit yesterday. The patient felt that I was "rushing" him out of the hospital and he was confused by receiving apparently conflicting information from multiple providers. I felt it was important for the patient to understand that I discharge patients from the hospital based upon clinical criteria, and not based upon the day of the week. In any case we were able to "get on the same page" today. Reason For Visit: COPD AE Physical Exam Vital Signs: Temp Pulse Resp BP Pulse Ox 97.8 F 97 18 118/76 96 10/24/17 12:04 10/24/17 13:19 10/24/17 12:04 10/24/17 12:04 10/24/17 12:04 Intake & Output 10/23/17 10/24/17 10/25/17 06:59 06:59 06:59 Intake Total 889 2357 237 Output Total 1325 2000 500 Balance -436 357 -263 Weight 112.4 kg 112.5 kg General appearance: PRESENT: no acute distress, cooperative, morbidly obese Respiratory exam: PRESENT: wheezes, other - Diominished breath sounds. Positive for increased work of breathing.. ABSENT: rales, rhonchi Cardiovascular exam: PRESENT: RRR. ABSENT: gallop, rubs, systolic murmur Pulses: PRESENT: other - Diminished distal pulses. GI/Abdominal exam: PRESENT: soft, other - Morbidly obese. Bowel sounds are distant. I was unable to evaluate the abdomen for organomegaly, masses, or hernias due to the patient's body habitus.. ABSENT: distended, guarding, mass, tenderness Rectal exam: PRESENT: deferred Extremities exam: ABSENT: clubbing, joint swelling, tenderness Musculoskeletal exam: ABSENT: deformity, dislocation, normal inspection Neurological exam: PRESENT: alert, altered, awake, oriented to person, oriented to place, oriented to time, oriented to situation, CN II-XII grossly intact. ABSENT: motor sensory deficit Psychiatric exam: PRESENT: appropriate affect, normal mood Skin exam: PRESENT: dry, intact, warm Results Laboratory Results: 10/21/17 04:46 10/21/17 04:46 Impressions: Chest X-Ray 10/20/17 00:52 IMPRESSION: No acute cardiopulmonary findings. Bullous disease. Chronic interstitial lung disease. Assessment & Plan - Diagnosis (1) Acute and chronic respiratory failure with hypoxia Is this a current diagnosis for this admission?: Yes Plan: Continue nebulizer, steroids, antibiotics. Wean O2 as possible. (2) Observed sleep apnea Is this a current diagnosis for this admission?: No Plan: CPAP for sleep. (3) Acute exacerbation of chronic obstructive pulmonary disease (COPD) Is this a current diagnosis for this admission?: Yes Plan: Steroids, nebulizer treatments. (4) CAD (coronary artery disease) Qualifiers: Coronary Disease-Associated Artery/Lesion type: [place] artery [place] vs. transplanted heart: [place] heart Associated angina: without angina Qualified Code(s): I25.10 - Atherosclerotic heart disease of [place] coronary artery without angina pectoris Is this a current diagnosis for this admission?: Yes Plan: Continue home medications. Stable. (5) Hypertension Qualifiers: Hypertension type: essential hypertension Qualified Code(s): I10 - Essential (primary) hypertension Is this a current diagnosis for this admission?: Yes Plan: Continue home medications. (6) Obesity Qualifiers: Body mass index: BMI 37.0-37.9 Is this a current diagnosis for this admission?: Yes Plan: Complicates all cares. (7) Opiate dependence, continuous Is this a current diagnosis for this admission?: Yes Plan: Noted. - Time Time Spent with patient: 35 or more minutes Medications reviewed and adjusted accordingly: Yes
[2017-10-24] MEDS: CODEINE PO PRN (19:18)
[2017-10-24] MEDS: ALBUTEROL PO PRN (19:18)
[2017-10-24] MEDS: PROMETHAZINE PO PRN (19:18)
[2017-10-24] MEDS: AMLODIPINE BESYLATE 10 MG TABLET PO SCH (21:56)
[2017-10-24] MEDS: METOPROLOL SUCCINATE 50 MG TAB.SR.24H PO SCH (21:56)
[2017-10-24] MEDS: LISINOPRIL 10 MG TABLET PO SCH (21:57)
[2017-10-24] MEDS: LORAZEPAM 0.5 MG TABLET PO PRN (21:58)
[2017-10-25] MEDS: IPRATROPIUM/ALBUTEROL 0.5-2.5 MG/3 ML AMPUL NEB SCH ×5 (00:19→16:35)
[2017-10-25] MEDS: HYDROCODONE/ACETAMINOPHEN 10-325 MG TABLET PO SCH ×3 (02:57→13:21)
[2017-10-25] MEDS: ESOMEPRAZOLE PO SCH (09:10)
[2017-10-25] MEDS: BUDESONIDE/FORMOTEROL 160-4.5 MCG 60 PUFF/6 GM MDI IH SCH (09:12)
[2017-10-25] MEDS: CODEINE PO PRN (09:15)
[2017-10-25] MEDS: ALBUTEROL PO PRN (09:15)
[2017-10-25] MEDS: PROMETHAZINE PO PRN (09:15)
[2017-10-25] MEDS: ENOXAPARIN SODIUM INJ 40 MG/0.4 ML DISP.SYRIN SUBCUT SCH (09:16)
[2017-10-25] MEDS: GUAIFENESIN 600 MG TABLET.SA PO SCH (09:18)
[2017-10-25 14:50] VITALS: BP 124/85
--- NOTE | 2017-10-25 15:18 | PDOC DISCHARGE SUMMARY ---
General - Admit/Disc Date/PCP Admission Date/Primary Care Provider: 10/20/17 03:14 SOO DALEY MD Discharge Date: 10/25/17 - Discharge Diagnosis (1) Acute and chronic respiratory failure with hypoxia Is this a current diagnosis for this admission?: Yes (2) Observed sleep apnea Is this a current diagnosis for this admission?: No (3) Acute exacerbation of chronic obstructive pulmonary disease (COPD) Is this a current diagnosis for this admission?: Yes (4) CAD (coronary artery disease) Is this a current diagnosis for this admission?: Yes (5) Hypertension Is this a current diagnosis for this admission?: Yes (6) Obesity Is this a current diagnosis for this admission?: Yes (7) Opiate dependence, continuous Is this a current diagnosis for this admission?: Yes - Additional Information Discharge Diet: Cardiac Discharge Activity: Activity As Tolerated, No Driving Prescriptions: Benzocaine/Menthol [Chloraseptic Sore Throat Lozenge] 1 each BUCCAL Q4HP PRN # 10 lozenge PRN Reason: Guaifenesin [Mucinex Sr 600 mg Tablet.sa] 1,200 mg PO BID #20 tablet. Home Medications: Albuterol Sulfate [Ventolin HFA MDI 18 GM] 2 puff IH Q6HP PRN 10/20/17 Amlodipine Besylate [Norvasc 10 mg Tablet] 10 mg PO QHS 10/20/17 Budesonide/Formoterol Fumarate [Symbicort 160-4.5 Mcg Inhaler] 2 puff IH Q12 07/04 Cyclobenzaprine HCl [Flexeril 10 mg Tablet] 5 mg PO Q8HP PRN 10/20/17 Cyclobenzaprine HCl [Flexeril 10 mg Tablet] 10 mg PO QHS 10/20/17 Epinephrine [Epipen 2-Karl] 0.3 mg IM DAILYP PRN 10/20/17 Hydrocodone/Acetaminophen [Hydrocodone-Acetamin 10-325 mg] 1.5 tab PO Q6 Ipratropium/Albuterol Sulfate [Iprat-Albut 0.5-3(2.5) mg/3 ml] 3 ml NEB Q6 10/20 Lisinopril [Prinivil 40 mg Tablet] 40 mg PO QHS 10/20/17 Metoprolol Succinate [Toprol XL 100 mg Tablet] 100 mg PO QHS 10/20/17 Nystatin [Mycostatin 097087 Unit/1 ml Susp 60 ml Btl] 10 ml PO QIDP PRN Tiotropium [place] [Spiriva Respimat] 2 puff IH DAILY 10/20/17 Benzocaine/Menthol [Chloraseptic Sore Throat Lozenge] 1 each BUCCAL Q4HP PRN # 10 lozenge 10/25/17 Guaifenesin [Mucinex Sr 600 mg Tablet.sa] 1,200 mg PO BID #20 tablet.sa History of Present Illness History of Present Illness: LAKSHMI SALINAS is a 62 year old male with a past medical history of COPD not currently on oxygen, sleep apnea supposed to be on CPAP but noncompliant, CAD, hypertension presents to the emergency room with respiratory distress and wheezing. Patient reports progressively worsening shortness of breath for past few days. Patient denies any chest pain or fever or chills or cough. Patient denies abdominal pain or nausea vomiting. Patient has been using her home inhaler without improvement. On arrival to emergency room patient was in distress with tachypnea and tachycardia. His initial oxygen saturation was 88% on room air. His laboratory workup shows normal troponin and white count. Chest x-ray shows severe COPD changes without any acute process. Patient was placed on BiPAP secondary to distress and hypoxia. Patient was given Solu-Medrol and continuous nebs in the emergency room. Patient was referred to hospitalist service for admission. Hospital Course Hospital Course: The patient was admitted to a medical bed. He was treated with nebulizer treatments and steroids. The patient initially required BIPAP, but has gradually been weaned off of that. The patient had MC, but refuses to wear CPAP at home. The patient's respiratory status has gradually returned to baseline. He is doing well today and is appropriate for discharge to home. Physical Exam Vital Signs: Temp Pulse Resp BP Pulse Ox 97.5 F 97 16 124/85 97 10/25/17 14:43 10/25/17 14:43 10/25/17 14:43 10/25/17 14:43 10/25/17 14:43 Intake & Output 10/24/17 10/25/17 10/26/17 06:59 06:59 06:59 Intake Total 2357 1481 50 Output Total 2000 1200 250 Balance 357 281 -200 Weight 112.5 kg 111 kg General appearance: PRESENT: no acute distress, cooperative, morbidly obese Respiratory exam: PRESENT: other - No increased work of breathing. The patient is saturating in the 90's on 2.5 L O2 by nc. His baseline O2 requirement is 3L O2 by nc. Cardiovascular exam: PRESENT: RRR, other - No lateral PMI. No thrills.. ABSENT : gallop, rubs, systolic murmur Pulses: PRESENT: other - Diminished distal pulses. GI/Abdominal exam: PRESENT: soft, other - Bowel sounds are distant. I am unable to evaluate the abdomen for organomegaly, masses, or hernias due to the patient' s body habitus.. ABSENT: tenderness Rectal exam: PRESENT: deferred Extremities exam: ABSENT: clubbing, pedal edema, tenderness Musculoskeletal exam: PRESENT: normal inspection. ABSENT: deformity, tenderness Neurological exam: PRESENT: alert, awake, oriented to person, oriented to place , oriented to time, oriented to situation, CN II-XII grossly intact. ABSENT: motor sensory deficit Psychiatric exam: PRESENT: appropriate affect, normal mood Skin exam: PRESENT: dry, intact, warm Results Laboratory Results: 10/21/17 04:46 10/21/17 04:46 Impressions: Chest X-Ray 10/20/17 00:52 IMPRESSION: No acute cardiopulmonary findings. Bullous disease. Chronic interstitial lung disease. Qualifiers - * PATIENT BEING DISCHARGED WITH ANY OF THE FOLLOWING DIAGNOSIS: No
== END 2017-10-25 17:40 | disposition home or self-care (01) | DRG 190 ==
LOC: ER 00:46 → EH 03:14 → 3W 06:27
PROVIDERS: ADMIT Family Medicine; ATTEND Family Medicine
PROC: 5A09457 Assistance with Respiratory Ventilation, 24-96 Consecutive Hours, Continuous Positive Airway Pressure (ICD-10-PCS; principal; 2017-10-20)
PROC: 3E0F73Z Introduction of Anti-inflammatory into Respiratory Tract, Via Natural or Artificial Opening (ICD-10-PCS; 2017-10-20)
DX: J44.1 Chronic obstructive pulmonary disease with (acute) exacerbation (principal); J96.21 Acute and chronic respiratory failure with hypoxia; F11.20 Opioid dependence, uncomplicated; G47.33 Obstructive sleep apnea (adult) (pediatric); I25.10 Atherosclerotic heart disease of native coronary artery without angina pectoris; I10 Essential (primary) hypertension; F41.9 Anxiety disorder, unspecified; E66.01 Morbid (severe) obesity due to excess calories; Z68.37 Body mass index [BMI] 37.0-37.9, adult; I25.2 Old myocardial infarction; Z79.899 Other long term (current) drug therapy; Z91.19 Patient's noncompliance with other medical treatment and regimen; Z87.891 Personal history of nicotine dependence; Z83.6 Family history of other diseases of the respiratory system; Z82.49 Family history of ischemic heart disease and other diseases of the circulatory system
CPT/HCPCS: 36415; 71045; 80053; 81001; 82803; 83605; 84484; 85025; 85610; 87040; 87070; 87086; 87205; 93005; 93010; 94640; 94660; 96361; 96365; 96375; 99291; 99292; G8978-GP; G8979-GP; G8980-GP; G8987-GO; G8988-GO; G8989-GO; J1650; J1956; J2930; J3475; J3490; J7030; J7512; J7620

== ENCOUNTER → 2018-04-01 | Outpatient (CLI) | payer MEDICARE, MEDICAID ==
--- NOTE | 2018-04-01 11:45 | RADIOLOGY REPORT (SQ) ---
EXAM DESCRIPTION: CT CHEST WITHOUT COMPLETED DATE/TIME: 04/01/2018 10:33 am REASON FOR STUDY: PULMONARY NODULE R91.1 SOLITARY PULMONARY NODULE COMPARISON: CT abdomen pelvis 10/26/2006 CT chest 07/12/2015, 03/20/2017 TECHNIQUE: CT scan performed of the chest without intravenous contrast. Images reviewed with lung, soft tissue and bone windows. Reconstructed coronal and sagittal MPR images reviewed. All images st ored on PACS. All CT scanners at this facility use dose modulation, iterative reconstruction, and/or weight based d osing when appropriate to reduce radiation dose to as low as reasonably achievable (ALARA). [facility]: Dose Right [facility]: CareDose [facility]: Dose Right [facility]: Teradose 4D [facility]: Google RADIATION DOSE: CT Rad equipment meets quality standard of care and radiation dose reduction techniq ues were employed. CTDIvol: 15.6 mGy. DLP: 623 mGy-cm. mGy. LIMITATIONS: No technical limitations. FINDINGS: LUNGS AND PLEURA: In the left lower lobe, along the lateral costophrenic sulcus a 5 to 6 m m nodule is present. This is smooth, round, noncalcified, and unchanged from CT abdomen pelvis 2006. This requires no further specific followup. Gauge appearance of obstructive lung disease with massively enlarged airspaces throughout the lungs. No worrisome pulmonary nodules. No pleural effusion. No pneumothorax. HILAR AND MEDIASTINAL STRUCTURES: No identified masses or abnormal nodes. No obvious aneurysm. HEART AND VASCULAR STRUCTURES: No aneurysm. No pericardial effusion. UPPER ABDOMEN: No significant findings. Limited exam. THYROID AND OTHER SOFT TISSUES: No masses. No adenopathy. BONES: No significant finding. HARDWARE: None in the chest. OTHER: No other significant findings. IMPRESSION: Scanned end-stage appearance of obstructive lung disease. Benign noncalcified granuloma left lower lobe unchanged 2006. TECHNICAL DOCUMENTATION: JOB ID: [id number] Quality ID # [id number]: Final reports with documentation of one or more dose reduction techniques (e.g., Au tomated exposure control, adjustment of the mA and/or kV according to patient size, use of iterative reconstruction technique) 2010 [employer]- All Rights Reserved Reading location - IP/workstation name: [facility]
== END ==
LOC: RAD 10:09
PROVIDERS: ATTEND Internal Medicine Pulmonary Disease
DX: R91.1 Solitary pulmonary nodule (principal); J44.9 Chronic obstructive pulmonary disease, unspecified; J84.10 Pulmonary fibrosis, unspecified
CPT/HCPCS: 71250

== ENCOUNTER 2018-04-08 18:03 | Inpatient (IN) | payer MEDICARE, MEDICAID ==
[2018-04-08 18:27] LABS: ABSOLUTE BASOPHILS # (AUTO) 0.1 10^3/uL (0.0-0.2); ABSOLUTE EOSINOPHILS # (AUTO) 0.4 10^3/uL (0.0-0.6); ABSOLUTE LYMPHOCYTES (AUTO) 3.5 10^3/uL (0.5-4.7); ABSOLUTE MONOCYTES (AUTO) 1.3 10^3/uL (0.1-1.4); ABSOLUTE NEUT (AUTO) 6.3 10^3/uL (1.7-8.2); BASOPHILS % (AUTO) 0.9 % (0-2); EOSINOPHILS % (AUTO) 3.3 % (0-6); HEMATOCRIT 46.1 % (37.9-51.0); HEMOGLOBIN 15.1 g/dL (13.5-17.0); LYMPHOCYTES % (AUTO) 30.5 % (13-45); MEAN CORPUSCULAR HEMOGLOBIN 26.8 pg (27.0-33.4); MEAN CORPUSCULAR HGB CONC 32.8 g/dL (32.0-36.0); MEAN CORPUSCULAR VOLUME 82 fl (80-97); MONOCYTES % (AUTO) 11.2 % (3-13); PLATELET COUNT 300 10^3/uL (150-450); RED BLOOD COUNT 5.65 10^6/uL (4.35-5.55); RED CELL DISTRIBUTION WIDTH 15.1 % (11.5-14.0); SEGMENTED NEUTROPHILS % (AUTO) 54.1 % (42-78); TOTAL CELLS COUNTED % (AUTO) 100 %; WHITE BLOOD COUNT 11.6 10^3/uL (4.0-10.5)
--- NOTE | 2018-04-08 18:34 | RADIOLOGY REPORT (SQ) ---
EXAM DESCRIPTION: CHEST SINGLE VIEW COMPLETED DATE/TIME: 04/08/2018 6:19 pm REASON FOR STUDY: bed 13 db COMPARISON: 10/10/2016 EXAM PARAMETERS: NUMBER OF VIEWS: One view. TECHNIQUE: Single frontal radiographic view of the chest acquired. RADIATION DOSE: NA LIMITATIONS: None. FINDINGS: LUNGS AND PLEURA: Severe upper lobe emphysema with large bulla. Compressive atelectasis a t the bases. MEDIASTINUM AND HILAR STRUCTURES: No masses. Contour normal. HEART AND VASCULAR STRUCTURES: Heart normal in size. Normal vasculature. BONES: No acute findings. HARDWARE: None in the chest. OTHER: No other significant finding. IMPRESSION: Severe emphysema. TECHNICAL DOCUMENTATION: JOB ID: [id number] [employer]- All Rights Reserved Reading location - IP/workstation name: [email or web address]
[2018-04-08] MEDS ORDERED: ALBUTEROL SULFATE 0.083% NEB 2.5 MG/3 ML AMPUL NEB ONE (18:41)
[2018-04-08] MEDS ORDERED: RINGERS SOLUTION,LACTATED 1,000 ML IV ONE (18:49)
--- NOTE | 2018-04-08 18:52 | ER Document Report ---
ED General - General Chief Complaint: Shortness Of Breath Stated Complaint: SHORTNESS OF BREATH Time Seen by Provider: 04/08/18 18:30 Notes: Patient is a 62-year-old male with a past medical history of hypertension, emphysema without baseline oxygen dependency who presents with increasing shortness of breath and cough throughout the day today. The patient states that he caught a cold draft in his house, since that time has had progressively worsening shortness of breath, tightness and wheezing. States that he is tried nebulizers at home without any significant improvement. He also notes that he has been coughing up thick mucus similar to when he has had pneumonias in the past. He denies fever. States he does feel generally unwell. Nothing is been noted to worsen his symptoms since onset. He has not seen his general physician regarding today's concerns. TRAVEL OUTSIDE OF THE [place] IN LAST 30 DAYS: No - Related Data Allergies/Adverse Reactions: aspirin Allergy (Verified 04/08/18 18:27) bee venom protein (honey bee) Allergy (Verified 04/08/18 18:27) ibuprofen [From Motrin] Allergy (Verified 04/08/18 18:27) iodine [Iodine] Allergy (Verified 09/22/17 11:31) levothyroxine Allergy (Verified 04/08/18 18:27) Shellfish * [Shellfish] Allergy (Verified 09/22/17 11:31) Zcoetmj-Ghr-Guh Reductase Inhibitor Allergy (Verified 04/08/18 18:27) Past Medical History - General Information source: Patient - Social History Smoking Status: Former Smoker Frequency of alcohol use: Occasional Drug Abuse: None Lives with: Family Family History: CAD, COPD - Past Medical History Cardiac Medical History: Reports: Hx Heart Attack, Hx Hypertension Pulmonary Medical History: Reports: Hx Bronchitis, Hx COPD Renal/ Medical History: Reports: Hx Kidney Stones. Denies: Hx Peritoneal Dialysis GI Medical History: Reports: Hx Diverticulitis Psychiatric Medical History: Denies: Hx Depression Review of Systems - Review of Systems Notes: Constitutional: Negative for fever. HENT: Negative for sore throat. Eyes: Negative for visual changes. Cardiovascular: Negative for chest pain. Respiratory: Positive for shortness of breath. Gastrointestinal: Negative for abdominal pain, vomiting or diarrhea. Genitourinary: Negative for dysuria. Musculoskeletal: Negative for back pain. Skin: Negative for rash. Neurological: Negative for headaches, weakness or numbness. 10 point ROS negative except as marked above and in HPI. Physical Exam - Vital signs Vitals: Pulse Ox 98 04/08/18 18:08 Interpretation: Tachycardic, Tachypneic Notes: PHYSICAL EXAMINATION: GENERAL: Appears uncomfortable, in moderate respiratory distress HEAD: Atraumatic, normocephalic. EYES: Pupils equal round and reactive to light, extraocular movements intact, sclera anicteric, conjunctiva are normal. ENT: nares patent, oropharynx clear without exudates. Moderately dry mucous membranes. NECK: Normal range of motion, supple without lymphadenopathy LUNGS: Moderate respiratory distress, breathing a proximal 32 times per minute on initial assessment. Poor air movement at the bases in particular with scattered expiratory wheezing in all lung rice. HEART: Regular tachycardia without murmurs ABDOMEN: Soft, nontender, normoactive bowel sounds. No guarding, no rebound. No masses appreciated. EXTREMITIES: Normal range of motion, no pitting or edema. No cyanosis. NEUROLOGICAL: No focal neurological deficits. Moves all extremities spontaneously and on command. PSYCH: Normal mood, normal affect. SKIN: Warm, Dry, normal turgor, no rashes or lesions noted. Course - Re-evaluation Re-evalutation: 04/08/18 18:50 Patient presents in moderate respiratory distress, unable to speak in full sentences, breathing approximately 30 times per minute on initial assessment. Patient is requesting to be do not placed BiPAP unless absolutely mandatory as he is severely claustrophobic. Patient has poor air movement in all lung rice. Coarse wheezing on the expiratory phase in all lung rice. He has a ready received multiple doing nebulizers as well as 125 mg of Solu-Medrol prior to arrival. Patient reports that this feels identical to when he had pneumonia in the past and that has consistently been nonvisible on chest x-rays. He will be started on continuous albuterol nebulizers. IV fluids, IV magnesium, and levofloxacin will be initiated. I have informed patient that we will monitor him very closely although my preference would be to place him on BiPAP at this point. The patient states that he will not refuse BiPAP if it becomes absolutely necessary but he would currently like to hold off. Patient is in guarded condition, will require frequent and regular reassessments. 04/08/18 20:22 I reassessed the patient on 2 separate occasions since initial assessment. Work of breathing is gradually improving on continuous nebulizers although he does remain moderately tachypneic. Air movement is mildly improved although he remains coarsely wheezing in all lung rice. He is coughing up very thick sputum which was sent for culture. Will continue to hold off on BiPAP at this point given patient's preference. I discussed this case with Dr. Shon Lucas who has accepted the patient for admission. - Vital Signs Vital signs: Temp Pulse Resp BP Pulse Ox 98.6 F 24 H 148/102 H 97 04/08/18 18:34 04/09/18 02:00 04/08/18 22:27 04/09/18 02:00 - Laboratory Result Diagrams: 04/08/18 17:50 04/08/18 18:58 Laboratory results interpreted by me: 04/08/18 04/08/18 17:50 18:58 WBC 11.6 H RBC 5.65 H MCH 26.8 L RDW 15.1 H Glucose 119 H AST 15 L - Diagnostic Test Radiology reviewed: Image reviewed, Reports reviewed Radiology results interpreted by me: 04/08/18 20:23 Chest x-ray: Emphysematous changes, no acute infiltrate - EKG Interpretation by Me Additional EKG results interpreted by me: 04/08/18 20:23 Sinus tachycardia, rate 106. No ST elevations or depressions. QTC is 436. Critical Care Note - Critical Care Note Total time excluding time spent on procedures (mins): 37 Comments: Critical care time spent obtaining history from patient or surrogate, discussions with consultants, development of treatment plan with patient or surrogate, evaluation of patient's response to treatment, examination of patient, ordering and performing treatments and interventions, ordering and review of laboratory studies, re-evaluation of patient's condition, ordering and review of radiographic studies and review of old charts Discharge - Discharge Clinical Impression: Respiratory distress, Chronic respiratory failure with hypoxia, COPD exacerbation Condition: Fair Disposition: ADMITTED INPATIENT Admitting Provider: Hospitalist Unit Admitted: Telemetry
[2018-04-08] MEDS: MAGNESIUM SULFATE/D5W 1 GM/100 ML RTUPB IV SCH ×2 (19:09→19:53)
[2018-04-08 19:17] LABS: VENOUS BLOOD BASE EXCESS -0.6 mmol/L; VENOUS BLOOD HCO3 24.8 mmol/L (20-32); VENOUS BLOOD PCO2 43.4 mmHg (35-63); VENOUS BLOOD PH 7.38 (7.30-7.42)
[2018-04-08 19:31] LABS: ALANINE AMINOTRANSFERASE 21 U/L (21-72); ALBUMIN 4.4 g/dL (3.5-5.0); ALKALINE PHOSPHATASE 85 U/L (38-126); ANION GAP 8 (5-19); ASPARTATE AMINO TRANSFERASE 15 U/L (17-59); BILIRUBIN,DIRECT 0.2 mg/dL (0.0-0.4); BILIRUBIN,TOTAL 0.3 mg/dL (0.2-1.3); BLOOD UREA NITROGEN 12 mg/dL (7-20); CALCIUM 9.4 mg/dL (8.4-10.2); CARBON DIOXIDE 24 mmol/L (22-30); CHLORIDE 106 mmol/L (98-107); CREATINE KINASE 155 U/L (55-170); GLUCOSE 119 mg/dL (75-110); POTASSIUM 4.4 mmol/L (3.6-5.0); SODIUM 138.3 mmol/L (137-145); TOTAL PROTEIN 7.3 g/dL (6.3-8.2)
[2018-04-08 19:41] LABS: CREATINE KINASE MB 2.49 ng/mL (<4.55)
[2018-04-08] MEDS ORDERED: LEVOFLOXACIN 750 MG/D5W RTU 750 MG/150 ML RTUPB IV ONE (19:45)
[2018-04-08 19:47] LABS: TROPONIN I < 0.012 ng/mL
[2018-04-08] MEDS ORDERED: HYDROCODONE BIT/HOMATROPINE SYRUP 5 ML UDCUP PO PRN (20:22)
[2018-04-08] MEDS ORDERED: ACETAMINOPHEN 325 MG TABLET PO PRN (20:23)
[2018-04-08] MEDS ORDERED: GUAIFENESIN SYRP 200 MG/10 ML UDC PO PRN (20:23)
[2018-04-08] MEDS: METHYLPREDNISOLONE INJ 125 MG/2 ML SDV IV SCH (21:30)
[2018-04-08] MEDS ORDERED: DILTIAZEM HCL 60 MG TABLET PO ONE (21:30)
[2018-04-08] MEDS: HEPARIN SOD (PORCINE) 5,000 UNIT/ML 1 ML SYRINGE SUBCUT SCH (21:31)
[2018-04-08] MEDS: CHLORPHENIRAMINE MALEATE 4 MG TABLET PO SCH (21:31)
[2018-04-08] MEDS ORDERED: FUROSEMIDE INJ/PF 40 MG/4 ML SDV IV ONE (22:00)
[2018-04-08] MEDS ORDERED: FLUTICASONE NASAL SPRAY 50 MCG/SPRY 120 SPRAY/16 GM ONE (22:30)
[2018-04-08] MEDS: FLUTICASONE NASAL SPRAY 50 MCG/SPRY 120 SPRAY/16 GM NASL SCH (22:38)
[2018-04-09] MEDS: CHLORPHENIRAMINE MALEATE 4 MG TABLET PO SCH ×3 (01:27→09:04)
[2018-04-09] MEDS: IPRATROPIUM/ALBUTEROL 0.5-2.5 MG/3 ML AMPUL NEB SCH ×4 (01:27→19:24)
[2018-04-09] MEDS: OXYCODONE-ACETAMINOPHEN 5-325 MG TABLET PO PRN ×4 (02:04→22:53)
[2018-04-09] MEDS: DILTIAZEM HCL 30 MG TABLET PO SCH ×4 (03:19→22:54)
[2018-04-09] MEDS: HEPARIN SOD (PORCINE) 5,000 UNIT/ML 1 ML SYRINGE SUBCUT SCH ×3 (05:44→22:54)
[2018-04-09] MEDS: METHYLPREDNISOLONE INJ 125 MG/2 ML SDV IV SCH (05:44)
--- NOTE | 2018-04-09 06:01 | PDOC H&P ---
History of Present Illness Admission Date/PCP: 04/08/18 20:32 PATSY MOREIRA MD Patient complains of: Shortness of breath and productive cough History of Present Illness: LAKSHMI SALINAS is a 62 year old male with a past medical history of coronary artery disease, moderate pulmonary hypertension, morbid obesity, hypertension, COPD, chronic bronchitis and obstructive sleep apnea with CPAP noncompliance. Patient presents with 48 hours of shortness of breath associated with productive cough of yellow sputum. He denies rhinorrhea, sore throat but admits uncontr olled GERD. He denies chest pain, nausea or vomiting or recent antibiotic use. In the emergency room is found to have acute respiratory failure with a respiratory rate of 30, sinus tachycardia and leukocytosis. He receives continuous albuterol Atrovent, stress dose steroids, empiric antibiotics and referred to the hospitalist for admission. Past Medical History Cardiac Medical History: Reports: Myocardial Infarction, Hypertension Pulmonary Medical History: Reports: Bronchitis, Chronic Obstructive Pulmonary Disease (COPD) GI Medical History: Reports: Diverticulitis Psychiatric Medical History: Denies: Depression, Tobacco Dependency Past Surgical History Past Surgical History: Reports: Orthopedic Surgery Social History Information Source: Patient Lives with: Family Smoking Status: Former Smoker Frequency of Alcohol Use: None Hx Recreational Drug Use: No Drugs: None Hx Prescription Drug Abuse: No - Advance Directive Resuscitation Status: Full Code Family History Family History: CAD, COPD Parental Family History Reviewed: Yes Children Family History Reviewed: Yes Sibling(s) Family History Reviewed.: Yes Medication/Allergy Home Medications: Albuterol Sulfate [Proair Hfa Inhalation Aerosol 8.5 gm Mdi] 2 puff IH QIDP PRN 04/08/18 Budesonide/Formoterol Fumarate [Symbicort Hfa 160-4.5 Mcg Inhaler 6 gm] 2 puff IH Q12 04/08/18 Cyclobenzaprine HCl [Flexeril 10 mg Tablet] 5 mg PO TIDP PRN 04/08/18 Esomeprazole Magnesium 40 mg PO DAILY 04/08/18 Hydrocodone/Acetaminophen [Cadiz 10-325 mg Tablet] 1.5 tab PO QIDP PRN 04/08/18 Lisinopril [Prinivil 40 mg Tablet] 40 mg PO QHS 04/08/18 Metoprolol Succinate [Toprol XL 100 mg Tablet] 100 mg PO QHS 04/08/18 Promethazine HCl/Codeine [Prometh-Codein 6.25-10 mg/5 ml] 10 ml PO QIDP PRN 04/08/18 Tiotropium [place] [Spiriva Respimat] 2 puff IH DAILY 04/08/18 Allergies/Adverse Reactions: aspirin Allergy (Verified 04/08/18 18:27) bee venom protein (honey bee) Allergy (Verified 04/08/18 18:27) ibuprofen [From Motrin] Allergy (Verified 04/08/18 18:27) iodine [Iodine] Allergy (Verified 09/22/17 11:31) levothyroxine Allergy (Verified 04/08/18 18:27) Shellfish * [Shellfish] Allergy (Verified 09/22/17 11:31) Lhjztvc-Wss-Ohc Reductase Inhibitor Allergy (Verified 04/08/18 18:) Review of Systems Constitutional: PRESENT: as per HPI, fatigue. ABSENT: chills, fever(s), headache(s), weight gain, weight loss Eyes: ABSENT: visual disturbances Ears: ABSENT: hearing changes Cardiovascular: ABSENT: chest pain, dyspnea on exertion, edema, orthropnea, palpitations Respiratory: PRESENT: as per HPI, cough, dyspnea, sputum. ABSENT: hemoptysis Gastrointestinal: ABSENT: abdominal pain, constipation, diarrhea, hematemesis, hematochezia, nausea, vomiting Genitourinary: ABSENT: dysuria, hematuria Musculoskeletal: ABSENT: joint swelling Integumentary: ABSENT: rash, wounds Neurological: ABSENT: abnormal gait, abnormal speech, confusion, dizziness, focal weakness, syncope Psychiatric: ABSENT: anxiety, depression, homidical ideation, suicidal ideation Endocrine: ABSENT: cold intolerance, heat intolerance, polydipsia, polyuria Hematologic/Lymphatic: ABSENT: easy bleeding, easy bruising Physical Exam Vital Signs: Temp Pulse Resp BP Pulse Ox 98.6 F 24 H 148/102 H 97 04/08/18 18:34 04/09/18 02:00 04/08/18 22:27 04/09/18 02:00 Intake & Output 04/07/18 04/08/18 04/09/18 11:59 11:59 11:59 Intake Total 1323 Balance 1323 Weight 104.3 kg General appearance: PRESENT: cooperative, mild distress, morbidly obese, well- developed, well-nourished. ABSENT: hard of hearing Head exam: PRESENT: atraumatic, normocephalic Eye exam: PRESENT: conjunctiva pink, EOMI, PERRLA. ABSENT: scleral icterus Ear exam: PRESENT: normal external ear exam Mouth exam: PRESENT: moist, tongue midline Neck exam: ABSENT: carotid bruit, JVD, lymphadenopathy, thyromegaly Respiratory exam: PRESENT: accessory muscle use, crackles, decreased breath s ounds, prolonged expiratory phas, retraction, symmetrical, tachypnea. ABSENT: rhonchi Cardiovascular exam: PRESENT: +S1, +S2, tachycardia. ABSENT: diastolic murmur Pulses: PRESENT: normal dorsalis pedis pul Vascular exam: PRESENT: normal capillary refill GI/Abdominal exam: PRESENT: normal bowel sounds, soft. ABSENT: distended, guarding, mass, organolmegaly, rebound, tenderness Rectal exam: PRESENT: deferred Extremities exam: PRESENT: full ROM, +1 edema. ABSENT: calf tenderness, clubbing, pedal edema Neurological exam: PRESENT: alert, awake, oriented to person, oriented to place, oriented to time, oriented to situation, CN II-XII grossly intact. ABSENT: motor sensory deficit Psychiatric exam: PRESENT: appropriate affect, normal mood. ABSENT: homicidal ideation, suicidal ideation Skin exam: PRESENT: dry, intact, warm. ABSENT: cyanosis, rash Results Laboratory Results: 04/08/18 17:50 04/08/18 18:58 04/08/18 04/08/18 04/08/18 17:50 17:50 18:58 WBC 11.6 H RBC 5.65 H Hgb 15.1 Hct 46.1 MCV 82 MCH 26.8 L MCHC 32.8 RDW 15.1 H Plt Count 300 Seg Neutrophils % 54.1 Lymphocytes % 30.5 Monocytes % 11.2 Eosinophils % 3.3 Basophils % 0.9 Absolute Neutrophils 6.3 Absolute Lymphocytes 3.5 Absolute Monocytes 1.3 Absolute Eosinophils 0.4 Absolute Basophils 0.1 VBG pH 7.38 VBG pCO2 43.4 VBG HCO3 24.8 VBG Base Excess -0.6 Sodium Cancelled Potassium Cancelled Chloride Cancelled Carbon Dioxide Cancelled Anion Gap Cancelled BUN Cancelled Creatinine Cancelled Est GFR ( Amer) Cancelled Est GFR (Non-Af Amer) Cancelled Glucose Cancelled Calcium Cancelled Total Bilirubin Cancelled AST Cancelled ALT Cancelled Alkaline Phosphatase Cancelled Total Protein Cancelled Albumin Cancelled 04/08/18 18:58 WBC RBC Hgb Hct MCV MCH MCHC RDW Plt Count Seg Neutrophils % Lymphocytes % Monocytes % Eosinophils % Basophils % Absolute Neutrophils Absolute Lymphocytes Absolute Monocytes Absolute Eosinophils Absolute Basophils VBG pH VBG pCO2 VBG HCO3 VBG Base Excess Sodium 138.3 Potassium 4.4 Chloride 106 Carbon Dioxide 24 Anion Gap 8 BUN 12 Creatinine 0.88 Est GFR ( Amer) > 60 Est GFR (Non-Af Amer) > 60 Glucose 119 H Calcium 9.4 Total Bilirubin 0.3 AST 15 L ALT 21 Alkaline Phosphatase 85 Total Protein 7.3 Albumin 4.4 04/08/18 04/08/18 04/08/18 17:50 17:50 17:50 Creatine Kinase Cancelled CK-MB (CK-2) Cancelled Troponin I Cancelled NT-Pro-B Natriuret Pep 55 04/08/18 04/08/18 18:58 18:58 Creatine Kinase 155 CK-MB (CK-2) 2.49 Troponin I < 0.012 NT-Pro-B Natriuret Pep Impressions: Chest X-Ray 04/08/18 18:08 IMPRESSION: Severe emphysema. Assessment & Plan - Diagnosis (1) COPD exacerbation Is this a current diagnosis for this admission?: Yes Plan: Secondary to acute bronchitis, Flonase, albuterol, Atrovent, flutter valve and supplemental oxygen. (2) Acute and chronic respiratory failure Is this a current diagnosis for this admission?: Yes Plan: Complicated by obstructive sleep apnea and CPAP noncompliance. Education, supplemental oxygen (3) Acute bronchitis Is this a current diagnosis for this admission?: Yes Plan: Empiric antibiotics and steroids
[2018-04-09 06:47] LABS: A TYPE INFLUENZA AG NEGATIVE (NEGATIVE); B INFLUENZA AG NEGATIVE (NEGATIVE)
[2018-04-09 06:53] LABS: ABSOLUTE LYMPHOCYTES (AUTO) 1.2 10^3/uL (0.5-4.7); ABSOLUTE MONOCYTES (AUTO) 0.2 10^3/uL (0.1-1.4); ABSOLUTE NEUT (AUTO) 9.1 10^3/uL (1.7-8.2); BASOPHILS % (AUTO) 0.4 % (0-2); HEMATOCRIT 49.6 % (37.9-51.0); HEMOGLOBIN 16.4 g/dL (13.5-17.0); LYMPHOCYTES % (AUTO) 11.1 % (13-45); MEAN CORPUSCULAR HEMOGLOBIN 26.5 pg (27.0-33.4); MEAN CORPUSCULAR HGB CONC 33.1 g/dL (32.0-36.0); MEAN CORPUSCULAR VOLUME 80 fl (80-97); MONOCYTES % (AUTO) 2.1 % (3-13); PLATELET COUNT 311 10^3/uL (150-450); RED BLOOD COUNT 6.18 10^6/uL (4.35-5.55); RED CELL DISTRIBUTION WIDTH 15.6 % (11.5-14.0); SEGMENTED NEUTROPHILS % (AUTO) 86.4 % (42-78); TOTAL CELLS COUNTED % (AUTO) 100 %; WHITE BLOOD COUNT 10.5 10^3/uL (4.0-10.5)
[2018-04-09 07:11] LABS: ANION GAP 18 (5-19); BLOOD UREA NITROGEN 14 mg/dL (7-20); CARBON DIOXIDE 19 mmol/L (22-30); CHLORIDE 102 mmol/L (98-107); GLUCOSE 228 mg/dL (75-110); POTASSIUM 4.8 mmol/L (3.6-5.0); SODIUM 138.9 mmol/L (137-145)
--- NOTE | 2018-04-09 07:56 | EKG REPORT ---
SEVERITY:- OTHERWISE NORMAL ECG - SINUS TACHYCARDIA : Confirmed by: Anastasiia Baum MD 09-Apr-2018 07:54:56
[2018-04-09] MEDS: IPRATROPIUM/ALBUTEROL 0.5-2.5 MG/3 ML AMPUL NEB PRN (09:53)
[2018-04-09] MEDS: FLUTICASONE NASAL SPRAY 50 MCG/SPRY 120 SPRAY/16 GM NASL SCH ×2 (09:54→22:55)
[2018-04-09] MEDS: HYDRALAZINE HCL INJ/PF 20 MG/1 ML SDV IV PRN (09:54)
[2018-04-09 15:14] LABS: ARTERIAL BLOOD BASE EXCESS -2.1 mmol/L; ARTERIAL BLOOD FIO2 30%; ARTERIAL BLOOD H2CO3 1.02 mmol/L (1.05-1.35); ARTERIAL BLOOD HCO3 21.5 mmol/L (20-24); ARTERIAL BLOOD PCO2 33.9 mmHg (35-45); ARTERIAL BLOOD PH 7.42 (7.35-7.45); ARTERIAL BLOOD PO2 105.2 mmHg (80-100); ARTERIAL BLOOD TOTAL CO2 22.5 mmol/L (23-27)
--- NOTE | 2018-04-09 17:46 | PDOC PROGRESS REPORT ---
Subjective Progress Note for:: 04/09/18 Subjective:: No adverse events overnight. Still on BiPAP. He looks comfortable on BiPAP and is actually very talkative. No fevers. No chest pain. Reason For Visit: COPD EXACERBATION PNEUMONIA Physical Exam Vital Signs: Temp Pulse Resp BP Pulse Ox 98.6 F 126 H 18 142/91 H 95 04/08/18 18:34 04/09/18 13:58 04/09/18 13:58 04/09/18 12:31 04/09/18 13:58 Intake & Output 04/08/18 04/09/18 04/10/18 06:59 06:59 06:59 Intake Total 1323 Balance 1323 Weight 104.3 kg General appearance: PRESENT: no acute distress, cooperative, disheveled, obese Respiratory exam: PRESENT: decreased breath sounds, prolonged expiratory phas, rhonchi, symmetrical, unlabored. ABSENT: accessory muscle use, crackles, tachypnea, wheezes Cardiovascular exam: PRESENT: tachycardia Vascular exam: PRESENT: normal capillary refill GI/Abdominal exam: PRESENT: normal bowel sounds, soft. ABSENT: distended, guarding, rebound, tenderness Extremities exam: ABSENT: clubbing, pedal edema Musculoskeletal exam: PRESENT: normal inspection. ABSENT: deformity Neurological exam: PRESENT: alert, awake, oriented to person, oriented to place, oriented to time, oriented to situation Psychiatric exam: PRESENT: anxious, appropriate affect, normal mood Skin exam: PRESENT: dry, warm Results Laboratory Results: 04/09/18 06:18 04/09/18 06:18 04/08/18 04/08/18 04/08/18 17:50 17:50 18:58 WBC 11.6 H RBC 5.65 H Hgb 15.1 Hct 46.1 MCV 82 MCH 26.8 L MCHC 32.8 RDW 15.1 H Plt Count 300 Seg Neutrophils % 54.1 Lymphocytes % 30.5 Monocytes % 11.2 Eosinophils % 3.3 Basophils % 0.9 Absolute Neutrophils 6.3 Absolute Lymphocytes 3.5 Absolute Monocytes 1.3 Absolute Eosinophils 0.4 Absolute Basophils 0.1 Carbonic Acid HCO3/H2CO3 Ratio ABG pH ABG pCO2 ABG pO2 ABG HCO3 ABG O2 Saturation ABG Base Excess VBG pH 7.38 VBG pCO2 43.4 VBG HCO3 24.8 VBG Base Excess -0.6 FiO2 Sodium Cancelled Potassium Cancelled Chloride Cancelled Carbon Dioxide Cancelled Anion Gap Cancelled BUN Cancelled Creatinine Cancelled Est GFR ( Amer) Cancelled Est GFR (Non-Af Amer) Cancelled Glucose Cancelled Calcium Cancelled Total Bilirubin Cancelled AST Cancelled ALT Cancelled Alkaline Phosphatase Cancelled Total Protein Cancelled Albumin Cancelled 04/08/18 04/09/18 04/09/18 18:58 06:18 06:18 WBC 10.5 RBC 6.18 H Hgb 16.4 Hct 49.6 MCV 80 MCH 26.5 L MCHC 33.1 RDW 15.6 H Plt Count 311 Seg Neutrophils % 86.4 H Lymphocytes % 11.1 L Monocytes % 2.1 L Eosinophils % 0.0 Basophils % 0.4 Absolute Neutrophils 9.1 H Absolute Lymphocytes 1.2 Absolute Monocytes 0.2 Absolute Eosinophils 0.0 Absolute Basophils 0.0 Carbonic Acid HCO3/H2CO3 Ratio ABG pH ABG pCO2 ABG pO2 ABG HCO3 ABG O2 Saturation ABG Base Excess VBG pH VBG pCO2 VBG HCO3 VBG Base Excess FiO2 Sodium 138.3 138.9 Potassium 4.4 4.8 Chloride 106 102 Carbon Dioxide 24 19 L Anion Gap 8 18 BUN 12 14 Creatinine 0.88 1.04 Est GFR ( Amer) > 60 > 60 Est GFR (Non-Af Amer) > 60 > 60 Glucose 119 H 228 H Calcium 9.4 10.0 Total Bilirubin 0.3 AST 15 L ALT 21 Alkaline Phosphatase 85 Total Protein 7.3 Albumin 4.4 04/09/18 15:02 WBC RBC Hgb Hct MCV MCH MCHC RDW Plt Count Seg Neutrophils % Lymphocytes % Monocytes % Eosinophils % Basophils % Absolute Neutrophils Absolute Lymphocytes Absolute Monocytes Absolute Eosinophils Absolute Basophils Carbonic Acid 1.02 L HCO3/H2CO3 Ratio 21:1 ABG pH 7.42 ABG pCO2 33.9 L ABG pO2 105.2 H ABG HCO3 21.5 ABG O2 Saturation 98.0 ABG Base Excess -2.1 VBG pH VBG pCO2 VBG HCO3 VBG Base Excess FiO2 30% Sodium Potassium Chloride Carbon Dioxide Anion Gap BUN Creatinine Est GFR ( Amer) Est GFR (Non-Af Amer) Glucose Calcium Total Bilirubin AST ALT Alkaline Phosphatase Total Protein Albumin 04/08/18 04/08/18 04/08/18 17:50 17:50 17:50 Creatine Kinase Cancelled CK-MB (CK-2) Cancelled Troponin I Cancelled NT-Pro-B Natriuret Pep 55 04/08/18 04/08/18 18:58 18:58 Creatine Kinase 155 CK-MB (CK-2) 2.49 Troponin I < 0.012 NT-Pro-B Natriuret Pep Impressions: Chest X-Ray 04/08/18 18:08 IMPRESSION: Severe emphysema. Assessment & Plan - Diagnosis (1) Acute and chronic respiratory failure with hypoxia Is this a current diagnosis for this admission?: Yes Plan: Continue BiPAP until his work of breathing decreases and we can get him off of that and onto a nasal cannula. (2) COPD exacerbation Is this a current diagnosis for this admission?: Yes Plan: Continue steroids, antibiotics, and bronchodilators. - Time Time Spent with patient: 25-34 minutes
[2018-04-09] MEDS: LEVOFLOXACIN 750 MG/D5W RTU 750 MG/150 ML RTUPB IV SCH (22:55)
[2018-04-10] MEDS ORDERED: LORAZEPAM INJ 2 MG/1 ML VIAL ONE (01:38)
[2018-04-10] MEDS: IPRATROPIUM/ALBUTEROL 0.5-2.5 MG/3 ML AMPUL NEB SCH ×4 (01:50→19:50)
[2018-04-10] MEDS: LORAZEPAM INJ 2 MG/1 ML VIAL IV PRN ×3 (01:51→22:03)
[2018-04-10] MEDS: DILTIAZEM HCL 30 MG TABLET PO SCH ×4 (03:00→21:57)
[2018-04-10] MEDS: HEPARIN SOD (PORCINE) 5,000 UNIT/ML 1 ML SYRINGE SUBCUT SCH ×3 (06:04→22:00)
[2018-04-10] MEDS: FLUTICASONE NASAL SPRAY 50 MCG/SPRY 120 SPRAY/16 GM NASL SCH ×2 (09:45→21:55)
[2018-04-10] MEDS: METHYLPREDNISOLONE INJ 40 MG/1 ML SDV IV SCH ×3 (09:46→21:58)
[2018-04-10] MEDS ORDERED: PREDNISONE 20 MG TABLET PO SCH (10:00)
[2018-04-10] MEDS: HYDROCOD/ACETAMIN 7.5-325 MG/15 ML ORAL SOLN UDCUP PO PRN ×2 (13:22→21:54)
--- NOTE | 2018-04-10 16:31 | PDOC PROGRESS REPORT ---
Subjective Progress Note for:: 04/10/18 Subjective:: No adverse events overnight. He went to the bathroom and got really short of breath this morning. He is been on the BiPAP most of the day but is comfortable at rest. He still gets a little short of breath whenever he talks. Reason For Visit: COPD EXACERBATION PNEUMONIA Physical Exam Vital Signs: Temp Pulse Resp BP Pulse Ox 97.6 F 110 H 28 H 138/86 H 97 04/10/18 11:38 04/10/18 11:38 04/10/18 11:38 04/10/18 11:38 04/10/18 11:38 Intake & Output 04/09/18 04/10/18 04/11/18 06:59 06:59 06:59 Intake Total 1323 624 Output Total 800 Balance 1323 -176 Weight 104.3 kg 104.3 kg General appearance: PRESENT: no acute distress, cooperative, disheveled, obese Respiratory exam: PRESENT: decreased breath sounds, prolonged expiratory phase, rhonchi, symmetrical, wheezes. ABSENT: accessory muscle use, crackles, tachypnea Cardiovascular exam: PRESENT: tachycardia Vascular exam: PRESENT: normal capillary refill GI/Abdominal exam: PRESENT: normal bowel sounds, soft. ABSENT: distended, guarding, rebound, tenderness Extremities exam: ABSENT: clubbing, pedal edema Musculoskeletal exam: PRESENT: normal inspection. ABSENT: deformity Neurological exam: PRESENT: alert, awake, oriented to person, oriented to place, oriented to time, oriented to situation Psychiatric exam: PRESENT: anxious, appropriate affect, normal mood Skin exam: PRESENT: dry, warm Results Laboratory Results: 04/09/18 06:18 04/09/18 06:18 04/08/18 04/08/18 04/08/18 17:50 17:50 17:50 Creatine Kinase Cancelled CK-MB (CK-2) Cancelled Troponin I Cancelled NT-Pro-B Natriuret Pep 55 04/08/18 04/08/18 18:58 18:58 Creatine Kinase 155 CK-MB (CK-2) 2.49 Troponin I < 0.012 NT-Pro-B Natriuret Pep Impressions: Chest X-Ray 04/08/18 18:08 IMPRESSION: Severe emphysema. Assessment & Plan - Diagnosis (1) Acute and chronic respiratory failure with hypoxia Is this a current diagnosis for this admission?: Yes Plan: Continue BiPAP until his work of breathing decreases and we can get him off of that and onto a nasal cannula. (2) COPD exacerbation Is this a current diagnosis for this admission?: Yes Plan: Continue steroids, antibiotics, and bronchodilators. I have stopped the prednisone and put him on Solu-Medrol instead. - Time Time Spent with patient: 25-34 minutes
[2018-04-10] MEDS: OXYCODONE-ACETAMINOPHEN 5-325 MG TABLET PO PRN (21:57)
[2018-04-10] MEDS: LEVOFLOXACIN 750 MG/D5W RTU 750 MG/150 ML RTUPB IV SCH (22:03)
[2018-04-11] MEDS: IPRATROPIUM/ALBUTEROL 0.5-2.5 MG/3 ML AMPUL NEB SCH ×4 (02:19→20:35)
[2018-04-11] MEDS: LORAZEPAM INJ 2 MG/1 ML VIAL IV PRN (02:51)
[2018-04-11] MEDS: DILTIAZEM HCL 30 MG TABLET PO SCH ×4 (02:52→21:29)
[2018-04-11] MEDS: METHYLPREDNISOLONE INJ 40 MG/1 ML SDV IV SCH ×3 (06:44→21:30)
[2018-04-11] MEDS: HEPARIN SOD (PORCINE) 5,000 UNIT/ML 1 ML SYRINGE SUBCUT SCH ×3 (06:44→21:30)
[2018-04-11] MEDS: OXYCODONE-ACETAMINOPHEN 5-325 MG TABLET PO PRN ×2 (06:49→14:08)
[2018-04-11] MEDS: FLUTICASONE NASAL SPRAY 50 MCG/SPRY 120 SPRAY/16 GM NASL SCH ×2 (10:57→21:29)
--- NOTE | 2018-04-11 18:39 | PDOC PROGRESS REPORT ---
Subjective Progress Note for:: 04/11/18 Subjective:: No adverse events overnight. He is been off BiPAP, primarily because he says it makes him claustrophobic. His breathing still did not look very comfortable but he said he was able to doze off today for the first time in a few days. Reason For Visit: COPD EXACERBATION PNEUMONIA Physical Exam Vital Signs: Temp Pulse Resp BP Pulse Ox 97.9 F 125 H 22 H 147/97 H 92 04/11/18 14:53 04/11/18 14:53 04/11/18 14:53 04/11/18 14:53 04/11/18 14:53 Intake & Output 04/10/18 04/11/18 04/12/18 06:59 06:59 06:59 Intake Total 624 1332 237 Output Total 800 2225 575 Balance -176 -893 -338 Weight 104.3 kg 104.3 kg General appearance: PRESENT: Mild distress, cooperative, disheveled, obese Respiratory exam: PRESENT: decreased breath sounds, prolonged expiratory phase, rhonchi, symmetrical, wheezes. ABSENT: accessory muscle use, crackles, tachypnea Cardiovascular exam: PRESENT: tachycardia Vascular exam: PRESENT: normal capillary refill GI/Abdominal exam: PRESENT: normal bowel sounds, soft. ABSENT: distended, guard ing, rebound, tenderness Extremities exam: ABSENT: clubbing, pedal edema Musculoskeletal exam: PRESENT: normal inspection. ABSENT: deformity Neurological exam: PRESENT: alert, awake, oriented to person, oriented to place, oriented to time, oriented to situation Psychiatric exam: PRESENT: anxious, appropriate affect, normal mood Skin exam: PRESENT: dry, warm Results Laboratory Results: 04/09/18 06:18 04/09/18 06:18 04/08/18 20:30 Sputum Gram Stain - Final 04/08/18 20:30 Sputum Sputum Culture - Final C.albicans/C.dubliniensis Normal Padmini 04/08/18 04/08/18 04/08/18 17:50 17:50 17:50 Creatine Kinase Cancelled CK-MB (CK-2) Cancelled Troponin I Cancelled NT-Pro-B Natriuret Pep 55 04/08/18 04/08/18 18:58 18:58 Creatine Kinase 155 CK-MB (CK-2) 2.49 Troponin I < 0.012 NT-Pro-B Natriuret Pep Impressions: Chest X-Ray 04/08/18 18:08 IMPRESSION: Severe emphysema. Assessment & Plan - Diagnosis (1) Acute and chronic respiratory failure with hypoxia Is this a current diagnosis for this admission?: Yes Plan: Currently on nasal cannula, I did not think he looked that comfortable but he said he was feeling better. I encouraged him to use BiPAP to help him sleep. Containing an oxygen saturation in the low 90s on 3 L nasal cannula. (2) COPD exacerbation Is this a current diagnosis for this admission?: Yes Plan: Continue steroids, antibiotics, and bronchodilators. I have stopped the prednisone and put him on Solu-Medrol instead. - Time Time Spent with patient: 25-34 minutes
[2018-04-11] MEDS: LEVOFLOXACIN 750 MG/D5W RTU 750 MG/150 ML RTUPB IV SCH (21:29)
[2018-04-11] MEDS: HYDROCOD/ACETAMIN 7.5-325 MG/15 ML ORAL SOLN UDCUP PO PRN (21:30)
[2018-04-12] MEDS: LORAZEPAM INJ 2 MG/1 ML VIAL IV PRN ×2 (00:03→07:25)
[2018-04-12] MEDS: IPRATROPIUM/ALBUTEROL 0.5-2.5 MG/3 ML AMPUL NEB PRN ×2 (00:04→06:53)
[2018-04-12] MEDS: IPRATROPIUM/ALBUTEROL 0.5-2.5 MG/3 ML AMPUL NEB SCH ×4 (02:16→20:09)
[2018-04-12] MEDS ORDERED: CHLORPROMAZINE HCL INJ 25 MG/1 ML AMPULE IV PRN (02:19)
[2018-04-12 02:40] LABS: ARTERIAL BLOOD BASE EXCESS 0 mmol/L; ARTERIAL BLOOD FIO2 3L; ARTERIAL BLOOD HCO3 23.8 mmol/L (20-24); ARTERIAL BLOOD O2 SATURATION 95.1 % (94-98); ARTERIAL BLOOD PCO2 36.5 mmHg (35-45); ARTERIAL BLOOD PH 7.43 (7.35-7.45); ARTERIAL BLOOD PO2 72.8 mmHg (80-100); ARTERIAL BLOOD TOTAL CO2 24.9 mmol/L (23-27)
[2018-04-12] MEDS ORDERED: CHLORPROMAZINE HCL INJ 25 MG/1 ML AMPULE ONE (02:40)
[2018-04-12] MEDS: DILTIAZEM HCL 30 MG TABLET PO SCH ×4 (02:54→20:19)
[2018-04-12] MEDS ORDERED: LORAZEPAM INJ 2 MG/1 ML VIAL IV PRN (04:01)
[2018-04-12] MEDS: METHYLPREDNISOLONE INJ 40 MG/1 ML SDV IV SCH (05:01)
[2018-04-12] MEDS: HEPARIN SOD (PORCINE) 5,000 UNIT/ML 1 ML SYRINGE SUBCUT SCH ×3 (05:08→21:09)
[2018-04-12] MEDS: HYDRALAZINE HCL INJ/PF 20 MG/1 ML SDV IV PRN (07:25)
[2018-04-12] MEDS ORDERED: LORAZEPAM INJ 2 MG/1 ML VIAL ONE (07:36)
[2018-04-12] MEDS ORDERED: METHYLPREDNISOLONE INJ 40 MG/1 ML SDV IV SCH (08:15)
[2018-04-12 08:31] LABS: ARTERIAL BLOOD BASE EXCESS -4.6 mmol/L; ARTERIAL BLOOD H2CO3 1.54 mmol/L (1.05-1.35); ARTERIAL BLOOD HCO3 22.8 mmol/L (20-24); ARTERIAL BLOOD O2 SATURATION 92.8 % (94-98); ARTERIAL BLOOD PH 7.27 (7.35-7.45); ARTERIAL BLOOD TOTAL CO2 24.4 mmol/L (23-27)
[2018-04-12 08:33] LABS: ARTERIAL BLOOD FIO2 30%
[2018-04-12] MEDS ORDERED: PROPOFOL 1,000 MG/100 ML INFUS..BTL IV ONE (08:41)
[2018-04-12] MEDS ORDERED: PHARMACY COMMUNICATION ORDER MC NR (08:45)
[2018-04-12] MEDS: PROPOFOL 1,000 MG/100 ML INFUS..BTL IV PRN ×6 (08:55→22:52)
[2018-04-12] MEDS ORDERED: PROPOFOL INJ 200 MG/20 ML VIAL IV ONE (09:03)
[2018-04-12] MEDS ORDERED: MIDAZOLAM HCL 50 MG/100 ML RTUINJ ONE (09:13)
--- NOTE | 2018-04-12 09:41 | RADIOLOGY REPORT (SQ) ---
EXAM DESCRIPTION: CHEST SINGLE VIEW COMPLETED DATE/TIME: 04/12/2018 9:29 am REASON FOR STUDY: ET and NG tube Placement COMPARISON: Chest films 09/23/2017, 04/08/2018 CT chest 04/01/2018 EXAM PARAMETERS: NUMBER OF VIEWS: Two views, AP chest, AP upper abdomen for nasogastric tube placeme nt TECHNIQUE: Two views, AP chest and AP upper abdomen film for nasogastric tube placement RADIATION DOSE: NA LIMITATIONS: None. FINDINGS: LUNGS AND PLEURA: Hyperinflated hyperlucent upper lobes bilaterally from profound obstruct sean lung disease. In the right mid and lower lung, and at the left lung base there are crowded vascu lar markings with patchy airspace disease likely superimposed acute pulmonary edema or pneumonia. No pneumothorax. No pleural effusion. MEDIASTINUM AND HILAR STRUCTURES: No masses. Contour normal. HEART AND VASCULAR STRUCTURES: No cardiomegaly BONES: No acute findings. HARDWARE: Endotracheal tube tip 5 cm above the rafa nasogastric tube tip and side port in the stoma ch. Mild gaseous distention of the stomach OTHER: No other significant finding. IMPRESSION: Endotracheal and nasogastric tubes in good positioning Obstructive lung disease with crowded bronchovascular markings at the bases. There is superimposed a cute airspace disease worrisome for pulmonary edema or pneumonia TECHNICAL DOCUMENTATION: JOB ID: [id number] [employer]- All Rights Reserved Reading location - IP/workstation name: [email or web address]
[2018-04-12 10:13] LABS: HEMATOCRIT 39.8 % (37.9-51.0); HEMOGLOBIN 13.3 g/dL (13.5-17.0); MEAN CORPUSCULAR HEMOGLOBIN 26.8 pg (27.0-33.4); MEAN CORPUSCULAR HGB CONC 33.3 g/dL (32.0-36.0); MEAN CORPUSCULAR VOLUME 81 fl (80-97); PLATELET COUNT 276 10^3/uL (150-450); RED BLOOD COUNT 4.95 10^6/uL (4.35-5.55); RED CELL DISTRIBUTION WIDTH 15.4 % (11.5-14.0); WHITE BLOOD COUNT 17.7 10^3/uL (4.0-10.5)
[2018-04-12 10:20] LABS: ALANINE AMINOTRANSFERASE 37 U/L (21-72); ALKALINE PHOSPHATASE 64 U/L (38-126); ANION GAP 9 (5-19); ASPARTATE AMINO TRANSFERASE 36 U/L (17-59); BILIRUBIN,DIRECT 0.2 mg/dL (0.0-0.4); BILIRUBIN,TOTAL 0.5 mg/dL (0.2-1.3); BLOOD UREA NITROGEN 18 mg/dL (7-20); CALCIUM 8.8 mg/dL (8.4-10.2); CARBON DIOXIDE 24 mmol/L (22-30); CHLORIDE 100 mmol/L (98-107); GLUCOSE 176 mg/dL (75-110); POTASSIUM 4.8 mmol/L (3.6-5.0); SODIUM 133.1 mmol/L (137-145); TOTAL PROTEIN 6.4 g/dL (6.3-8.2)
[2018-04-12] MEDS: MIDAZOLAM HCL 50 MG/100 ML RTUINJ IV PRN ×4 (10:20→23:35)
[2018-04-12] MEDS: FLUTICASONE NASAL SPRAY 50 MCG/SPRY 120 SPRAY/16 GM NASL SCH (10:21)
[2018-04-12] MEDS ORDERED: SUCCINYLCHOLINE CHLORIDE INJ 200 MG/10 ML VIAL ONE (10:36)
[2018-04-12 10:45] LABS: ARTERIAL BLOOD H2CO3 1.38 mmol/L (1.05-1.35); ARTERIAL BLOOD O2 SATURATION 95.4 % (94-98); ARTERIAL BLOOD PCO2 45.8 mmHg (35-45); ARTERIAL BLOOD PH 7.34 (7.35-7.45); ARTERIAL BLOOD PO2 82.3 mmHg (80-100); ARTERIAL BLOOD TOTAL CO2 25.4 mmol/L (23-27)
[2018-04-12 10:50] LABS: ARTERIAL BLOOD FIO2 40%
[2018-04-12 10:56] LABS: ABSOLUTE LYMPHOCYTES# (MANUAL) 0.2 10^3/uL (0.5-4.7); ABSOLUTE MONOCYTES # (MANUAL) 0.9 10^3/uL (0.1-1.4); ABSOLUTE NEUTROPHILS# (MANUAL) 16.6 10^3/uL (1.7-8.2); BASOPHILS % (MANUAL) 0 % (0-2); EOSINOPHILS % (MANUAL) 0 % (0-6); LYMPHOCYTES % (MANUAL) 1 % (13-45); METAMYELOCYTES % (MANUAL) 1 % (0); MONOCYTES % (MANUAL) 5 % (3-13); SEGMENTED NEUTROPHILS % (MAN) 93 % (42-78); TOTAL CELLS COUNTED 100
[2018-04-12 10:57] LABS: ANISOCYTOSIS SLIGHT; PLATELET COMMENT ADEQUATE; POLYCHROMASIA SLIGHT; TOXIC GRANULATION SLIGHT; TOXIC VACUOLATION PRESENT
[2018-04-12] MEDS: METHYLPREDNISOLONE INJ 125 MG/2 ML SDV IV SCH ×2 (15:57→21:10)
[2018-04-12] MEDS: POTASSI CL 20 MEQ/D5-1/2NS 1L 1000 ML IV PRN (15:57)
--- NOTE | 2018-04-12 17:09 | Progress Note ---
Provider Note Provider Note: This morning the patient had been refusing his BiPAP and had substantially increased work of breathing. A rapid response was called to his bedside they had put the BiPAP on him and he was still trying to fight against that, and was tachycardic and hypertensive. We made the decision to move him to the ICU. He was still trying to fight against it and was not trying to relax at all, and so we made the decision to intubate him. Once we got him on the ventilator, his ventilation began to improve and his vital signs settle down. Initially he had substantially diminished sounds with end expiratory wheezes in his chest, and once we had him on the ventilator his breath sounds became much easier to hear with much less wheezing and he had noticeably less work of breathing. Total of approximately 30 minutes of critical care time was spent in the acute management and stabilization of the patient this morning.
--- NOTE | 2018-04-12 17:13 | PDOC PROGRESS REPORT ---
Subjective Progress Note for:: 04/12/18 Subjective:: Patient was seen in follow-up after he had been intubated after transfer to the ICU this morning. He is sedated and intubated. His tachycardia has improved and his blood pressures come down. His oxygen saturations were in the low 90s and he is breathing about 20 times a minute, not working too much over the vent at this time. Reason For Visit: COPD EXACERBATION PNEUMONIA Physical Exam Vital Signs: Temp Pulse Resp BP Pulse Ox 99.0 F 110 H 18 106/72 93 04/12/18 16:00 04/12/18 16:00 04/12/18 16:00 04/12/18 16:00 04/12/18 16:00 Intake & Output 04/11/18 04/12/18 04/13/18 06:59 06:59 06:59 Intake Total 1332 2537 341 Output Total 2225 1630 165 Balance -893 907 176 Weight 104.3 kg 111.2 kg 111.2 kg General appearance: PRESENT: no acute distress, other - Sedated, intubated Respiratory exam: PRESENT: decreased breath sounds - Improved aeration but still diminished considering he is on the ventilator, breath sounds are coarse, symmetrical, unlabored. ABSENT: accessory muscle use, crackles, prolonged expiratory phas, retraction, rhonchi, tachypnea, wheezes Cardiovascular exam: PRESENT: tachycardia Pulses: PRESENT: normal carotid pulses Vascular exam: PRESENT: normal capillary refill GI/Abdominal exam: PRESENT: normal bowel sounds, soft. ABSENT: distended, guarding, rebound, tenderness Extremities exam: ABSENT: clubbing, pedal edema Musculoskeletal exam: PRESENT: normal inspection. ABSENT: deformity Neurological exam: PRESENT: other - Sedated, intubated Skin exam: PRESENT: dry, warm Results Laboratory Results: 04/12/18 09:50 04/12/18 09:50 04/12/18 04/12/18 04/12/18 02:15 08:20 09:50 WBC 17.7 H RBC 4.95 Hgb 13.3 L Hct 39.8 MCV 81 MCH 26.8 L MCHC 33.3 RDW 15.4 H Plt Count 276 Seg Neutrophils % Not Reportable Lymphocytes % Not Reportable Monocytes % Not Reportable Eosinophils % Not Reportable Basophils % Not Reportable Absolute Neutrophils Not Reportable Absolute Lymphocytes Not Reportable Absolute Monocytes Not Reportable Absolute Eosinophils Not Reportable Absolute Basophils Not Reportable Carbonic Acid 1.10 1.54 H HCO3/H2CO3 Ratio 21:1 14:1 ABG pH 7.43 7.27 L ABG pCO2 36.5 51.0 H ABG pO2 72.8 L 74.0 L ABG HCO3 23.8 22.8 ABG O2 Saturation 95.1 92.8 L ABG Base Excess 0 -4.6 FiO2 3L 30% Sodium Potassium Chloride Carbon Dioxide Anion Gap BUN Creatinine Est GFR ( Amer) Est GFR (Non-Af Amer) Glucose Calcium Magnesium Total Bilirubin AST ALT Alkaline Phosphatase Total Protein Albumin 04/12/18 04/12/18 09:50 10:25 WBC RBC Hgb Hct MCV MCH MCHC RDW Plt Count Seg Neutrophils % Lymphocytes % Monocytes % Eosinophils % Basophils % Absolute Neutrophils Absolute Lymphocytes Absolute Monocytes Absolute Eosinophils Absolute Basophils Carbonic Acid 1.38 H HCO3/H2CO3 Ratio 17:1 ABG pH 7.34 L ABG pCO2 45.8 H ABG pO2 82.3 ABG HCO3 24.0 ABG O2 Saturation 95.4 ABG Base Excess -2.0 FiO2 40% Sodium 133.1 L Potassium 4.8 Chloride 100 Carbon Dioxide 24 Anion Gap 9 BUN 18 Creatinine 0.98 Est GFR ( Amer) > 60 Est GFR (Non-Af Amer) > 60 Glucose 176 H Calcium 8.8 Magnesium 2.2 Total Bilirubin 0.5 AST 36 ALT 37 Alkaline Phosphatase 64 Total Protein 6.4 Albumin 4.0 04/08/18 04/08/18 04/08/18 17:50 17:50 17:50 Creatine Kinase Cancelled CK-MB (CK-2) Cancelled Troponin I Cancelled NT-Pro-B Natriuret Pep 55 04/08/18 04/08/18 18:58 18:58 Creatine Kinase 155 CK-MB (CK-2) 2.49 Troponin I < 0.012 NT-Pro-B Natriuret Pep Impressions: Chest X-Ray 04/12/18 09:00 IMPRESSION: Endotracheal and nasogastric tubes in good positioning Obstructive lung disease with crowded bronchovascular markings at the bases. There is superimposed acute airspace disease worrisome for pulmonary edema or pneumonia Assessment & Plan - Diagnosis (1) Acute and chronic respiratory failure with hypoxia Is this a current diagnosis for this admission?: Yes Plan: He was refusing BiPAP yesterday and was fighting against of the day. He apparently would not keep it on last night either. We moved him to the ICU and intubated in this morning and his breathing is much more stable now. We will leave him on today and start vent weaning protocol tomorrow. (2) COPD exacerbation Is this a current diagnosis for this admission?: Yes Plan: I increased his steroids today. He continues on antibiotics and bronchodilators as well. - Time Time Spent with patient: 25-34 minutes
[2018-04-12] MEDS: OXYCODONE-ACETAMINOPHEN 5-325 MG TABLET PO PRN (20:22)
[2018-04-12] MEDS: LEVOFLOXACIN 750 MG/D5W RTU 750 MG/150 ML RTUPB IV SCH (21:10)
[2018-04-13] MEDS: IPRATROPIUM/ALBUTEROL 0.5-2.5 MG/3 ML AMPUL NEB SCH ×4 (01:16→19:10)
[2018-04-13] MEDS: PROPOFOL 1,000 MG/100 ML INFUS..BTL IV PRN ×8 (01:56→23:43)
[2018-04-13] MEDS: DILTIAZEM HCL 30 MG TABLET PO SCH ×4 (02:50→21:14)
[2018-04-13] MEDS: POTASSI CL 20 MEQ/D5-1/2NS 1L 1000 ML IV PRN ×3 (02:50→21:16)
[2018-04-13] MEDS: MIDAZOLAM HCL 50 MG/100 ML RTUINJ IV PRN ×4 (04:16→21:13)
[2018-04-13 05:05] LABS: ARTERIAL BLOOD BASE EXCESS 1.7 mmol/L; ARTERIAL BLOOD H2CO3 1.28 mmol/L (1.05-1.35); ARTERIAL BLOOD HCO3 26.6 mmol/L (20-24); ARTERIAL BLOOD O2 SATURATION 95.9 % (94-98); ARTERIAL BLOOD PCO2 42.6 mmHg (35-45); ARTERIAL BLOOD PH 7.41 (7.35-7.45); ARTERIAL BLOOD PO2 79.8 mmHg (80-100); ARTERIAL BLOOD TOTAL CO2 27.9 mmol/L (23-27)
[2018-04-13 05:06] LABS: ARTERIAL BLOOD FIO2 40%
[2018-04-13 05:09] LABS: ABSOLUTE LYMPHOCYTES (AUTO) 1.5 10^3/uL (0.5-4.7); ABSOLUTE MONOCYTES (AUTO) 0.6 10^3/uL (0.1-1.4); ABSOLUTE NEUT (AUTO) 12.1 10^3/uL (1.7-8.2); HEMATOCRIT 36.9 % (37.9-51.0); HEMOGLOBIN 12.3 g/dL (13.5-17.0); LYMPHOCYTES % (AUTO) 10.5 % (13-45); MEAN CORPUSCULAR HEMOGLOBIN 26.7 pg (27.0-33.4); MEAN CORPUSCULAR HGB CONC 33.3 g/dL (32.0-36.0); MEAN CORPUSCULAR VOLUME 80 fl (80-97); MONOCYTES % (AUTO) 4.4 % (3-13); PLATELET COUNT 208 10^3/uL (150-450); RED CELL DISTRIBUTION WIDTH 15.5 % (11.5-14.0); SEGMENTED NEUTROPHILS % (AUTO) 85.1 % (42-78); TOTAL CELLS COUNTED % (AUTO) 100 %; WHITE BLOOD COUNT 14.3 10^3/uL (4.0-10.5)
[2018-04-13] MEDS: HEPARIN SOD (PORCINE) 5,000 UNIT/ML 1 ML SYRINGE SUBCUT SCH ×3 (05:09→21:14)
[2018-04-13] MEDS: OXYCODONE-ACETAMINOPHEN 5-325 MG TABLET PO PRN ×2 (05:09→21:16)
[2018-04-13] MEDS: METHYLPREDNISOLONE INJ 125 MG/2 ML SDV IV SCH ×3 (05:10→21:14)
[2018-04-13 05:30] LABS: ANION GAP 6 (5-19); BLOOD UREA NITROGEN 18 mg/dL (7-20); CALCIUM 8.7 mg/dL (8.4-10.2); CARBON DIOXIDE 26 mmol/L (22-30); CHLORIDE 101 mmol/L (98-107); GLUCOSE 173 mg/dL (75-110); PHOSPHORUS 3.6 mg/dL (2.5-4.5); POTASSIUM 4.8 mmol/L (3.6-5.0); SODIUM 132.7 mmol/L (137-145)
--- NOTE | 2018-04-13 09:03 | RADIOLOGY REPORT (SQ) ---
EXAM DESCRIPTION: CHEST SINGLE VIEW COMPLETED DATE/TIME: 04/13/2018 6:43 am REASON FOR STUDY: respiratory failure COMPARISON: CT chest 04/01/2018 Chest films 04/08/2018, 04/12/2018 EXAM PARAMETERS: NUMBER OF VIEWS: One view. TECHNIQUE: Single frontal radiographic view of the chest acquired. RADIATION DOSE: NA LIMITATIONS: None. FINDINGS: LUNGS AND PLEURA: Bandlike atelectasis at the right lung base. Crowding of bronchovascula r markings at both bases from end-stage changes of obstructive lung disease with massive enlarged upp er lobe airspaces. No acute pulmonary edema pneumothorax or pleural effusions. MEDIASTINUM AND HILAR STRUCTURES: No masses. Contour normal. HEART AND VASCULAR STRUCTURES: Heart normal in size. Normal vasculature. BONES: No acute findings. HARDWARE: Endotracheal tube tip 5 cm above the rafa. Nasogastric tube tip and side port below the hemidiaphragms. OTHER: No other significant finding. IMPRESSION: No change from yesterday TECHNICAL DOCUMENTATION: JOB ID: [id number] [employer]- All Rights Reserved Reading location - IP/workstation name: [email or web address]
[2018-04-13] MEDS: PANTOPRAZOLE SODIUM 40 MG VIAL IV SCH (11:30)
--- NOTE | 2018-04-13 18:37 | PDOC PROGRESS REPORT ---
Subjective Progress Note for:: 04/13/18 Subjective:: Patient remains sedated and intubated. No adverse events overnight. His vital signs been stable. He is not been breathing over the ventilator and is looks very comfortable. Reason For Visit: COPD EXACERBATION PNEUMONIA Physical Exam Vital Signs: Temp Pulse Resp BP Pulse Ox 99.1 F 103 H 19 140/97 H 93 04/13/18 18:00 04/13/18 14:00 04/13/18 18:00 04/13/18 17:37 04/13/18 18:00 Intake & Output 04/12/18 04/13/18 04/14/18 06:59 06:59 06:59 Intake Total 2537 2248 1584 Output Total 1630 1290 685 Balance 907 958 899 Weight 111.2 kg 110.2 kg 110.2 kg General appearance: PRESENT: no acute distress, other - Sedated, intubated Respiratory exam: PRESENT: decreased breath sounds - Improved aeration but still diminished considering he is on the ventilator, breath sounds are coarse, sym metrical, unlabored. ABSENT: accessory muscle use, crackles, prolonged expiratory phas, retraction, rhonchi, tachypnea, wheezes Cardiovascular exam: PRESENT: tachycardia Pulses: PRESENT: normal carotid pulses Vascular exam: PRESENT: normal capillary refill GI/Abdominal exam: PRESENT: normal bowel sounds, soft. ABSENT: distended, guarding, rebound, tenderness Extremities exam: ABSENT: clubbing, pedal edema Musculoskeletal exam: PRESENT: normal inspection. ABSENT: deformity Neurological exam: PRESENT: other - Sedated, intubated Skin exam: PRESENT: dry, warm Results Laboratory Results: 04/13/18 05:03 04/13/18 05:03 04/13/18 04/13/18 04/13/18 04:47 05:03 05:03 WBC 14.3 H RBC 4.60 Hgb 12.3 L Hct 36.9 L MCV 80 MCH 26.7 L MCHC 33.3 RDW 15.5 H Plt Count 208 Seg Neutrophils % 85.1 H Lymphocytes % 10.5 L Monocytes % 4.4 Eosinophils % 0.0 Basophils % 0.0 Absolute Neutrophils 12.1 H Absolute Lymphocytes 1.5 Absolute Monocytes 0.6 Absolute Eosinophils 0.0 Absolute Basophils 0.0 Carbonic Acid 1.28 HCO3/H2CO3 Ratio 20:1 ABG pH 7.41 ABG pCO2 42.6 ABG pO2 79.8 L ABG HCO3 26.6 H ABG O2 Saturation 95.9 ABG Base Excess 1.7 FiO2 40% Sodium 132.7 L Potassium 4.8 Chloride 101 Carbon Dioxide 26 Anion Gap 6 BUN 18 Creatinine 0.82 Est GFR ( Amer) > 60 Est GFR (Non-Af Amer) > 60 Glucose 173 H Calcium 8.7 Phosphorus 3.6 Magnesium 2.8 H 04/08/18 04/08/18 04/08/18 17:50 17:50 17:50 Creatine Kinase Cancelled CK-MB (CK-2) Cancelled Troponin I Cancelled NT-Pro-B Natriuret Pep 55 04/08/18 04/08/18 18:58 18:58 Creatine Kinase 155 CK-MB (CK-2) 2.49 Troponin I < 0.012 NT-Pro-B Natriuret Pep Impressions: Chest X-Ray 04/13/18 06:00 IMPRESSION: No change from yesterday Assessment & Plan - Diagnosis (1) Acute and chronic respiratory failure with hypoxia Is this a current diagnosis for this admission?: Yes Plan: He is doing a lot better on the ventilator. He has been very stable and his blood gases look good. He is not breathing over the vent right now, so I am going to turn down his respiratory rate and lower his sedation to make him do a little bit of the work. (2) COPD exacerbation Is this a current diagnosis for this admission?: Yes Plan: I increased his steroids yesterday and he is not wheezing as much as he was previously. He continues on antibiotics and bronchodilators as well. - Time Time Spent with patient: 25-34 minutes
[2018-04-13] MEDS: LEVOFLOXACIN 750 MG/D5W RTU 750 MG/150 ML RTUPB IV SCH (21:13)
[2018-04-14] MEDS: IPRATROPIUM/ALBUTEROL 0.5-2.5 MG/3 ML AMPUL NEB SCH ×4 (01:18→20:22)
[2018-04-14] MEDS: DILTIAZEM HCL 30 MG TABLET PO SCH ×4 (02:05→21:33)
[2018-04-14] MEDS: PROPOFOL 1,000 MG/100 ML INFUS..BTL IV PRN ×6 (02:05→22:14)
[2018-04-14] MEDS: METHYLPREDNISOLONE INJ 125 MG/2 ML SDV IV SCH ×3 (05:27→21:33)
[2018-04-14] MEDS: HEPARIN SOD (PORCINE) 5,000 UNIT/ML 1 ML SYRINGE SUBCUT SCH ×3 (05:27→21:33)
[2018-04-14] MEDS: MIDAZOLAM HCL 50 MG/100 ML RTUINJ IV PRN ×2 (06:16→22:14)
[2018-04-14] MEDS: PANTOPRAZOLE SODIUM 40 MG VIAL IV SCH (11:16)
--- NOTE | 2018-04-14 17:10 | PDOC PROGRESS REPORT ---
Subjective Progress Note for:: 04/14/18 Subjective:: Patient remains sedated and intubated. He is done well on the vent, vital signs been stable and he looks comfortable. He apparently tolerated pressure support from few hours yesterday. Reason For Visit: COPD EXACERBATION PNEUMONIA Physical Exam Vital Signs: Temp Pulse Resp BP Pulse Ox 97.3 F 105 H 20 103/71 93 04/14/18 06:00 04/14/18 13:47 04/14/18 13:47 04/14/18 05:39 04/14/18 15:54 Intake & Output 04/13/18 04/14/18 04/15/18 06:59 06:59 06:59 Intake Total 2248 3188 227 Output Total 1290 2960 175 Balance 958 228 52 Weight 110.2 kg 114.3 kg General appearance: PRESENT: no acute distress, other - Sedated, intubated Respiratory exam: PRESENT: decreased breath sounds - Improved aeration but still diminished considering he is on the ventilator, end expiratory wheezes with p rolonged expiratory phase, symmetrical, unlabored. ABSENT: accessory muscle use, crackles, retraction, rhonchi, tachypnea Cardiovascular exam: PRESENT: tachycardia Pulses: PRESENT: normal carotid pulses Vascular exam: PRESENT: normal capillary refill GI/Abdominal exam: PRESENT: normal bowel sounds, soft. ABSENT: distended, guarding, rebound, tenderness Extremities exam: ABSENT: clubbing, pedal edema Musculoskeletal exam: PRESENT: normal inspection. ABSENT: deformity Neurological exam: PRESENT: other - Sedated, intubated Skin exam: PRESENT: dry, warm Results Laboratory Results: 04/13/18 05:03 04/13/18 05:03 04/08/18 04/08/18 04/08/18 17:50 17:50 17:50 Creatine Kinase Cancelled CK-MB (CK-2) Cancelled Troponin I Cancelled NT-Pro-B Natriuret Pep 55 04/08/18 04/08/18 18:58 18:58 Creatine Kinase 155 CK-MB (CK-2) 2.49 Troponin I < 0.012 NT-Pro-B Natriuret Pep Impressions: Chest X-Ray 04/13/18 06:00 IMPRESSION: No change from yesterday Assessment & Plan - Diagnosis (1) Acute and chronic respiratory failure with hypoxia Is this a current diagnosis for this admission?: Yes Plan: He is doing a lot better on the ventilator. He has been very stable and his b lood gases look good. Continue weaning trials with pressure support. We will reevaluate him in the morning to see if he can be extubated. (2) COPD exacerbation Is this a current diagnosis for this admission?: Yes Plan: He is actually wheezing more today and he has a prolonged X Tory phase, which is worse from yesterday. Because of this I decided to leave him on the ventilator today. He is on steroids and antibiotics. I had increased the dosage of his steroids for he was intubated. - Time Time Spent with patient: 25-34 minutes
[2018-04-14] MEDS: POTASSI CL 20 MEQ/D5-1/2NS 1L 1000 ML IV PRN (19:29)
[2018-04-14] MEDS: LEVOFLOXACIN 750 MG/D5W RTU 750 MG/150 ML RTUPB IV SCH (21:33)
[2018-04-15] MEDS: PROPOFOL 1,000 MG/100 ML INFUS..BTL IV PRN ×8 (01:24→21:51)
[2018-04-15] MEDS: IPRATROPIUM/ALBUTEROL 0.5-2.5 MG/3 ML AMPUL NEB SCH ×4 (02:36→20:08)
[2018-04-15] MEDS: DILTIAZEM HCL 30 MG TABLET PO SCH ×4 (04:05→21:23)
[2018-04-15] MEDS: METHYLPREDNISOLONE INJ 125 MG/2 ML SDV IV SCH ×3 (05:10→21:24)
[2018-04-15] MEDS: HEPARIN SOD (PORCINE) 5,000 UNIT/ML 1 ML SYRINGE SUBCUT SCH ×3 (05:11→21:25)
[2018-04-15] MEDS: MIDAZOLAM HCL 50 MG/100 ML RTUINJ IV PRN ×2 (06:46→18:13)
[2018-04-15] MEDS: POTASSI CL 20 MEQ/D5-1/2NS 1L 1000 ML IV PRN ×2 (09:32→18:14)
[2018-04-15] MEDS: PANTOPRAZOLE SODIUM 40 MG VIAL IV SCH (09:33)
--- NOTE | 2018-04-15 09:34 | PDOC PROGRESS REPORT ---
Subjective Progress Note for:: 04/15/18 Subjective:: No adverse events overnight. He has done well on the ventilator. Tolerated pressure support for a while again yesterday. His wheezing seems to have improved some. Vital signs are stable. No fevers. Reason For Visit: COPD EXACERBATION PNEUMONIA Physical Exam Vital Signs: Temp Pulse Resp BP Pulse Ox 97.7 F 87 20 117/80 94 04/15/18 08:00 04/15/18 08:00 04/15/18 08:00 04/15/18 08:00 04/15/18 08:00 Intake & Output 04/14/18 04/15/18 04/16/18 06:59 06:59 06:59 Intake Total 3188 1992 Output Total 2960 1950 150 Balance 228 42 -150 Weight 114.3 kg 114.7 kg General appearance: PRESENT: no acute distress, other - Sedated, intubated Respiratory exam: PRESENT: decreased breath sounds - Improved aeration but still diminished considering he is on the ventilator, breath sounds are coarse, symmetrical, unlabored. ABSENT: accessory muscle use, crackles, prolonged expiratory phas, retraction, rhonchi, tachypnea, wheezes Cardiovascular exam: PRESENT: tachycardia Pulses: PRESENT: normal carotid pulses Vascular exam: PRESENT: normal capillary refill GI/Abdominal exam: PRESENT: normal bowel sounds, soft. ABSENT: distended, guarding, rebound, tenderness Extremities exam: ABSENT: clubbing, pedal edema Musculoskeletal exam: PRESENT: normal inspection. ABSENT: deformity Neurological exam: PRESENT: other - Sedated, intubated Skin exam: PRESENT: dry, warm Results Laboratory Results: 04/13/18 05:03 04/13/18 05:03 04/08/18 04/08/18 04/08/18 17:50 17:50 17:50 Creatine Kinase Cancelled CK-MB (CK-2) Cancelled Troponin I Cancelled NT-Pro-B Natriuret Pep 55 04/08/18 04/08/18 18:58 18:58 Creatine Kinase 155 CK-MB (CK-2) 2.49 Troponin I < 0.012 NT-Pro-B Natriuret Pep Impressions: Chest X-Ray 04/13/18 06:00 IMPRESSION: No change from yesterday Assessment & Plan - Diagnosis (1) Acute and chronic respiratory failure with hypoxia Is this a current diagnosis for this admission?: Yes Plan: He is doing a lot better on the ventilator. He has been very stable and his blood gases look good. Continue weaning trials with pressure support. We will lighten his sedation and put him on some pressure support and see how he responds. He may be able to be extubated later this afternoon, or possibly in the morning. He does not have the wheezing that he had yesterday, but his breath sounds are still diminished for what you expect to hear from someone on the ventilator so he may benefit from another day on the vent to let the steroids do their work. (2) COPD exacerbation Is this a current diagnosis for this admission?: Yes Plan: Breath sounds are improved compared to yesterday. Still coarse, but not wheezing, but still diminished compared to the expected breath sounds are so mewhat on the ventilator. He is on steroids and antibiotics. I had increased the dosage of his steroids for he was intubated. He is responding, and hopefully we can de-escalate his steroids in the next day or 2. - Time Time Spent with patient: 25-34 minutes
[2018-04-15] MEDS: LEVOFLOXACIN 750 MG/D5W RTU 750 MG/150 ML RTUPB IV SCH (21:24)
[2018-04-16] MEDS: PROPOFOL 1,000 MG/100 ML INFUS..BTL IV PRN ×9 (01:04→23:55)
[2018-04-16] MEDS: DILTIAZEM HCL 30 MG TABLET PO SCH ×4 (02:11→20:43)
[2018-04-16] MEDS: IPRATROPIUM/ALBUTEROL 0.5-2.5 MG/3 ML AMPUL NEB SCH ×4 (02:52→20:07)
[2018-04-16 04:27] LABS: ARTERIAL BLOOD BASE EXCESS 0.9 mmol/L; ARTERIAL BLOOD H2CO3 1.52 mmol/L (1.05-1.35); ARTERIAL BLOOD HCO3 27.3 mmol/L (20-24); ARTERIAL BLOOD O2 SATURATION 93.9 % (94-98); ARTERIAL BLOOD PCO2 50.4 mmHg (35-45); ARTERIAL BLOOD PH 7.35 (7.35-7.45); ARTERIAL BLOOD PO2 73.1 mmHg (80-100); ARTERIAL BLOOD TOTAL CO2 28.9 mmol/L (23-27)
[2018-04-16 04:29] LABS: ARTERIAL BLOOD FIO2 40%
[2018-04-16] MEDS: METHYLPREDNISOLONE INJ 125 MG/2 ML SDV IV SCH (05:21)
[2018-04-16] MEDS: HEPARIN SOD (PORCINE) 5,000 UNIT/ML 1 ML SYRINGE SUBCUT SCH ×3 (05:22→21:01)
[2018-04-16 05:46] LABS: ALANINE AMINOTRANSFERASE 49 U/L (21-72); ALBUMIN 3.4 g/dL (3.5-5.0); ALKALINE PHOSPHATASE 83 U/L (38-126); ANION GAP 9 (5-19); ASPARTATE AMINO TRANSFERASE 42 U/L (17-59); BILIRUBIN,DIRECT 0.5 mg/dL (0.0-0.4); BILIRUBIN,TOTAL 0.6 mg/dL (0.2-1.3); BLOOD UREA NITROGEN 28 mg/dL (7-20); CALCIUM 8.3 mg/dL (8.4-10.2); CARBON DIOXIDE 27 mmol/L (22-30); CHLORIDE 100 mmol/L (98-107); GLUCOSE 193 mg/dL (75-110); POTASSIUM 5.3 mmol/L (3.6-5.0)
[2018-04-16] MEDS: MIDAZOLAM HCL 50 MG/100 ML RTUINJ IV PRN ×3 (06:14→22:23)
[2018-04-16] MEDS: POTASSI CL 20 MEQ/D5-1/2NS 1L 1000 ML IV PRN ×2 (07:02→17:37)
--- NOTE | 2018-04-16 07:26 | RADIOLOGY REPORT (SQ) ---
EXAM DESCRIPTION: XR CHEST 1 VIEW COMPLETED DATE/TME: 04/16/2018 05:00 CLINICAL HISTORY: Respiratory Distress. 62 years Male, on ventilator COMPARISON: One day prior. NUMBER OF VIEWS/TECHNIQUE: 1/AP FINDINGS: Mild atelectasis or scar of the right lower lung, possible bullous disease of the right upper and mid hemithorax. Tip of an endotracheal tube is 9.3 cm from the rafa; consider advancing the endotracheal tube by 4 cm. Likely adequate appearing enteric tube partially obscured. Normal cardiac silhouette size.No pneumothorax. Stable bony thorax. IMPRESSION: Tip of an endotracheal tube is 9.3 cm from the rafa; consider advancing the endotracheal tube by 4 cm. Else, stable.
[2018-04-16 07:51] LABS: HEMATOCRIT 41.3 % (37.9-51.0); HEMOGLOBIN 13.5 g/dL (13.5-17.0); MEAN CORPUSCULAR HEMOGLOBIN 26.5 pg (27.0-33.4); MEAN CORPUSCULAR HGB CONC 32.7 g/dL (32.0-36.0); MEAN CORPUSCULAR VOLUME 81 fl (80-97); PLATELET COUNT 171 10^3/uL (150-450); RED BLOOD COUNT 5.09 10^6/uL (4.35-5.55); RED CELL DISTRIBUTION WIDTH 15.8 % (11.5-14.0)
[2018-04-16 08:07] LABS: WHITE BLOOD COUNT 29.6 10^3/uL (4.0-10.5)
[2018-04-16 08:24] LABS: ABSOLUTE LYMPHOCYTES# (MANUAL) 0.3 10^3/uL (0.5-4.7); ABSOLUTE MONOCYTES # (MANUAL) 0.9 10^3/uL (0.1-1.4); ABSOLUTE NEUTROPHILS# (MANUAL) 28.4 10^3/uL (1.7-8.2); BAND NEUTROPHILS % (MANUAL) 2 % (3-5); BASOPHILS % (MANUAL) 0 % (0-2); EOSINOPHILS % (MANUAL) 0 % (0-6); LYMPHOCYTES % (MANUAL) 1 % (13-45); METAMYELOCYTES % (MANUAL) 3 % (0); MONOCYTES % (MANUAL) 3 % (3-13); SEGMENTED NEUTROPHILS % (MAN) 91 % (42-78); TOTAL CELLS COUNTED 100
[2018-04-16 08:34] LABS: ANISOCYTOSIS SLIGHT; HYPOCHROMASIA SLIGHT; PLATELET COMMENT ADEQUATE; POLYCHROMASIA SLIGHT; TOXIC GRANULATION SLIGHT; TOXIC VACUOLATION PRESENT
[2018-04-16] MEDS ORDERED: FENTANYL 50 MCG/HR PATCH.TD72 TD ONE (08:36)
[2018-04-16] MEDS ORDERED: METHYLPREDNISOLONE INJ 125 MG/2 ML SDV IV SCH (08:45)
--- NOTE | 2018-04-16 08:50 | CONSULTATION REPORT E ---
Consultation Report NAME: LAKSHMI SALINAS : 1955 AGE: 62Y DATE: 04/15/2018 605 A TO: GRIS BISHOP M.D. FROM: HAILEY HERNANDEZ M.D. Requesting Physician HISTORY OF PRESENT ILLNESS: The patient is a 62-year-old male with a past medical history of coronary artery disease, noted pulmonary hypertension, morbid obesity, hypertension, COPD, chronic bronchitis, obstructive sleep apnea, noncompliant with CPAP therapy, came in on 04/08/2018 for increased shortness of breath over the last 24 hours associated with productive cough of yellow sputum. The patient got worse, and on April 12Sunday, the patient was eventually endotracheally intubated and mechanically ventilated after getting BiPAP therapy. Consulted because patient in acute respiratory failure today. Told by nurse the patient was worse on Sunday. Wheezing is a little better today. Has a scanty endotracheal tube secretions today. No vomiting or diarrhea. The patient was still n.p.o. since the patient was intubated 3 days ago. PAST MEDICAL HISTORY: 1. Myocardial infarction. 2. Hypertension. 3. COPD. 4. Chronic bronchitis. 5. Diverticulitis. 6. Orthopedic surgery. SOCIAL HISTORY: The patient lives with family, former smoker. Denies any drug use or alcohol abuse. Denies any history of prescription drug abuse. HOME MEDICATIONS: Include: 1. Albuterol inhaler. 2. Symbicort inhaler. 3. Flexeril tablet. 4. Nexium. 5. Hydrocodone. 6. Tylenol. 7. Lisinopril. 8. Metoprolol. 9. Spiriva Respimat inhaler. MEDICATIONS IN THE HOSPITAL: Include: 1. Lortab 7.5 mg, 15 mL every 6 hours p.r.n. 2. Duoneb nebulizer treatment 3 mL every 6 hours and Duoneb nebulizer treatment q. 2 hours p.r.n. for shortness of breath. 3. Cardizem 30 mg p.o. every 6 hours. 4. Robitussin syrup. 5. Heparin for DVT prophylaxis. 6. Levaquin 750 mg daily IV at bedtime. 7. Ativan 10 mg IV every 4 hours. 8. Solu-Medrol 80 mg IV q. 8. 9. Versed give for sedation. 10. Percocet. 11. Oxycodone 10 mg. 12. Tylenol 325 mg 1 tab p.o. q. 6 hours as needed. 13. Protonix 40 mg IV daily. ALLERGIES: Include: 1. ASPIRIN. 2. IBUPROFEN. 3. IODINE. 4. SYNTHROID. 5. SHELLFISH. 6. STATINS. REVIEW OF SYSTEMS: CONSTITUTIONAL: No fever or chills. EYES: No jaundice or pallor. EARS, NOSE, AND THROAT: No ear drainage. No nasal discharge. RESPIRATORY: Complains about increasing shortness of breath, wheezing, chest tightness, sputum production. GASTROINTESTINAL: No nausea, vomiting, diarrhea. GENITOURINARY: No dysuria or hematuria. EXTREMITIES: No joint swelling. No cellulitis. PHYSICAL EXAMINATION: GENERAL: The patient is sedated, afebrile, not in apparent severe respiratory distress. VITAL SIGNS: Temperature is 97.9 with a T-max of 97.9, heart rate is 98, blood pressure is 138/92, respiratory rate is 23 and saturation 97% on pressor support of 15, PEEP of 10, FiO2 of 40%. EYES: No jaundice or pallor. EARS, NOSE, AND THROAT: No ear drainage. No nasal discharge. CHEST AND LUNGS: Some mild wheezing right lung. No coarse crackles. No rhonchi noted. CARDIOVASCULAR: S1, S2 distinct. Normal rate. Regular rhythm. ABDOMEN: Flabby. Positive bowel sounds. Soft, nondistended. EXTREMITIES: No joint swelling. LABORATORY: no new labs and chest x-ray. ASSESSMENT: 1. Acute respiratory failure requiring invasive mechanical ventilation. Currently still requiring high PEEP of 10. The patient is still wheezing, not able to be extubated yet, but we will plan to do sedation vacation every morning and will start spotaneous breathing trial when the PEEP requirement is lower. 2. COPD in acute severe exacerbation. 3. Obstructive sleep apnea. Noncompliant on CPAP therapy. PLAN AND RECOMMENDATIONS: 1. Will start patient's feeding today at 20 mL per hour and check for gastric residuals. 2. Will check CBC, chem 12, and chest x-ray, ABG tomorrow. 3. Will start sedation vacation every morning, tomorrow. 4. Will do a sputum culture. DICTATING PHYSICIAN: GRIS BISHOP MD,JORDYN,MPH [id number] PHY#: [id number] 1915 ID: [id number] JOB#: [id number] ACCT: [id number] cc:GRIS BISHOP M.D. > IRA
[2018-04-16 09:31] LABS: CREATINE KINASE MB 0.97 ng/mL (<4.55); TROPONIN I 0.018 ng/mL
[2018-04-16] MEDS: PANTOPRAZOLE SODIUM 40 MG VIAL IV SCH (09:38)
--- NOTE | 2018-04-16 10:04 | RADIOLOGY REPORT (SQ) ---
EXAM DESCRIPTION: CHEST SINGLE VIEW COMPLETED DATE/TIME: 04/16/2018 9:32 am REASON FOR STUDY: ET Tube Placement COMPARISON: 04/16/2018 EXAM PARAMETERS: NUMBER OF VIEWS: One view. TECHNIQUE: Single frontal radiographic view of the chest acquired. RADIATION DOSE: NA LIMITATIONS: None. FINDINGS: LUNGS AND PLEURA: Unchanged right basilar atelectasis or scarring. Bullous emphysematous change at the right upper lung, stable. No pleural effusion or pneumothorax. MEDIASTINUM AND HILAR STRUCTURES: No masses. Contour normal. HEART AND VASCULAR STRUCTURES: Heart normal in size. Normal vasculature. BONES: No acute findings. HARDWARE: Endotracheal tube tip overlies midthoracic trachea. Enteric tube tip overlies proximal gas tric body with side port likely a GE junction. OTHER: No other significant finding. IMPRESSION: Enteric tube tip overlies proximal gastric body with side port likely at GE junction. Endotracheal tube tip overlies midthoracic trachea. Stable right basilar atelectasis/ scarring. TECHNICAL DOCUMENTATION: JOB ID: [id number] [employer]- All Rights Reserved Reading location - IP/workstation name: [email or web address]
[2018-04-16] MEDS: PIPERACILLIN SODIUM/TAZOBACTAM 2.25 GM in NORMAL SALINE 50 ML IV SCH ×3 (11:15→23:51)
[2018-04-16] MEDS ORDERED: PANTOPRAZOLE SODIUM 40 MG VIAL IV SCH (11:30)
[2018-04-16] MEDS: METHYLPREDNISOLONE INJ 40 MG/1 ML SDV IV SCH ×2 (13:46→21:01)
[2018-04-16 15:19] LABS: CREATINE KINASE MB 0.6 ng/mL (<4.55); TROPONIN I 0.013 ng/mL
--- NOTE | 2018-04-16 16:15 | PDOC PROGRESS REPORT ---
Subjective Progress Note for:: 04/16/18 Subjective:: This is a 62 yr old male with a PMH of CAD, COPD, obesitym, HTN, pulmonary HTN, and MC not compliant to CPAP who initially presented with cough and progressive SOB. He was admitted for COPD exacerbation. He was initially on BIPAP but eventually required intubation. He was intubated on 04/09/18. No acute event overnight. Patient remain intubated and sedated. Pulmonology following and managing vent. Patient appears slightly tachypenic this morning on current vent settings. He does have moderate whitish secretions from the ET. Reason For Visit: COPD EXACERBATION PNEUMONIA Physical Exam Vital Signs: Temp Pulse Resp BP Pulse Ox 100.2 F 103 H 20 120/84 93 04/16/18 14:00 04/16/18 14:00 04/16/18 14:00 04/16/18 14:00 04/16/18 14:00 Intake & Output 04/15/18 04/16/18 04/17/18 06:59 06:59 06:59 Intake Total 2992 3097 304 Output Total 1950 3000 2704 Balance 1042 97 -2400 Weight 252 lb 13.923 oz 255 lb 1.197 oz General appearance: PRESENT: other - intubated, sedated Head exam: PRESENT: atraumatic, normocephalic Eye exam: PRESENT: conjunctiva pink, EOMI, PERRLA. ABSENT: scleral icterus Ear exam: PRESENT: normal external ear exam Mouth exam: PRESENT: moist, tongue midline Neck exam: ABSENT: carotid bruit, JVD, lymphadenopathy, thyromegaly Respiratory exam: PRESENT: rhonchi. ABSENT: rales, wheezes Cardiovascular exam: PRESENT: RRR. ABSENT: diastolic murmur, rubs, systolic murmur Pulses: PRESENT: normal dorsalis pedis pul GI/Abdominal exam: PRESENT: normal bowel sounds, soft. ABSENT: distended, guarding, mass, organolmegaly, rebound, tenderness Rectal exam: PRESENT: deferred Neurological exam: PRESENT: other - intubated, sedated Results Laboratory Results: 04/16/18 04:42 04/16/18 04:42 04/16/18 04/16/18 04/16/18 04:05 04:42 04:42 WBC 29.6 H D RBC 5.09 Hgb 13.5 Hct 41.3 MCV 81 MCH 26.5 L MCHC 32.7 RDW 15.8 H Plt Count 171 Seg Neutrophils % Not Reportable Lymphocytes % Not Reportable Monocytes % Not Reportable Eosinophils % Not Reportable Basophils % Not Reportable Absolute Neutrophils Not Reportable Absolute Lymphocytes Not Reportable Absolute Monocytes Not Reportable Absolute Eosinophils Not Reportable Absolute Basophils Not Reportable Carbonic Acid 1.52 H HCO3/H2CO3 Ratio 17:1 ABG pH 7.35 ABG pCO2 50.4 H ABG pO2 73.1 L ABG HCO3 27.3 H ABG O2 Saturation 93.9 L ABG Base Excess 0.9 FiO2 40% Sodium 136.0 L Potassium 5.3 H Chloride 100 Carbon Dioxide 27 Anion Gap 9 BUN 28 H Creatinine 0.67 Est GFR ( Amer) > 60 Est GFR (Non-Af Amer) > 60 Glucose 193 H Calcium 8.3 L Total Bilirubin 0.6 AST 42 ALT 49 Alkaline Phosphatase 83 Total Protein 6.0 L Albumin 3.4 L 04/08/18 04/08/18 04/08/18 17:50 17:50 17:50 Creatine Kinase Cancelled CK-MB (CK-2) Cancelled Troponin I Cancelled NT-Pro-B Natriuret Pep 55 04/08/18 04/08/18 04/16/18 18:58 18:58 08:45 Creatine Kinase 155 46 L CK-MB (CK-2) 2.49 Troponin I < 0.012 NT-Pro-B Natriuret Pep 04/16/18 04/16/18 04/16/18 08:45 14:42 14:42 Creatine Kinase 50 L CK-MB (CK-2) 0.97 0.60 Troponin I 0.018 0.013 NT-Pro-B Natriuret Pep Impressions: Chest X-Ray 04/16/18 08:57 IMPRESSION: Enteric tube tip overlies proximal gastric body with side port sherwin munoz at GE junction. Endotracheal tube tip overlies midthoracic trachea. Stable right basilar atelectasis/ scarring. Assessment & Plan - Diagnosis (1) Acute and chronic respiratory failure with hypoxia Is this a current diagnosis for this admission?: Yes Plan: Secondary to severe COPD exacerbation. Currently intubated. Pulmonology following. FiO at 40%. (2) COPD exacerbation Is this a current diagnosis for this admission?: Yes Plan: Currently intubated. Continue IV steroids. - Time Time Spent with patient: 25-34 minutes
[2018-04-16] MEDS: LEVOFLOXACIN 750 MG/D5W RTU 750 MG/150 ML RTUPB IV SCH (21:02)
[2018-04-16] MEDS ORDERED: LEVOFLOXACIN 750 MG/D5W RTU 750 MG/150 ML RTUPB IV SCH (22:00)
[2018-04-16 22:17] LABS: CREATINE KINASE MB 0.46 ng/mL (<4.55)
[2018-04-16 22:18] LABS: TROPONIN I < 0.012 ng/mL
[2018-04-17] MEDS: IPRATROPIUM/ALBUTEROL 0.5-2.5 MG/3 ML AMPUL NEB SCH ×4 (01:56→19:36)
[2018-04-17] MEDS: DILTIAZEM HCL 30 MG TABLET PO SCH ×4 (02:08→21:47)
[2018-04-17] MEDS: PROPOFOL 1,000 MG/100 ML INFUS..BTL IV PRN ×8 (02:28→21:45)
[2018-04-17 04:08] LABS: HEMATOCRIT 39.3 % (37.9-51.0); HEMOGLOBIN 13.1 g/dL (13.5-17.0); MEAN CORPUSCULAR HEMOGLOBIN 26.8 pg (27.0-33.4); MEAN CORPUSCULAR HGB CONC 33.3 g/dL (32.0-36.0); MEAN CORPUSCULAR VOLUME 80 fl (80-97); PLATELET COUNT 169 10^3/uL (150-450); RED CELL DISTRIBUTION WIDTH 15.6 % (11.5-14.0); WHITE BLOOD COUNT 26.7 10^3/uL (4.0-10.5)
[2018-04-17 04:09] LABS: ARTERIAL BLOOD BASE EXCESS 2.6 mmol/L; ARTERIAL BLOOD FIO2 40%; ARTERIAL BLOOD H2CO3 1.41 mmol/L (1.05-1.35); ARTERIAL BLOOD HCO3 28.1 mmol/L (20-24); ARTERIAL BLOOD O2 SATURATION 95.7 % (94-98); ARTERIAL BLOOD PCO2 46.8 mmHg (35-45); ARTERIAL BLOOD PO2 79.8 mmHg (80-100); ARTERIAL BLOOD TOTAL CO2 29.5 mmol/L (23-27)
[2018-04-17 04:31] LABS: ABSOLUTE LYMPHOCYTES# (MANUAL) 0.3 10^3/uL (0.5-4.7); ABSOLUTE MONOCYTES # (MANUAL) 2.4 10^3/uL (0.1-1.4); BAND NEUTROPHILS % (MANUAL) 2 % (3-5); BASOPHILS % (MANUAL) 0 % (0-2); EOSINOPHILS % (MANUAL) 0 % (0-6); LYMPHOCYTES % (MANUAL) 1 % (13-45); METAMYELOCYTES % (MANUAL) 2 % (0); MONOCYTES % (MANUAL) 9 % (3-13); MYELOCYTES % (MANUAL) 2 % (0); PROMYELOCYTES % (MANUAL) 1 % (0); SEGMENTED NEUTROPHILS % (MAN) 83 % (42-78); TOTAL CELLS COUNTED 100
[2018-04-17 04:33] LABS: ANISOCYTOSIS SLIGHT; PLATELET COMMENT ADEQUATE
[2018-04-17 04:35] LABS: ALANINE AMINOTRANSFERASE 97 U/L (21-72); ALBUMIN 3.2 g/dL (3.5-5.0); ALKALINE PHOSPHATASE 71 U/L (38-126); ANION GAP 7 (5-19); ASPARTATE AMINO TRANSFERASE 64 U/L (17-59); BILIRUBIN,DIRECT 0.6 mg/dL (0.0-0.4); BILIRUBIN,TOTAL 0.7 mg/dL (0.2-1.3); BLOOD UREA NITROGEN 36 mg/dL (7-20); CALCIUM 8.2 mg/dL (8.4-10.2); CARBON DIOXIDE 27 mmol/L (22-30); CHLORIDE 102 mmol/L (98-107); GLUCOSE 181 mg/dL (75-110); POTASSIUM 5.5 mmol/L (3.6-5.0); SODIUM 136.3 mmol/L (137-145); TOTAL PROTEIN 5.6 g/dL (6.3-8.2)
[2018-04-17] MEDS: HEPARIN SOD (PORCINE) 5,000 UNIT/ML 1 ML SYRINGE SUBCUT SCH ×3 (05:53→21:46)
[2018-04-17] MEDS: METHYLPREDNISOLONE INJ 40 MG/1 ML SDV IV SCH ×3 (05:54→21:45)
[2018-04-17] MEDS: PIPERACILLIN SODIUM/TAZOBACTAM 2.25 GM in NORMAL SALINE 50 ML IV SCH ×2 (05:55→11:14)
[2018-04-17 06:14] LABS: ANION GAP 7 (5-19); BLOOD UREA NITROGEN 37 mg/dL (7-20); CARBON DIOXIDE 27 mmol/L (22-30); CHLORIDE 102 mmol/L (98-107); GLUCOSE 182 mg/dL (75-110); PHOSPHORUS 4.1 mg/dL (2.5-4.5); POTASSIUM 5.6 mmol/L (3.6-5.0); SODIUM 135.5 mmol/L (137-145)
[2018-04-17] MEDS: MIDAZOLAM HCL 50 MG/100 ML RTUINJ IV PRN ×2 (06:47→23:59)
[2018-04-17] MEDS: POTASSI CL 20 MEQ/D5-1/2NS 1L 1000 ML IV PRN (07:49)
--- NOTE | 2018-04-17 07:51 | RADIOLOGY REPORT (SQ) ---
CLINICAL HISTORY: resp failure COMPARISON: One day earlier NG tube tip is in the stomach. 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 There is upper lung emphysema. There is no pleural effusion. There is no pneumothorax. There are no acute osseous findings. Endotracheal tube tip is in the midtrachea. IMPRESSION: No significant change.
[2018-04-17] MEDS: NORMAL SALINE 1000 ML 1,000 ML IV PRN (09:17)
[2018-04-17] MEDS: PANTOPRAZOLE SODIUM 40 MG VIAL IV SCH (10:02)
[2018-04-17] MEDS ORDERED: IMIPENEM/CILASTATIN SODIUM 500 MG in NORMAL SALINE 100 ML IV SCH (13:00)
[2018-04-17 15:08] LABS: PATH REVIEW PATHOLOGIST REVIEWED
--- NOTE | 2018-04-17 16:55 | PDOC PROGRESS REPORT ---
Subjective Progress Note for:: 04/17/18 Subjective:: This is a 62 yr old male with a PMH of CAD, COPD, obesitym, HTN, pulmonary HTN, and MC not compliant to CPAP who initially presented with cough and progressive SOB. He was admitted for COPD exacerbation. He was initially on BIPAP but eventually required intubation. He was intubated on 04/09/18. 04/16: Patient remain intubated and sedated. Pulmonology following and managing vent. Patient appears slightly tachypenic this morning on current vent settings. He does have moderate whitish secretions from the ET. 04/17: No acute event overnight. Remain intubated and sedated. Pulmonology managing vent. He is currently on 40% FiO2, PEEP of 10. Secretions from ET has been minimal overnight. No fever. Reason For Visit: COPD EXACERBATION PNEUMONIA Physical Exam Vital Signs: Temp Pulse Resp BP Pulse Ox 99.5 F 105 H 20 130/90 H 96 04/17/18 14:00 04/17/18 14:00 04/17/18 14:00 04/17/18 14:00 04/17/18 14:00 Intake & Output 04/16/18 04/17/18 04/18/18 06:59 06:59 06:59 Intake Total 3097 3280 668 Output Total 3000 4753 1200 Balance 97 -1473 -532 Weight 255 lb 1.197 oz 251 lb 5.231 oz General appearance: PRESENT: other - intubated, sedated Eye exam: PRESENT: conjunctiva pink, EOMI, PERRLA. ABSENT: scleral icterus Ear exam: PRESENT: normal external ear exam Respiratory exam: PRESENT: rhonchi. ABSENT: rales, wheezes Cardiovascular exam: PRESENT: RRR. ABSENT: diastolic murmur, rubs, systolic murmur Pulses: PRESENT: normal dorsalis pedis pul GI/Abdominal exam: PRESENT: normal bowel sounds, soft. ABSENT: distended, guarding, mass, organolmegaly, rebound, tenderness Rectal exam: PRESENT: deferred Neurological exam: PRESENT: other - intubated, sedated Results Laboratory Results: 04/17/18 03:52 04/17/18 05:40 04/17/18 04/17/18 04/17/18 03:52 03:52 03:52 WBC 26.7 H RBC 4.90 Hgb 13.1 L Hct 39.3 MCV 80 MCH 26.8 L MCHC 33.3 RDW 15.6 H Plt Count 169 Seg Neutrophils % Not Reportable Lymphocytes % Not Reportable Monocytes % Not Reportable Eosinophils % Not Reportable Basophils % Not Reportable Absolute Neutrophils Not Reportable Absolute Lymphocytes Not Reportable Absolute Monocytes Not Reportable Absolute Eosinophils Not Reportable Absolute Basophils Not Reportable Carbonic Acid HCO3/H2CO3 Ratio ABG pH ABG pCO2 ABG pO2 ABG HCO3 ABG O2 Saturation ABG Base Excess FiO2 Sodium 136.3 L Potassium 5.5 H Chloride 102 Carbon Dioxide 27 Anion Gap 7 BUN 36 H Creatinine 0.63 Est GFR ( Amer) > 60 Est GFR (Non-Af Amer) > 60 Glucose 181 H Lactic Acid 1.5 Calcium 8.2 L Phosphorus Magnesium 3.0 H Total Bilirubin 0.7 AST 64 H ALT 97 H Alkaline Phosphatase 71 Total Protein 5.6 L Albumin 3.2 L 04/17/18 04/17/18 04:03 05:40 WBC RBC Hgb Hct MCV MCH MCHC RDW Plt Count Seg Neutrophils % Lymphocytes % Monocytes % Eosinophils % Basophils % Absolute Neutrophils Absolute Lymphocytes Absolute Monocytes Absolute Eosinophils Absolute Basophils Carbonic Acid 1.41 H HCO3/H2CO3 Ratio 19:1 ABG pH 7.40 ABG pCO2 46.8 H ABG pO2 79.8 L ABG HCO3 28.1 H ABG O2 Saturation 95.7 ABG Base Excess 2.6 FiO2 40% Sodium 135.5 L Potassium 5.6 H Chloride 102 Carbon Dioxide 27 Anion Gap 7 BUN 37 H Creatinine 0.57 Est GFR ( Amer) > 60 Est GFR (Non-Af Amer) > 60 Glucose 182 H Lactic Acid Calcium 8.0 L Phosphorus 4.1 Magnesium 3.0 H Total Bilirubin AST ALT Alkaline Phosphatase Total Protein Albumin 04/08/18 04/08/18 04/08/18 17:50 17:50 17:50 Creatine Kinase Cancelled CK-MB (CK-2) Cancelled Troponin I Cancelled NT-Pro-B Natriuret Pep 55 04/08/18 04/08/18 04/16/18 18:58 18:58 08:45 Creatine Kinase 155 46 L CK-MB (CK-2) 2.49 Troponin I < 0.012 NT-Pro-B Natriuret Pep 04/16/18 04/16/18 04/16/18 08:45 14:42 14:42 Creatine Kinase 50 L CK-MB (CK-2) 0.97 0.60 Troponin I 0.018 0.013 NT-Pro-B Natriuret Pep 04/16/18 04/16/18 21:20 21:20 Creatine Kinase 40 L CK-MB (CK-2) 0.46 Troponin I < 0.012 NT-Pro-B Natriuret Pep Impressions: Chest X-Ray 04/17/18 06:00 IMPRESSION: No significant change. Assessment & Plan - Diagnosis (1) Acute and chronic respiratory failure with hypoxia Is this a current diagnosis for this admission?: Yes Plan: Secondary to severe COPD exacerbation. Currently intubated. Pulmonology following. FiO at 40%, PEEP of 10. (2) COPD exacerbation Is this a current diagnosis for this admission?: Yes Plan: Currently intubated. Continue IV steroids. Discontinue Zosyn (3) Hyperkalemia Is this a current diagnosis for this admission?: Yes Plan: Discontinue fluids with potassium supplement. Repeat serum potassium. - Time Time Spent with patient: 25-34 minutes
[2018-04-17] MEDS: LEVOFLOXACIN 750 MG/D5W RTU 750 MG/150 ML RTUPB IV SCH (17:20)
[2018-04-17] MEDS ORDERED: PIPERACILLIN SODIUM/TAZOBACTAM 4.5 GM in NORMAL SALINE 100 ML IV SCH (18:00)
[2018-04-17 18:27] LABS: APPEARANCE,URINE CLOUDY; BILIRUBIN,URINE NEGATIVE (NEGATIVE); COLOR,URINE YELLOW; GLUCOSE, URINE >=500 mg/dL (NEGATIVE); KETONES,URINE NEGATIVE (NEGATIVE); LEUKOCYTE ESTERASE,URINE NEGATIVE (NEGATIVE); NITRITE,URINE NEGATIVE (NEGATIVE); PROTEIN,URINE NEGATIVE (NEGATIVE); URINE SPECIFIC GRAVITY 1.023
[2018-04-17] MEDS ORDERED: FUROSEMIDE INJ/PF 40 MG/4 ML SDV IV ONE (20:30)
[2018-04-17] MEDS ORDERED: INSULIN REG, HUMAN 100 UNIT/ML 3 ML VIAL (PYX) IV ONE (20:30)
[2018-04-17] MEDS ORDERED: CALCIUM GLUCONATE 1000 MG/10 ML INJ IV ONE (20:30)
[2018-04-17] MEDS ORDERED: DEXTROSE 50%-WATER 25 GM/50 ML DISP.SYRIN IV ONE ×3 (20:30→22:42)
--- NOTE | 2018-04-17 22:47 | RADIOLOGY REPORT (SQ) ---
EXAM DESCRIPTION: CT ABDOMEN PELVIS WITHOUT IV CONTRAST COMPLETED DATE/TME: 04/17/2018 18:46 CLINICAL HISTORY: 62 years Male, fecaloid NG output Comparison: 08/28/2014 Technique: No contrast. Coronal and sagittal reformat. This exam was performed according to our departmental dose-optimization program, which includes automated exposure control, adjustment of the mA and/or kV according to patient size and/or use of iterative reconstruction technique.[facility]: Dose Right [facility]: CareDose [facility]: Dose Right [facility]: Teradose 4D [facility]: Seguro Surgical LIMITATIONS: None Findings: Enteric tube tip at the stomach. Small consolidation of the right lower lobe. Minimal left basilar atelectasis. Bilateral perinephric fat stranding, nonspecific. Thomas catheter. Colonic diverticulosis. Punctate calcification of the right kidney may indicate a calyceal stone or renal stone, uncomplicated. Moderate rectal and distal sigmoid stool retention. No ascites. No pneumoperitoneum. No bowel obstruction. No gross evidence of gallbladder inflammation or hepatobiliary obstruction. Normal appendix. T10-T11 moderate desiccated disc height loss. Unenhanced lower thorax, abdominopelvic structures, and musculoskeleton appear otherwise grossly unremarkable. Impression: Small bibasilar atelectasis/pneumonia. Else, no acute abdominal or pelvic findings.
[2018-04-18] MEDS: IPRATROPIUM/ALBUTEROL 0.5-2.5 MG/3 ML AMPUL NEB SCH ×5 (01:06→20:16)
[2018-04-18] MEDS: PROPOFOL 1,000 MG/100 ML INFUS..BTL IV PRN ×7 (01:50→22:02)
[2018-04-18] MEDS: DILTIAZEM HCL 30 MG TABLET PO SCH ×3 (03:06→14:00)
[2018-04-18 04:03] LABS: HEMATOCRIT 41.9 % (37.9-51.0); MEAN CORPUSCULAR HGB CONC 33.3 g/dL (32.0-36.0); MEAN CORPUSCULAR VOLUME 81 fl (80-97); PLATELET COUNT 142 10^3/uL (150-450); RED BLOOD COUNT 5.18 10^6/uL (4.35-5.55); RED CELL DISTRIBUTION WIDTH 15.7 % (11.5-14.0); WHITE BLOOD COUNT 28.2 10^3/uL (4.0-10.5)
[2018-04-18 04:19] LABS: ABSOLUTE LYMPHOCYTES# (MANUAL) 0.8 10^3/uL (0.5-4.7); ABSOLUTE MONOCYTES # (MANUAL) 1.4 10^3/uL (0.1-1.4); ABSOLUTE NEUTROPHILS# (MANUAL) 25.7 10^3/uL (1.7-8.2); BAND NEUTROPHILS % (MANUAL) 1 % (3-5); BASOPHILS % (MANUAL) 0 % (0-2); EOSINOPHILS % (MANUAL) 1 % (0-6); LYMPHOCYTES % (MANUAL) 3 % (13-45); METAMYELOCYTES % (MANUAL) 1 % (0); MONOCYTES % (MANUAL) 5 % (3-13); NUCLEATED RED BLOOD CELLS 1 /100 WBC (0); SEGMENTED NEUTROPHILS % (MAN) 89 % (42-78); TOTAL CELLS COUNTED 100
[2018-04-18 04:21] LABS: ANISOCYTOSIS SLIGHT; TOXIC GRANULATION 1+
[2018-04-18 04:22] LABS: PLATELET COMMENT DECREASED
[2018-04-18 04:44] LABS: ALANINE AMINOTRANSFERASE 117 U/L (21-72); ALBUMIN 3.4 g/dL (3.5-5.0); ALKALINE PHOSPHATASE 72 U/L (38-126); ANION GAP 9 (5-19); ASPARTATE AMINO TRANSFERASE 70 U/L (17-59); BILIRUBIN,DIRECT 0.7 mg/dL (0.0-0.4); BLOOD UREA NITROGEN 40 mg/dL (7-20); CALCIUM 8.3 mg/dL (8.4-10.2); CARBON DIOXIDE 29 mmol/L (22-30); CHLORIDE 100 mmol/L (98-107); GLUCOSE 218 mg/dL (75-110); POTASSIUM 5.6 mmol/L (3.6-5.0)
[2018-04-18] MEDS: METHYLPREDNISOLONE INJ 40 MG/1 ML SDV IV SCH ×3 (05:13→22:00)
[2018-04-18 06:23] LABS: ARTERIAL BLOOD BASE EXCESS 6.8 mmol/L; ARTERIAL BLOOD H2CO3 1.45 mmol/L (1.05-1.35); ARTERIAL BLOOD HCO3 32.2 mmol/L (20-24); ARTERIAL BLOOD O2 SATURATION 96.3 % (94-98); ARTERIAL BLOOD PCO2 48.1 mmHg (35-45); ARTERIAL BLOOD PH 7.44 (7.35-7.45); ARTERIAL BLOOD PO2 81.4 mmHg (80-100); ARTERIAL BLOOD TOTAL CO2 33.6 mmol/L (23-27)
[2018-04-18 06:25] LABS: ARTERIAL BLOOD FIO2 45%
--- NOTE | 2018-04-18 07:21 | RADIOLOGY REPORT (SQ) ---
EXAM DESCRIPTION: XR CHEST 1 VIEW COMPLETED DATE/TME: 04/18/2018 06:00 CLINICAL HISTORY: 62 years Male, sepsis COMPARISON: One day prior. NUMBER OF VIEWS/TECHNIQUE: 1/AP FINDINGS: Small atelectasis or scar of the right lower lung field. Adequate appearing endotracheal tube. Likely adequate appearing enteric tube partially obscured. Normal cardiac silhouette size. No pneumothorax. Stable bony thorax. IMPRESSION: No significant change.
--- NOTE | 2018-04-18 07:47 | EKG REPORT ---
SEVERITY:- BORDERLINE ECG - SINUS TACHYCARDIA LOW VOLTAGE WITH RIGHT AXIS DEVIATION CONSIDER RIGHT VENTRICULAR HYPERTROPHY : Confirmed by: Bertrand Mota MD 18-Apr-2018 07:46:29
[2018-04-18] MEDS ORDERED: PATIROMER 8.4 GM SUSP PACKET PO ONE ×2 (07:50→20:00)
[2018-04-18] MEDS: PANTOPRAZOLE SODIUM 40 MG VIAL IV SCH (10:08)
[2018-04-18] MEDS: HEPARIN SOD (PORCINE) 5,000 UNIT/ML 1 ML SYRINGE SUBCUT SCH (10:09)
--- NOTE | 2018-04-18 12:11 | PDOC CONSULTATION ---
Consultation Consult Date: 04/09/18 Attending physician:: ARINA COLE Consult reason:: Acute on chronic respiratory failure History of Present Illness Admission Date/PCP: 04/08/18 20:32 PATSY MOREIRA MD History of Present Illness: LAKSHMI SALINAS is a 62 year old male,Presented to ED complaint increasing shortness of breath and cough 3-4 days prior to presentation he was found to be tachypneic tachycardic hypoxemic and was subsequently intubated is currently in the ICU intubated and sedated Past Medical History Cardiac Medical History: Reports: Myocardial Infarction, Hypertension Pulmonary Medical History: Reports: Bronchitis, Chronic Obstructive Pulmonary Disease (COPD) GI Medical History: Reports: Diverticulitis Psychiatric Medical History: Denies: Depression, Tobacco Dependency Past Surgical History Past Surgical History: Reports: Orthopedic Surgery Social History Information Source: [facility] Records Lives with: Family Smoking Status: Former Smoker Frequency of Alcohol Use: None Hx Recreational Drug Use: No Drugs: None Hx Prescription Drug Abuse: No - Advance Directive Resuscitation Status: Full Code Family History Family History: CAD, COPD Parental Family History Reviewed: No Children Family History Reviewed: No Sibling(s) Family History Reviewed.: No Medication/Allergy Home Medications: Albuterol Sulfate [Proair Hfa Inhalation Aerosol 8.5 gm Mdi] 2 puff IH QIDP PRN 04/08/18 Budesonide/Formoterol Fumarate [Symbicort Hfa 160-4.5 Mcg Inhaler 6 gm] 2 puff IH Q12 04/08/18 Cyclobenzaprine HCl [Flexeril 10 mg Tablet] 5 mg PO TIDP PRN 04/08/18 Esomeprazole Magnesium 40 mg PO DAILY 04/08/18 Hydrocodone/Acetaminophen [[place] 10-325 mg Tablet] 1.5 tab PO QIDP PRN 04/08/18 Lisinopril [Prinivil 40 mg Tablet] 40 mg PO QHS 04/08/18 Metoprolol Succinate [Toprol XL 100 mg Tablet] 100 mg PO QHS 04/08/18 Promethazine HCl/Codeine [Prometh-Codein 6.25-10 mg/5 ml] 10 ml PO QIDP PRN 04/08/18 Tiotropium [place] [Spiriva Respimat] 2 puff IH DAILY 04/08/18 Allergies/Adverse Reactions: bee venom protein (honey bee) Allergy (Verified 04/09/18 07:45) iodine [Iodine] Allergy (Verified 04/09/18 07:45) levothyroxine Allergy (Verified 04/09/18 07:45) Shellfish * [Shellfish] Allergy (Verified 04/09/18 07:45) aspirin Adverse Reaction (Verified 04/09/18 07:45) Review of Systems ROS unobtainable: Due to endotracheal tube Physical Exam Vital Signs: Temp Pulse Resp BP Pulse Ox 98.6 F 126 H 18 142/91 H 95 04/08/18 18:34 04/09/18 13:58 04/09/18 13:58 04/09/18 12:31 04/09/18 13:58 Intake & Output 04/08/18 04/09/18 04/10/18 06:59 06:59 06:59 Intake Total 1323 Balance 1323 Weight 104.3 kg General appearance: PRESENT: no acute distress, disheveled, obese Head exam: PRESENT: atraumatic, normocephalic Eye exam: PRESENT: conjunctiva pale. ABSENT: nystagmus Mouth exam: PRESENT: dry mucosa, neck supple, tongue midline, other - ET tube in place Neck exam: ABSENT: carotid bruit, JVD, lymphadenopathy, thyromegaly, tracheal deviation, tracheostomy Respiratory exam: PRESENT: decreased breath sounds, prolonged expiratory phas, rales, rhonchi, unlabored, wheezes. ABSENT: retraction Cardiovascular exam: PRESENT: RRR, +S1, +S2 Pulses: PRESENT: normal radial pulses GI/Abdominal exam: PRESENT: tenderness Gentrourinary exam: PRESENT: indwelling catheter Extremities exam: ABSENT: calf tenderness, clubbing, joint swelling Musculoskeletal exam: ABSENT: deformity, dislocation Neurological exam: ABSENT: awake Skin exam: PRESENT: dry, warm Results Laboratory Results: 04/09/18 06:18 04/09/18 06:18 04/08/18 04/08/18 04/08/18 17:50 17:50 18:58 WBC 11.6 H RBC 5.65 H Hgb 15.1 Hct 46.1 MCV 82 MCH 26.8 L MCHC 32.8 RDW 15.1 H Plt Count 300 Seg Neutrophils % 54.1 Lymphocytes % 30.5 Monocytes % 11.2 Eosinophils % 3.3 Basophils % 0.9 Absolute Neutrophils 6.3 Absolute Lymphocytes 3.5 Absolute Monocytes 1.3 Absolute Eosinophils 0.4 Absolute Basophils 0.1 Carbonic Acid HCO3/H2CO3 Ratio ABG pH ABG pCO2 ABG pO2 ABG HCO3 ABG O2 Saturation ABG Base Excess VBG pH 7.38 VBG pCO2 43.4 VBG HCO3 24.8 VBG Base Excess -0.6 FiO2 Sodium Cancelled Potassium Cancelled Chloride Cancelled Carbon Dioxide Cancelled Anion Gap Cancelled BUN Cancelled Creatinine Cancelled Est GFR ( Amer) Cancelled Est GFR (Non-Af Amer) Cancelled Glucose Cancelled Calcium Cancelled Total Bilirubin Cancelled AST Cancelled ALT Cancelled Alkaline Phosphatase Cancelled Total Protein Cancelled Albumin Cancelled 04/08/18 04/09/18 04/09/18 18:58 06:18 06:18 WBC 10.5 RBC 6.18 H Hgb 16.4 Hct 49.6 MCV 80 MCH 26.5 L MCHC 33.1 RDW 15.6 H Plt Count 311 Seg Neutrophils % 86.4 H Lymphocytes % 11.1 L Monocytes % 2.1 L Eosinophils % 0.0 Basophils % 0.4 Absolute Neutrophils 9.1 H Absolute Lymphocytes 1.2 Absolute Monocytes 0.2 Absolute Eosinophils 0.0 Absolute Basophils 0.0 Carbonic Acid HCO3/H2CO3 Ratio ABG pH ABG pCO2 ABG pO2 ABG HCO3 ABG O2 Saturation ABG Base Excess VBG pH VBG pCO2 VBG HCO3 VBG Base Excess FiO2 Sodium 138.3 138.9 Potassium 4.4 4.8 Chloride 106 102 Carbon Dioxide 24 19 L Anion Gap 8 18 BUN 12 14 Creatinine 0.88 1.04 Est GFR ( Amer) > 60 > 60 Est GFR (Non-Af Amer) > 60 > 60 Glucose 119 H 228 H Calcium 9.4 10.0 Total Bilirubin 0.3 AST 15 L ALT 21 Alkaline Phosphatase 85 Total Protein 7.3 Albumin 4.4 04/09/18 15:02 WBC RBC Hgb Hct MCV MCH MCHC RDW Plt Count Seg Neutrophils % Lymphocytes % Monocytes % Eosinophils % Basophils % Absolute Neutrophils Absolute Lymphocytes Absolute Monocytes Absolute Eosinophils Absolute Basophils Carbonic Acid 1.02 L HCO3/H2CO3 Ratio 21:1 ABG pH 7.42 ABG pCO2 33.9 L ABG pO2 105.2 H ABG HCO3 21.5 ABG O2 Saturation 98.0 ABG Base Excess -2.1 VBG pH VBG pCO2 VBG HCO3 VBG Base Excess FiO2 30% Sodium Potassium Chloride Carbon Dioxide Anion Gap BUN Creatinine Est GFR ( Amer) Est GFR (Non-Af Amer) Glucose Calcium Total Bilirubin AST ALT Alkaline Phosphatase Total Protein Albumin 04/08/18 04/08/18 04/08/18 17:50 17:50 17:50 Creatine Kinase Cancelled CK-MB (CK-2) Cancelled Troponin I Cancelled NT-Pro-B Natriuret Pep 55 04/08/18 04/08/18 18:58 18:58 Creatine Kinase 155 CK-MB (CK-2) 2.49 Troponin I < 0.012 NT-Pro-B Natriuret Pep Impressions: Chest X-Ray 04/08/18 18:08 IMPRESSION: Severe emphysema. Assessment & Plan - Diagnosis (1) Chronic respiratory failure with hypoxia Is this a current diagnosis for this admission?: Yes Plan: Maintain adequate oxygenation and ventilation adjusting for pH (2) Hypertension Qualifiers: Hypertension type: essential hypertension Qualified Code(s): I10 - Essential (primary) hypertension Is this a current diagnosis for this admission?: Yes Plan: Stable at this time - Time Total Critical Time (Minutes): 50
[2018-04-18] MEDS: MIDAZOLAM HCL 50 MG/100 ML RTUINJ IV PRN (13:47)
[2018-04-18] MEDS ORDERED: GUAIFENESIN SYRP 200 MG/10 ML UDC NG PRN (14:30)
[2018-04-18] MEDS: DILTIAZEM HCL 30 MG TABLET NG SCH ×2 (16:16→22:01)
--- NOTE | 2018-04-18 16:58 | PDOC PROGRESS REPORT ---
Subjective Progress Note for:: 04/18/18 Subjective:: This is a 62 yr old male with a PMH of CAD, COPD, obesitym, HTN, pulmonary HTN, and MC not compliant to CPAP who initially presented with cough and progressive SOB. He was admitted for COPD exacerbation. He was initially on BIPAP but eventually required intubation. He was intubated on 04/09/18. 04/16: Patient remain intubated and sedated. Pulmonology following and managing vent. Patient appears slightly tachypenic this morning on current vent settings. He does have moderate whitish secretions from the ET. 04/17: No acute event overnight. Remain intubated and sedated. Pulmonology managing vent. He is currently on 40% FiO2, PEEP of 10. Secretions from ET has been minimal overnight. No fever. 04/18: Patient had some fecaloid-looking output from the NG last night. CT of the abdomen was negative for obstruction and he did pass out a large, nonbloody, nonwatery stool last night. He remain intubated and sedated. No recurrence of brownish secretions from the NG. Minimal secretions on the ET. Reason For Visit: COPD EXACERBATION PNEUMONIA Physical Exam Vital Signs: Temp Pulse Resp BP Pulse Ox 99.9 F 106 H 20 119/85 94 04/18/18 14:00 04/18/18 12:08 04/18/18 14:00 04/18/18 13:46 04/18/18 14:00 Intake & Output 04/17/18 04/18/18 04/19/18 06:59 06:59 06:59 Intake Total 3280 1097 538 Output Total 0023 4800 700 Balance -1473 -2543 -162 Weight 251 lb 5.231 oz 249 lb 9.012 oz General appearance: PRESENT: other - intubated, sedated Eye exam: PRESENT: conjunctiva pink, EOMI, PERRLA. ABSENT: scleral icterus Ear exam: PRESENT: normal external ear exam Neck exam: ABSENT: carotid bruit, JVD, lymphadenopathy, thyromegaly Respiratory exam: PRESENT: rhonchi. ABSENT: rales, wheezes Cardiovascular exam: PRESENT: RRR. ABSENT: diastolic murmur, rubs, systolic murmur GI/Abdominal exam: PRESENT: normal bowel sounds, soft. ABSENT: distended, guarding, mass, organolmegaly, rebound, tenderness Rectal exam: PRESENT: deferred Neurological exam: PRESENT: other - intubated, sedated Results Laboratory Results: 04/18/18 03:44 04/18/18 12:57 04/17/18 04/17/18 04/17/18 17:10 17:40 19:20 WBC RBC Hgb Hct MCV MCH MCHC RDW Plt Count Seg Neutrophils % Lymphocytes % Monocytes % Eosinophils % Basophils % Absolute Neutrophils Absolute Lymphocytes Absolute Monocytes Absolute Eosinophils Absolute Basophils Carbonic Acid HCO3/H2CO3 Ratio ABG pH ABG pCO2 ABG pO2 ABG HCO3 ABG O2 Saturation ABG Base Excess FiO2 Sodium Potassium 5.7 H Chloride Carbon Dioxide Anion Gap BUN Creatinine Est GFR ( Amer) Est GFR (Non-Af Amer) Glucose Lactic Acid 1.7 Calcium Magnesium Total Bilirubin AST ALT Alkaline Phosphatase Total Protein Albumin Urine Color YELLOW Urine Appearance CLOUDY Urine pH 6.0 Ur Specific [place] 1.023 Urine Protein NEGATIVE Urine Glucose (UA) >=500 H Urine Ketones NEGATIVE Urine Blood SMALL H Urine Nitrite NEGATIVE Ur Leukocyte Esterase NEGATIVE Urine WBC (Auto) 1 Urine RBC (Auto) 8 04/17/18 04/18/18 04/18/18 23:12 03:44 03:44 WBC 28.2 H RBC 5.18 Hgb 14.0 Hct 41.9 MCV 81 MCH 27.0 MCHC 33.3 RDW 15.7 H Plt Count 142 L Seg Neutrophils % Not Reportable Lymphocytes % Not Reportable Monocytes % Not Reportable Eosinophils % Not Reportable Basophils % Not Reportable Absolute Neutrophils Not Reportable Absolute Lymphocytes Not Reportable Absolute Monocytes Not Reportable Absolute Eosinophils Not Reportable Absolute Basophils Not Reportable Carbonic Acid HCO3/H2CO3 Ratio ABG pH ABG pCO2 ABG pO2 ABG HCO3 ABG O2 Saturation ABG Base Excess FiO2 Sodium 138.0 Potassium 5.7 H 5.6 H Chloride 100 Carbon Dioxide 29 Anion Gap 9 BUN 40 H Creatinine 0.68 Est GFR ( Amer) > 60 Est GFR (Non-Af Amer) > 60 Glucose 218 H Lactic Acid Calcium 8.3 L Magnesium 2.9 H Total Bilirubin 1.0 AST 70 H ALT 117 H Alkaline Phosphatase 72 Total Protein 6.0 L Albumin 3.4 L Urine Color Urine Appearance Urine pH Ur Specific [place] Urine Protein Urine Glucose (UA) Urine Ketones Urine Blood Urine Nitrite Ur Leukocyte Esterase Urine WBC (Auto) Urine RBC (Auto) 04/18/18 04/18/18 06:11 12:57 WBC RBC Hgb Hct MCV MCH MCHC RDW Plt Count Seg Neutrophils % Lymphocytes % Monocytes % Eosinophils % Basophils % Absolute Neutrophils Absolute Lymphocytes Absolute Monocytes Absolute Eosinophils Absolute Basophils Carbonic Acid 1.45 H HCO3/H2CO3 Ratio 22:1 ABG pH 7.44 ABG pCO2 48.1 H ABG pO2 81.4 ABG HCO3 32.2 H ABG O2 Saturation 96.3 ABG Base Excess 6.8 FiO2 45% Sodium Potassium 5.6 H Chloride Carbon Dioxide Anion Gap BUN Creatinine Est GFR ( Amer) Est GFR (Non-Af Amer) Glucose Lactic Acid Calcium Magnesium Total Bilirubin AST ALT Alkaline Phosphatase Total Protein Albumin Urine Color Urine Appearance Urine pH Ur Specific [place] Urine Protein Urine Glucose (UA) Urine Ketones Urine Blood Urine Nitrite Ur Leukocyte Esterase Urine WBC (Auto) Urine RBC (Auto) 04/16/18 03:50 Sputum Gram Stain - Final 04/16/18 03:50 Sputum Sputum Culture - Final C.albicans/C.dubliniensis Normal Padmini 04/08/18 04/08/18 04/08/18 17:50 17:50 17:50 Creatine Kinase Cancelled CK-MB (CK-2) Cancelled Troponin I Cancelled NT-Pro-B Natriuret Pep 55 04/08/18 04/08/18 04/16/18 18:58 18:58 08:45 Creatine Kinase 155 46 L CK-MB (CK-2) 2.49 Troponin I < 0.012 NT-Pro-B Natriuret Pep 04/16/18 04/16/18 04/16/18 08:45 14:42 14:42 Creatine Kinase 50 L CK-MB (CK-2) 0.97 0.60 Troponin I 0.018 0.013 NT-Pro-B Natriuret Pep 04/16/18 04/16/18 21:20 21:20 Creatine Kinase 40 L CK-MB (CK-2) 0.46 Troponin I < 0.012 NT-Pro-B Natriuret Pep Impressions: Chest X-Ray 04/18/18 06:00 IMPRESSION: No significant change. Assessment & Plan - Diagnosis (1) Acute and chronic respiratory failure with hypoxia Is this a current diagnosis for this admission?: Yes Plan: Secondary to severe COPD exacerbation. Currently intubated. Pulmonology following. FiO at 40%, PEEP of 10. (2) COPD exacerbation Is this a current diagnosis for this admission?: Yes Plan: Currently intubated. Continue IV steroids. Zosyn d/aiden. (3) Hyperkalemia Is this a current diagnosis for this admission?: Yes Plan: Discontinued fluids with potassium supplement. 04/17: He was given 40 mg of IV Lasix, dextrose-insulin regimen and calcium gluconate. - Time Time Spent with patient: 25-34 minutes
[2018-04-18] MEDS: LEVOFLOXACIN 750 MG/D5W RTU 750 MG/150 ML RTUPB IV SCH (17:13)
[2018-04-18] MEDS ORDERED: INSULIN REG, HUMAN 100 UNIT/ML 3 ML VIAL (PYX) IV ONE (20:00)
[2018-04-18] MEDS ORDERED: DEXTROSE 50%-WATER 25 GM/50 ML DISP.SYRIN IV ONE (20:00)
[2018-04-18] MEDS ORDERED: CALCIUM GLUCONATE 1000 MG/10 ML INJ IV ONE (20:00)
[2018-04-18] MEDS: METOCLOPRAMIDE HCL INJ/PF 10 MG/2 ML SDV IV SCH (22:01)
[2018-04-19] MEDS: IPRATROPIUM/ALBUTEROL 0.5-2.5 MG/3 ML AMPUL NEB SCH ×7 (00:09→23:57)
[2018-04-19] MEDS: PROPOFOL 1,000 MG/100 ML INFUS..BTL IV PRN ×5 (02:57→20:47)
[2018-04-19] MEDS: DILTIAZEM HCL 30 MG TABLET NG SCH ×4 (02:57→21:08)
[2018-04-19] MEDS: MIDAZOLAM HCL 50 MG/100 ML RTUINJ IV PRN (04:04)
[2018-04-19 04:05] LABS: HEMATOCRIT 40.9 % (37.9-51.0); HEMOGLOBIN 13.6 g/dL (13.5-17.0); MEAN CORPUSCULAR HEMOGLOBIN 26.7 pg (27.0-33.4); MEAN CORPUSCULAR HGB CONC 33.2 g/dL (32.0-36.0); MEAN CORPUSCULAR VOLUME 80 fl (80-97); PLATELET COUNT 138 10^3/uL (150-450); RED BLOOD COUNT 5.09 10^6/uL (4.35-5.55); RED CELL DISTRIBUTION WIDTH 15.8 % (11.5-14.0); WHITE BLOOD COUNT 28.2 10^3/uL (4.0-10.5)
[2018-04-19 04:21] LABS: ABSOLUTE LYMPHOCYTES# (MANUAL) 0.3 10^3/uL (0.5-4.7); ABSOLUTE MONOCYTES # (MANUAL) 0.6 10^3/uL (0.1-1.4); ABSOLUTE NEUTROPHILS# (MANUAL) 27.4 10^3/uL (1.7-8.2); BAND NEUTROPHILS % (MANUAL) 6 % (3-5); BASOPHILS % (MANUAL) 0 % (0-2); EOSINOPHILS % (MANUAL) 0 % (0-6); LYMPHOCYTES % (MANUAL) 1 % (13-45); METAMYELOCYTES % (MANUAL) 2 % (0); MONOCYTES % (MANUAL) 2 % (3-13); MYELOCYTES % (MANUAL) 3 % (0); SEGMENTED NEUTROPHILS % (MAN) 86 % (42-78); TOTAL CELLS COUNTED 100
[2018-04-19 04:26] LABS: PLATELET COMMENT DECREASED; RBC MORPHOLOGY COMMENT NORMO-CYTIC/CHROMIC
[2018-04-19 05:12] LABS: ARTERIAL BLOOD BASE EXCESS 2.8 mmol/L; ARTERIAL BLOOD H2CO3 1.27 mmol/L (1.05-1.35); ARTERIAL BLOOD HCO3 27.4 mmol/L (20-24); ARTERIAL BLOOD O2 SATURATION 96.9 % (94-98); ARTERIAL BLOOD PCO2 42.2 mmHg (35-45); ARTERIAL BLOOD PH 7.43 (7.35-7.45); ARTERIAL BLOOD PO2 87.8 mmHg (80-100); ARTERIAL BLOOD TOTAL CO2 28.7 mmol/L (23-27)
[2018-04-19 05:13] LABS: ARTERIAL BLOOD FIO2 40%
[2018-04-19 05:24] LABS: ALANINE AMINOTRANSFERASE 112 U/L (21-72); ALBUMIN 3.5 g/dL (3.5-5.0); ALKALINE PHOSPHATASE 68 U/L (38-126); ANION GAP 8 (5-19); ASPARTATE AMINO TRANSFERASE 43 U/L (17-59); BILIRUBIN,DIRECT 0.6 mg/dL (0.0-0.4); BILIRUBIN,TOTAL 0.9 mg/dL (0.2-1.3); BLOOD UREA NITROGEN 42 mg/dL (7-20); CALCIUM 9.1 mg/dL (8.4-10.2); CARBON DIOXIDE 27 mmol/L (22-30); CHLORIDE 108 mmol/L (98-107); GLUCOSE 234 mg/dL (75-110); POTASSIUM 5.8 mmol/L (3.6-5.0); SODIUM 142.6 mmol/L (137-145); TOTAL PROTEIN 5.9 g/dL (6.3-8.2)
[2018-04-19] MEDS: METHYLPREDNISOLONE INJ 40 MG/1 ML SDV IV SCH ×3 (06:10→21:08)
[2018-04-19] MEDS: NORMAL SALINE 1000 ML 1,000 ML IV PRN (06:10)
--- NOTE | 2018-04-19 06:40 | RADIOLOGY REPORT (SQ) ---
EXAM DESCRIPTION: XR CHEST 1 VIEW COMPLETED DATE/TME: 04/19/2018 06:00 CLINICAL HISTORY: Respiratory Distress. 62 years Male, resp failure COMPARISON: One day prior. CT, abdomen pelvis two days prior. CT, chest, April 01, 2018. NUMBER OF VIEWS/TECHNIQUE: 1/AP FINDINGS: Severely emphysematous hyperlucency of the upper and mid lung, right more than left. Mild interstitial markings of the lower lung and small right lower subsegmental atelectasis-scar. Likely adequate appearing enteric tube partially obscured. Normal cardiac silhouette size. Adequate appearing endotracheal tube. No pneumothorax. Stable bony thorax. IMPRESSION: No significant change.
[2018-04-19] MEDS: PANTOPRAZOLE SODIUM 40 MG VIAL IV SCH (09:51)
[2018-04-19] MEDS: FONDAPARINUX SODIUM INJ 2.5 MG/0.5 ML DISP.SYRIN SUBCUT SCH (09:57)
[2018-04-19] MEDS: METOCLOPRAMIDE HCL INJ/PF 10 MG/2 ML SDV IV SCH ×2 (09:58→21:09)
[2018-04-19] MEDS ORDERED: SODIUM POLYSTYRENE SULFONATE 15 GM/60 ML PO ONE ×2 (12:22→15:30)
[2018-04-19] MEDS ORDERED: FUROSEMIDE INJ/PF 40 MG/4 ML SDV IV ONE (13:00)
[2018-04-19 17:30] LABS: ANION GAP 10 (5-19); BLOOD UREA NITROGEN 45 mg/dL (7-20); CALCIUM 9.2 mg/dL (8.4-10.2); CARBON DIOXIDE 30 mmol/L (22-30); CHLORIDE 101 mmol/L (98-107); GLUCOSE 271 mg/dL (75-110); POTASSIUM 5.1 mmol/L (3.6-5.0)
[2018-04-19] MEDS: LEVOFLOXACIN 750 MG/D5W RTU 750 MG/150 ML RTUPB IV SCH (17:55)
--- NOTE | 2018-04-19 17:58 | PDOC CONSULTATION ---
Consultation Consult Date: 04/19/18 Attending physician:: ARINA DYER Consult reason:: I was asked to see the patient because of hyperkalemia. History of Present Illness Admission Date/PCP: 04/08/18 20:32 PATSY MOREIRA MD History of Present Illness: LAKSHMI SALINAS is a 62 year old male with history of COPD, coronary artery disease, moderate pulmonary hypertension, hypertension, obesity, obstructive sleep apnea not compliant with CPAP who was admitted on April 08 because of shortness of breath and productive cough. Patient was assessed to have COPD exacerbation and acute on chronic respiratory failure requiring intubation. Since April 16 the patient's potassium has been started to creep up slowly. It was normal on admission at 4.4. On April 16 was 5.3, April 17 it was 5. 7, April 18 5.8 and this morning it still 5.8. Patient's kidney function is within acceptable limits and he is making good amount of urine. His blood sugars is slightly high with a range of 1 7200s. He has been given patiromer x2 doses, calcium gluconate, regular insulin, and albuterol. His heparin was changed to Arixtra. Despite those regimens patient's potassium remained to be elevated. He has elevated WBC of 26-28. Patient currently remains to be intubated and sedation has just been turned off but still unresponsive. Past Medical History Past Medical History: These are obtained from records since the patient is intubated. Cardiac Medical History: Reports: Coronary Artery Disease, Hypertension-primary, Myocardial Infarction, Pulmonary Hypertension Pulmonary Medical History: Reports: Bronchitis, Chronic Obstructive Pulmonary Disease (COPD), Sleep Apnea Endocrine Medical History: Reports: Obesity GI Medical History: Reports: Diverticulitis Past Surgical History Past Surgical History: Reports: Orthopedic Surgery Social History Information Source: [facility] Records Lives with: Family Smoking Status: Former Smoker Frequency of Alcohol Use: None Hx Recreational Drug Use: No Drugs: None Hx Prescription Drug Abuse: No - Advance Directive Resuscitation Status: Full Code Family History Family History: CAD Parental Family History Reviewed: Yes Children Family History Reviewed: Yes Sibling(s) Family History Reviewed.: Yes Medication/Allergy Home Medications: Albuterol Sulfate [Proair Hfa Inhalation Aerosol 8.5 gm Mdi] 2 puff IH QIDP PRN 04/08/18 Budesonide/Formoterol Fumarate [Symbicort Hfa 160-4.5 Mcg Inhaler 6 gm] 2 puff IH Q12 04/08/18 Cyclobenzaprine HCl [Flexeril 10 mg Tablet] 5 mg PO TIDP PRN 04/08/18 Esomeprazole Magnesium 40 mg PO DAILY 04/08/18 Hydrocodone/Acetaminophen [[place] 10-325 mg Tablet] 1.5 tab PO QIDP PRN 04/08/18 Lisinopril [Prinivil 40 mg Tablet] 40 mg PO QHS 04/08/18 Metoprolol Succinate [Toprol XL 100 mg Tablet] 100 mg PO QHS 04/08/18 Promethazine HCl/Codeine [Prometh-Codein 6.25-10 mg/5 ml] 10 ml PO QIDP PRN 04/08/18 Tiotropium [place] [Spiriva Respimat] 2 puff IH DAILY 04/08/18 Allergies/Adverse Reactions: bee venom protein (honey bee) Allergy (Verified 04/09/18 07:45) iodine [Iodine] Allergy (Verified 04/09/18 07:45) levothyroxine Allergy (Verified 04/09/18 07:45) Shellfish * [Shellfish] Allergy (Verified 04/09/18 07:45) aspirin Adverse Reaction (Verified 04/09/18 07:45) Review of Systems ROS unobtainable: Due to endotracheal tube Physical Exam Vital Signs: Temp Pulse Resp BP Pulse Ox 100.4 F 116 H 22 H 148/96 H 92 04/19/18 17:00 04/19/18 16:00 04/19/18 17:00 04/19/18 16:52 04/19/18 17:00 Intake & Output 04/18/18 04/19/18 04/20/18 06:59 06:59 06:59 Intake Total 0822 1347 324 Output Total 9001 8587 9496 Balance -9559 -9729 -8206 Weight 113.2 kg 110.5 kg Exam: General appearance: Patient is intubated and still sedated Head exam: PRESENT: atraumatic, normocephalic Eye exam: PRESENT: Conjunctiva [place], EOMI, PERRLA. ABSENT: conjunctival injection, scleral icterus Mouth exam: PRESENT: moist, neck supple, tongue midline Neck exam: PRESENT: full ROM. ABSENT: carotid bruit, JVD, lymphadenopathy, thyromegaly Respiratory exam: PRESENT: Diminished to auscultation bilaterally. ABSENT: rales, rhonchi, stridor, wheezes Cardiovascular exam: PRESENT: RRR, +S1, +S2. Tachycardic ABSENT: systolic murmur Pulses: PRESENT: normal radial pulses, normal dorsalis pedis pulses GI/Abdominal exam: PRESENT: normal bowel sounds, soft. ABSENT: guarding, mass, tenderness Rectal exam: Deferred Extremities exam: PRESENT: full ROM. Grade 1 bilateral lower extremity pitting edema ABSENT: calf tenderness Musculoskeletal: PRESENT: full ROM. ABSENT: deformity Neurological exam: PRESENT: Sedated Psychiatric exam: PRESENT: appropriate affect, normal mood. ABSENT: homicidal ideation, suicidal ideation Skin exam: PRESENT: intact, dry, warm. ABSENT: rash Results Laboratory Results: 04/19/18 03:58 04/19/18 16:50 04/19/18 04/19/18 04/19/18 03:58 03:58 05:00 WBC 28.2 H RBC 5.09 Hgb 13.6 Hct 40.9 MCV 80 MCH 26.7 L MCHC 33.2 RDW 15.8 H Plt Count 138 L Seg Neutrophils % Not Reportable Lymphocytes % Not Reportable Monocytes % Not Reportable Eosinophils % Not Reportable Basophils % Not Reportable Absolute Neutrophils Not Reportable Absolute Lymphocytes Not Reportable Absolute Monocytes Not Reportable Absolute Eosinophils Not Reportable Absolute Basophils Not Reportable Carbonic Acid 1.27 HCO3/H2CO3 Ratio 21:1 ABG pH 7.43 ABG pCO2 42.2 ABG pO2 87.8 ABG HCO3 27.4 H ABG O2 Saturation 96.9 ABG Base Excess 2.8 FiO2 40% Sodium 142.6 Potassium 5.8 H Chloride 108 H Carbon Dioxide 27 Anion Gap 8 BUN 42 H Creatinine 0.61 Est GFR ( Amer) > 60 Est GFR (Non-Af Amer) > 60 Glucose 234 H Calcium 9.1 Magnesium 2.6 H Total Bilirubin 0.9 AST 43 ALT 112 H Alkaline Phosphatase 68 Total Protein 5.9 L Albumin 3.5 04/19/18 16:50 WBC RBC Hgb Hct MCV MCH MCHC RDW Plt Count Seg Neutrophils % Lymphocytes % Monocytes % Eosinophils % Basophils % Absolute Neutrophils Absolute Lymphocytes Absolute Monocytes Absolute Eosinophils Absolute Basophils Carbonic Acid HCO3/H2CO3 Ratio ABG pH ABG pCO2 ABG pO2 ABG HCO3 ABG O2 Saturation ABG Base Excess FiO2 Sodium 141.0 Potassium 5.1 H Chloride 101 Carbon Dioxide 30 Anion Gap 10 BUN 45 H Creatinine 0.84 Est GFR ( Amer) > 60 Est GFR (Non-Af Amer) > 60 Glucose 271 H Calcium 9.2 Magnesium Total Bilirubin AST ALT Alkaline Phosphatase Total Protein Albumin 04/16/18 10:35 Catheterized Urine Urine Culture - Final Enterococcus Faecalis(Group D) Staph Coagulase Negative 04/08/18 04/08/18 04/08/18 17:50 17:50 17:50 Creatine Kinase Cancelled CK-MB (CK-2) Cancelled Troponin I Cancelled NT-Pro-B Natriuret Pep 55 04/08/18 04/08/18 04/16/18 18:58 18:58 08:45 Creatine Kinase 155 46 L CK-MB (CK-2) 2.49 Troponin I < 0.012 NT-Pro-B Natriuret Pep 04/16/18 04/16/18 04/16/18 08:45 14:42 14:42 Creatine Kinase 50 L CK-MB (CK-2) 0.97 0.60 Troponin I 0.018 0.013 NT-Pro-B Natriuret Pep 04/16/18 04/16/18 21:20 21:20 Creatine Kinase 40 L CK-MB (CK-2) 0.46 Troponin I < 0.012 NT-Pro-B Natriuret Pep Impressions: Chest X-Ray 04/19/18 06:00 IMPRESSION: No significant change. Assessment & Plan - Diagnosis (1) Hyperkalemia Is this a current diagnosis for this admission?: Yes Plan: Possible causes include medications and constipation. There is only a note of bowel movement today but none on the past few days. Kidney function is normal. I will give Kayexalate at 60 g x1 dose, repeat the Lasix dose of 40 mg IV x1 dose. Repeat basic metabolic panel. May repeat this medications as needed. Patiromer was ineffective at the dose of 8.4 g so it was discontinued. (2) COPD exacerbation Is this a current diagnosis for this admission?: Yes (3) Acute and chronic respiratory failure Is this a current diagnosis for this admission?: Yes - Notes Notes: Thank you very much for this consultation. Discussed with Dr. Dyer. - Time Time Spent: 50 to 70 Minutes
--- NOTE | 2018-04-19 18:09 | PDOC PROGRESS REPORT ---
Subjective Progress Note for:: 04/19/18 Subjective:: This is a 62 yr old male with a PMH of CAD, COPD, obesitym, HTN, pulmonary HTN, and MC not compliant to CPAP who initially presented with cough and progressive SOB. He was admitted for COPD exacerbation. He was initially on BIPAP but eventually required intubation. He was intubated on 04/09/18. 04/16: Patient remain intubated and sedated. Pulmonology following and managing vent. Patient appears slightly tachypenic this morning on current vent settings. He does have moderate whitish secretions from the ET. 04/17: No acute event overnight. Remain intubated and sedated. Pulmonology managing vent. He is currently on 40% FiO2, PEEP of 10. Secretions from ET has been minimal overnight. No fever. 04/18: Patient had some fecaloid-looking output from the NG last night. CT of the abdomen was negative for obstruction and he did pass out a large, nonbloody, nonwatery stool last night. He remain intubated and sedated. No recurrence of brownish secretions from the NG. Minimal secretions on the ET. 04/19: No acute event overnight. He remains intubated. Sedation was turned down today and he was able to track and was a little responsive than yesterday. FiO2 decreased to 35%. PS at 10. Minimal secretions per ET. Potassium remain elevated at 5.8. He is tolerating tube feedings well. He had normal BM overnight. Reason For Visit: COPD EXACERBATION PNEUMONIA Physical Exam Vital Signs: Temp Pulse Resp BP Pulse Ox 100.4 F 116 H 22 H 148/96 H 92 04/19/18 17:00 04/19/18 16:00 04/19/18 17:00 04/19/18 16:52 04/19/18 17:00 Intake & Output 04/18/18 04/19/18 04/20/18 06:59 06:59 06:59 Intake Total 6392 1347 324 Output Total 0148 5595 5870 Balance -2451 -4285 -9071 Weight 249 lb 9.012 oz 243 lb 9.773 oz General appearance: PRESENT: other - intubated, able to track off sedation Head exam: PRESENT: atraumatic, normocephalic Eye exam: PRESENT: conjunctiva pink, EOMI, PERRLA. ABSENT: scleral icterus Ear exam: PRESENT: normal external ear exam Mouth exam: PRESENT: moist, tongue midline Neck exam: ABSENT: carotid bruit, JVD, lymphadenopathy, thyromegaly Respiratory exam: PRESENT: decreased breath sounds, rhonchi. ABSENT: rales, wheezes Cardiovascular exam: PRESENT: RRR. ABSENT: diastolic murmur, rubs, systolic murmur Pulses: PRESENT: normal dorsalis pedis pul GI/Abdominal exam: PRESENT: normal bowel sounds, soft. ABSENT: distended, guarding, mass, organolmegaly, rebound, tenderness Rectal exam: PRESENT: deferred Neurological exam: PRESENT: other - intubated, able to track off sedation Results Laboratory Results: 04/19/18 03:58 04/19/18 16:50 04/19/18 04/19/18 04/19/18 03:58 03:58 05:00 WBC 28.2 H RBC 5.09 Hgb 13.6 Hct 40.9 MCV 80 MCH 26.7 L MCHC 33.2 RDW 15.8 H Plt Count 138 L Seg Neutrophils % Not Reportable Lymphocytes % Not Reportable Monocytes % Not Reportable Eosinophils % Not Reportable Basophils % Not Reportable Absolute Neutrophils Not Reportable Absolute Lymphocytes Not Reportable Absolute Monocytes Not Reportable Absolute Eosinophils Not Reportable Absolute Basophils Not Reportable Carbonic Acid 1.27 HCO3/H2CO3 Ratio 21:1 ABG pH 7.43 ABG pCO2 42.2 ABG pO2 87.8 ABG HCO3 27.4 H ABG O2 Saturation 96.9 ABG Base Excess 2.8 FiO2 40% Sodium 142.6 Potassium 5.8 H Chloride 108 H Carbon Dioxide 27 Anion Gap 8 BUN 42 H Creatinine 0.61 Est GFR ( Amer) > 60 Est GFR (Non-Af Amer) > 60 Glucose 234 H Calcium 9.1 Magnesium 2.6 H Total Bilirubin 0.9 AST 43 ALT 112 H Alkaline Phosphatase 68 Total Protein 5.9 L Albumin 3.5 04/19/18 16:50 WBC RBC Hgb Hct MCV MCH MCHC RDW Plt Count Seg Neutrophils % Lymphocytes % Monocytes % Eosinophils % Basophils % Absolute Neutrophils Absolute Lymphocytes Absolute Monocytes Absolute Eosinophils Absolute Basophils Carbonic Acid HCO3/H2CO3 Ratio ABG pH ABG pCO2 ABG pO2 ABG HCO3 ABG O2 Saturation ABG Base Excess FiO2 Sodium 141.0 Potassium 5.1 H Chloride 101 Carbon Dioxide 30 Anion Gap 10 BUN 45 H Creatinine 0.84 Est GFR ( Amer) > 60 Est GFR (Non-Af Amer) > 60 Glucose 271 H Calcium 9.2 Magnesium Total Bilirubin AST ALT Alkaline Phosphatase Total Protein Albumin 04/16/18 10:35 Catheterized Urine Urine Culture - Final Enterococcus Faecalis(Group D) Staph Coagulase Negative 04/08/18 04/08/18 04/08/18 17:50 17:50 17:50 Creatine Kinase Cancelled CK-MB (CK-2) Cancelled Troponin I Cancelled NT-Pro-B Natriuret Pep 55 04/08/18 04/08/18 04/16/18 18:58 18:58 08:45 Creatine Kinase 155 46 L CK-MB (CK-2) 2.49 Troponin I < 0.012 NT-Pro-B Natriuret Pep 04/16/18 04/16/18 04/16/18 08:45 14:42 14:42 Creatine Kinase 50 L CK-MB (CK-2) 0.97 0.60 Troponin I 0.018 0.013 NT-Pro-B Natriuret Pep 04/16/18 04/16/18 21:20 21:20 Creatine Kinase 40 L CK-MB (CK-2) 0.46 Troponin I < 0.012 NT-Pro-B Natriuret Pep Impressions: Chest X-Ray 04/19/18 06:00 IMPRESSION: No significant change. Assessment & Plan - Diagnosis (1) Acute and chronic respiratory failure with hypoxia Is this a current diagnosis for this admission?: Yes Plan: Secondary to severe COPD exacerbation. Currently intubated. Pulmonology foll owing. FiO at 40%, PEEP of 10. FiO2 decreased to 35%. PS at 10. PEEP of 10. He is able to track off sedation but barely follows commands. Will continue weaning. (2) COPD exacerbation Is this a current diagnosis for this admission?: Yes Plan: Currently intubated. Continue IV steroids. Zosyn d/aiden. (3) Hyperkalemia Is this a current diagnosis for this admission?: Yes Plan: Discontinued fluids with potassium supplement. 04/17: He was given 40 mg of IV Lasix, dextrose-insulin regimen and calcium gluconate. He also received patiromer. Creatinine is normal. Heparin switched to Arixtra. Appreciate nephrology input. Add Lasix 20 mg daily. - Time Time Spent with patient: 25-34 minutes
[2018-04-19] MEDS ORDERED: DEXTROSE 50%-WATER SYRINGE 25 GM/50 ML DOSE IV PRN (20:00)
[2018-04-19] MEDS ORDERED: DEXTROSE 40% GEL 15 GM TUBE X 2 PO PRN (20:00)
[2018-04-19] MEDS ORDERED: GLUCAGON,HUMAN RECOMB 1 MG INJ IM PRN (20:00)
[2018-04-19] MEDS ORDERED: DEXTROSE 40% GEL 15 GM TUBE PO PRN (20:00)
[2018-04-19] MEDS ORDERED: DEXTROSE 50%-WATER SYRINGE 12.5 GM/25 ML DOSE IV PRN (20:00)
[2018-04-19] MEDS: ACETAMINOPHEN 325 MG TABLET NG PRN (21:07)
[2018-04-19] MEDS ORDERED: FUROSEMIDE INJ/PF 20 MG/2 ML SDV IV SCH (22:00)
[2018-04-20] MEDS: PROPOFOL 1,000 MG/100 ML INFUS..BTL IV PRN ×3 (00:58→05:50)
[2018-04-20] MEDS: INSULIN LISPRO 100 UNIT/ML 3 ML VIAL SUBCUT SCH ×2 (00:58→05:51)
[2018-04-20] MEDS: HYDRALAZINE HCL INJ/PF 20 MG/1 ML SDV IV PRN (01:30)
[2018-04-20] MEDS: DILTIAZEM HCL 30 MG TABLET NG SCH ×2 (02:11→09:37)
[2018-04-20] MEDS: IPRATROPIUM/ALBUTEROL 0.5-2.5 MG/3 ML AMPUL NEB SCH ×2 (04:12→08:10)
[2018-04-20] MEDS ORDERED: FENTANYL CITRATE INJ/PF 100 MCG/2 ML AMPUL IV ONE (04:45)
[2018-04-20] MEDS ORDERED: METOPROLOL TARTRATE PF/INJ 5 MG/5 ML SDV IV ONE ×2 (05:49→06:00)
[2018-04-20] MEDS: NORMAL SALINE 1000 ML 1,000 ML IV PRN (05:51)
[2018-04-20] MEDS: METHYLPREDNISOLONE INJ 40 MG/1 ML SDV IV SCH (05:51)
[2018-04-20] MEDS: ACETAMINOPHEN 325 MG TABLET NG PRN (06:04)
[2018-04-20 08:26] LABS: ARTERIAL BLOOD H2CO3 0.99 mmol/L (1.05-1.35); ARTERIAL BLOOD HCO3 24.7 mmol/L (20-24); ARTERIAL BLOOD O2 SATURATION 96.1 % (94-98); ARTERIAL BLOOD PH 7.49 (7.35-7.45); ARTERIAL BLOOD PO2 74.9 mmHg (80-100); ARTERIAL BLOOD TOTAL CO2 25.7 mmol/L (23-27)
[2018-04-20 08:27] LABS: ARTERIAL BLOOD FIO2 35%
--- NOTE | 2018-04-20 08:29 | PDOC PROGRESS REPORT ---
Subjective Progress Note for:: 04/20/18 Subjective:: This is a 62 yr old male with a PMH of CAD, COPD, obesitym, HTN, pulmonary HTN, and MC not compliant to CPAP who initially presented with cough and progressive SOB. He was admitted for COPD exacerbation. He was initially on BIPAP but eventually required intubation. He was intubated on 04/09/18. 04/16: Patient remain intubated and sedated. Pulmonology following and managing vent. Patient appears slightly tachypenic this morning on current vent settings. He does have moderate whitish secretions from the ET. 04/17: No acute event overnight. Remain intubated and sedated. Pulmonology managing vent. He is currently on 40% FiO2, PEEP of 10. Secretions from ET has been minimal overnight. No fever. 04/18: Patient had some fecaloid-looking output from the NG last night. CT of the abdomen was negative for obstruction and he did pass out a large, nonbloody, nonwatery stool last night. He remain intubated and sedated. No recurrence of brownish secretions from the NG. Minimal secretions on the ET. 04/19: No acute event overnight. He remains intubated. Sedation was turned down today and he was able to track and was a little responsive than yesterday. FiO2 decreased to 35%. PS at 10. Minimal secretions per ET. Potassium remain elevated at 5.8. He is tolerating tube feedings well. He had normal BM overnight. He became tachypneic during the SBT. 04/20: Family conference held this morning. Daughter (Pamella) and brother (Angel) verbalized patient was DNR/DNI before he came in but was intubated as they were not present initially. They strongly express that he does not want to be on a mechanical ventilator in the first place. They want to proceed with terminal extubation and transitioning him to comfort measures. Will go ahead and extubate patient. Reason For Visit: COPD EXACERBATION PNEUMONIA Physical Exam Vital Signs: Temp Pulse Resp BP Pulse Ox 101.7 F H 128 H 30 H 115/87 H 93 04/20/18 07:42 04/20/18 08:12 04/20/18 08:12 04/20/18 07:42 04/20/18 08:12 Intake & Output 04/19/18 04/20/1804/21/19 06:59 06:59 06:59 Intake Total 1347 1579 56 Output Total 2044 4310 75 [facility] -1878 -2221 -19 Weight 243 lb 9.773 oz 237 lb 7.005 oz General appearance: PRESENT: other - intubated, sedated Eye exam: PRESENT: conjunctiva pink, EOMI, PERRLA. ABSENT: scleral icterus Ear exam: PRESENT: normal external ear exam Mouth exam: PRESENT: moist, tongue midline Neck exam: ABSENT: carotid bruit, JVD, lymphadenopathy, thyromegaly Respiratory exam: PRESENT: decreased breath sounds, rhonchi. ABSENT: rales, wheezes Cardiovascular exam: PRESENT: RRR. ABSENT: diastolic murmur, rubs, systolic murmur Pulses: PRESENT: normal dorsalis pedis pul GI/Abdominal exam: PRESENT: normal bowel sounds, soft. ABSENT: distended, guarding, mass, organolmegaly, rebound, tenderness Rectal exam: PRESENT: deferred Neurological exam: PRESENT: other - intubated, sedated Results Laboratory Results: 04/19/18 03:58 04/19/18 16:50 04/19/18 16:50 Sodium 141.0 Potassium 5.1 H Chloride 101 Carbon Dioxide 30 Anion Gap 10 BUN 45 H Creatinine 0.84 Est GFR ( Amer) > 60 Est GFR (Non-Af Amer) > 60 Glucose 271 H Calcium 9.2 04/16/18 10:35 Catheterized Urine Urine Culture - Final Enterococcus Faecalis(Group D) Staph Coagulase Negative 04/08/18 04/08/18 04/08/18 17:50 17:50 17:50 Creatine Kinase Cancelled CK-MB (CK-2) Cancelled Troponin I Cancelled NT-Pro-B Natriuret Pep 55 04/08/18 04/08/18 04/16/18 18:58 18:58 08:45 Creatine Kinase 155 46 L CK-MB (CK-2) 2.49 Troponin I < 0.012 NT-Pro-B Natriuret Pep 04/16/18 04/16/18 04/16/18 08:45 14:42 14:42 Creatine Kinase 50 L CK-MB (CK-2) 0.97 0.60 Troponin I 0.018 0.013 NT-Pro-B Natriuret Pep 04/16/18 04/16/18 21:20 21:20 Creatine Kinase 40 L CK-MB (CK-2) 0.46 Troponin I < 0.012 NT-Pro-B Natriuret Pep Impressions: Chest X-Ray 04/19/18 06:00 IMPRESSION: No significant change. Assessment & Plan - Diagnosis (1) Acute and chronic respiratory failure with hypoxia Is this a current diagnosis for this admission?: Yes Plan: Secondary to severe COPD exacerbation. Currently intubated. Pulmonology follow ing. Discussed with pulmonology. Will proceed with terminal extubation. (2) COPD exacerbation Is this a current diagnosis for this admission?: Yes Plan: As per number 1. (3) Hyperkalemia Is this a current diagnosis for this admission?: Yes Plan: Patient will be made comfort care. - Time Time Spent with patient: 35 or more minutes
[2018-04-20 08:35] LABS: HEMATOCRIT 44.1 % (37.9-51.0); HEMOGLOBIN 14.8 g/dL (13.5-17.0); MEAN CORPUSCULAR HEMOGLOBIN 26.9 pg (27.0-33.4); MEAN CORPUSCULAR HGB CONC 33.5 g/dL (32.0-36.0); MEAN CORPUSCULAR VOLUME 80 fl (80-97); PLATELET COUNT 153 10^3/uL (150-450); RED BLOOD COUNT 5.49 10^6/uL (4.35-5.55); RED CELL DISTRIBUTION WIDTH 15.7 % (11.5-14.0)
[2018-04-20 08:52] LABS: ABSOLUTE LYMPHOCYTES# (MANUAL) 0.9 10^3/uL (0.5-4.7); ABSOLUTE MONOCYTES # (MANUAL) 1.3 10^3/uL (0.1-1.4); ABSOLUTE NEUTROPHILS# (MANUAL) 40.9 10^3/uL (1.7-8.2); BAND NEUTROPHILS % (MANUAL) 3 % (3-5); BASOPHILS % (MANUAL) 0 % (0-2); EOSINOPHILS % (MANUAL) 0 % (0-6); LYMPHOCYTES % (MANUAL) 2 % (13-45); MONOCYTES % (MANUAL) 3 % (3-13); SEGMENTED NEUTROPHILS % (MAN) 92 % (42-78); TOTAL CELLS COUNTED 100
[2018-04-20 08:53] LABS: ANISOCYTOSIS SLIGHT; HYPOCHROMASIA SLIGHT; PLATELET COMMENT ADEQUATE; TOXIC GRANULATION 1+; TOXIC VACUOLATION PRESENT
[2018-04-20 08:54] LABS: ANION GAP 10 (5-19); BLOOD UREA NITROGEN 51 mg/dL (7-20); CALCIUM 8.7 mg/dL (8.4-10.2); CARBON DIOXIDE 27 mmol/L (22-30); CHLORIDE 104 mmol/L (98-107); GLUCOSE 272 mg/dL (75-110); POTASSIUM 4.8 mmol/L (3.6-5.0); SODIUM 140.8 mmol/L (137-145)
[2018-04-20] MEDS: LORAZEPAM INJ 2 MG/1 ML VIAL IV PRN ×10 (09:02→21:50)
[2018-04-20] MEDS: MORPHINE SULFATE 10 MG/ML INJ IV PRN ×8 (09:03→21:31)
--- NOTE | 2018-04-20 09:13 | Progress Note ---
Provider Note Provider Note: asked by Dr Deyr to discuss about extubation request from family. spoke with EMILY gates, of patient daniel bill. also all other family members in the room. family wants to extubate patient for comfort measures. they tell me that patient would have never wanted to be intubate and never be kept alive on a artificial life support. they understand this will surely shorten his life and lead to . they verbalize this understanding.
[2018-04-20] MEDS: METOCLOPRAMIDE HCL INJ/PF 10 MG/2 ML SDV IV SCH (09:37)
[2018-04-20] MEDS: FONDAPARINUX SODIUM INJ 2.5 MG/0.5 ML DISP.SYRIN SUBCUT SCH (09:37)
[2018-04-20 09:45] VITALS: BP 130/95
[2018-04-20] MEDS ORDERED: FUROSEMIDE INJ/PF 20 MG/2 ML SDV IV SCH (10:00)
[2018-04-20] MEDS ORDERED: SCOPOLAMINE HYDROBROMIDE 1.5 MG PATCH.TD72 TD ONE (20:00)
--- NOTE | 2018-04-21 18:50 | Death Summary ---
Summary Date : 04/20/18 Time of :: 23:00 Resuscitation Status: Comfort Measures Only - Final Diagnosis (1) Acute and chronic respiratory failure with hypoxia Is this a current diagnosis for this admission?: Yes (2) COPD exacerbation Is this a current diagnosis for this admission?: Yes (3) Hyperkalemia Is this a current diagnosis for this admission?: Yes Hospital Course:: This is a 62 yr old male with a PMH of CAD, COPD, obesitym, HTN, pulmonary HTN, and MC not compliant to CPAP who initially presented with cough and progressive SOB. He was admitted for COPD exacerbation. He was initially on BIPAP but eventually required intubation. He was intubated on 04/09/18. 04/16: Patient remain intubated and sedated. Pulmonology following and managing vent. Patient appears slightly tachypenic this morning on current vent settings. He does have moderate whitish secretions from the ET. 04/17: No acute event overnight. Remain intubated and sedated. Pulmonology managing vent. He is currently on 40% FiO2, PEEP of 10. Secretions from ET has been minimal overnight. No fever. 04/18: Patient had some fecaloid-looking output from the NG last night. CT of the abdomen was negative for obstruction and he did pass out a large, nonbloody, nonwatery stool last night. He remain intubated and sedated. No recurrence of brownish secretions from the NG. Minimal secretions on the ET. 04/19: No acute event overnight. He remains intubated. Sedation was turned down today and he was able to track and was a little responsive than yesterday. FiO2 decreased to 35%. PS at 10. Minimal secretions per ET. Potassium remain elevated at 5.8. He is tolerating tube feedings well. He had normal BM overnight. He became tachypneic during the SBT. 04/20: Family conference held this morning. Daughter (Pamella) and brother (Angel) verbalized patient was DNR/DNI before he came in but was intubated as they were not present initially. They strongly express that he does not want to be on a mechanical ventilator in the first place. They want to proceed with terminal extubation and transitioning him to comfort measures. He was made comfort care and eventually on 04/20/18 at 11 PM.
[2018-04-23] MEDS ORDERED: SCOPOLAMINE HYDROBROMIDE 1.5 MG PATCH.TD72 TD SCH (10:00)
== END 2018-04-20 23:16 | DRG 207 ==
LOC: ER 18:03 → EH 20:32 → 4S 04-09 12:43 → ICU 04-12 08:13
PROVIDERS: ADMIT Internal Medicine; ATTEND Internal Medicine
PROC: 5A09457 Assistance with Respiratory Ventilation, 24-96 Consecutive Hours, Continuous Positive Airway Pressure (ICD-10-PCS; 2018-04-09)
PROC: 3E0F73Z Introduction of Anti-inflammatory into Respiratory Tract, Via Natural or Artificial Opening (ICD-10-PCS; 2018-04-09)
PROC: 5A1955Z Respiratory Ventilation, Greater than 96 Consecutive Hours (ICD-10-PCS; principal; 2018-04-12)
PROC: 0BH17EZ Insertion of Endotracheal Airway into Trachea, Via Natural or Artificial Opening (ICD-10-PCS; 2018-04-12)
DX: J44.1 Chronic obstructive pulmonary disease with (acute) exacerbation (principal); J18.9 Pneumonia, unspecified organism; J96.21 Acute and chronic respiratory failure with hypoxia; Z78.1 Physical restraint status; I27.20 Pulmonary hypertension, unspecified; J44.0 Chronic obstructive pulmonary disease with (acute) lower respiratory infection; Z66 Do not resuscitate; I25.10 Atherosclerotic heart disease of native coronary artery without angina pectoris; I10 Essential (primary) hypertension; G47.33 Obstructive sleep apnea (adult) (pediatric); E66.01 Morbid (severe) obesity due to excess calories; B95.2 Enterococcus as the cause of diseases classified elsewhere; E87.5 Hyperkalemia; F40.240 Claustrophobia; Z53.29 Procedure and treatment not carried out because of patient's decision for other reasons; I25.2 Old myocardial infarction; Z91.19 Patient's noncompliance with other medical treatment and regimen; Z87.891 Personal history of nicotine dependence; Z79.899 Other long term (current) drug therapy; Z79.51 Long term (current) use of inhaled steroids; Z91.030 Bee allergy status; Z88.8 Allergy status to other drugs, medicaments and biological substances; Z88.6 Allergy status to analgesic agent; Z91.013 Allergy to seafood; Z83.6 Family history of other diseases of the respiratory system; Z82.49 Family history of ischemic heart disease and other diseases of the circulatory system
CPT/HCPCS: 31500; 36415; 36600; 71045; 74176; 80048; 80053; 81001; 82550; 82553; 82803; 82962; 83605; 83735; 83880; 84100; 84132; 84484; 85025; 87040; 87070; 87077; 87086; 87088; 87186; 87205; 87804; 93005; 93010; 94002; 94003; 94640; 94660; 94667; 94668; 94799; 96365; 96375; 99291; J0330; J0360; J0610; J0743; J1644; J1652; J1815; J1940; J1956; J2060; J2250; J2270; J2543; J2704; J2765; J2920; J2930; J3010; J3230; J3475; J3480; J3490; J7030; J7120; J7620; S0164